=== PATIENT | female | born 1950 | race Caucasian/White ===

== ENCOUNTER 2023-08-06 12:06 | Inpatient (IN) | payer OTHER, SELFPAY ==
[2023-08-06] VITALS (10 sets, daily range): BP systolic 94–147; BP diastolic 52–89
--- NOTE | 2023-08-06 09:44 | ED.GENMED ---
History of Present Illness
<Mark Rice DO - Last Filed: 08/06/23 10:22>
General
Chief Complaint: Bowel Problem
Time Seen by Provider: 08/06/23 09:17
<MELONIE Patiño - Last Filed: 08/06/23 11:25>
General
Source: patient, spouse and ambulance crew
Exam Limitations: none
Travel History
Have you had any contact with someone who has COVID-19?: Unable to Answer
Do you have any symptoms of coronavirus? Fever > 100 degrees, chills, cough, shortness of breath, sore throat, loss of taste or smell, muscle aches, or headache?: Unable to Answer
History of Present Illness
History of Present Illness:
Patient is a 73-year-old female brought to the ER by EMS. EMS reports that patient has had low-grade fever for the past several days along with diarrhea.
Patient is awake alert. She complains of feeling fatigued but has no other complaints. She denies any chest pain shortness of breath fever chills. Omid reports the patient is prone to UTIs
<MELONIE Patiño - Last Filed: 08/06/23 11:25>
Past History
ED Past Medical History: HTN, Hypercholesterolemia, NIDDM, Hypothyroidism and Other (Diverticulitis)
ED Past Surgical History: Other
Social History
Tobacco: Non-smoker
Alcohol: None
Personal:
Living: with family
Family History
Family History: Diabetes, Hypertension and CAD
<MELONIE Patiño - Last Filed: 08/06/23 11:25>
Review of Systems
Allergies reviewed?: Yes
Other source history: family
All Other Systems: ROS reviewed and negative except as documented in HPI and ROS
Constitutional: Reports fatigue; Denies fever
EENT: Reports no symptoms
Respiratory: Reports no symptoms
ABD/GI: Reports diarrhea; Denies abdominal pain, nausea or vomiting
: Reports no symptoms
Musculoskeletal: Reports no symptoms
Skin: Reports no symptoms
Neurological: Reports no symptoms
Psychiatric: Reports no symptoms
<Gladys Potter, NAIL MAKER - Last Filed: 08/06/23 11:25>
General Physical Exam
General Presentation: no apparent distress
General age: appears stated age
General Skin: warm
General Habitus: elderly
General Mental: alert
General Hydration: dry mucous membranes
ENT Exam
ENT Exam: EOMI
Cardiovascular Exam
Cardiovascular Exam: tachycardia
Pulmonary Exam
Pulmonary Exam: lungs clear and no respiratory distress
Neurological Exam
Neurological Exam: alert and oriented x3
Musculoskeletal Exam
Musculoskeletal Exam: full ROM
Skin Exam
Skin Exam: normal color and warm/dry
Psychiatric Exam
Psychiatric Exam: normal mood/affect
Course
<Mark Rice, DO - Last Filed: 08/06/23 10:22>
Orders/Labs/Results
Orders:
Orders
08/06/23 09:17
Cardiac Monitoring- Treatment ONCE
IV Insert/Care/Rem.- Treatment PRN
Straight cath- Treatment ONCE
08/06/23 09:18
Electrocardiogram (*1) Urgent
Reason for Study: Other
Other Reason for Exam: sepsis
EKG- Treatment ONCE
CR Chest - 2 Views Urgent
Comment:
Reason For Exam: fever
08/06/23 09:44
0.9% Sodium Chloride 1000 ml [Nss] 1,000 ml IV BOLUS
08/06/23 09:50
COVID-19 Antigen Urgent
Source: Nasal Swab
Complete Blood Count/With Diff Urgent
Comprehensive Metabolic Panel Urgent
Lactic Acid Q4H
Comment: CANCEL 2nd LACTIC ACID IF 1st LACTIC ACID IS LESS THAN 2
Urinalysis Reflex To Culture Urgent
Date Specimen was Collected: 08/06/23
Time Specimen was Collected: 09:46
Urine Microscopic Reflex Cult Urgent
Blood Culture Q30M
NANO Source: Blood/Venous
Specimen Description:
Influenza A+B Rapid Molecular Urgent
NANO Source: Nasal Swab
Specimen Description:
Urine Culture Urgent
NANO Source: U
Specimen Description:
Date Specimen was Collected: 08/06/23
Time Specimen was Collected: 09:46
08/06/23 10:09
Blood Culture Q30M
NANO Source: Blood/Venous
Specimen Description:
08/06/23 10:23
C DIFF [C difficile Antigen & Toxins] Urgent
NANO Source: Feces/Stool
Specimen Description:
CefTRIAXone [Rocephin] 1,000 mg IV NOW STA
08/06/23 10:24
Stool Culture Urgent
NANO Source: Feces/Stool
Specimen Description:
08/06/23 10:40
0.9% Sodium Chloride 500 ml [Nss] 500 ml IV BOLUS
08/06/23 11:16
Acetaminophen 1000MG/100Ml [Ofirmev] 1,000 mg in 100 ml .ROUTE .STK-MED
08/06/23 11:18
Acetaminophen 1000MG/100Ml [Ofirmev] 1,000 mg in 100 ml IV ONCE
Acetaminophen IV Indication:: ED Narcotic Naive Pt-ONCE
08/06/23 13:30
Lactic Acid Q4H
Comment: CANCEL 2nd LACTIC ACID IF 1st LACTIC ACID IS LESS THAN 2
Abnormal Lab Results
08/06/23
09:50
Hgb 10.7 L g/dL
(12.0-16.0)
Hct 30.8 L %
(37.0-47.0)
MCV 72.8 L fL
(81.0-99.0)
MCH 25.3 L pg
(27.0-31.0)
RDW 15.2 H %
(11.5-14.5)
MPV 11.1 H fL
(7.4-10.4)
Abs Immat Gran (auto) 0.1 H 10^3/uL
(0-0.05)
Absolute Neuts (auto) 6.9 H 10^3/uL
(1.4-6.5)
Absolute Lymphs (auto) 1.0 L 10^3/uL
(1.2-3.4)
Absolute Monos (auto) 0.8 H 10^3/uL
(0.1-0.6)
Immature Gran % 0.9 H %
(0-0.5)
Neutrophils % 78.3 H %
(42.2-75.2)
Lymphocytes % 11.6 L %
(20.5-51.1)
Sodium 126 L mmol/L
(135-145)
Carbon Dioxide 15 L mmol/L
(22-30)
Glucose 300 H mg/dl
(70-99)
Lactic Acid 4.0 H* mmol/L
(0.7-2.0)
Albumin 3.3 L g/dl
(3.5-5.0)
Urine Ketones Trace A
(Negative)
Ur Occult Blood Reflex 3+ A
(Negative)
Urine Nitrite (Reflex) Positive A
(Negative)
Leukocyte Esterase Rfl 2+ A
(Negative)
Urine RBC 70-80 A /HPF
(0-2)
Urine WBC (Reflex) >100 A /HPF
(0-5)
Urine Bacteria (Reflex) Many A
(Negative)
Urine Glucose 1+ A
(Negative)
Urine Albumin (Reflex) 2+ A
(Neg - Trace)
08/06/23 09:50
08/06/23 09:50
Vital Signs
Initial and Last Documented VS:
Initial Vital Signs
Temp Pulse Resp BP Pulse Ox
98.3 F 107 18 121/75 96
08/06/23 09:30 08/06/23 09:30 08/06/23 09:30 08/06/23 09:30 08/06/23 09:30
Last Documented Vital Signs
Temp Pulse Resp BP Pulse Ox
98.1 F 106 20 120/52 96
08/06/23 10:46 08/06/23 10:45 08/06/23 10:45 08/06/23 10:51 08/06/23 10:45
<MELONIE Patiño - Last Filed: 08/06/23 11:25>
Orders/Labs/Results
Orders:
Orders
08/06/23 09:17
Cardiac Monitoring- Treatment ONCE
IV Insert/Care/Rem.- Treatment PRN
Straight cath- Treatment ONCE
08/06/23 09:18
Electrocardiogram (*1) Urgent
Reason for Study: Other
Other Reason for Exam: sepsis
EKG- Treatment ONCE
CR Chest - 2 Views Urgent
Comment:
Reason For Exam: fever
08/06/23 09:44
0.9% Sodium Chloride 1000 ml [Nss] 1,000 ml IV BOLUS
08/06/23 09:50
COVID-19 Antigen Urgent
Source: Nasal Swab
Complete Blood Count/With Diff Urgent
Comprehensive Metabolic Panel Urgent
Lactic Acid Q4H
Comment: CANCEL 2nd LACTIC ACID IF 1st LACTIC ACID IS LESS THAN 2
Urinalysis Reflex To Culture Urgent
Date Specimen was Collected: 08/06/23
Time Specimen was Collected: 09:46
Urine Microscopic Reflex Cult Urgent
Blood Culture Q30M
NANO Source: Blood/Venous
Specimen Description:
Influenza A+B Rapid Molecular Urgent
NANO Source: Nasal Swab
Specimen Description:
Urine Culture Urgent
NANO Source: U
Specimen Description:
Date Specimen was Collected: 08/06/23
Time Specimen was Collected: 09:46
08/06/23 10:09
Blood Culture Q30M
NANO Source: Blood/Venous
Specimen Description:
08/06/23 10:23
C DIFF [C difficile Antigen & Toxins] Urgent
NANO Source: Feces/Stool
Specimen Description:
CefTRIAXone [Rocephin] 1,000 mg IV NOW STA
08/06/23 10:24
Stool Culture Urgent
NANO Source: Feces/Stool
Specimen Description:
08/06/23 10:40
0.9% Sodium Chloride 500 ml [Nss] 500 ml IV BOLUS
08/06/23 11:16
Acetaminophen 1000MG/100Ml [Ofirmev] 1,000 mg in 100 ml .ROUTE .STK-MED
08/06/23 11:18
Acetaminophen 1000MG/100Ml [Ofirmev] 1,000 mg in 100 ml IV ONCE
Acetaminophen IV Indication:: ED Narcotic Naive Pt-ONCE
08/06/23 13:30
Lactic Acid Q4H
Comment: CANCEL 2nd LACTIC ACID IF 1st LACTIC ACID IS LESS THAN 2
Abnormal Lab Results
08/06/23
09:50
Hgb 10.7 L g/dL
(12.0-16.0)
Hct 30.8 L %
(37.0-47.0)
MCV 72.8 L fL
(81.0-99.0)
MCH 25.3 L pg
(27.0-31.0)
RDW 15.2 H %
(11.5-14.5)
MPV 11.1 H fL
(7.4-10.4)
Abs Immat Gran (auto) 0.1 H 10^3/uL
(0-0.05)
Absolute Neuts (auto) 6.9 H 10^3/uL
(1.4-6.5)
Absolute Lymphs (auto) 1.0 L 10^3/uL
(1.2-3.4)
Absolute Monos (auto) 0.8 H 10^3/uL
(0.1-0.6)
Immature Gran % 0.9 H %
(0-0.5)
Neutrophils % 78.3 H %
(42.2-75.2)
Lymphocytes % 11.6 L %
(20.5-51.1)
Sodium 126 L mmol/L
(135-145)
Carbon Dioxide 15 L mmol/L
(22-30)
Glucose 300 H mg/dl
(70-99)
Lactic Acid 4.0 H* mmol/L
(0.7-2.0)
Albumin 3.3 L g/dl
(3.5-5.0)
Urine Ketones Trace A
(Negative)
Ur Occult Blood Reflex 3+ A
(Negative)
Urine Nitrite (Reflex) Positive A
(Negative)
Leukocyte Esterase Rfl 2+ A
(Negative)
Urine RBC 70-80 A /HPF
(0-2)
Urine WBC (Reflex) >100 A /HPF
(0-5)
Urine Bacteria (Reflex) Many A
(Negative)
Urine Glucose 1+ A
(Negative)
Urine Albumin (Reflex) 2+ A
(Neg - Trace)
08/06/23 09:50
08/06/23 09:50
Vital Signs
Initial and Last Documented VS:
Initial Vital Signs
Temp Pulse Resp BP Pulse Ox
98.3 F 107 18 121/75 96
08/06/23 09:30 08/06/23 09:30 08/06/23 09:30 08/06/23 09:30 08/06/23 09:30
Last Documented Vital Signs
Temp Pulse Resp BP Pulse Ox
98.1 F 106 20 120/52 96
08/06/23 10:46 08/06/23 10:45 08/06/23 10:45 08/06/23 10:51 08/06/23 10:45
Boiler Fireman consulted with Physician
Boiler Fireman consulted with physician?: Yes
Name of Physician Consulted: Dwayne
<MELONIE Patiño - Last Filed: 08/06/23 11:25>
MDM/Problems Addressed
Differential Diagnosis Includes:
Not limited to COVID influenza viral syndrome UTI [place] abnormality
MDM/Problems Addressed:
Patient is a 73-year-old female presents from home with complaints of low-grade fevers diarrhea weakness. Patient presents to the ER awake alert she appears very dehydrated on exam. She was incontinent of foul-smelling urine on arrival. Patient
arrives afebrile mildly tachycardic with stable blood pressure. Straight cath urine does show obvious UTI. Patient with a normal white count of 8.9 however elevated lactic acid of 4.0, also likely component of dehydration. Patient sodium is low
at 126.
Lungs are clear no history of CHF not hypoxic given mildly tachycardic and blood pressure on the lower side patient was given septic fluids. IV antibiotics ordered. Patient is negative for COVID flu. Nurse reports that patient was incontinent
brown stool heme-negative. In addition patient has elevated blood sugar of 300. She is a known diabetic.
Patient will require admission for UTI weakness dehydration hyponatremia, hyperglycemia
Chronic conditions affecting care:
Frequent UTI hypertension hyperlipidemia diabetes
<MELONIE Patiño - Last Filed: 08/06/23 11:25>
*Critical Care Note
Total Time (30-74mins, 75-104mins- exclusive of procedures): Not Applicable
ED Attending Note
<Mark Rice DO - Last Filed: 08/06/23 10:22>
ED Attending Note
Patient seen and examined by attending physician: Yes
I performed the substantive portion of visit, reviewed & personally made and approve the management plan that is documented in note by myself or VIRIDIANA.: Yes
ED Attending Note:
I have seen and evaluated the patient with a [id number] encounter. I have spoken to the advance practicer provider and involved in the medical history, the physical exam, medical decision making.
Evaluation and management service: agree unless noted differently below.
Results interpretation: agree unless noted differently below.
Focused HPI: 73-year-old female presenting with diarrhea and decreased p.o. intake. Patient has been developing low-grade fevers.
Physical exam: On arrival, patient weak and fatigued. She is clinically dehydrated. Patient has malodorous smell consistent with suspected UTI
Medical Decision Making: Urine consistent with UTI. Prior records show history of UTI secondary to Klebsiella which has brought sensitivity. Will continue IV fluids and start IV antibiotics and admit for weakness, fatigue, dehydration and UTI
<MELONIE Patiño - Last Filed: 08/06/23 11:25>
-
Portions of this chart may have been created with voice recognition software.� Occasional wrong word or��sound alike� substitutions may have occurred due to the inherent limitations of voice recognition software.
Discharge Plan
Departure
Patient Disposition: Admit
Date of Disposition: 08/06/23
Time of Disposition: 10:44
Admit to: Med/Surg
Admit to doctor: hosptalist
Presentation/result/management discussed w/ accepting MD/DO: Hospitalist
Patient with high blood pressure during this ER visit?: No
Condition: Fair
Covid-19: Negative COVID-19
Discharge Problem:
Acute UTI, Acute dehydration, Diarrhea, Acute hyperglycemia
Prescriptions:
No Action
folic acid 1 MG tablet
1 mg PO DAILY
loratadine 10 MG tablet
10 mg PO DAILY PRN (Reason: allergies)
acetaminophen [Tylenol] 325 mg Tablet
650 mg PO TIDPRN PRN (Reason: mild pain)
atorvastatin 10 mg Tablet
10 mg PO HS
aspirin 81 mg Tablet,Delayed Release (Dr/Ec)
81 mg PO HS
amlodipine-benazepril 5-20 mg Capsule
1 cap PO DAILY
metformin 1,000 mg Tablet
1,000 mg PO BID@0800,1700
bismuth subsalicylate [Pepto-Bismol] 262 mg/15 mL Suspension
524 mg PO BIDPRN PRN (Reason: diarrhea)
iron 159 mg (45 mg iron) Tablet Extended Release
159 mg PO BID
cholecalciferol (vitamin D3) 100 mcg (4,000 unit) Tablet
100 mcg PO BID
levothyroxine 112 MCG tablet
112 mcg PO DAILY
Referrals:
Qamar Hanks MD [Family Provider] -
Interventions
Interventions:
*Risk Screen - Suicide Last Done: 08/06/23 09:57
*General Assessment Last Done: 08/06/23 10:17
*Neglect/Abuse Screening Last Done: 08/06/23 09:57
ED- Fall Risk Assessment Last Done: 08/06/23 10:10
*ED COVID-19 Vaccine History Last Done: 08/06/23 09:31
JD-Iuptzv-Trvfynsugf Assessment Last Done: 08/06/23 09:56
ED- Cardiac Assessment Last Done: 08/06/23 09:55
ED- Neurological Assessment Last Done: 08/06/23 09:55
ED- Pulmonary Assessment Last Done: 08/06/23 09:55
[2023-08-06 10:03] LABS: % Basophils 0.5 % (0-2); % Eosinophils 0.2 % (0-6); % Immature Granulocytes 0.9 % (0-0.5); % Lymphocytes 11.6 % (20.5-51.1); % Monocytes 8.5 % (1.7-9.3); % Neutrophils 78.3 % (42.2-75.2); Absolute Immature Granulocytes 0.1 10^3/uL (0-0.05); Absolute Monocytes 0.8 10^3/uL (0.1-0.6); Absolute Neutrophils 6.9 10^3/uL (1.4-6.5); Hematocrit 30.8 % (37.0-47.0); Hemoglobin 10.7 g/dL (12.0-16.0); Mean Corp Hgb Conc. 34.7 g/dL (33.0-37.0); Mean Corpuscular Hgb 25.3 pg (27.0-31.0); Mean Corpuscular Volume 72.8 fL (81.0-99.0); Mean Platelet Volume 11.1 fL (7.4-10.4); Nucleated Red Blood Cells % 0 %; Platelet Count 238 10^3/uL (130-400); Red Blood Cell Count 4.23 10^6/uL (4.20-5.40); Red Cell Dist. Width 15.2 % (11.5-14.5); White Blood Cell Count 8.8 10^3/uL (4.8-10.8)
[2023-08-06] MEDS: NSS 1000 IV (10:05)
[2023-08-06 10:06] LABS: Urine Albumin 2+ (Neg - Trace); Urine Bilirubin Negative (Negative); Urine Character Very Cloudy (Clear); Urine Color Yellow; Urine Glucose 1+ (Negative); Urine Ketone Trace (Negative); Urine Leukocyte 2+ (Negative); Urine Nitrite Positive (Negative); Urine Occult Blood 3+ (Negative); Urine Urobilinogen Negative (Neg - 1+)
[2023-08-06 10:18] LABS: ALT (SGPT) 13 U/L (0-35); AST (SGOT) 18 U/L (14-36); Albumin 3.3 g/dl (3.5-5.0); Alkaline Phosphatase 86 U/L (38-126); Blood Urea Nitrogen 13 mg/dl (7-17); Calcium 8.6 mg/dl (8.4-10.2); Carbon Dioxide 15 mmol/L (22-30); Chloride 99 mmol/L (98-107); Glucose 300 mg/dl (70-99); Potassium 3.6 mmol/L (3.5-5.1); Sodium 126 mmol/L (135-145); Total Bilirubin 0.9 mg/dl (0.2-1.3); Total Protein 6.7 g/dl (6.3-8.2); Urine Squamous Cell 0-2 /LPF (Few); eGFR 59.12
[2023-08-06 10:20] LABS: Urine Amorphous Seen; Urine Bacteria Many (Negative); Urine Red Blood Cell 70-80 /HPF (0-2); Urine White Cell >100 /HPF (0-5)
[2023-08-06] MEDS: ROCEPHIN 1000 MG IV (10:34)
[2023-08-06 10:36] LABS: COVID-19 Antigen Negative (Negative)
[2023-08-06] MEDS: NSS 500 IV (10:45)
[2023-08-06] MEDS: OFIRMEV 100 IV ×2 (11:25→23:03)
--- NOTE | 2023-08-06 13:57 | HPS.HSE ---
Family Physician
-
Family Physician: Qamar Hanks
Chief Complaint
-
�low-grade fever for the past several days along with diarrhea
History of Present Illness
73-year-old female history of hypertension, hyperlipidemia, diabetes, morbid obesity hypothyroidism, history of diverticulitis in the past now presents for complaints of several days of diarrhea, low-grade fever. Also notes, admits to feeling
fatigued. Denies shortness of breath, chills, chest pain, urinary symptoms. Of note does report patient is prone to UTIs. Patient does have temperature 100.9 �F, respiratory rate 20, pulse 106, blood pressure 120/52, 98% on room air.
Sodium 126, glucose 300, lactate 4.0, UA positive. COVID-negative. X-ray grossly unremarkable for acute pathology.
Medical History
Past Medical History
Past Medical History: Reports Other (hypertension, hyperlipidemia, diabetes, morbid obesity hypothyroidism, history of diverticulitis)
Past Surgical History: Reports None
Social History
Tobacco: Non-smoker
Alcohol: None
Personal:
Living: With Family
Family History
Family History: Not pertinent
Allergies / Home Medications
Allergies reflects when Allergies were last updated in [email or web address].
Home Medications with original date entered in [email or web address]
Allergy/Medication List:
Allergies
Allergy/AdvReac Type Severity Reaction Status Date / Time
hydrochlorothiazide Allergy Mild Rash Verified 09/22/22 13:00
celecoxib [From Celebrex] Allergy Shortness Verified 09/22/22 13:00
of Breath
gold Au 198 Allergy Rash Verified 09/22/22 13:00
nickel Allergy Rash Verified 09/22/22 13:00
Sulfa (Sulfonamide Allergy breathing Verified 09/22/22 13:00
Antibiotics)
Home Medications
folic acid 1 mg tablet 1 mg PO DAILY Supplement 11/13/16
loratadine 10 mg tablet 10 mg PO DAILY PRN allergies 11/13/16
acetaminophen 325 mg tablet (Tylenol) 650 mg PO TIDPRN PRN mild pain 08/06/23
amlodipine 5 mg-benazepril 20 mg capsule 1 cap PO DAILY Blood Pressure 08/06/23
aspirin 81 mg tablet,delayed release 81 mg PO HS 08/06/23
atorvastatin 10 mg tablet 10 mg PO HS High Cholesterol 08/06/23
bismuth subsalicylate 262 mg/15 mL oral suspension (Pepto-Bismol) 524 mg PO BIDPRN PRN diarrhea 08/06/23
cholecalciferol (vitamin D3) 100 mcg (4,000 unit) tablet 100 mcg PO BID Supplement 08/06/23
ferrous sulfate, dried 159 mg (45 mg iron) tablet,extended release (iron ER) 159 mg PO BID Supplement 08/06/23
levothyroxine 112 mcg tablet 112 mcg PO DAILY Thyroid 08/06/23
metformin 1,000 mg tablet 1,000 mg PO BID@0800,1700 Diabetes 08/06/23
Review of Systems
-
History Source: Patient
A 12 point ROS was completed and negative except as noted: Yes
Physical Exam
Vital Signs
Vital Signs
Temp Pulse Resp BP Pulse Ox
100.9 F H 106 20 120/52 96
08/06/23 11:00 08/06/23 10:45 08/06/23 10:45 08/06/23 10:51 08/06/23 10:45
Physical Exam
General: Well Developed, Well Nourished and No Apparent Distress
HEENT: NormoCephalic
Respiratory: Clear
Cardiac: S1/S2
GI: Soft, Non Tender and Non Distended
Musculoskeletal: No Clubbing
Skin: Warm
Neuro: Awake, Alert, Oriented and AO x 3
Hematologic/Lymphatic: No Lymphadenopathy
Psych: Calm
Laboratory Results
-
08/06/23 09:50
08/06/23 09:50
Laboratory Results
Lactic Acid 4.0 mmol/L (0.7-2.0) H* 08/06/23 09:50
Total Bilirubin 0.9 mg/dl (0.2-1.3) 08/06/23 09:50
AST 18 U/L (14-36) 08/06/23 09:50
ALT 13 U/L (0-35) 08/06/23 09:50
Alkaline Phosphatase 86 U/L (38-126) 08/06/23 09:50
Data Reviewed
-
Diagnostic Radiology: Image Personally Visualized and interpreted and Report Reviewed by me
Lab Data: Labs Reviewed by me
Impression/Plan
-
IMPRESSION:
73-year-old female history of hypertension, hyperlipidemia, diabetes, morbid obesity hypothyroidism, history of diverticulitis in the past now presents for complaints of several days of diarrhea, low-grade fever. Admitted for sepsis, most likely
secondary to UTI.
PLAN:
#Sepsis
#Elevated lactate
#UTI
� UA positive
� Follow-up cultures including blood and urine
� Initiate ceftriaxone
� Ensure MAP greater than 65
� Hold antihypertensives at this time
� Continue IV fluids
#Diarrhea
� Follow-up C. difficile, stool cultures
� Continue Ceftriaxone
� Abdomen nontender
#Hyponatremia
� Most likely secondary to dehydration, hypovolemia
� Monitor with resuscitation, IV fluids
#Hypertension
� Hold antihypertensives
#Diabetes�hold metformin
Scale
#Hypothyroidism�continue Synthroid
#Morbid obesity
[2023-08-06 14:08] LABS: Lactic Acid 2.5 mmol/L (0.7-2.0)
[2023-08-06] MEDS: HEPARIN 5000 UNITS SC (16:42)
[2023-08-06] MEDS: LR 1000 IV (16:42)
[2023-08-06 16:45] LABS: Glucose - Point of Care 245 mg/dl (70-99)
[2023-08-06] MEDS: NOVOLOG FLEXPEN-LOW RESISTANCE 2 UNITS SC (17:09)
[2023-08-06 18:04] LABS: TSH Reflex To Free T4 8.85 uIU/ml (0.47-4.68)
[2023-08-06 18:33] LABS: Free T4 1.55 ng/dl (0.78-2.19)
[2023-08-06] MEDS: FEOSOL PO (19:28)
[2023-08-06] MEDS: LIPITOR PO (19:29)
[2023-08-06] MEDS: ASPIR LOW (ENTERIC COATED) PO (19:29)
[2023-08-06] MEDS: DESENEX/MITRAZOL/ZEASORB 1 APPLIC TOPICAL (20:37)
[2023-08-06 21:37] LABS: Lactic Acid 1.6 mmol/L (0.7-2.0)
[2023-08-07] VITALS (7 sets, daily range): BP systolic 112–161; BP diastolic 53–84; PULSE 99
[2023-08-07 00:17] LABS: Glucose - Point of Care 289 mg/dl (70-99)
[2023-08-07] MEDS: HEPARIN 5000 UNITS SC ×4 (01:05→23:30)
[2023-08-07 04:55] LABS: Hemoglobin 9.4 g/dL (12.0-16.0); Mean Corp Hgb Conc. 33.6 g/dL (33.0-37.0); Mean Corpuscular Hgb 24.9 pg (27.0-31.0); Mean Corpuscular Volume 74.1 fL (81.0-99.0); Mean Platelet Volume 11.4 fL (7.4-10.4); Platelet Count 251 10^3/uL (130-400); Red Blood Cell Count 3.78 10^6/uL (4.20-5.40); White Blood Cell Count 9.3 10^3/uL (4.8-10.8)
[2023-08-07] MEDS: LR 1000 IV ×3 (05:14→21:34)
[2023-08-07 05:15] LABS: ALT (SGPT) 10 U/L (0-35); AST (SGOT) 15 U/L (14-36); Albumin 2.6 g/dl (3.5-5.0); Alkaline Phosphatase 81 U/L (38-126); Blood Urea Nitrogen 15 mg/dl (7-17); Calcium 8.3 mg/dl (8.4-10.2); Carbon Dioxide 16 mmol/L (22-30); Chloride 100 mmol/L (98-107); Estimated Creatinine Clearance 55 ml/min; Glucose 269 mg/dl (70-99); Magnesium 1.2 mg/dl (1.6-2.3); Potassium 3.1 mmol/L (3.5-5.1); Sodium 129 mmol/L (135-145); Total Bilirubin 0.7 mg/dl (0.2-1.3); Total Protein 5.5 g/dl (6.3-8.2); eGFR 52.73
[2023-08-07] MEDS: SYNTHROID PO (05:15)
[2023-08-07 07:37] LABS: Glucose - Point of Care 265 mg/dl (70-99)
[2023-08-07] MEDS: FOLVITE PO (08:20)
[2023-08-07] MEDS: FEOSOL PO (08:20)
[2023-08-07] MEDS: MAGNESIUM SULFATE 100 IV (08:44)
[2023-08-07] MEDS: NOVOLOG FLEXPEN-LOW RESISTANCE 3 UNITS SC ×2 (08:48→11:34)
[2023-08-07] MEDS: DESENEX/MITRAZOL/ZEASORB 1 APPLIC TOPICAL ×2 (08:51→20:26)
[2023-08-07] MEDS: KCL 270 MEQ IV (09:00)
--- NOTE | 2023-08-07 09:13 | PTOTSP ---
Dysphagia Evaluation
Patient presents with signs concerning for mild oral stage differences and reports a history concerning for a possible unspecified pharyngeal dysphagia. She denied any prior history of aspiration complications and chest x-ray this admission with no
acute pulmonary process.
With clinical bedside swallowing evaluation, no immediate s/s of aspiration observed with thin liquids, puree, or solids. However, patient had prolonged chewing, decreased bolus cohesion, and decreased oral clearance with solids. Suspect acute
illness impacting at this time.
Recommend:
1. IDDSI Level 5 (Minced and Moist), IDDSI Level 0 (Thin Liquids)
2. Medications - crushed in puree if medically cleared to do so
3. Oral care 3-5x daily
4. Supervision and assistance as needed with PO intake
5. Strategies: small single sips/bites, slow rate, liquid wash as needed for oral clearance
6. Dysphagia tx follow up to determine if/when patient appropriate to advance diet towards baseline (regular, thin).
[2023-08-07] MEDS: FLUSH (NSS) 1 FLUSH IV ×2 (11:00)
[2023-08-07] MEDS: ROCEPHIN 1000 MG IV (11:05)
[2023-08-07] MEDS: STERILE WATER FOR INJECTION 10 ML IV (11:05)
[2023-08-07 11:26] LABS: Glucose - Point of Care 271 mg/dl (70-99)
--- NOTE | 2023-08-07 11:38 | CM ---
Reviewed the chart notes and spoke with the patient at the bedside. The patient resides with her spouse in a first floor apartment with no steps to enter. The patient has a rolling walker, electric scooter, shower chair, and shower rails. The
patient has had [facility] in the past. The patient reports a short stay in a [facility] called [facility]. The patient confirmed her pharmacy of choice is the [facility] [address] [facility]. continues to be available to
patient/family and is monitoring medical plan for needs at discharge.
Plan: Discharge plans will depend on the patient's progress.
--- NOTE | 2023-08-07 13:07 | W.PN.HOSP.TC ---
Today's Communication/Plan
-
cont ivf, abx
f/u cultures
Electrolyte repletion
Assessment / Plan
Assessment / Plan
Physical Exam
General: Well Developed, Well Nourished and No Apparent Distress
HEENT: NormoCephalic
Respiratory: Clear
Cardiac: S1/S2
GI: Soft, Non Tender and Non Distended
Musculoskeletal: No Clubbing
Skin: Warm
Neuro: Awake, Alert, Oriented and AO x 3
Hematologic/Lymphatic: No Lymphadenopathy
Psych: Calm
IMPRESSION:
73-year-old female history of hypertension, hyperlipidemia, diabetes, morbid obesity hypothyroidism, history of diverticulitis in the past now presents for complaints of several days of diarrhea, low-grade fever.� Admitted for sepsis, most likely
secondary to UTI.
PLAN:
#Sepsis
#Elevated lactate
#UTI
� UA positive
� Follow-up cultures including blood and urine
� Cont ceftriaxone
� Ensure MAP greater than 65
-Cont IVF
� Lactate improve
#Diarrhea
� C. difficile, stool cultures - negative
� resolved
-abd non tender
#Hyponatremia
� Most likely secondary to dehydration, hypovolemia
� Monitor with resuscitation, IV fluids
-improving
#Hypokalemia, acute
#Hypomagnesemia, acute
� Monitor and replete
#Hypertension
� Continue can resume amlodipine
#Diabetes�hold metformin
Scale
#Hypothyroidism�continue Synthroid
#Morbid obesity
More than 30 minutes spent in discharge including
Final examination of the patient
Summarizing hospital stay
Instructions for continuing care to all relevant caregivers
Preparation of discharge records, prescriptions, and referral forms
Total time spent (35 in minutes):
Anticipated Discharge: 24 - 48 hours
Subjective/Interval History
-
Date of Service: August 07, 2023
Patient feels much better today
Objective Data
-
Labs:
Laboratory Results
08/07/23
04:24
WBC 9.3
Hgb 9.4 L
Hct 28.0 L
Plt Count 251
Sodium 129 L
Potassium 3.1 L
Chloride 100
Carbon Dioxide 16 L
BUN 15
Creatinine 1.1 H
Glucose 269 H
Calcium 8.3 L
Total Bilirubin 0.7
AST 15
ALT 10
Alkaline Phosphatase 81
Vital Signs:
Vital Signs
Temp Pulse Resp BP Pulse Ox
100.2 F 118 20 161/84 94
08/07/23 11:21 08/07/23 11:21 08/07/23 11:21 08/07/23 11:21 08/07/23 11:21
I&O
08/06/23 08/07/23 08/08/23
06:59 06:59 06:59
Intake Total 1060 / 1060
Balance 1060 / 1060
Review of Systems
-
History Source: Patient
All other systems: Not reviewed unless documented
Data Reviewed
-
Diagnostic Radiology: Image personally visualized and interpreted and Report Reviewed by me
Labs: Labs Reviewed by me
[2023-08-07] MEDS: NORVASC 5 MG PO (13:38)
[2023-08-07] MEDS: TYLENOL 650 MG PO ×2 (13:47→20:27)
[2023-08-07 16:43] LABS: Glucose - Point of Care 270 mg/dl (70-99)
[2023-08-07] MEDS: NOVOLOG FLEXPEN-LOW RESISTANCE 300 UNITS SC (17:50)
[2023-08-07] MEDS: FEOSOL 325 MG PO (20:26)
[2023-08-07] MEDS: VITAMIN D3 (cholecalciferol) 100 MCG PO (20:26)
[2023-08-07 21:30] LABS: Glucose - Point of Care 239 mg/dl (70-99)
[2023-08-07] MEDS: ASPIR LOW (ENTERIC COATED) PO ×2 (23:30→23:36)
[2023-08-07] MEDS: LIPITOR 10 MG PO (23:30)
[2023-08-08] VITALS (10 sets, daily range): BP systolic 115–160; BP diastolic 57–85; PULSE 2–100; O2SAT 93
[2023-08-08] MEDS: TYLENOL 650 MG PO ×3 (01:36→22:39)
--- NOTE | 2023-08-08 02:41 | PTCARENOTE ---
At approximately 2230, Patient's POX noted to be 83-88 on 3L NC. Patient mildly tachypneic with respiratory rate 24-28. Patient offering no complaints at that time. Patient's O2 turned up to 6L NC - Patient's POX approximately 86-92 on 6L NC.
Patient placed on 15L NRB and 6L NC - POX approximately 93-96 on 15L NRB and 6L NC. PARTICIPANT ADMINISTRATOR notified. Respiratory notified. Portable CXR ordered and taken. PRN breathing treatments ordered. CPAP HS PRN ordered. Patient able to be taken of 15L NRB - POX
approximately 94% on 6L NC. Respiratory to room to place patient on CPAP - placed on CPAP @ 8 w/ 6L. Patient tolerated well for approximately 4 hours. Patient currently on 6L NC w/ POX 94-97%.
[2023-08-08] MEDS: SYNTHROID 112 MCG PO (06:30)
[2023-08-08] MEDS: LR 1000 IV ×2 (06:32→17:35)
[2023-08-08 07:59] LABS: Hematocrit 28.3 % (37.0-47.0); Hemoglobin 9.5 g/dL (12.0-16.0); Mean Corp Hgb Conc. 33.6 g/dL (33.0-37.0); Mean Corpuscular Hgb 25.3 pg (27.0-31.0); Mean Corpuscular Volume 75.5 fL (81.0-99.0); Mean Platelet Volume 11.1 fL (7.4-10.4); Platelet Count 229 10^3/uL (130-400); Red Blood Cell Count 3.75 10^6/uL (4.20-5.40); Red Cell Dist. Width 15.2 % (11.5-14.5); White Blood Cell Count 5.6 10^3/uL (4.8-10.8)
[2023-08-08 08:12] LABS: ALT (SGPT) 13 U/L (0-35); AST (SGOT) 21 U/L (14-36); Albumin 2.9 g/dl (3.5-5.0); Alkaline Phosphatase 92 U/L (38-126); Blood Urea Nitrogen 12 mg/dl (7-17); Carbon Dioxide 20 mmol/L (22-30); Chloride 100 mmol/L (98-107); Estimated Creatinine Clearance 60 ml/min; Glucose 238 mg/dl (70-99); Magnesium 1.9 mg/dl (1.6-2.3); Potassium 3.1 mmol/L (3.5-5.1); Sodium 128 mmol/L (135-145); Total Bilirubin 0.6 mg/dl (0.2-1.3); Total Protein 5.9 g/dl (6.3-8.2); eGFR 59.12
[2023-08-08] MEDS: STERILE WATER FOR INJECTION 10 ML IV (09:38)
[2023-08-08] MEDS: ROCEPHIN 1000 MG IV (09:38)
[2023-08-08] MEDS: HEPARIN 5000 UNITS SC ×3 (09:38→22:39)
[2023-08-08] MEDS: NORVASC 5 MG PO (09:41)
[2023-08-08] MEDS: FEOSOL 325 MG PO ×2 (09:41→20:59)
[2023-08-08] MEDS: VITAMIN D3 (cholecalciferol) 100 MCG PO ×2 (09:41→20:59)
[2023-08-08] MEDS: FOLVITE 1 MG PO (09:41)
[2023-08-08] MEDS: NOVOLOG FLEXPEN-LOW RESISTANCE 2 UNITS SC ×2 (10:28→17:32)
[2023-08-08 10:29] LABS: Glucose - Point of Care 239 mg/dl (70-99)
[2023-08-08] MEDS: FLUSH (NSS) 1 FLUSH IV ×2 (10:30→11:39)
[2023-08-08] MEDS: DESENEX/MITRAZOL/ZEASORB 1 APPLIC TOPICAL ×2 (10:32→21:00)
[2023-08-08] MEDS: NOVOLOG FLEXPEN-LOW RESISTANCE SC (11:53)
--- NOTE | 2023-08-08 12:09 | W.PN.HOSP.TC ---
Today's Communication/Plan
-
f/u urine cultures
ensure no fever x 48 hours
monitor Na with resuscitation
Assessment / Plan
Assessment / Plan
Physical Exam
General: Well Developed, Well Nourished and No Apparent Distress
HEENT: NormoCephalic
Respiratory: Clear
Cardiac: S1/S2
GI: Soft, Non Tender and Non Distended
Musculoskeletal: No Clubbing
Skin: Warm
Neuro: Awake, Alert, Oriented and AO x 3
Hematologic/Lymphatic: No Lymphadenopathy
Psych: Calm
IMPRESSION:
73-year-old female history of hypertension, hyperlipidemia, diabetes, morbid obesity hypothyroidism, history of diverticulitis in the past now presents for complaints of several days of diarrhea, low-grade fever.� Admitted for sepsis, most likely
secondary to UTI.
PLAN:
#Sepsis
#Elevated lactate
#UTI
� UA positive; follow-up cultures
� Blood cultures no growth to date
� Cont ceftriaxone
� Ensure MAP greater than 65
-Cont IVF
� Lactate improved
�Lower extremity Dopplers negative
#Hypoxia
� Doubt this is pneumonia; atelectasis seen on x-ray
� I suspect this is due to underlying JACK versus OHS
� Nocturnal O2 assessment placed�wean O2
-Incentive spirometer
�Speech evaluation is continuing
#Diarrhea
� C. difficile, stool cultures - negative
� resolved
-abd non tender
#Hyponatremia
� Most likely secondary to dehydration, hypovolemia
� Monitor with resuscitation, IV fluids
-improving, ctm
#Hypokalemia, acute
#Hypomagnesemia, acute
� Monitor and replete
#Hypertension
� Continue can resume amlodipine
#Diabetes�hold metformin
-AISS
Scale
#Hypothyroidism�continue Synthroid
#Morbid obesity
Anticipated Discharge: 24 - 48 hours
Subjective/Interval History
-
Date of Service: August 08, 2023
Spiking pressure 100.9 yesterday evening, became mildly hypoxic�atelectasis on x-ray. No DVT; feels well today
Objective Data
-
Labs:
Laboratory Results
08/08/23
07:39
WBC 5.6
Hgb 9.5 L
Hct 28.3 L
Plt Count 229
Sodium 128 L
Potassium 3.1 L
Chloride 100
Carbon Dioxide 20 L
BUN 12
Creatinine 1.0
Glucose 238 H
Calcium 8.0 L
Total Bilirubin 0.6
AST 21
ALT 13
Alkaline Phosphatase 92
Vital Signs:
Vital Signs
Temp Pulse Resp BP Pulse Ox
99.2 F 106 18 160/85 94
08/08/23 11:20 08/08/23 11:20 08/08/23 11:20 08/08/23 11:20 08/08/23 11:20
I&O
08/07/23 08/08/23 08/09/23
06:59 06:59 06:59
Intake Total 1060 / 1060 540 / 540
Balance 1060 / 1060 540 / 540
Review of Systems
-
History Source: Patient
All other systems: Not reviewed unless documented
Data Reviewed
-
Diagnostic Radiology: Image personally visualized and interpreted and Report Reviewed by me
Labs: Labs Reviewed by me
[2023-08-08] MEDS: KCL ELIXIR 40 MEQ PO (12:55)
[2023-08-08 16:29] LABS: Glucose - Point of Care 237 mg/dl (70-99)
--- NOTE | 2023-08-08 17:50 | W.PN.UPDATE ---
Update Note
Progress Note Update
I was called patient desaturated in the 70's and placed on 6 Lt oxygen and still desat to 70-80%. Patient currently feels short of breath but denies chest pain. She feels fatigue. She is alert. Noticed she was admitted with sepsis suspected due
to UTI and receiving IV fluids and IV antibiotics of IV ceftriaxone. I have been told that she had a transient episode of hypoxia and was treated with CPAP at some point. Her admission chest x-ray with left atelectasis. She has been appropriately
on heparin subcutaneously for DVT prophylaxis.
Physical exam:
General: Acutely ill
Respiratory: Tachypnea, increased work of breathing but surprisingly not in distress. Decreased breath sounds bilateral. Clear to Auscultation though; Negative Wheezes, Rales or Rhonchi
Cardiac: Regular Rhythm and S1/S2. JVD is not elevated.
GI: Soft, Nontender and Nondistended
Neuro: Awake, Alert and Oriented, no focal neuro-deficits.
A/P:
Acute hypoxic respiratory failure--> unclear etiology but needs to entertain PE or JACK/OHS; it does not appear to be an aspiration pneumonia or heart failure on exam but will follow-up after workup. Obtain stat chest x-ray, ABG, BNP, lactate,
D-dimer, CRP, repeat blood cultures, and usual labs. Stop IV fluids for now. Keep same antibiotics for now. Keep n.p.o. until respiratory status improved. I took off her oxygen and her pulse ox dropped to 70%. Started BiPAP 12/6 with 15 L of
oxygen and pulse ox around 97% at the moment. We can use AVAPS mode if not enough TV but current setting BiPAP working so will keep. Transfer to IMU for closer monitoring. Further recommendations based on current workup and clinical course.
Discussed code status with patient and at bedside and she wants to change to DNR/DNI. reluctantly agrees.
Addendum:
I saw the chest x-ray myself and no significant pathology, but pending radiology report. Blood gas shows significant hypoxemia and no hypercapnia. D-dimer elevated. Creatinine 0.8. WBC 5.9. Will order CTA of the chest stat. If unable to do CT
of the chest due to respiratory status might consider starting her on heparin drip.
[2023-08-08 17:53] LABS: HCO3 18.8 mmol/L (21-28); O2 Saturation % 88.7 % (94-98); PCO2 23 mmHg (32-35); pH 7.52 (7.35-7.45)
[2023-08-08 18:03] LABS: % Basophils 0.3 % (0-2); % Eosinophils 0.3 % (0-6); % Immature Granulocytes 1.2 % (0-0.5); % Lymphocytes 14.2 % (20.5-51.1); % Monocytes 6.1 % (1.7-9.3); % Neutrophils 77.9 % (42.2-75.2); Absolute Immature Granulocytes 0.1 10^3/uL (0-0.05); Absolute Lymphocytes 0.8 10^3/uL (1.2-3.4); Absolute Monocytes 0.4 10^3/uL (0.1-0.6); Absolute Neutrophils 4.6 10^3/uL (1.4-6.5); Hematocrit 27.2 % (37.0-47.0); Hemoglobin 9.2 g/dL (12.0-16.0); Mean Corp Hgb Conc. 33.8 g/dL (33.0-37.0); Mean Corpuscular Hgb 25.1 pg (27.0-31.0); Mean Corpuscular Volume 74.1 fL (81.0-99.0); Mean Platelet Volume 11.1 fL (7.4-10.4); Nucleated Red Blood Cells % 0 %; Platelet Count 242 10^3/uL (130-400); Red Blood Cell Count 3.67 10^6/uL (4.20-5.40); Red Cell Dist. Width 15.1 % (11.5-14.5); White Blood Cell Count 5.9 10^3/uL (4.8-10.8)
[2023-08-08 18:14] LABS: PO2 54 mmHg (83-108)
[2023-08-08 18:17] LABS: D-Dimer 1.87 ug/mlFEU (0.00-0.50)
[2023-08-08 18:18] LABS: Lactic Acid 1.1 mmol/L (0.7-2.0)
[2023-08-08 18:20] LABS: ALT (SGPT) 12 U/L (0-35); AST (SGOT) 24 U/L (14-36); Albumin 2.7 g/dl (3.5-5.0); Alkaline Phosphatase 92 U/L (38-126); Blood Urea Nitrogen 11 mg/dl (7-17); Calcium 7.8 mg/dl (8.4-10.2); Carbon Dioxide 18 mmol/L (22-30); Chloride 102 mmol/L (98-107); Estimated Creatinine Clearance 75 ml/min; Glucose 209 mg/dl (70-99); Sodium 124 mmol/L (135-145); Total Bilirubin 0.7 mg/dl (0.2-1.3); Total Protein 5.7 g/dl (6.3-8.2); eGFR > 60.00
[2023-08-08 18:28] LABS: NT-proBNP 5120 pg/ml
[2023-08-08 18:40] LABS: Procalcitonin 0.37 ng/ml (0.0-0.25)
[2023-08-08 18:42] LABS: Potassium 3.8 mmol/L (3.5-5.1)
--- NOTE | 2023-08-08 19:00 | PTCARENOTE ---
Orders obtained to transfer pt to IMU due to hypoxia and resp distress. Pt made a DNR. at bedside and informed of process. Bipap on for maintaining o2 sats. Theresa in IMU given update and report. Pt taen to CT for scan to r/o PE. Will
cont to be available for followup questions.
--- NOTE | 2023-08-08 20:00 | PTCARENOTE ---
PT arrived to floor via transfer from [address] [place] [address]. Pt AAOX3, slightly forgetful and MENOMINEE. Slow speech. PT agitated and yells when being turned or repositioned in bed. pt reports entire body hurts. HR int hte 80's in NSR on the monitor. POX 100% on
Current Bipap settings 06/10 with 15 LO2. Lugns dec t/o. Pt inc of bowel and bladder, Leonie care provided. Stage 2 Sacral wound noted, new Dressing applied, see wound care documentation. + bowel, round obese abd. pt reports stomach feels sick when
turning side to side. + 1 B/L LE edema noted. Palpable peripheral pulses present. Right arm, right wrist, left hand ints capped at this time. HOB elevated. at bedside updated on pts condition. Will continue to monitor.
[2023-08-08] MEDS: LIPITOR 10 MG PO (21:01)
[2023-08-08] MEDS: ASPIR LOW (ENTERIC COATED) 81 MG PO (21:01)
[2023-08-08 22:15] LABS: Glucose - Point of Care 165 mg/dl (70-99)
[2023-08-08] MEDS: MYLICON 80 MG PO (22:39)
--- NOTE | 2023-08-08 23:47 | PTCARENOTE ---
Pt tool off BIPAP mask, pt states its uncomfortable. 4 LO2 NC applied, POX remains 96-99%. Pt denies any resp complaints at this time. Pt given Tylenol for pain and Simethicone per request. Pt inc of bowel and bladder, pina care once again provided.
PT yelling at staff during repositioning. Pt now sitting up in bed watching news. Will continue to monitor.
[2023-08-09] VITALS (9 sets, daily range): BP systolic 88–130; BP diastolic 52–91; PULSE 2–99
[2023-08-09] MEDS: SYNTHROID 112 MCG PO (05:29)
[2023-08-09 05:40] LABS: Hematocrit 26.5 % (37.0-47.0); Mean Corpuscular Hgb 25.1 pg (27.0-31.0); Mean Corpuscular Volume 73.8 fL (81.0-99.0); Platelet Count 193 10^3/uL (130-400); Red Blood Cell Count 3.59 10^6/uL (4.20-5.40); White Blood Cell Count 5.8 10^3/uL (4.8-10.8)
[2023-08-09 06:06] LABS: Blood Urea Nitrogen 12 mg/dl (7-17); Carbon Dioxide 18 mmol/L (22-30); Chloride 101 mmol/L (98-107); Estimated Creatinine Clearance 75 ml/min; Glucose 181 mg/dl (70-99); Potassium 3.2 mmol/L (3.5-5.1); Sodium 129 mmol/L (135-145); eGFR > 60.00
--- NOTE | 2023-08-09 06:26 | PTCARENOTE ---
POX remained 89-100% overnight. Oxygen tapered down to 3 LO2 NC. POX remains 98%. Pt denies any complaints. Vital signs stable. Will continue to monitor.
[2023-08-09] MEDS: NORVASC 5 MG PO (08:51)
[2023-08-09] MEDS: VITAMIN D3 (cholecalciferol) 100 MCG PO ×2 (08:52→21:10)
[2023-08-09] MEDS: FOLVITE 1 MG PO (08:52)
[2023-08-09] MEDS: FEOSOL 325 MG PO ×2 (08:52→21:10)
[2023-08-09] MEDS: HEPARIN 5000 UNITS SC ×3 (08:52→23:49)
[2023-08-09] MEDS: DESENEX/MITRAZOL/ZEASORB 1 APPLIC TOPICAL ×2 (08:53→21:10)
[2023-08-09 09:07] LABS: Glucose - Point of Care 187 mg/dl (70-99)
[2023-08-09] MEDS: NOVOLOG FLEXPEN-LOW RESISTANCE 1 UNITS SC ×3 (09:17→17:04)
[2023-08-09] MEDS: ROCEPHIN 1000 MG IV (10:20)
[2023-08-09] MEDS: FLUSH (NSS) 1 FLUSH IV ×2 (10:20→10:25)
[2023-08-09] MEDS: STERILE WATER FOR INJECTION 10 ML IV (10:20)
[2023-08-09 12:33] LABS: Glucose - Point of Care 196 mg/dl (70-99)
--- NOTE | 2023-08-09 12:59 | CON.PUL ---
Consultation
Consultation Request
Date/Time Consultation Requested: 08-09-23
Date/Time Consultation Performed: 08-09-23
Requesting Provider: Hospitalist
Performing Provider: Dr Hood
Reason for Consultation: dyspnea
Medical History
-
Chief Complaint: dyspnea
History of Present Illness:
Mrs Kasia Diaz is a 73/W adm 08-06 with low grade fever and diarrhea for several d [employer]. Reported h/o UTIs, HTN, HLD, NIDDM, hypothyroidism, diverticulitis.
At ER, dehydrated on exam, incontinent of foul-smelling urine, hyponatremia, straight cath urine suspicious for infection.
Adm, started on IVFs and atbs.
O2 desaturation on afternoon of 08-08 down to 70s, started on O2 6L, POx at 70-80%, chest CTA and NIRMALA doppler negative, started on BPAP which she could only tolerate for 3 hrs
Witnessed apnea at home as reported by
[facility], not on home O2 or BDs
Never has received PSG
Past Medical History
Past Medical History: Other (see A&P for PMH/PSH)
Social History
Tobacco: Non-smoker
Alcohol: None
Drug: None
Personal:
Living: With Family
Family History
Family History: CAD, Diabetes and Hypertension
Allergies / Home Medications
Allergies
Allergy/AdvReac Type Severity Reaction Status Date / Time
celecoxib [From Celebrex] Allergy Shortness Verified 09/22/22 13:00
of Breath
gold Au 198 Allergy Rash Verified 09/22/22 13:00
hydrochlorothiazide Allergy Rash Verified 08/06/23 17:08
nickel Allergy Rash Verified 09/22/22 13:00
Sulfa (Sulfonamide Allergy breathing Verified 09/22/22 13:00
Antibiotics)
Home Medications
Medication Instructions Recorded Confirmed Last Taken Type
folic acid 1 mg tablet 1 mg PO DAILY Supplement 0508/06/23 08/05/23 History
loratadine 10 mg tablet 10 mg PO DAILY PRN allergies 11/13/16 08/06/23 08/04/23 History
acetaminophen 325 mg tablet 650 mg PO TIDPRN PRN mild pain 08/06/23 08/06/23 08/04/23 History
(Tylenol)
amlodipine 5 mg-benazepril 20 mg 1 cap PO DAILY Blood Pressure 08/06/23 08/06/23 08/05/23 History
capsule
aspirin 81 mg tablet,delayed 81 mg PO HS Blood Clot 08/06/23 08/06/23 08/04/23 History
release Prevention/Tx
atorvastatin 10 mg tablet 10 mg PO HS High Cholesterol 08/06/23 08/06/23 08/04/23 History
bismuth subsalicylate 262 mg/15 mL 524 mg PO BIDPRN PRN diarrhea 08/06/23 08/06/23 Unknown History
oral suspension (Pepto-Bismol)
cholecalciferol (vitamin D3) 100 100 mcg PO BID Supplement 08/06/23 08/06/23 08/05/23 History
mcg (4,000 unit) tablet
ferrous sulfate, dried 159 mg (45 159 mg PO BID Supplement 08/06/23 08/06/23 08/05/23 History
mg iron) tablet,extended release
(iron ER)
levothyroxine 112 mcg tablet 112 mcg PO DAILY Thyroid 08/06/23 08/06/23 08/05/23 History
metformin 1,000 mg tablet 1,000 mg PO BID@0800,1700 Diabetes 08/06/23 08/06/23 08/04/23 History
Review of Systems
-
History Source: Patient
All other systems: Negative unless noted
Respiratory: Other (snoring)
Musculoskeletal: Edema
Vitals / Labs / Diagnostic Testing
Vital Signs
Temp Pulse Resp BP Pulse Ox
98.3 F 85 20 123/91 94
08/09/23 11:07 08/09/23 12:00 08/09/23 12:00 08/09/23 12:00 08/09/23 12:00
Lab Data
08/09/23 05:27
08/09/23 05:27
Laboratory Results
08/08/23
17:46
pH 7.52 H
pCO2 23 L
pO2 54 L*
HCO3 18.8 L
O2 Delivery Level
Microbiology
08/06/23 10:09 Blood/Venous Blood Culture - Preliminary
No Growth in 72 hours- Final report to follow
08/06/23 09:50 Blood/Venous Blood Culture - Preliminary
No Growth in 72 hours- Final report to follow
08/07/23 05:35 Feces/Stool Salmonella/Shigella Culture - Final
No Salmonella, Shigella, Aeromonas or Plesiomonas species
isolated.
08/07/23 05:35 Feces/Stool Campylobacter Culture - Final
No Campylobacter species isolated.
08/06/23 09:50 Urine Urine Culture - Final
Klebsiella pneumoniae
08/07/23 05:35 Feces/Stool C. difficile GDH Antigen & Toxins - Final
Negative for toxigenic C.difficile
08/06/23 09:50 Nasal Swab Influenza Types A & B (NILAY) - Final
Negative for Influenza A & B, NAAT
Negative results must be combined with clinical observations
and patient history.
Nucleic Acid Amplification test (NAAT)performed on the
Meeps platform.
Diagnostic Testing:
Physical Exam
-
HEENT: Normocephalic and Moist Mucous Membranes
Cardiovascular: Regular Rhythm, Murmur (n), Peripheral Edema (NIRMALA) and Calf Tenderness (n)
Respiratory: Clear and Non-Labored Respirations
GI: Soft, Non Distended and Non Tender
Neurology: Awake, AO x 3 and No Motor Deficits
Skin: Dry
General: Respiratory Distress (n)
Assessment
-
Assessment:
Mrs Kasia Diaz is a 73/W adm 08-06 with low grade fever and diarrhea for several d [employer]. Reported h/o UTIs, HTN, HLD, NIDDM, hypothyroidism, diverticulitis. At ER, dehydrated on exam, incontinent of foul-smelling urine, hyponatremia, straight
cath urine suspicious for infection. Adm, started on IVFs and atbs. O2 desaturation on afternoon of 08-08 down to 70s, started on O2 6L, POx at 70-80%, chest CTA and NIRMALA doppler negative, started on BPAP which she could only tolerate for 3 hrs
Impression:
Transient hypoxemia
Suspected JACK, witnessed apnea at home
Kleb pn UTI
Chronic NIRMALA edema
Conditions [employer] OFF[employer]ER:
HTN
HLD
NIDDM
Hypothyroidism
Diverticulitis
UTIs
Nonsmoker
DNR
Plan:
Resp rojas comfortable on RA at time of visit, POx 95%, conversant
Denies dyspnea, cough, CP
Maintaining patent airway
H/o witnessed apnea at home per report
No h/o PSG in past
[facility]
Not on home O2 or BDs
Transient hypoxemia event 08-08 investigated, negative chest CTA and NIRMALA doppler
Normal fT4, on TRT
On atb for UTI
Hemodyn stable
Chronic NIRMALA edema for which she tried and OTC water pill in past
No change in edema, negative doppler
IS recommended
Will see at [facility] upon d/c, information left in chart
Reconsult as needed
D/w and Mr Diaz at bedside
Diagnostic tests:
Chest CTA 08-08-23: no PE, no infiltrates
NIRMALA doppler 08-08-23: negative
[2023-08-09] MEDS: TYLENOL 650 MG PO (13:50)
--- NOTE | 2023-08-09 14:09 | W.PN.HOSP.TC ---
Today's Communication/Plan
-
nocturnal o2
Pulm on outpatient f/u - I requested Hood to hopefully see closer
Abx for UTI
Assessment / Plan
Assessment / Plan
Physical Exam
General: Well Developed, Well Nourished and No Apparent Distress
HEENT: NormoCephalic
Respiratory: Clear
Cardiac: S1/S2
GI: Soft, Non Tender and Non Distended
Musculoskeletal: No Clubbing
Skin: Warm
Neuro: Awake, Alert, Oriented and AO x 3
Hematologic/Lymphatic: No Lymphadenopathy
Psych: Calm
IMPRESSION:
73-year-old female history of hypertension, hyperlipidemia, diabetes, morbid obesity hypothyroidism, history of diverticulitis in the past now presents for complaints of several days of diarrhea, low-grade fever.� Admitted for sepsis, most likely
secondary to UTI.
PLAN:
#Sepsis
#Elevated lactate
#UTI, Klebsiella Pneumoniae
� Blood cultures no growth to date
� Cont ceftriaxone
� Ensure MAP greater than 65
-Cont IVF
� Lactate improved
�Lower extremity Dopplers negative
#Acute Hypoxic Respiratory Failure
-Severe hypoxia grade 2/3 requiring BiPAP. All imaging negative.
� Weaned off all supplemental O2 today, 95% on room air
� Nocturnal O2 assessment, suspect JACK/OHS although most likely had probable aspiration pneumonitis +/- D recruitment
� No evidence of pulmonary embolism, pathology on CT chest
� Nocturnal O2 assessment placed�wean O2
-Incentive spirometer
�Speech evaluation is continuing to follow
#Diarrhea
� C. difficile, stool cultures - negative
� resolved
-abd non tender
#Hyponatremia
� Most likely secondary to dehydration, hypovolemia
� Monitor with resuscitation, IV fluids
-improving, ctm
#Hypokalemia, acute
#Hypomagnesemia, acute
� Monitor and replete
#Hypertension
� Continue can resume amlodipine
#Diabetes�hold metformin
-AISS
Scale
#Hypothyroidism�continue Synthroid
#Morbid obesity
Total time spent on today's encounter was 55 minutes which included time spent in counseling the patient/family regarding diagnosis and treatment plan as listed above, goals of care, and symptom management. Case was discussed with nursing staff,
specialists, and care coordinators/case management. All labs and imaging personally reviewed by me. Remainder the time spent in detailed review of previous records, lab data, imaging, and other medical provider documentation.
Anticipated Discharge: Today
Subjective/Interval History
-
Date of Service: August 09, 2023
had severe hypoxia yesterday dropping to 70s on RA, with significant hypoxia noted on ABG. See event note. PAtient now on RA saturating 95% - all imaging negative.
Objective Data
-
Labs:
Laboratory Results
08/09/23
05:27
WBC 5.8
Hgb 9.0 L
Hct 26.5 L
Plt Count 193 D
Sodium 129 L
Potassium 3.2 L
Chloride 101
Carbon Dioxide 18 L
BUN 12
Creatinine 0.8
Glucose 181 H
Calcium 8.0 L
Vital Signs:
Vital Signs
Temp Pulse Resp BP Pulse Ox
98.3 F 85 20 123/91 94
08/09/23 11:07 08/09/23 12:00 08/09/23 12:00 08/09/23 12:00 08/09/23 12:00
I&O
08/08/23 08/09/23 08/10/23
06:59 06:59 06:59
Intake Total 540 / 540 180 / 180
Balance 540 / 540 180 / 180
Review of Systems
-
History Source: Patient
All other systems: Not reviewed unless documented
Data Reviewed
-
Diagnostic Radiology: Image personally visualized and interpreted and Report Reviewed by me
Labs: Labs Reviewed by me
[2023-08-09] MEDS: LR 1000 IV (16:01)
[2023-08-09 17:17] LABS: Glucose - Point of Care 161 mg/dl (70-99)
--- NOTE | 2023-08-09 18:37 | PTCARENOTE ---
"Pt's SpO2 seen on monitor dropping into the 80's; Pt denies pain or SOB and did not appear to be in any distress or discomfort. 2L O2 placed on Pt and sat continued to trend up and down into the low 80's. Increased up 6L with same pattern. "Mariam"Renetta notified and ordered to place Pt back on BiPAP temporarily. Respiratory notified, and pt made aware of plan. Will continue to monitor and assess. "
[2023-08-09] MEDS: LIPITOR 10 MG PO (21:10)
[2023-08-09] MEDS: ASPIR LOW (ENTERIC COATED) 81 MG PO (21:10)
[2023-08-09] MEDS: NSS with KCL 40 MEQ 1000 IV (21:11)
--- NOTE | 2023-08-09 22:50 | RESPNOTE ---
PT was placed on the Nocturnal Pulse Oximetry study for the night on room air. HR-88, SPO2-92%, will continue to monitor resp status.
[2023-08-10] VITALS (12 sets, daily range): BP systolic 97–146; BP diastolic 64–96; PULSE 95; O2SAT 89
--- NOTE | 2023-08-10 02:51 | PTCARENOTE ---
Addendum entered by Mayela Slater RN 08/10/23 06:01:
Pt had complaints about being boosted up or turned. Saying she is in pain with most movement, Tylenol given. Pt repositioned to side, saying 'I am much better now'. Pt called to check in on her and was concerned about pt being uncomfortable.
RN talked to then talked to telling him she felt much better. Pt appears to be resting comfortably and will visit later in day.
Original Note:
Assumed care of Pt from day RN. Pt appeared to be resting comfortably in bed. Pt K low, Cabinet Maker made aware, orders in (see MAR). Pt on Bipap then transitioned to nocturnal 02 study by Respiratory therapist. PT now on 2L. Assessment care and vitals as
charted.
[2023-08-10] MEDS: TYLENOL 650 MG PO (04:24)
[2023-08-10 05:49] LABS: Hematocrit 29.6 % (37.0-47.0); Hemoglobin 10.1 g/dL (12.0-16.0); Mean Corp Hgb Conc. 34.1 g/dL (33.0-37.0); Mean Corpuscular Hgb 25.1 pg (27.0-31.0); Mean Corpuscular Volume 73.6 fL (81.0-99.0); Mean Platelet Volume 10.5 fL (7.4-10.4); Platelet Count 218 10^3/uL (130-400); Red Blood Cell Count 4.02 10^6/uL (4.20-5.40); Red Cell Dist. Width 14.9 % (11.5-14.5); White Blood Cell Count 5.3 10^3/uL (4.8-10.8)
[2023-08-10] MEDS: SYNTHROID 112 MCG PO (05:54)
[2023-08-10 06:01] LABS: ALT (SGPT) 15 U/L (0-35); AST (SGOT) 26 U/L (14-36); Albumin 2.6 g/dl (3.5-5.0); Alkaline Phosphatase 91 U/L (38-126); Blood Urea Nitrogen 11 mg/dl (7-17); Calcium 8.4 mg/dl (8.4-10.2); Carbon Dioxide 17 mmol/L (22-30); Chloride 102 mmol/L (98-107); Estimated Creatinine Clearance 86 ml/min; Glucose 158 mg/dl (70-99); Potassium 3.6 mmol/L (3.5-5.1); Sodium 130 mmol/L (135-145); Total Bilirubin 0.6 mg/dl (0.2-1.3); Total Protein 5.5 g/dl (6.3-8.2); eGFR > 60.00
--- NOTE | 2023-08-10 08:32 | W.PN.HOSP.TC ---
Addendum entered and electronically signed by Carolynn Glover MD 08/10/23 15:26:
# KRISTA, resolved
Original Note:
Today's Communication/Plan
-
see A/P
Assessment / Plan
Assessment / Plan
HPI: 73-year-old female history of hypertension, hyperlipidemia, diabetes, morbid obesity, hypothyroidism, history of diverticulitis in the past now presented for complaints of several days of diarrhea, low-grade fever.�Admitted for sepsis, most
likely secondary to UTI.
A/P:
# Sepsis POA
# UTI with Klebsiella Pneumoniae
# Resolved lactic acidosis
Ceftriaxone -> Ancef
Observe off IVF
Check kidney US for UTI
# Acute Hypoxic Respiratory Failure
# Severe hypoxia requiring BiPAP PRN
All imaging negative. No evidence of pulmonary embolism, pathology on CT chest
Weaned off supplemental O2, 98% on room air
Incentive spirometer
Nocturnal pulse Ox assessment noted overnight desat events, suspect JACK/OHS, pt will need nocturnal home O2
Check echo
Speech evaluation recc IDDSI Level 5 (Minced and Moist), IDDSI Level 0 (Thin Liquids)
Pulm consulted
# Diarrhea, resolved
C. difficile, stool cultures - negative
# Hyponatremia
Most likely secondary to dehydration, hypovolemia
Cont to monitor
# Hypokalemia, acute
# Hypomagnesemia, acute
Monitor and replete
# Hypertension
resumed W[employer] MECH[employer]IC amlodipine with holding parameter
# Diabetes
hold metformin
ISS
# Hypothyroidism
continue Synthroid
# Morbid obesity
DVT ppx: Lovenox SQ
DNR
dispo: SNF
updated on the phone
Anticipated Discharge: > 48 hours
Subjective/Interval History
-
Date of Service: August 10, 2023
Objective Data
-
Labs:
Laboratory Results
08/10/23
05:27
WBC 5.3
Hgb 10.1 L
Hct 29.6 L
Plt Count 218
Sodium 130 L
Potassium 3.6
Chloride 102
Carbon Dioxide 17 L
BUN 11
Creatinine 0.7
Glucose 158 H
Calcium 8.4
Total Bilirubin 0.6
AST 26
ALT 15
Alkaline Phosphatase 91
Vital Signs:
Vital Signs
Temp Pulse Resp BP Pulse Ox
36.5 C 71 20 124/64 98
08/10/23 05:52 08/10/23 06:00 08/10/23 06:00 08/10/23 06:00 08/10/23 06:00
I&O
08/09/23 08/10/23 08/11/23
06:59 06:59 06:59
Intake Total 180 / 180 2160 / 2160
Balance 180 / 180 2160 / 2160
Review of Systems
-
All other systems: Reviewed and negative
Physical Exam
-
General: Well Developed, Well Nourished, No Apparent Distress, Comfortable, Conversant and Obese
HEENT: Normocephalic, Atraumatic, Nose Appears Normal and Ears Appear Normal
Respiratory: Clear to Auscultation and Non Labored Respirations; Negative Accessory Resp Muscle Use
Cardiac: Regular Rhythm and S1/S2
GI: Soft, Nontender, Nondistended and Normal Bowel Sounds
Skin: Warm and Dry
Neuro: Awake and Alert
Psych: Calm and Intact Judgement/Insight (somewhat)
Data Reviewed
-
CT Scan: Report Reviewed by me
Labs: Labs Reviewed by me
--- NOTE | 2023-08-10 08:59 | W.PN.PUL3 ---
Today's Communication / Plan
-
Noct oximetry on 2L
TTE
Assessment
-
Assessment:
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 Reported h/o UTIs, HTN, HLD, NIDDM, hypothyroidism, diverticulitis. At ER, dehydrated on exam, incontinent of foul-smelling urine, hyponatremia, straight
cath urine suspicious for infection. Adm, started on IVFs and atbs. O2 desaturation on afternoon of 08-08 down to 70s, started on O2 6L, POx at 70-80%, chest CTA and NIRMALA doppler negative, started on BPAP which she could only tolerate for 3 hrs
Impression:
Transient hypoxemia
Suspected JACK, witnessed apnea at home
Nocturnal hypoxemia
Elevated BNP
Kleb pn UTI
Elevated PCT
Chronic NIRMALA edema
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
HTN
HLD
NIDDM
Hypothyroidism
Diverticulitis
UTIs
Nonsmoker
DNR
Plan:
Resp rojas comfortable on RA at time of visit, POx 98%, conversant
Denies dyspnea, cough, CP
Maintaining patent airway
H/o witnessed apnea at home per report
No h/o PSG in past
LLNS
Not on home O2 or BDs
Transient hypoxemia event 08-08 investigated, negative chest CTA for PE but shows engorgement of pulm vessels and mild mosaic pattern and mild posterior atelectatic changes, negative NIRMALA doppler
Normal fT4, on TRT
Chronic NIRMALA: no acute change, states tried an OTC water pill in past
Elevated BNP
Suspect underlying heart failure
TTE pending
Overnight pulse oximetry 08-09: test started on RA, presented cyclical desaturation, added O2 2L approximately at the last third of the recording. Overall T89 3h45m out of 6h3m recording. Marginal improvement of O2 desaturation with the addition of
O2
Suspect JACK
Needs PSG to confirm diagnosis of JACK, agrees to come to [facility] to arrange test
Repeat nocturnal O2 on 2L
On atb for UTI
Hemodyn stable
IS encouraged
Will see at [facility] upon d/c, information left in chart
D/w and Mr Diaz at bedside on 08-09
D/w Mrs Diaz on 08-10
Diagnostic tests:
Chest CTA 08-08-23: no PE, no infiltrates
NIRMALA doppler 08-08-23: negative
Subjective Data
-
Date of Service:
Date of Service: August 10, 2023
Chief Complaint: Pulmonary Follow Up
Subjective:
Desaturated last evening, briefly placed on BPAP
Overnight pulse oximetry on RA per adm svce, reviewed, significant cyclical desaturation observed, added O2 2L with marginal improvement of cyclical desaturation. Overall T89 3h45m
Sitting in chair at time of visit, on RA, POx 98% at rest
Review of Systems
General: Fever (n), Sweats (n), Chills (n) and Satisfactory Appetite
HEENT: Epistaxis (n) and Dysphagia (n)
Cardiopulmonary: Dyspnea (n at rest), Cough (n), Sputum Production (n), Chest Pain (n) and Edema (NIRMALA)
GI: Abdominal Pain (n), Nausea (n) and Vomiting (n)
Neuro: Weakness
Objective Data
Data Reviewed
Vital Signs / I&O / Oxygen:
Vital Signs
Temp Pulse Resp BP Pulse Ox
97.7 F 71 20 124/64 98
08/10/23 05:52 08/10/23 06:00 08/10/23 06:00 08/10/23 06:00 08/10/23 06:00
Intake and Output
08/09/23 08/10/23 08/11/23
06:59 06:59 06:59
Intake Total 180 / 180 2160 / 2160
Balance 180 / 180 2159
SaO2 98
Nasal Cannula flow liters per 5
minute
Physical Exam
General: Comfortable
HEENT: Normocephalic and Moist Mucous Membranes
Cardiovascular: Regular Rhythm, Murmur (n) and Peripheral Edema (NIRMALA)
Respiratory: Wheeze (n), Crackles (subtle basilar), Non-Labored Respirations and Stridor (n)
GI: Soft, Non Distended and Non Tender
Neurology: Awake, AO x 3 and No Motor Deficits
Skin: Dry
Labs/Micro/Reports
Lab Data
08/10/23 05:27
08/10/23 05:27
Microbiology
08/08/23 17:45 Blood/Venous Blood Culture - Preliminary
No Growth in 24 hours- Final report to follow
08/06/23 10:09 Blood/Venous Blood Culture - Preliminary
No Growth in 72 hours- Final report to follow
08/06/23 09:50 Blood/Venous Blood Culture - Preliminary
No Growth in 72 hours- Final report to follow
08/07/23 05:35 Feces/Stool Salmonella/Shigella Culture - Final
No Salmonella, Shigella, Aeromonas or Plesiomonas species
isolated.
08/07/23 05:35 Feces/Stool Campylobacter Culture - Final
No Campylobacter species isolated.
08/06/23 09:50 Urine Urine Culture - Final
Klebsiella pneumoniae
08/07/23 05:35 Feces/Stool C. difficile GDH Antigen & Toxins - Final
Negative for toxigenic C.difficile
[2023-08-10] MEDS: FEOSOL 325 MG PO ×2 (09:38→21:24)
[2023-08-10] MEDS: NORVASC PO (09:39)
[2023-08-10] MEDS: VITAMIN D3 (cholecalciferol) 100 MCG PO ×2 (09:39→21:23)
[2023-08-10] MEDS: FOLVITE 1 MG PO (09:40)
[2023-08-10] MEDS: DESENEX/MITRAZOL/ZEASORB 1 APPLIC TOPICAL ×2 (09:40→21:23)
[2023-08-10] MEDS: ANCEF 5 IV ×2 (09:40→17:00)
[2023-08-10] MEDS: NOVOLOG FLEXPEN-LOW RESISTANCE 2 UNITS SC ×3 (09:41→17:03)
[2023-08-10] MEDS: FLUSH (NSS) 1 FLUSH IV ×2 (09:42→09:43)
[2023-08-10 09:47] LABS: Glucose - Point of Care 224 mg/dl (70-99)
[2023-08-10] MEDS: STERILE WATER FOR INJECTION IV (11:36)
[2023-08-10] MEDS: HEPARIN SC (11:36)
[2023-08-10 12:42] LABS: Glucose - Point of Care 237 mg/dl (70-99)
[2023-08-10] MEDS: NSS with KCL 40 MEQ 1000 IV (12:47)
--- NOTE | 2023-08-10 14:09 | PTCARENOTE ---
Pt requesting multiple times to leave AMA. Pt's arrived at bedside stating he would NOT be in agreement to this and would not be taking pt home. Pt becoming increasingly agitated and shouting at and staff. Pt threw full cup of water
at . This RN stepped in to deescalate without success. TT to Dr. Glover and JOHN Avendaño. CM at bedside and successful in calming situation at this time. Pt agreeable to stay at the time being. Emotional support provided to both pt and spouse.
--- NOTE | 2023-08-10 14:52 | PTCARENOTE ---
Pt sitting at edge of bed and refusing to get back into bed for exchange of IV site and bedside echo. Pt refusing both. TT to Dr. Glover to make her aware of situation.
--- NOTE | 2023-08-10 15:07 | PN.CDI ---
CDI
- -
CDI:
Physician Documentation Request
Admit Date: 08/06/23 12:06
Dear Doctor Adalberto,
Please review the following and provide your response in the progress notes.
Clinical Indicators:
Pt admitted with Sepsis 2/2 UTI /also with Diarrhea .
Documented per ED , ' ... likely component of dehydration. ...'
Renal functions are below / Pt did get IVFs
08/06/23 08/07/23 08/08/23
09:50 04:24 07:39
Creatinine 1.0 1.1 H 1.0
08/08/23 08/10/23
17:45 05:27
Creatinine 0.8 0.7
Clarify which of the following accurately represents the patient's renal status:
KRISTA
Abnormal lab value of clinical insignificance
Other
Criteria for KRISTA*
1 Increase in serum creatinine by > or = to 0.3 mg/dL (> or = to 26.5 micromol/L) within 48 hours, OR
2 Increase in serum creatinine to > or = to 1.5 times baseline, which is known or presumed to have occurred within 7 days, OR
3 Urine volume < 0.5 nL/kg/hour for six hours
\\
Use of terms such as suspected, likely, concern for, or probable (associated with a specific diagnosis that is being evaluated, monitored, or treated as if it exists) are acceptable and can be coded in the inpatient setting, when documented at the
time of discharge.
Thank you,
Shala Mancini RN
CDI Specialist
[place] Text
Please use your independent medical judgment in providing your response.
*Source: Kidney Disease: Improving Global Outcomes (KDIGO) 2012
--- NOTE | 2023-08-10 16:38 | CM ---
Patient with Dx sepsis, Acute Hypoxic Respiratory Failure, Hyponatremia. O2 2L. Receiving IV cefazolin, IVF w/ KCL. PT 2/3' dependent for bed mobility, recommend skilled rehab. OT Eval; mod assist LE self care, recommend skilled rehab.
Notified by nurse Natalie patient agitated with , she threw a cup of water at [facility] and was threatening to leave AMA. Met with patient, , with nurse present. Patient initially saying she wants to go home because she is
uncomfortable here (room too cold- nurse adjusted temp and will provide more blankets) and she no longer needs to be here - patient was agitated with raised voice. stating he cannot assist with her mobility at home and he is not willing to
take the patient home today - sitting in motorized w/c. Explained to patient that she has not been deemed medically ready for d/c per Dr Glover. CM reinforced to patient that is unable to care for her at home with her current
functional mobility, and therefore she is not safe in her mobility to go home without a caregiver. CM informed patient she is not permitted to arrange transport to home if patient wants to leave AMA. suggested [facility] SN[facility], where he
had been previously. CM offered to make SNF referral and patient agreed to [facility] and to staying here at for now. Patient calmer. IMM explained- patient given copy but did not sign- signed IMM and given copy.
inquired about Medicaid application for possible salvage determiner care- informed him that SNF will do this process with him as needed.
Spoke with Surinder, Plastic Surgery Manager [facility] (Yolanda Cheema Director is on vacation this week); he will review the referral and let CM know if they can accept. No response today to referral.
Plan follow up with [facility] tomorrow for acceptance.
[2023-08-10 16:45] LABS: Glucose - Point of Care 222 mg/dl (70-99)
[2023-08-10] MEDS: LOVENOX 40 MG SC (17:01)
[2023-08-10] MEDS: LIPITOR 10 MG PO (21:24)
[2023-08-10] MEDS: ASPIR LOW (ENTERIC COATED) 81 MG PO (21:24)
[2023-08-10 21:43] LABS: Glucose - Point of Care 209 mg/dl (70-99)
[2023-08-11] VITALS (9 sets, daily range): BP systolic 106–145; BP diastolic 58–84; PULSE 87
--- NOTE | 2023-08-11 00:07 | RESPNOTE ---
Pt remains on 8 lpmmdi-flow nasal cannula, a nocturnal pulse ox on 2 lpm. Requested from house provider to hold the nocturnal for the next night, if the O2 requirements change.
[2023-08-11] MEDS: ANCEF 5 IV ×2 (01:50→11:49)
--- NOTE | 2023-08-11 02:41 | PTCARENOTE ---
PT appearing very annoyed with and commenting she 'just wanted to go home to her chair' Pt was communicating appropriate and respectfully with staff as soon as left. Pt kept her NC on and showed understanding of why she needed it on.
Pt slept in chair to be more comfortable. While was at bed side he repeatedly came out into hallway making repetitive statements to RN that the Pt (his ) is not in her right mind and she should not be able to make decisions. Pt
asked RN 'how can i have her involuntarily committed'. RN will pass on that Pt would like a Psych consult. Pt is AAOX3, heavy OOBX2 w/RW. Pt explained to RN that she is ok with going to rehab/long-term if she can have help, Pt referring
to help as 'visiting angles' like she has had before.
[2023-08-11] MEDS: SYNTHROID 112 MCG PO (04:59)
[2023-08-11 05:17] LABS: Hematocrit 28.6 % (37.0-47.0); Hemoglobin 9.6 g/dL (12.0-16.0); Mean Corp Hgb Conc. 33.6 g/dL (33.0-37.0); Mean Corpuscular Hgb 24.7 pg (27.0-31.0); Mean Corpuscular Volume 73.7 fL (81.0-99.0); Platelet Count 289 10^3/uL (130-400); Red Blood Cell Count 3.88 10^6/uL (4.20-5.40); Red Cell Dist. Width 15.5 % (11.5-14.5); White Blood Cell Count 7.5 10^3/uL (4.8-10.8)
[2023-08-11 05:41] LABS: Blood Urea Nitrogen 11 mg/dl (7-17); Calcium 8.4 mg/dl (8.4-10.2); Carbon Dioxide 17 mmol/L (22-30); Chloride 104 mmol/L (98-107); Estimated Creatinine Clearance 75 ml/min; Glucose 177 mg/dl (70-99); Magnesium 1.6 mg/dl (1.6-2.3); Sodium 134 mmol/L (135-145); eGFR > 60.00
--- NOTE | 2023-08-11 07:56 | W.PN.HOSP.TC ---
Addendum entered and electronically signed by Carolynn Glover MD 08/11/23 12:52:
total DC time 40 min
Original Note:
Today's Communication/Plan
-
for SNF
Assessment / Plan
Assessment / Plan
HPI: 73-year-old female history of hypertension, hyperlipidemia, diabetes, morbid obesity, hypothyroidism, history of diverticulitis in the past now presented for complaints of several days of diarrhea, low-grade fever.�Admitted for sepsis, most
likely secondary to UTI.
A/P:
# Sepsis POA with Klebsiella Pneumoniae UTI
# Resolved lactic acidosis
Ceftriaxone -> Ancef
Observe off IVF
Pt refused kidney US
# Acute Hypoxic Respiratory Failure
# Severe hypoxia requiring BiPAP PRN
All imaging negative. No evidence of pulmonary embolism, pathology on CT chest
Weaned off supplemental O2, 98% on room air
Incentive spirometer
Nocturnal pulse Ox assessment noted overnight desat events, suspect JACK/OHS, pt will need nocturnal home O2
Pt refused echo
Speech evaluation recc IDDSI Level 5 (Minced and Moist), IDDSI Level 0 (Thin Liquids)
Pulm consulted
# Diarrhea, resolved
C. difficile, stool cultures - negative
# Hyponatremia
Most likely secondary to dehydration, hypovolemia
Cont to monitor
# Hypokalemia, acute
# Hypomagnesemia, acute
Monitor and replete
# Hypertension
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
# Diabetes
hold metformin
ISS
# Hypothyroidism
continue Synthroid
# Morbid obesity
DVT ppx: Lovenox SQ
DNR
dispo: SNF
DW RN
updated on the phone
Anticipated Discharge: Within 24 hours
Subjective/Interval History
-
Date of Service: August 11, 2023
Objective Data
-
Labs:
Laboratory Results
08/11/23
04:38
WBC 7.5
Hgb 9.6 L
Hct 28.6 L
Plt Count 289 D
Sodium 134 L
Potassium 4.0
Chloride 104
Carbon Dioxide 17 L
BUN 11
Creatinine 0.8
Glucose 177 H
Calcium 8.4
Vital Signs:
Vital Signs
Temp Pulse Resp BP Pulse Ox
36.5 C 86 18 117/75 96
08/11/23 02:53 08/11/23 06:00 08/11/23 06:00 08/11/23 06:00 08/11/23 04:00
I&O
08/10/23 08/11/23 08/12/23
06:59 06:59 06:59
Intake Total 2160 / 2160 1200 / 1200
Balance 2160 / 2160 1200 / 1200
Review of Systems
-
All other systems: Reviewed and negative
Physical Exam
-
General: Well Developed, Well Nourished, Comfortable, Conversant and Obese
HEENT: Normocephalic, Atraumatic, Nose Appears Normal, Ears Appear Normal and Oxygen (4L NC)
Respiratory: Clear to Auscultation and Non Labored Respirations; Negative Accessory Resp Muscle Use
Cardiac: Regular Rhythm and S1/S2
GI: Soft, Nontender, Nondistended and Normal Bowel Sounds
Skin: Warm and Dry
Neuro: Awake and Alert
Psych: Calm and Intact Judgement/Insight (somewhat)
Data Reviewed
-
CT Scan: Report Reviewed by me
Labs: Labs Reviewed by me
[2023-08-11 08:03] LABS: Glucose - Point of Care 167 mg/dl (70-99)
--- NOTE | 2023-08-11 08:59 | W.PN.PUL3 ---
Today's Communication / Plan
-
O2
IS
Assessment
-
Assessment:
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 Reported h/o UTIs, HTN, HLD, NIDDM, hypothyroidism, diverticulitis. At ER, dehydrated on exam, incontinent of foul-smelling urine, hyponatremia, straight
cath urine suspicious for infection. Adm, started on IVFs and atbs. O2 desaturation on afternoon of 08-08 down to 70s, started on O2 6L, POx at 70-80%, chest CTA and NIRMALA doppler negative, started on BPAP which she could only tolerate for 3 hrs
Impression:
Transient hypoxemia
Suspected JACK, witnessed apnea at home
Nocturnal hypoxemia
Elevated BNP
Kleb pn UTI
Elevated PCT
Chronic NIRMALA edema
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
HTN
HLD
NIDDM
Hypothyroidism
Diverticulitis
UTIs
Nonsmoker
DNR
Plan:
Currently on O2 NC 2L, POx 95% at rest
Denies dyspnea, cough, CP
Maintaining patent airway
H/o witnessed apnea at home per report
No h/o PSG in past
LLNS
Not on home O2 or BDs
Transient hypoxemia event 08-08 investigated, negative chest CTA for PE but shows engorgement of pulm vessels and mild mosaic pattern and mild posterior atelectatic changes, negative NIRMALA doppler
Normal fT4, on TRT
Chronic NIRMALA: no acute change, states tried an OTC water pill in past
Elevated BNP
Suspect underlying heart failure
TTE ordered but patient refused
Overnight pulse oximetry 08-09: test started on RA, presented cyclical desaturation, added O2 2L approximately at the last third of the recording. Overall T89 3h45m out of 6h3m recording. Marginal improvement of O2 desaturation with the addition of
O2
Suspect JACK
Needs PSG to confirm diagnosis of JACK, patient and agree to come to [facility] to arrange test
Could not repeat nocturnal O2 on 2L as had still increased O2 requirement last night up to 8L, did not use BPAP last night
On atb for UTI, cefazolin
Hemodyn stable
IS encouraged
Will see at [facility] upon d/c, information left in chart
D/w and Mr Diaz at bedside on 08-09
D/w Mrs Diza on
Scheduled for SNF placement today
Diagnostic tests:
Chest CTA 08-08-23: no PE, no infiltrates
NIRMALA doppler 08-08-23: negative
Subjective Data
-
Date of Service:
Date of Service: August 11, 2023
Chief Complaint: Pulmonary Follow Up
Subjective:
Continues on O2, currently on 4L, POx 95% at rest
Last night was on O2 8L, overnight pulse ox not done, did not use BPAP last night
Sitting in chair, in no resp distress
Review of Systems
General: Fever (n), Sweats (n), Chills (n) and Satisfactory Appetite (n)
HEENT: Epistaxis (n)
Cardiopulmonary: Dyspnea (n), Cough, Wheezing and Edema (NIRMALA)
GI: Abdominal Pain (n), Nausea (n) and Vomiting
Neuro: Weakness
Objective Data
Data Reviewed
Vital Signs / I&O / Oxygen:
Vital Signs
Temp Pulse Resp BP Pulse Ox
97.7 F 86 18 117/75 96
08/11/23 02:53 08/11/23 06:00 08/11/23 06:00 08/11/23 06:00 08/11/23 04:00
Intake and Output
08/10/23 08/11/23 08/12/23
06:59 06:59 06:59
Intake Total 2160 / 2160 1200 / 1200
Balance 2160 / 2160 1200 / 1200
SaO2 96
Nasal Cannula flow liters per 2
minute
Physical Exam
General: Comfortable
HEENT: Normocephalic and Moist Mucous Membranes
Cardiovascular: Regular Rhythm, Murmur (n) and Peripheral Edema (NIRMALA)
Respiratory: Wheeze (n), Crackles (subtle basilar), Non-Labored Respirations and Stridor (n)
GI: Soft, Non Distended and Non Tender
Neurology: Awake, AO x 3 and No Motor Deficits
Skin: Dry
Labs/Micro/Reports
Lab Data
08/11/23 04:38
08/11/23 04:38
Microbiology
08/08/23 17:45 Blood/Venous Blood Culture - Preliminary
No Growth in 48 hours- Final report to follow
08/06/23 10:09 Blood/Venous Blood Culture - Preliminary
No Growth in 4 days- Final report to follow
08/06/23 09:50 Blood/Venous Blood Culture - Preliminary
No Growth in 4 days- Final report to follow
08/07/23 05:35 Feces/Stool Salmonella/Shigella Culture - Final
No Salmonella, Shigella, Aeromonas or Plesiomonas species
isolated.
08/07/23 05:35 Feces/Stool Campylobacter Culture - Final
No Campylobacter species isolated.
08/07/23 05:35 Feces/Stool Shiga Toxin Test - Final
No E. coli Shiga Toxin 1 or 2 detected.
08/06/23 09:50 Urine Urine Culture - Final
Klebsiella pneumoniae
[2023-08-11] MEDS: NORVASC PO (09:35)
[2023-08-11] MEDS: MYLICON 80 MG PO (09:35)
[2023-08-11] MEDS: FEOSOL 325 MG PO (09:35)
[2023-08-11] MEDS: NOVOLOG FLEXPEN-LOW RESISTANCE 1 UNITS SC (09:36)
[2023-08-11] MEDS: DESENEX/MITRAZOL/ZEASORB 1 APPLIC TOPICAL (09:36)
[2023-08-11] MEDS: VITAMIN D3 (cholecalciferol) 100 MCG PO (09:36)
[2023-08-11] MEDS: MAGNESIUM SULFATE 50 IV (09:36)
[2023-08-11] MEDS: FOLVITE 1 MG PO (09:36)
[2023-08-11] MEDS: FLUSH (NSS) IV ×2 (10:07→11:50)
[2023-08-11] MEDS: STERILE WATER FOR INJECTION IV (11:50)
[2023-08-11 12:08] LABS: Glucose - Point of Care 202 mg/dl (70-99)
--- NOTE | 2023-08-11 12:25 | PTCARENOTE ---
Pt rec'd from night RN seated in recliner chair, Aox3 drowsy/arousable to voice, flat affect although cooperative with care. Medications administered without difficulty, plan of care discussed, pt for poss dc to SNF today per Dr. Glover.
updated by Dr. Glover this am by phone, arrived at bedside to see patient, pt's demeanor very quiet and withdrawn at this time. Pt has refused hygeine and toileting up until time of this writing, will return. Per CM, auth rec'd for [facility],
discharge order pending.
--- NOTE | 2023-08-11 12:25 | CM ---
Addendum entered by Gale Mayes 08/11/23 12:37:
1600 pickup
SNF aware
Original Note:
CM reviewed pt with Dr Glover- pt medically ready for dc
Confirmed oxygen needs- 5L nocturnal and 2L day
Bed confirmed with [facility] admissions
Bedside meeting with pt and spouse
In agreement with plan
IBC auth obtained for both SNF and BLS
Transportation form and medical necessity on chart
CM confirmed copy of IMM completed day prior and on chart
SNF [facility] #[id number] 7 days NRD 08/17 (p) [phone]
[facility] #[id number]
[facility]charge [facility]- [facility]
Phone- [phone] Fax- [phone]
--- NOTE | 2023-08-11 12:38 | W.DCSUMMARY ---
Discharge Summary
Discharge Data
Date of Admission: 08/06/23
Date of Discharge: 08/11/23
-
Pending Results: No
Hospital Course
Principal Diagnosis:
Klebsiella Pneumoniae urinary tract infection
Nocturnal hypoxia likely due to undiagnosed obstructive sleep apnea
Chronic Diagnoses:�
Hypertension prior to admission amlodipine-benazepril discontinued due to low blood pressure this admission.
Dbq-keeozju-[id number] diabetes
Hypothyroidism on Synthroid
Obesity, BMI 32
Consultations:�
Pulmonary
Procedures:�
None
Clinical course:�
This is 73-year-old female with past medical history as stated above, presented with several days of diarrhea and low-grade fever. She was admitted for sepsis, most likely secondary to UTI.
Problem 1:
Sepsis with Klebsiella Pneumoniae UTI.
She was treated with ceftriaxone initially, which was later de-escalated to Ancef.
She had received 5 days of IV antibiotic during her hospital stay, hence no further antibiotic is needed.
She refused kidney ultrasound to evaluate for obstructive causes of her UTI.
Problem 2:
Nocturnal hypoxia likely due to undiagnosed obstructive sleep apnea.
Her CT chest was negative for PE.
During the daytime, she can be weaned down to room air, but at night, she required oxygen support.
Her nocturnal hypoxia was confirmed with nocturnal pulse ox.
She can continue with oxygen support at 5 L nasal cannula at nighttime.
Echocardiogram was ordered to further evaluate her nocturnal hypoxia, however patient refused the study.
She was recommended to continue with Minced and Moist diet per speech evaluation.
As for the rest of her medical problems, they were stable during her hospital stay.
Discharge Plan
-
Patient Disposition: Usp/SNF
Discharge Diagnosis/Procedures: Klebsiella Pneumoniae Urinary tract infection; Acute Hypoxic Respiratory Failure with nocturnal hypoxia (suspect sleep apnea); mild dysphagia
Condition: Fair
Diet: Other diet
Additional Diets: Minced and Moist diet with thin liquids
Activity: As tolerated
Driving Restrictions: Not until seen by your
Activity Restrictions/Additional Instructions:
Continue oxygen support at night time (6L NC).
Follow-up with your PCP for outpatient sleep study up
Your amlodipine/benazepril was discontinued due to hypotension.
Referrals:
Qamar Hanks MD [Family Provider] - in less than 1 week
Delroy Hood MD [Active] - (New patient, suspected JACK, see within one m)
Prescriptions:
Continued
folic acid 1 MG tablet
1 mg PO DAILY
loratadine 10 MG tablet
10 mg PO DAILY PRN (Reason: allergies)
acetaminophen [Tylenol] 325 mg Tablet
650 mg PO TIDPRN PRN (Reason: mild pain)
atorvastatin 10 mg Tablet
10 mg PO HS
aspirin 81 mg Tablet,Delayed Release (Dr/Ec)
81 mg PO HS
metformin 1,000 mg Tablet
1,000 mg PO BID@0800,1700
bismuth subsalicylate [Pepto-Bismol] 262 mg/15 mL Suspension
524 mg PO BIDPRN PRN (Reason: diarrhea)
iron 159 mg (45 mg iron) Tablet Extended Release
159 mg PO BID
cholecalciferol (vitamin D3) 100 mcg (4,000 unit) Tablet
100 mcg PO BID
levothyroxine 112 MCG tablet
112 mcg PO DAILY
Discontinued
amlodipine-benazepril 5-20 mg Capsule
1 cap PO DAILY
Discharge Orders:
Discharge Patient (As Directed); Ordered 08/11/23
Ordered By: Carolynn Glover
[2023-08-11] MEDS: NOVOLOG FLEXPEN-LOW RESISTANCE 2 UNITS SC (12:40)
--- NOTE | 2023-08-11 14:15 | PTCARENOTE ---
Report attempted to be called to [facility], however the person who answered transfered this RN to [facility]. Message was left for a call back, pt is due to be picked up at 16:00. CM and UC aware.
--- NOTE | 2023-08-11 15:37 | PTCARENOTE ---
Report given to GRAHAM Santos at [facility], pt scheduled for 16:00 pickup.
[2023-08-11] MEDS: ANCEF IV (15:50)
== END 2023-08-11 17:08 | DRG 871 ==
LOC: IMU 12:06
PROVIDERS: Hospitalist; Nurse Practitioner; ADMITTING PHYSICIAN Internal Medicine; ATTENDING PHYSICIAN Internal Medicine; CONSULT PHYSICIAN Internal Medicine Pulmonary Disease; EMERGENCY PHYSICIAN Student in an Organized Health Care Education/Training Program; FAMILY PHYSICIAN Internal Medicine
DX: A41.59 Other Gram-negative sepsis (principal); J96.01 Acute respiratory failure with hypoxia; K57.92 Diverticulitis of intestine, part unspecified, without perforation or abscess without bleeding; N39.0 Urinary tract infection, site not specified; E87.1 Hypo-osmolality and hyponatremia; N17.9 Acute kidney failure, unspecified; E86.0 Dehydration; E11.65 Type 2 diabetes mellitus with hyperglycemia; Z11.52 Encounter for screening for COVID-19; E86.1 Hypovolemia; I10 Essential (primary) hypertension; E03.9 Hypothyroidism, unspecified; E66.01 Morbid (severe) obesity due to excess calories; E87.6 Hypokalemia; E83.42 Hypomagnesemia; Z66 Do not resuscitate; E78.00 Pure hypercholesterolemia, unspecified; B96.1 Klebsiella pneumoniae [K. pneumoniae] as the cause of diseases classified elsewhere; Z68.32 Body mass index [BMI] 32.0-32.9, adult
CPT/HCPCS: 36600; 51701; 71045; 71046; 71275; 80048; 80053; 81003; 81015; 82805; 82962; 83605; 83735; 83880; 84145; 84439; 84443; 85025; 85027; 85379; 86140; 87040; 87045; 87046; 87077; 87086; 87186; 87324; 87427; 87449; 87502; 87811; 92526; 92610; 93005; 93970; 94660; 94762; 96361; 96374; 96375; 97162; 97167; 97530; 99285; Q9967

== ENCOUNTER 2023-08-19 19:17 | Inpatient (IN) | payer OTHER, SELFPAY ==
[2023-08-19] VITALS (11 sets, daily range): BP systolic 83–129; BP diastolic 50–67; BMI 29.7; BMI 31.5
--- NOTE | 2023-08-19 13:09 | ED.GENMED ---
History of Present Illness
<Coral Posey AIRCRAFT ENGINE SPECIALIST - Last Filed: 08/20/23 07:51>
General
Chief Complaint: Abdominal Symptoms
Source: patient and ambulance crew
Exam Limitations: none
Time Seen by Provider: 08/19/23 12:56
Nursing documentation reviewed up to this point in time: agreed with
Travel History
Have you had any contact with someone who has COVID-19?: No
Do you have any symptoms of coronavirus? Fever > 100 degrees, chills, cough, shortness of breath, sore throat, loss of taste or smell, muscle aches, or headache?: No
History of Present Illness
History of Present Illness:
73-year-old female presents for [facility] for coffee-ground black stool this morning. She is not anticoagulated. She is on chronic O2 4 L nasal cannula.
Patient denies chest pain or trouble breathing. She states her abdomen feels 'different' than usual but not really painful and has had gas pains.
She denies nausea or vomiting. She has been moving her bowels, denies dysuria.
Past History
<Coral Posey, AIRCRAFT ENGINE SPECIALIST - Last Filed: 08/20/23 07:51>
Past History
ED Past Medical History: Arrthythmia (Atrial fibrillation on aspirin only), HTN, Hypercholesterolemia, NIDDM, Hypothyroidism and Other (Diverticulitis)
ED Past Surgical History: Other
Social History
Tobacco: Non-smoker
Alcohol: None
Personal:
Living: care home
Family History
Family History: Diabetes, Hypertension and CAD
Review of Systems
<Coral Posey, AIRCRAFT ENGINE SPECIALIST - Last Filed: 08/20/23 07:51>
Review of Systems
Allergies reviewed?: Yes
All Other Systems: ROS reviewed and negative except as documented in HPI and ROS
Constitutional: Denies fever
Respiratory: Reports trouble breathing (Patient maintained nasal cannula at care home); Denies cough
Cardiac: Denies chest pain or syncope
ABD/GI: Reports abdominal pain (Denies pain but states her abdomen feels 'different' as she has had more gas than usual) and black stools; Denies nausea, vomiting, diarrhea, bloody stools or anorexia
: Denies dysuria
Musculoskeletal: Reports joint pain (Chronic generalized pain from osteoarthritis); Denies edema
Skin: Reports no symptoms
Neurological: Denies headache
Phy Exam
<Coral Posey, AIRCRAFT ENGINE SPECIALIST - Last Filed: 08/20/23 07:51>
Physical Exam
Physical Exam:
GENERAL: No acute distress. A&Ox3.
CONSTITUTIONAL: Afebrile.
EYES: PERRL, conjunctivae normal
ENMT: moist mucus membranes, Pharynx nl
RESPIRATORY: Regular respirations, nonlabored, lungs clear.
CARDIOVASCULAR: Regular rate and rhythm, no murmurs, no rubs.
GI: Soft, obese, mildly tender left abdomen, normal BS
MUSCULOSKELETAL: Well-perfused, no edema. Cannot move legs due to pain.
SKIN: Warm, dry, pale
PSYCH: Normal mood and affect. Well kept, interactive and appropriate
NEUROLOGIC: Awake, alert and oriented. No focal neurological deficits
Course
<Coral Posey, AIRCRAFT ENGINE SPECIALIST - Last Filed: 08/20/23 07:51>
Orders/Labs/Results
Orders:
Orders
08/19/23 12:55
Electrocardiogram (*1) Urgent
Reason for Study: Other
Other Reason for Exam: gi bleed
08/19/23 12:56
EKG- Treatment ONCE
08/19/23 13:06
Complete Blood Count/With Diff Urgent
Comprehensive Metabolic Panel Urgent
08/19/23 13:26
Type And Crossmatch Urgent
08/19/23 13:49
CT Abd/pel Without Iv Or Oral Urgent
Comment:
Reason For Exam: left abd pain
08/19/23 Dinner
Clear Liquid
At Your Request: Full Participation
08/19/23 16:56
0.9% Sodium Chloride 500 ml [Nss] 500 ml IV BOLUS
08/19/23 18:11
Bisacodyl [Dulcolax] 10 mg PO NOW STA
Polyethylene Glycol Powder [Miralax] 17 grams PO NOW STA
Bladder Scan As Directed
Follow Bladder Retention/Intermittent Cath Algorithm?: Yes
PRN if no void in __ hours: 6
Frequency: Per Retention Algorithm
If Bladder Scan Result >: 400
then:: Straight cath
Straight Cath As Directed
Frequency: Per Retention Algorithm
Additional Instructions: straight cath as needed per acute urinary retention algorithm for 24 hrs
Additional Instructions: for bladder scan greater than 400 mL
08/19/23 18:23
Admit/Transfer Patient As Directed
Co-Sign Provider:
Level of Care: Inpatient admission
Assign to:: Medical/Surgical
Physician / Group: Ritchie
Diagnosis: Stercoral Colitis, KRISTA
Reason for Hospitalization: IVFs, IV abx, bowel regimen
Expected length of stay greater than two midnights?: Yes
ELOS- Estimated Length of Stay in days: 3
I certify the patient meets the requirements for IP care: Yes
08/19/23 18:30
Code Status As Directed
Resuscitation Status: Limited DNR
Limited DNR: -No intubation
Based on pt advanced directive or healthcare POA form: Yes
08/19/23 18:32
Speech Therapy Eval & Treat Routine
08/19/23 18:45
0.9% Sodium Chloride 1000 ml [Nss] 1,000 ml IV 80 mls/hr
08/19/23 19:56
Acetaminophen [Tylenol] 650 mg PO Q4HPRN PRN
Bisacodyl [Dulcolax] 10 mg RECTAL DAILYPRN PRN
Dextrose 50%-Water [Dextrose 50% Syringe] 12.5 grams IV [id number] PRN
Glucagon [GlucaGen] 1 mg IM PRN PRN
Loratadine [Claritin] 10 mg PO DAILYPRN PRN
Magnesium Hydroxide [Milk of Magnesia] 30 ml PO [id number] PRN
Ondansetron HCl [Zofran] 4 mg PO Q4HPRN PRN
Ondansetron Injectable [Zofran] 4 mg IV Q6HPRN PRN
Phosphate Enema [Fleet Phosphate Enema-Adult] 118 ml RECTAL DAILYPRN PRN
Simethicone [Mylicon] 80 mg PO [id number] PRN
08/19/23 19:56
UROLOGY CONSULT Routine
Consulting Provider: Sachin Weaver Jr.
Was physician already notified: Yes
Activity As Directed
Activity Level: Out of Bed-Early Mobility
With Assistance
Bedside Glucose Monitoring As Directed
Frequency: AC&HS
Comment: Change to q6h if pt on TPN, tube feeding or not eating
Hemetest Stools As Directed
Comment: Notify MD of any positive result; May Stop is negative x 3
I&O [Intake/ Output] As Directed
Frequency: q12h
Pneumatic Compression Sleeves As Directed
Type: Knee high
Vital Signs As Directed
Frequency: Per unit guidelines
Weight As Directed
Frequency: Daily
Oxygen Therapy [O2 Therapy] [RESP] Routine
Titrate/Wean O2 to maintain O2 sat greater than (%): 90
Special Instructions: Keep oxygen at 4-5L via nasal cannula at night
DX Deep Vein Thrombosis Video Routine
08/19/23 20:00
Cholecalciferol (Vitamin D3) [VITAMIN D3 (cholecalciferol)] 100 mcg PO BID
Docusate Sodium [Colace] 100 mg PO BID
08/19/23 20:04
Zinc Oxide 20% [Zinc Oxide Ointment] 1 applic TOPICAL DAILYPRN PRN
08/19/23 20:26
Urinalysis Reflex To Culture Urgent
Date Specimen was Collected: 08/19/23
Time Specimen was Collected: 18:15
08/19/23 20:57
Lactic Acid Urgent
08/19/23 22:00
Aspirin Low Dose EC [Aspir Low (Enteric Coated)] 81 mg PO HS
Atorvastatin [Lipitor] 10 mg PO HS
08/20/23 01:58
Urine Microscopic Reflex Cult Urgent
Urine Culture Urgent
NANO Source: U
Specimen Description:
Date Specimen was Collected: 08/19/23
Time Specimen was Collected: 18:15
08/20/23 06:00
Basic Metabolic Panel IN AM
Complete Blood Count/No Diff IN AM
Glycohemoglobin (HgbA1c) IN AM
Magnesium IN AM
TSH Reflex To Free T4 IN AM
08/20/23 07:00
Levothyroxine [Synthroid] 112 mcg PO DAILY AT 0700
08/20/23 07:30
Insulin Aspart Corrective Low [Novolog Flexpen-Low Resistance] See Protocol SC AC
08/20/23 08:00
FOLic ACID [Folvite] 1 mg PO DAILY
Polyethylene Glycol Powder [Miralax] 17 grams PO BID
Abnormal Lab Results
08/19/23
13:06
WBC 14.1 H 10^3/uL
(4.8-10.8)
RBC 4.09 L 10^6/uL
(4.20-5.40)
Hgb 10.1 L g/dL
(12.0-16.0)
Hct 30.7 L %
(37.0-47.0)
MCV 75.1 L fL
(81.0-99.0)
MCH 24.7 L pg
(27.0-31.0)
MCHC 32.9 L g/dL
(33.0-37.0)
RDW 17.6 H %
(11.5-14.5)
Abs Immat Gran (auto) 0.1 H 10^3/uL
(0-0.05)
Absolute Neuts (auto) 11.5 H 10^3/uL
(1.4-6.5)
Absolute Monos (auto) 0.9 H 10^3/uL
(0.1-0.6)
Immature Gran % 0.9 H %
(0-0.5)
Neutrophils % 81.6 H %
(42.2-75.2)
Lymphocytes % 10.9 L %
(20.5-51.1)
Sodium 129 L mmol/L
(135-145)
Carbon Dioxide 18 L mmol/L
(22-30)
BUN 43 H mg/dl
(7-17)
Creatinine 2.7 H mg/dL
(0.6-1.0)
Glucose 169 H mg/dl
(70-99)
Total Protein 6.1 L g/dl
(6.3-8.2)
Albumin 3.0 L g/dl
(3.5-5.0)
08/19/23 13:06
08/19/23 13:06
Vital Signs
Initial and Last Documented VS:
Initial Vital Signs
Temp Pulse Resp BP Pulse Ox
97.8 F 90 18 126/67 97
08/19/23 12:59 08/19/23 12:59 08/19/23 12:59 08/19/23 12:59 08/19/23 12:59
Last Documented Vital Signs
Temp Pulse Resp BP Pulse Ox
97.7 F 101 18 123/64 98
08/19/23 23:52 08/19/23 23:52 08/19/23 23:52 08/19/23 23:52 08/19/23 23:52
<More Messer MD - Last Filed: 08/19/23 13:20>
Orders/Labs/Results
Orders:
Orders
08/19/23 12:55
Electrocardiogram (*1) Urgent
Reason for Study: Other
Other Reason for Exam: gi bleed
08/19/23 12:56
EKG- Treatment ONCE
08/19/23 13:06
Complete Blood Count/With Diff Urgent
Comprehensive Metabolic Panel Urgent
08/19/23 13:26
Type And Crossmatch Urgent
08/19/23 13:49
CT Abd/pel Without Iv Or Oral Urgent
Comment:
Reason For Exam: left abd pain
08/19/23 Dinner
Clear Liquid
At Your Request: Full Participation
08/19/23 16:56
0.9% Sodium Chloride 500 ml [Nss] 500 ml IV BOLUS
08/19/23 18:11
Bisacodyl [Dulcolax] 10 mg PO NOW STA
Polyethylene Glycol Powder [Miralax] 17 grams PO NOW STA
Bladder Scan As Directed
Follow Bladder Retention/Intermittent Cath Algorithm?: Yes
PRN if no void in __ hours: 6
Frequency: Per Retention Algorithm
If Bladder Scan Result >: 400
then:: Straight cath
Straight Cath As Directed
Frequency: Per Retention Algorithm
Additional Instructions: straight cath as needed per acute urinary retention algorithm for 24 hrs
Additional Instructions: for bladder scan greater than 400 mL
08/19/23 18:23
Admit/Transfer Patient As Directed
Co-Sign Provider:
Level of Care: Inpatient admission
Assign to:: Medical/Surgical
Physician / Group: Ritchie
Diagnosis: Stercoral Colitis, KRISTA
Reason for Hospitalization: IVFs, IV abx, bowel regimen
Expected length of stay greater than two midnights?: Yes
ELOS- Estimated Length of Stay in days: 3
I certify the patient meets the requirements for IP care: Yes
08/19/23 18:30
Code Status As Directed
Resuscitation Status: Limited DNR
Limited DNR: -No intubation
Based on pt advanced directive or healthcare POA form: Yes
08/19/23 18:32
Speech Therapy Eval & Treat Routine
08/19/23 18:45
0.9% Sodium Chloride 1000 ml [Nss] 1,000 ml IV 80 mls/hr
08/19/23 19:56
Acetaminophen [Tylenol] 650 mg PO Q4HPRN PRN
Bisacodyl [Dulcolax] 10 mg RECTAL DAILYPRN PRN
Dextrose 50%-Water [Dextrose 50% Syringe] 12.5 grams IV [id number] PRN
Glucagon [GlucaGen] 1 mg IM PRN PRN
Loratadine [Claritin] 10 mg PO DAILYPRN PRN
Magnesium Hydroxide [Milk of Magnesia] 30 ml PO [id number] PRN
Ondansetron HCl [Zofran] 4 mg PO Q4HPRN PRN
Ondansetron Injectable [Zofran] 4 mg IV Q6HPRN PRN
Phosphate Enema [Fleet Phosphate Enema-Adult] 118 ml RECTAL DAILYPRN PRN
Simethicone [Mylicon] 80 mg PO [id number] PRN
08/19/23 19:56
UROLOGY CONSULT Routine
Consulting Provider: Sachin Weaver Jr.
Was physician already notified: Yes
Activity As Directed
Activity Level: Out of Bed-Early Mobility
With Assistance
Bedside Glucose Monitoring As Directed
Frequency: AC&HS
Comment: Change to q6h if pt on TPN, tube feeding or not eating
Hemetest Stools As Directed
Comment: Notify MD of any positive result; May Stop is negative x 3
I&O [Intake/ Output] As Directed
Frequency: q12h
Pneumatic Compression Sleeves As Directed
Type: Knee high
Vital Signs As Directed
Frequency: Per unit guidelines
Weight As Directed
Frequency: Daily
Oxygen Therapy [O2 Therapy] [RESP] Routine
Titrate/Wean O2 to maintain O2 sat greater than (%): 90
Special Instructions: Keep oxygen at 4-5L via nasal cannula at night
DX Deep Vein Thrombosis Video Routine
08/19/23 20:00
Cholecalciferol (Vitamin D3) [VITAMIN D3 (cholecalciferol)] 100 mcg PO BID
Docusate Sodium [Colace] 100 mg PO BID
08/19/23 20:04
Zinc Oxide 20% [Zinc Oxide Ointment] 1 applic TOPICAL DAILYPRN PRN
08/19/23 20:26
Urinalysis Reflex To Culture Urgent
Date Specimen was Collected: 08/19/23
Time Specimen was Collected: 18:15
08/19/23 20:57
Lactic Acid Urgent
08/19/23 22:00
Aspirin Low Dose EC [Aspir Low (Enteric Coated)] 81 mg PO HS
Atorvastatin [Lipitor] 10 mg PO HS
08/20/23 01:58
Urine Microscopic Reflex Cult Urgent
Urine Culture Urgent
NANO Source: U
Specimen Description:
Date Specimen was Collected: 08/19/23
Time Specimen was Collected: 18:15
08/20/23 06:00
Basic Metabolic Panel IN AM
Complete Blood Count/No Diff IN AM
Glycohemoglobin (HgbA1c) IN AM
Magnesium IN AM
TSH Reflex To Free T4 IN AM
08/20/23 07:00
Levothyroxine [Synthroid] 112 mcg PO DAILY AT 0700
08/20/23 07:30
Insulin Aspart Corrective Low [Novolog Flexpen-Low Resistance] See Protocol SC AC
08/20/23 08:00
FOLic ACID [Folvite] 1 mg PO DAILY
Polyethylene Glycol Powder [Miralax] 17 grams PO BID
Abnormal Lab Results
08/19/23
13:06
WBC 14.1 H 10^3/uL
(4.8-10.8)
RBC 4.09 L 10^6/uL
(4.20-5.40)
Hgb 10.1 L g/dL
(12.0-16.0)
Hct 30.7 L %
(37.0-47.0)
MCV 75.1 L fL
(81.0-99.0)
MCH 24.7 L pg
(27.0-31.0)
MCHC 32.9 L g/dL
(33.0-37.0)
RDW 17.6 H %
(11.5-14.5)
Abs Immat Gran (auto) 0.1 H 10^3/uL
(0-0.05)
Absolute Neuts (auto) 11.5 H 10^3/uL
(1.4-6.5)
Absolute Monos (auto) 0.9 H 10^3/uL
(0.1-0.6)
Immature Gran % 0.9 H %
(0-0.5)
Neutrophils % 81.6 H %
(42.2-75.2)
Lymphocytes % 10.9 L %
(20.5-51.1)
Sodium 129 L mmol/L
(135-145)
Carbon Dioxide 18 L mmol/L
(22-30)
BUN 43 H mg/dl
(7-17)
Creatinine 2.7 H mg/dL
(0.6-1.0)
Glucose 169 H mg/dl
(70-99)
Total Protein 6.1 L g/dl
(6.3-8.2)
Albumin 3.0 L g/dl
(3.5-5.0)
08/19/23 13:06
08/19/23 13:06
Vital Signs
Initial and Last Documented VS:
Initial Vital Signs
Temp Pulse Resp BP Pulse Ox
97.8 F 90 18 126/67 97
08/19/23 12:59 08/19/23 12:59 08/19/23 12:59 08/19/23 12:59 08/19/23 12:59
Last Documented Vital Signs
Temp Pulse Resp BP Pulse Ox
97.7 F 101 18 123/64 98
08/19/23 23:52 08/19/23 23:52 08/19/23 23:52 08/19/23 23:52 08/19/23 23:52
<Coral Posey AIRCRAFT ENGINE SPECIALIST - Last Filed: 08/20/23 07:51>
MDM/Problems Addressed
Differential Diagnosis Includes:
GI bleed, side effect from medications
Dehydration
Bowel obstruction, constipation
MDM/Problems Addressed:
73-year-old female presents for [facility] for coffee-ground black stool this morning. She is not anticoagulated. She is on chronic O2 4 L nasal cannula.
Patient denies chest pain or trouble breathing. She states her abdomen feels 'different' than usual but not really painful and has had gas pains.
She denies nausea or vomiting. She has been moving her bowels, denies dysuria.
Afebrile, vital signs normal, pulse ox 98% on her usual 4 L nasal cannula.
EKG: Sinus rhythm w PVCs
08/19/2023 1359 PM
73-year-old chronically ill-appearing female sent here for 'coffee-ground colored stools.' She denies abdominal pain, she does feel distended and gassy, she is mildly tender in the left side to left upper quadrant on exam
Her stool is black, hematest negative. (She was started on Ferrous sulfate on 08/11/23)
CBC: WBC 14.1, hemoglobin 10.1 improved from last on 08/11/23 perhaps partially from fluid depletion.
CMP: Shows new acute kidney failure, sodium [address] Messer into evaluate patient, due to kidney functions, mild abd pain and gassiness, plain abdominal CT ordered to evaluate abdominal pain
08/19/[address] abdomen pelvis with no p.o. or IV contrast radiology report reviewed: IMPRESSION:
Findings consistent with stercoral proctitis of the rectum and stercoral colitis involving the sigmoid colon. No evidence of pneumatosis. No perforation. No ascites or focal collection/abscess.
Mild to moderate bilateral hydroureteronephrosis without evidence to suggest obstructing renal calculus. No bladder calculus. Recommend correlation with renal function tests. Mild bladder wall thickening and soft tissue stranding, raising the
possibility of cystitis. Clinical correlation recommended.
1.5 cm exophytic left renal mass, having decreased in size compared to prior examination, previously measuring 2 cm.
[address] without CT evidence of acute cholecystitis.
08/19/2023 1657 PM
Plan: Admit: Stercoral proctitis and colitis, dehydration, acute kidney failure
Hospitalist notified of admission
<Coral Posey AIRCRAFT ENGINE SPECIALIST - Last Filed: 08/20/23 07:51>
*EKG
EKG Intrepretation Date: 08/19/23
Interpretation: abnormal
Rate: normal
Rhythm: PVC's
[place]: normal axis
Interval: normal interval
QRS Pattern: normal QRS
Ischemia: no ischemia
*Critical Care Note
Total Time (30-74mins, 75-104mins- exclusive of procedures): Not Applicable
ED Attending Note
<Coral Posey AIRCRAFT ENGINE SPECIALIST - Last Filed: 08/20/23 07:51>
-
Portions of this chart may have been created with voice recognition software.� Occasional wrong word or��sound alike� substitutions may have occurred due to the inherent limitations of voice recognition software.
<More Messer MD - Last Filed: 08/19/23 13:20>
ED Attending Note
Patient seen and examined by attending physician: Yes
I performed the substantive portion of visit, reviewed & personally made and approve the management plan that is documented in note by myself or VIRIDIANA.: Yes
ED Attending Note:
Patient complains of increased gas in her abdomen for 2 weeks ever since eating spicy foods. She denies nausea and vomiting. She was sent for black stools. However, when Hemoccult was checked, Hemoccult came back negative. On exam, patient
appears pale and chronically ill but is in no respiratory distress. Her abdomen is mildly distended with upper abdominal tenderness. Given that she is still having pain, we will certainly consider doing a CAT scan to look for partial bowel
obstruction
Discharge Plan
Departure
Patient Disposition: Admit
Date of Disposition: 08/19/23
Time of Disposition: 16:08
Presentation/result/management discussed w/ accepting MD/DO: Hospitalist
Condition: Fair
Discharge Problem:
Acute dehydration, Acute kidney failure, Stercoral colitis
Interventions
Interventions:
*Risk Screen - Suicide Last Done: 08/19/23 13:03
*General Assessment Last Done: 08/19/23 13:03
*Neglect/Abuse Screening Last Done: 08/19/23 13:03
ED- Fall Risk Assessment Last Done: 08/19/23 17:15
*ED COVID-19 Vaccine History Last Done: 08/19/23 13:03
*Nursing Disposition Last Done: 08/19/23 19:52
HH-Tgipby-Pslhpgholy Assessment Last Done: 08/19/23 13:10
Discharge Date and Time
Discharge Date/Time: 08/19/23 19:52
[2023-08-19 13:16] LABS: % Basophils 0.3 % (0-2); % Eosinophils 0.1 % (0-6); % Immature Granulocytes 0.9 % (0-0.5); % Lymphocytes 10.9 % (20.5-51.1); % Monocytes 6.2 % (1.7-9.3); % Neutrophils 81.6 % (42.2-75.2); Absolute Immature Granulocytes 0.1 10^3/uL (0-0.05); Absolute Lymphocytes 1.5 10^3/uL (1.2-3.4); Absolute Monocytes 0.9 10^3/uL (0.1-0.6); Absolute Neutrophils 11.5 10^3/uL (1.4-6.5); Hematocrit 30.7 % (37.0-47.0); Hemoglobin 10.1 g/dL (12.0-16.0); Mean Corp Hgb Conc. 32.9 g/dL (33.0-37.0); Mean Corpuscular Hgb 24.7 pg (27.0-31.0); Mean Corpuscular Volume 75.1 fL (81.0-99.0); Mean Platelet Volume 10.2 fL (7.4-10.4); Nucleated Red Blood Cells % 0 %; Platelet Count 295 10^3/uL (130-400); Red Blood Cell Count 4.09 10^6/uL (4.20-5.40); Red Cell Dist. Width 17.6 % (11.5-14.5); White Blood Cell Count 14.1 10^3/uL (4.8-10.8)
[2023-08-19 13:28] LABS: ALT (SGPT) 11 U/L (0-35); AST (SGOT) 23 U/L (14-36); Alkaline Phosphatase 101 U/L (38-126); Blood Urea Nitrogen 43 mg/dl (7-17); Calcium 8.5 mg/dl (8.4-10.2); Carbon Dioxide 18 mmol/L (22-30); Chloride 102 mmol/L (98-107); Estimated Creatinine Clearance 21 ml/min; Glucose 169 mg/dl (70-99); Sodium 129 mmol/L (135-145); Total Bilirubin 0.9 mg/dl (0.2-1.3); Total Protein 6.1 g/dl (6.3-8.2); eGFR 17.95
[2023-08-19] MEDS: NSS 500 IV (16:59)
--- NOTE | 2023-08-19 18:03 | HPS.HSE ---
Addendum entered and electronically signed by Abdirizak Dugan MD 08/19/23 18:54:
I saw and examined the patient.
The DINING ROOM CAPTAIN or PA's note was reviewed and I agree with the note.
Comment: 73-year-old female came to the hospital with brown/black stool. Heme-negative in the ED. Monitor H&H. Abdominal CT scan consistent with hydronephrosis, possible cystitis. Also has stercoral colitis. Start antibiotics. Check bladder
scan. Check UA. Significant KRISTA. Monitor with gentle hydration. Check lactate. Start laxatives. Continue with clears for now. Speech consult.
General:�Well Developed, Well Nourished and No Apparent Distress
HEENT:�NormoCephalic, Anicteric and Atraumatic
Respiratory:�Clear and Non Labored Respirations
Cardiac:�S1/S2 and Regular Rhythm
GI:�Soft, Non Tender and Other (Hypoactive bowel sounds)
Rectal:�Deferred by Provider
Musculoskeletal:�No Clubbing, No Cyanosis and Other (Edema bilateral lower extremities)
I spent a total of 78 minutes with the patient or on the floor. More than 50% of this time involved counseling and coordination of care.
Original Note:
Family Physician
-
Family Physician: Carlos Montgomery
Chief Complaint
-
Abdominal Discomfort
History of Present Illness
Patient is a 73 y/o female past medical history of hypertension, hyperlipidemia, and diabetes who presents with abdominal discomfort. Patient admits to abdominal bloating and gas pains. She notes last bowel movement was several days ago. She
admits to poor appetite, consuming mostly liquids but not much food. She denies nausea or vomiting. Staff at the facility noted 'coffee-black' stools this morning.
Medical History
Past Medical History
Past Medical History: Reports Other
Additional Past Medical History:
Essential Hypertension
Hyperlipidemia
Diabetes Mellitus, Type II
Hypothyroidism
Dysphagia
Past Surgical History: Reports None
Social History
Tobacco: Non-smoker
Alcohol: None
Living: [facility]
Family History
Family History: Not pertinent
Allergies / Home Medications
Allergies reflects when Allergies were last updated in [facility].
Home Medications with original date entered in [facility]
Allergy/Medication List:
Allergies
Allergy/AdvReac Type Severity Reaction Status Date / Time
celecoxib [From Celebrex] Allergy Shortness Verified 09/22/22 13:00
of Breath
gold Au 198 Allergy Rash Verified 09/22/22 13:00
hydrochlorothiazide Allergy Rash Verified 08/06/23 17:08
nickel Allergy Rash Verified 09/22/22 13:00
Sulfa (Sulfonamide Allergy breathing Verified 09/22/22 13:00
Antibiotics)
Home Medications
folic acid 1 mg tablet 1 mg PO DAILY Supplement 11/13/16
loratadine 10 mg tablet 10 mg PO DAILY PRN allergies 11/13/16
acetaminophen 325 mg tablet (Tylenol) 650 mg PO Q4HPRN PRN mild pain 08/06/23
aspirin 81 mg tablet,delayed release 81 mg PO HS Blood Clot Prevention/Tx 08/06/23
atorvastatin 10 mg tablet 10 mg PO HS High Cholesterol 08/06/23
cholecalciferol (vitamin D3) 100 mcg (4,000 unit) tablet 100 mcg PO BID Supplement 08/06/23
levothyroxine 112 mcg tablet 112 mcg PO DAILY Thyroid 08/06/23
metformin 1,000 mg tablet 1,000 mg PO BID@0800,1700 Diabetes 08/06/23
bisacodyl 10 mg rectal suppository (Dulcolax (bisacodyl)) 10 mg AK DAILYPRN PRN IF NO BM AFTR MOM 08/19/23
ferrous sulfate 143 mg (45 mg iron) tablet,extended release 143 mg PO DAILY 08/19/23
magnesium hydroxide 400 mg/5 mL oral suspension (Milk of Magnesia) 2,400 mg PO [id number] PRN IF NO BM BY 3RD DAY 08/19/23
ondansetron HCl 4 mg tablet 4 mg PO Q4HPRN PRN NAUSEA 08/19/23
simethicone 80 mg chewable tablet 80 mg PO [id number] PRN GAS PAIN 08/19/23
sodium phosphates 19 gram-7 gram/118 mL enema (Fleet Enema) 118 ml AK DAILYPRN PRN IF NO BM AFTR DULCOLAX 08/19/23
zinc oxide 12 % topical cream 1 applic topical DAILYPRN PRN B/L BUTTOCKS 08/19/23
Review of Systems
-
A 12 point ROS was completed and negative except as noted: Yes
Constitutional: Denies Fever or Chills
Respiratory: Denies Cough or Trouble Breathing
Cardiac: Denies Chest Pain or Palpitations
Abdomen/GI: Reports See HPI
Physical Exam
Vital Signs
Vital Signs
Temp Pulse Resp BP Pulse Ox
97.8 F 89 17 102/50 92
08/19/23 12:59 08/19/23 17:45 08/19/23 17:45 08/19/23 17:01 08/19/23 17:15
Physical Exam
General: Well Developed, Well Nourished and No Apparent Distress
HEENT: NormoCephalic, Anicteric and Atraumatic
Respiratory: Clear and Non Labored Respirations
Cardiac: S1/S2 and Regular Rhythm
GI: Soft, Non Tender and Other (Hypoactive bowel sounds)
Rectal: Deferred by Provider
Musculoskeletal: No Clubbing, No Cyanosis and Other (Edema bilateral lower extremities)
Laboratory Results
-
08/19/23 13:06
08/19/23 13:06
Laboratory Results
Total Bilirubin 0.9 mg/dl (0.2-1.3) 08/19/23 13:06
AST 23 U/L (14-36) 08/19/23 13:06
ALT 11 U/L (0-35) 08/19/23 13:06
Alkaline Phosphatase 101 U/L (38-126) 08/19/23 13:06
Data Reviewed
-
CT Scan: Report Reviewed by me
Lab Data: Labs Reviewed by me
Impression/Plan
-
Acute Kidney Injury
-CT scan shows bilateral mild to moderate hydroureteronephrosis - Consult Urology
-Continue IVFs
-Recheck creatinine in AM
Stercoral Colitis
-Start bowel regimen with Miralax and Colace BID
-Give Dulcolax now
-Start empiric Zosyn
-Allow clear liquids until have BMs
Hyponatremia, mild
-Continue IVFs
-Recheck sodium in AM
Hyperlipidemia
-Resume atorvastatin as diet is advanced
Diabetes Mellitus, Type II
-Hold metformin due to KRISTA
-Monitor sugars and continue coverage insulin
Hypothyroidism
-Continue levothyroxine
Chronic Noctural Hypoxia
-Continue 5L via nasal cannula at night
Dysphagia
-Patient on ground solids as outpatient
DVT proph: SCDs
Code Status: Limited DNR - No Intubation
[2023-08-19] MEDS: DULCOLAX 10 MG PO (18:51)
[2023-08-19] MEDS: MIRALAX 17 GRAMS PO (18:51)
[2023-08-19] MEDS: NSS 1000 IV (18:56)
[2023-08-19] MEDS: LIPITOR 10 MG PO (22:06)
[2023-08-19] MEDS: VITAMIN D3 (cholecalciferol) 100 MCG PO (22:06)
[2023-08-19] MEDS: ASPIR LOW (ENTERIC COATED) 81 MG PO (22:07)
[2023-08-19] MEDS: COLACE PO (22:08)
[2023-08-19] MEDS: ZOSYN 50 IV (22:10)
[2023-08-19 22:59] LABS: Glucose - Point of Care 168 mg/dl (70-99)
--- NOTE | 2023-08-20 02:12 | PTCARENOTE ---
Pt received from the ED at approx 2015 this shift. Pt on 4L o2, baseline, per pt. Pt came from [facility] admitted with stercoral colitis. Pt found to have saturated depends, with dark stool. Pt reports not being able to move around for the past
few weeks and uses a scooter at [facility] to get around. Pt also with multiple scattered pressure ulcers on buttocks/ sacrum, wound consult placed. MASD on b/l groin and under breasts. Medications given per HEIDI. French used as pt reports to
be incont of urine and stool. This RN spoke with pt Surinder via phone and gave update with patients permission. q2 turns maintained
[2023-08-20 02:26] LABS: Urine Albumin 1+ (Neg - Trace); Urine Bilirubin Negative (Negative); Urine Character Slightly Cloudy (Clear); Urine Color Yellow; Urine Glucose Trace (Negative); Urine Ketone Trace (Negative); Urine Leukocyte 2+ (Negative); Urine Nitrite Negative (Negative); Urine Occult Blood 3+ (Negative); Urine Specific Gravity 1.015 (<1.030); Urine Urobilinogen Negative (Neg - 1+)
[2023-08-20] MEDS: ZOSYN 50 IV ×4 (03:41→21:02)
[2023-08-20 05:06] LABS: Urine Amorphous Seen; Urine Bacteria Many (Negative); Urine Red Blood Cell >100 /HPF (0-2); Urine Squamous Cell >30 /LPF (Few); Urine White Cell >100 /HPF (0-5)
[2023-08-20 05:07] LABS: Urine Mucus Many
[2023-08-20] MEDS: SYNTHROID 112 MCG PO (05:33)
--- NOTE | 2023-08-20 07:11 | CON.MD ---
Consultation - Medical
-
see dictated note
pt with previous workup for chronic cystitis and incontinence with dr alba- 2021
had negative renal u/s and cysto showing erythema only
was scheduled for UDS but did not keep appointment
now admitted with abd pain/constipation
cr elevated- ct scan shows bilateral hydro down to level of bladder which is not distended
pt reports no hematuria or dysuria- mild incont and hesitancy
chronic back pain
300cc of urine output last shift via purewik
plan
suspect hydro due to high pressure/ngb bladder
elevated cr may be combo of this/dehydration
check cr level today- if declining would follow
if still elevated- will place campos to see if this provides any improvement
will follow and make further recs based on today's labs
[2023-08-20 07:30] VITALS: BP 141/93
[2023-08-20 07:32] LABS: Glucose - Point of Care 163 mg/dl (70-99)
[2023-08-20] MEDS: NSS IV (07:55)
[2023-08-20] MEDS: MIRALAX PO ×2 (07:56→21:02)
[2023-08-20] MEDS: VITAMIN D3 (cholecalciferol) 100 MCG PO ×2 (07:56→21:06)
[2023-08-20] MEDS: COLACE PO ×2 (07:56→21:01)
[2023-08-20] MEDS: FOLVITE 1 MG PO (07:56)
[2023-08-20] MEDS: NOVOLOG FLEXPEN-LOW RESISTANCE 1 UNITS SC (08:07)
[2023-08-20 09:00] LABS: Hematocrit 32.2 % (37.0-47.0); Hemoglobin 10.6 g/dL (12.0-16.0); Mean Corp Hgb Conc. 32.9 g/dL (33.0-37.0); Mean Corpuscular Hgb 25.2 pg (27.0-31.0); Mean Corpuscular Volume 76.5 fL (81.0-99.0); Mean Platelet Volume 10.9 fL (7.4-10.4); Platelet Count 273 10^3/uL (130-400); Red Blood Cell Count 4.21 10^6/uL (4.20-5.40); Red Cell Dist. Width 17.5 % (11.5-14.5); White Blood Cell Count 10.6 10^3/uL (4.8-10.8)
[2023-08-20 09:38] LABS: Blood Urea Nitrogen 42 mg/dl (7-17); Calcium 8.3 mg/dl (8.4-10.2); Carbon Dioxide 17 mmol/L (22-30); Chloride 106 mmol/L (98-107); Estimated Creatinine Clearance 26 ml/min; Glucose 161 mg/dl (70-99); Magnesium 1.6 mg/dl (1.6-2.3); Potassium 4.2 mmol/L (3.5-5.1); Sodium 130 mmol/L (135-145); eGFR 21.76
--- NOTE | 2023-08-20 09:41 | PTOTSP ---
Dysphagia Evaluation
Patient presents with signs concerning for mild oral and possible pharyngeal dysphagia. She had prolonged sustained bite through solids (impacted by edentulous status), prolonged but functional mastication, decreased bolus cohesion, and decreased
oral clearance with solids. With a liquid wash there was concern for reduced bolus control and possible aspiration as evidenced by overt coughing x1.
Patient denied any prior history of aspiration complications. Her diet prior to this admission was ground solids and thin liquids at [facility], but had been regular, thin liquids earlier this year.
Recommend:
1. IDDSI Level 5 (Minced and Moist), IDDSI Level 0 (Thin Liquids)
2. Medications - as best tolerated
3. Oral care 3-5x daily
4. Assistance with upright positioning and meal tray set up
5. Dysphagia tx follow up to determine if further objective swallowing assessment warranted and if patient appropriate for further solid advancement.
[2023-08-20 10:04] LABS: TSH Reflex To Free T4 9.66 uIU/ml (0.47-4.68)
--- NOTE | 2023-08-20 10:35 | W.PN.UPDATE ---
Update Note
Progress Note Update
pt's cr did not sig decline
she was in just 10 days ago with normal renal function- this would argue against somewhat a post renal cause
given failure of cr to decline- campos was placed- pelvic exam at bedside was normal
150cc of josué urine drained
will see what cr does after cath placement
[2023-08-20 10:59] LABS: Glucose - Point of Care 225 mg/dl (70-99)
--- NOTE | 2023-08-20 11:09 | CM ---
Addendum entered by Debra Cisneros 08/20/23 14:11:
Per Hospitalist, patient anticipated to be in hospital a few days, CM called patients Surinder to provide update per patients request.
Original Note:
Patient seen bedside, initial assessment completed. Patient reports she came from [facility] and is hopeful to return. Patient reports otherwise she resides with her , Surinder, in a first floor apartment. Patient reports she has a walker,
cane, wheelchair, and scooter in her apartment. Patient reports she typically sits in her recliner chair, but is able to walk 20 feet to get to her scooter to get to the bathroom or kitchen. Patient denies VN, reports her has had [facility] in the past. Patient reports her PCP is Tucker Hanks, pharmacy used when she is at home is the [facility] on [address]. Patient reports she does not have home O2. Patient requesting call to . CM spoke with
Yolanda from [facility], will hold patients bed to return to SNF, will require another auth. CM will continue to follow for discharge planning needs.
Plan; return to [facility] when stable, will require insurance auth.
--- NOTE | 2023-08-20 11:18 | WOUNDNOTE ---
WO RN note: Patient admitted with stercoral constipation, hydronephrosis
See H&P for complete history.
PMH: Resides at [facility]. HTN, IBS, stress incontinence, arthritis, ambulatory dysfunction, diabetes, obesity
Wound Location and type/assessment: Patient states she stays in recliner most of the day and sleeps in recliner in [place]. Can ambulate to BR with walker. Reports difficulty with movement due to arthritis. Sacrum is with scattered, friable open areas
surrounded by chronic discoloration. Heels intact. Some MASD noted in groin, abdomen and under breasts. Patient has campos and was given continence care for stool during assessment with assistance of Deya CELAYA.
Appetite: Fair, soft diet
Pressure redistribution devices in place: Static air overlay added to bed. Patient cannot tolerate heel off-loading. Sacrum cleaned, and silicone border foam applied. Keep skin folds clean and dry and use Calazime to open areas if needed. Turning
schedule. Will confirm orders with hospitalist and update nurse. Updated care plan and will follow as needed.
Note to case management of equipment requested for discharge:
Recommend follow up at wound care center upon discharge.
[2023-08-20 11:46] LABS: Free T4 1.85 ng/dl (0.78-2.19)
[2023-08-20] MEDS: NOVOLOG FLEXPEN-LOW RESISTANCE 2 UNITS SC (11:56)
[2023-08-20] MEDS: NSS 1000 IV ×2 (11:57→21:05)
[2023-08-20 12:13] LABS: Glycohemoglobin (HgbA1c) 9.5 % (4.0-5.6)
--- NOTE | 2023-08-20 12:22 | W.PN.HOSP.TC ---
Today's Communication/Plan
-
Monitor vital signs and see plan
Continue with laxatives
Continue with antibiotics
Follow cultures
PT/OT
Monitor creatinine
Monitor sodium
Assessment / Plan
Assessment / Plan
General:�Well Developed, Well Nourished and No Apparent Distress
HEENT:�NormoCephalic, Anicteric and Atraumatic
Respiratory:�Clear and Non Labored Respirations
Cardiac:�S1/S2 and Regular Rhythm
GI:�Soft, Non Tender and Other (Hypoactive bowel sounds)
Rectal:�Deferred by Provider
Musculoskeletal:�No Clubbing, No Cyanosis and Other (Edema bilateral lower extremities)
Acute Kidney Injury
-CT scan shows bilateral mild to moderate hydroureteronephrosis - urology following. now with campos as Cr didnt improve much
-Continue IVFs
-Ct now 2.3 monitor,. if does not improve then will get nephrology eval
mild metabolic acidosis
monitor
Suspected Cystitis/UTI
follow urine cx
cw abx
Stercoral Colitis
cw laxatives
-Start empiric Zosyn
-Allow clear liquids until have BMs
Hyponatremia, mild
-Continue IVFs
monitor
Hyperlipidemia
-Resume atorvastatin as diet is advanced
Diabetes Mellitus, Type II
uncontrolled; A1c 9.5
-Hold metformin due to KRISTA
-Monitor sugars and continue coverage insulin
Hypothyroidism
elevated TSH but normal free t4
-Continue levothyroxine
Chronic Noctural Hypoxic resp failure
likely 2/2 JACK/OHS; still yet to get sleep study outpatient
-Continue 5L via nasal cannula at night
Dysphagia
-Evaluated by speech and started on minced and moist diet
DVT proph: SCDs,heparin
Code Status: Limited DNR - No Intubation
I spent a total of 52 minutes with the patient or on the floor. More than 50% of this time involved counseling and coordination of care.
Anticipated Discharge: > 48 hours
Subjective/Interval History
-
Date of Service: August 20, 2023
denies pain
Objective Data
-
Labs:
Laboratory Results
08/20/23
08:20
WBC 10.6
Hgb 10.6 L
Hct 32.2 L
Plt Count 273
Sodium 130 L
Potassium 4.2
Chloride 106
Carbon Dioxide 17 L
BUN 42 H
Creatinine 2.3 H
Glucose 161 H
Calcium 8.3 L
Vital Signs:
Vital Signs
Temp Pulse Resp BP Pulse Ox
97.5 F 99 20 141/93 99
08/20/23 07:30 08/20/23 07:30 08/20/23 07:30 08/20/23 07:30 08/20/23 12:14
I&O
08/19/23 08/20/23 08/21/23
06:59 06:59 06:59
Output Total 290 / 290
Balance -290 / -290
[2023-08-20 13:14] LABS: Urine Sodium 84 mmol/L (30-90)
[2023-08-20 15:11] VITALS: BP 156/82
[2023-08-20 16:37] LABS: Glucose - Point of Care 215 mg/dl (70-99)
[2023-08-20] MEDS: NOVOLOG FLEXPEN-LOW RESISTANCE SC (17:24)
[2023-08-20] MEDS: HEPARIN 5000 UNITS SC (21:04)
[2023-08-20] MEDS: TYLENOL 650 MG PO (21:04)
[2023-08-20] MEDS: ASPIR LOW (ENTERIC COATED) 81 MG PO (21:05)
[2023-08-20] MEDS: LIPITOR 10 MG PO (21:06)
[2023-08-20 21:20] LABS: Glucose - Point of Care 209 mg/dl (70-99)
[2023-08-20 23:41] VITALS: BP 92/54
[2023-08-21] VITALS (56 sets, daily range): BP systolic 61–147; BP diastolic 34–88; BMI 31.8
[2023-08-21] MEDS: ZOSYN 50 IV ×4 (04:31→21:44)
[2023-08-21] MEDS: SYNTHROID PO (05:27)
[2023-08-21 06:14] LABS: Glucose - Point of Care 203 mg/dl (70-99)
[2023-08-21] MEDS: NOVOLOG FLEXPEN-LOW RESISTANCE 300 UNITS SC (06:15)
[2023-08-21 08:28] LABS: % Basophils 0.2 % (0-2); % Eosinophils 0.5 % (0-6); % Lymphocytes 13.8 % (20.5-51.1); % Monocytes 6.2 % (1.7-9.3); % Neutrophils 78.3 % (42.2-75.2); Absolute Immature Granulocytes 0.1 10^3/uL (0-0.05); Absolute Lymphocytes 1.1 10^3/uL (1.2-3.4); Absolute Monocytes 0.5 10^3/uL (0.1-0.6); Absolute Neutrophils 6.4 10^3/uL (1.4-6.5); Hemoglobin 9.9 g/dL (12.0-16.0); Mean Corpuscular Hgb 24.8 pg (27.0-31.0); Mean Platelet Volume 10.5 fL (7.4-10.4); Nucleated Red Blood Cells % 0 %; Platelet Count 293 10^3/uL (130-400); Red Cell Dist. Width 17.1 % (11.5-14.5); White Blood Cell Count 8.1 10^3/uL (4.8-10.8)
--- NOTE | 2023-08-21 08:51 | W.PN.URO.CBU ---
Addendum entered and electronically signed by Sachin Weaver Jr., MD 08/21/23 11:32:
cr down to 1.6
no need for OR today
continue zosyn
continue gentle hydration
await ucx and track cr level
will follow
Original Note:
Today's Communication / Plan
-
continue campos
continue zosyn
await am cr for today's urologic plan
Assessment / Plan
-
Neurogenic bladder
HYDRO- suspected due to above
suspected UTI
VICENTE
excellent UO with campos
awaiting ucx- on zosyn
awaiting am cr in regards to urologic plan- will amend note when this returns
Diagnosis
-
Date of Service: August 21, 2023
-
Patient Diagnosis:
neurogenic bladder
suspected UTI
hydro
VICENTE
Subjective
-
pt actually says this am that she feels better
excellent UO from campos- clear
cx and am cr level pending
Objective
-
Vital Signs
Temp Pulse Resp BP Pulse Ox
97.9 F 110 20 128/61 93
08/21/23 07:30 08/21/23 07:30 08/21/23 07:30 08/21/23 07:30 08/21/23 07:30
Intake and Output
08/20/23 08/21/23 08/22/23
06:59 06:59 06:59
Intake Total 1320 / 1320
Output Total 290 / 290 1300 / 1300
Balance -290 / -290 20 / 20
Intake:
Oral fluids 620 / 620
IV fluids (Total) 600 / 600
IV piggybacks 100 / 100
Output:
Urine, Campos 1200 / 1200
Urine, Voided 290 / 290 100 / 100
Other:
How many times incontinent 2
SATURATED amount urine
Review of Systems
-
Constitutional: Fatigue
Respiratory: No Symptoms
Cardiac: No Symptoms
Abdomen/GI: No Symptoms
: Other (campos)
Musculoskeletal: Joint Pain and Muscle Pain
Physical Exam
-
General - no acute distress
Abdomen - soft, non-tender
Genitalia - campos in place
[2023-08-21] MEDS: NSS 1000 IV ×3 (08:55→23:33)
[2023-08-21] MEDS: VITAMIN D3 (cholecalciferol) PO ×2 (08:55→20:50)
[2023-08-21] MEDS: HEPARIN SC (08:55)
[2023-08-21] MEDS: MIRALAX PO ×2 (08:55→20:13)
[2023-08-21] MEDS: FOLVITE PO (08:55)
[2023-08-21] MEDS: COLACE PO ×2 (08:55→20:13)
[2023-08-21 09:04] LABS: Blood Urea Nitrogen 30 mg/dl (7-17); Calcium 8.3 mg/dl (8.4-10.2); Carbon Dioxide 17 mmol/L (22-30); Chloride 104 mmol/L (98-107); Estimated Creatinine Clearance 37 ml/min; Glucose 161 mg/dl (70-99); Potassium 3.7 mmol/L (3.5-5.1); Sodium 129 mmol/L (135-145); eGFR 33.63
[2023-08-21 11:18] LABS: Glucose - Point of Care 207 mg/dl (70-99)
[2023-08-21 11:42] LABS: % Basophils 0.4 % (0-2); % Eosinophils 0.4 % (0-6); % Monocytes 8.5 % (1.7-9.3); % Neutrophils 67.7 % (42.2-75.2); Absolute Basophils 0.1 10^3/uL (0-0.2); Absolute Eosinophils 0.1 10^3/uL (0-0.7); Absolute Immature Granulocytes 0.1 10^3/uL (0-0.05); Absolute Lymphocytes 2.9 10^3/uL (1.2-3.4); Absolute Monocytes 1.1 10^3/uL (0.1-0.6); Absolute Neutrophils 9.1 10^3/uL (1.4-6.5); Hemoglobin 9.7 g/dL (12.0-16.0); Mean Corp Hgb Conc. 33.4 g/dL (33.0-37.0); Mean Corpuscular Hgb 24.9 pg (27.0-31.0); Mean Corpuscular Volume 74.6 fL (81.0-99.0); Mean Platelet Volume 10.5 fL (7.4-10.4); Nucleated Red Blood Cells % 0 %; Platelet Count 443 10^3/uL (130-400); Red Blood Cell Count 3.89 10^6/uL (4.20-5.40); Red Cell Dist. Width 17.2 % (11.5-14.5); White Blood Cell Count 13.4 10^3/uL (4.8-10.8)
[2023-08-21 11:44] LABS: B.E. -7.4 mmol/L; O2 Saturation % 75.8 % (94-98); PCO2 19 mmHg (32-35); pH 7.49 (7.35-7.45)
[2023-08-21 11:47] LABS: HCO3 14.5 mmol/L (21-28); PO2 42 mmHg (83-108)
[2023-08-21 11:51] LABS: INR 2.54; PT 27.3 Sec (11.4-14.6)
[2023-08-21 11:53] LABS: APTT 39.5 Sec (23.4-35.0)
[2023-08-21 11:56] LABS: ALT (SGPT) 16 U/L (0-35); AST (SGOT) 35 U/L (14-36); Albumin 2.6 g/dl (3.5-5.0); Alkaline Phosphatase 103 U/L (38-126); Blood Urea Nitrogen 28 mg/dl (7-17); Calcium 8.3 mg/dl (8.4-10.2); Carbon Dioxide 15 mmol/L (22-30); Chloride 105 mmol/L (98-107); Estimated Creatinine Clearance 42 ml/min; Glucose 187 mg/dl (70-99); Potassium 3.9 mmol/L (3.5-5.1); Sodium 128 mmol/L (135-145); Total Protein 5.6 g/dl (6.3-8.2); eGFR 39.48
--- NOTE | 2023-08-21 11:57 | RR ---
A Rapid Response was called on this patient, please see Rapid Response form.
pt c/o SOB as speech went to eval pt. pt's pulse o2 was in 40's-50's. placed pt on non-rebreather. pt still on 50's. pt had a bright red bloody stool with clots at this time. Pt AAO*3, no pain or discomfort. Called rapid at this time. notified
Ritchie. BP 90's/60's, BS 207. HR in 130's, EKG sinus Tach. Pt transferred to ICU.
[2023-08-21 12:07] LABS: Troponin I < 0.012 ng/ml
--- NOTE | 2023-08-21 12:24 | PTCARENOTE ---
Received pt s/p rapid response with red blood and clots from rectum, iupon cleaning up after arrival, pt passed another large clot. Senior Software Qa Analyst and hospitalist at bedside. Pt consented to blood, but did not want to sign consent. Placed on high
flow/nrb upon arrival as sats were 77% on nrb alone. Pt reports breathing better without mask and keeps pulling off oxygen so needed to restrain pt. Mullins in place for urology determination. Fluid bolus infusing for hypotension upon arrival.
Otherwise please refer to assessment. Unable to obtain additional iv access. Iv team currently at bedside to obtain additional access for protonix gtt.
[2023-08-21] MEDS: PROTONIX 100 IV ×2 (12:34→22:26)
--- NOTE | 2023-08-21 13:13 | CON.GI ---
Addendum entered and electronically signed by Marie Irwin MD 08/21/23 14:58:
I saw and examined the patient.
The INFANTRY WEAPONS CREWMEMBER or PA's note was reviewed and I agree with the note.
Comment: 73 yo F initially admitted 08/19 for dark stools, heme negative in ER from group home. She was found to have KRISTA and b/l hydronephrosis and seen by urology. Also found to have stercoal colitis on CT.
Today I was called by Dr. Dugan this AM patient was having copious BRB and was hemodynamically unstable with BPs in the 70s and tachy in the 110s. A stat Hb was stable (9.7) but INR was elevated 2.54, normal platelets. Also found to be hypoxic and
currently requiring high flow O2 and non rebreather. BUN 28 Cr 1.4.
On history patient does elicit taking daily NSAIDs with ASA. EGD/cscope in the past as below. No abd pain.
Most likely this is a lower GI bleed, diff dx: ischemic colitis, stercoal colitis, diverticular bleed, Dieulofoy's, AVM. Could also have a brisk UGIB would expect BUN to be more elevated differential PUD (on NSAIDs), Dieulofoy.
I discussed with anesthesiologist Dr. Arredondo who felt patient was too unstable from a respiratory position to undergo procedure as I thought an urgent EGD to r/o a massive UGIB could be helpful as can potentially stop the bleeding (no cautery with
INR). Issue is she is DNI. I talked to her multiple times and she was hesitant to reverse the DNI for the procedure especially since her with O2 requirements I cannot say she will be able to be extubated and when. A stat CXR was pending. She has
been given 2 UPRBC as well and her blood pressure seems to have improved to the 90s. Vit K also given, since no procedure, recommend to hold off on FFP.
CTA is not an option due to her kidney function therefore if patient is stable recommend a stat bleeding scan. I discussed at length with ICU attg Dr. Beckford, hospitalist Dr. Dugan, and STRIPE MARKER Martine. I tried to reach multiple times
with no avail both numbers in chart including cell where I left a voicemail [phone].
In interim, recommend to continue PPI gtt, trend hb, monitor stools.
Original Note:
Consultation
-
Date/Time Consultation Requested: 1139
Date/Time Consultation Performed: 1250
Performing Provider: Dr. Irwin / Luna Valdivia PA-C
Reason for Consultation: black stools, rectal bleeding
Medical History
Chief Complaint / HPI
Chief Complaint: black stools, rectal bleeding
History of Present Illness:
This is a 73 year old female with a past medical history of DM, HTN, hyperlipidemia, osteoarthritis and obesity who was admitted 08/19/23 for dark stools, although was heme negative in the ER. She complained of abdominal bloating and 'gas pains.' CT
abdomen/pelvis did show stercoral proctitis/colitis involving the sigmoid colon, as well as bilateral hydronephrosis and possible cystitis. Also noted a left renal mass, seen on prior exams, now decreased in sized compared. Stools have been checked
since admission and have been brown, heme negative stools, until today when she had burgundy bowel movement with clots. She was noted to be hypotensive and tachycardic and was transferred to the ICU for ongoing care and GI is consulted to evaluate
patient. She currently denies any abdominal pain. She takes a daily baby aspirin as well as Ibuprofen 200mg once a day. She states she had an endoscopy about 2 years ago at [facility], which was reportedly normal. She denies a history of ulcers. She
had a colonoscopy in 2017, reports no history of polyps. There is a family history of colon cancer (brother), and stomach cancer (paternal relatives?). Labs reviewed: CBC shows Hgb 9.7 with microcytic indices. PT 27.3, INR 2.54.
Past Medical History
Past Medical History: HTN, Hypercholesterolemia, NIDDM and Other (osteoarthritis, obesity)
Past Surgical History: Other (cataracts)
Social History
Tobacco: Non-Smoker
Alcohol: None
Living: Jail
Family History
Family History: Other (colon cancer (brother), stomach cancer (?paternal relatives))
Allergies / Home Medications
Allergy/AdvReac Type Severity Reaction Status Date / Time
celecoxib [From Celebrex] Allergy Shortness Verified 09/22/22 13:00
of Breath
gold Au 198 Allergy Rash Verified 09/22/22 13:00
hydrochlorothiazide Allergy Rash Verified 08/06/23 17:08
nickel Allergy Rash Verified 09/22/22 13:00
Sulfa (Sulfonamide Allergy breathing Verified 09/22/22 13:00
Antibiotics)
Medication Instructions Recorded
folic acid 1 mg tablet 1 mg PO DAILY Supplement 11/13/16
loratadine 10 mg tablet 10 mg PO DAILY PRN allergies 11/13/16
acetaminophen 325 mg tablet 650 mg PO Q4HPRN PRN mild pain 08/06/23
(Tylenol)
aspirin 81 mg tablet,delayed 81 mg PO HS Blood Clot 08/06/23
release Prevention/Tx
atorvastatin 10 mg tablet 10 mg PO HS High Cholesterol 08/06/23
cholecalciferol (vitamin D3) 100 100 mcg PO BID Supplement 08/06/23
mcg (4,000 unit) tablet
levothyroxine 112 mcg tablet 112 mcg PO DAILY Thyroid 08/06/23
metformin 1,000 mg tablet 1,000 mg PO BID@0800,1700 Diabetes 08/06/23
bisacodyl 10 mg rectal suppository 10 mg SC DAILYPRN PRN IF NO BM 08/19/23
(Dulcolax (bisacodyl)) AFTR MOM
ferrous sulfate 143 mg (45 mg 143 mg PO DAILY Supplement 08/19/23
iron) tablet,extended release
magnesium hydroxide 400 mg/5 mL 2,400 mg PO [id number] PRN IF NO BM 08/19/23
oral suspension (Milk of Magnesia) BY 3RD DAY
ondansetron HCl 4 mg tablet 4 mg PO Q4HPRN PRN NAUSEA 08/19/23
simethicone 80 mg chewable tablet 80 mg PO [id number] PRN GAS PAIN 08/19/23
sodium phosphates 19 gram-7 118 ml SC DAILYPRN PRN IF NO BM 08/19/23
gram/118 mL enema (Fleet Enema) AFTR DULCOLAX
zinc oxide 12 % topical cream 1 applic topical DAILYPRN PRN B/L 08/19/23
BUTTOCKS
Review of Systems
-
History Source: Patient
All other systems: A 12 pt ROS was Negative except as stated above in HPI
Vital Signs
Temp Pulse Resp BP Pulse Ox
97.8 F 127 18 92/58 91
08/21/23 12:34 08/21/23 12:34 08/21/23 12:34 08/21/23 12:34 08/21/23 12:05
Physical Exam
Exam
General: Well Developed, Well Nourished and No Apparent Distress
Respiratory: Clear
Cardiac: Regular Rhythm and Other (+tachycardic, HR in the 120s)
GI: Soft, Non Tender, Non Distended and Normal Bowel Sounds
Skin: Warm and Dry
Neuro: Awake, Alert and Oriented
Results
WBC 13.4 10^3/uL (4.8-10.8) H 08/21/23 11:25
Hgb 9.7 g/dL (12.0-16.0) L 08/21/23 11:25
Hct 29.0 % (37.0-47.0) L 08/21/23 11:25
MCV 74.6 fL (81.0-99.0) L 08/21/23 11:25
Plt Count 443 10^3/uL (130-400) H D 08/21/23 11:25
Absolute Neuts (auto) 9.1 10^3/uL (1.4-6.5) H 08/21/23 11:25
PT 27.3 Sec (11.4-14.6) H 08/21/23 11:25
INR 2.54 08/21/23 11:25
APTT 39.5 Sec (23.4-35.0) H 08/21/23 11:25
Sodium 128 mmol/L (135-145) L 08/21/23 11:25
Potassium 3.9 mmol/L (3.5-5.1) 08/21/23 11:25
Chloride 105 mmol/L (98-107) 08/21/23 11:25
Carbon Dioxide 15 mmol/L (22-30) L 08/21/23 11:25
BUN 28 mg/dl (7-17) H 08/21/23 11:25
Creatinine 1.4 mg/dL (0.6-1.0) H 08/21/23 11:25
Calcium 8.3 mg/dl (8.4-10.2) L 08/21/23 11:25
Total Bilirubin 1.0 mg/dl (0.2-1.3) 08/21/23 11:25
AST 35 U/L (14-36) 08/21/23 11:25
ALT 16 U/L (0-35) 08/21/23 11:25
Alkaline Phosphatase 103 U/L (38-126) 08/21/23 11:25
Diagnostic Image Results:
08/19/2023 CT Abdomen/Pelvis:
Findings consistent with stercoral proctitis of the rectum and stercoral colitis involving the sigmoid colon. No evidence of pneumatosis. No perforation. No ascites or focal collection/abscess.
Mild to moderate bilateral hydroureteronephrosis without evidence to suggest obstructing renal calculus. No bladder calculus. Recommend correlation with renal function tests. Mild bladder wall thickening and soft tissue stranding, raising the
possibility of cystitis. Clinical correlation recommended.
1.5 cm exophytic left renal mass, having decreased in size compared to prior examination, previously measuring 2 cm.
[address]ole[address] without CT evidence of acute cholecystitis.
Prior GI Procedures:
EGD: 2 yrs ago at [facility], reportedly normal
Colonoscopy: 2017, reportedly normal, no h/o polyps
Assessment / Plan
-
73 year old female with DM, HTN, hyperlipidemia, osteoarthritis and obesity who was admitted 08/19/23 for dark stools, heme negative in the ER. She complained of abdominal bloating and 'gas pains.' CT abdomen/pelvis did show stercoral
proctitis/colitis involving the sigmoid colon, as well as bilateral hydronephrosis and possible cystitis. Also noted a left renal mass, seen on prior exams, now decreased in sized compared. Stools have been checked since admission and have been
brown, heme negative stools, until today when she had burgundy bowel movement with clots. She was noted to be hypotensive and tachycardic and was transferred to the ICU for ongoing care and GI is consulted to evaluate patient. Patient is being
transfused 1 unit of PRBCs and fresh frozen plasma. She currently denies any abdominal pain. She takes a daily baby aspirin as well as Ibuprofen 200mg once a day. She states she had an endoscopy about 2 years ago at [facility], which was reportedly
normal. She denies a history of ulcers. She had a colonoscopy in 2017, reports no history of polyps. There is a family history of colon cancer (brother), and stomach cancer (paternal relatives?). Labs reviewed: CBC shows Hgb 9.7 with microcytic
indices. PT 27.3, INR 2.54.
IMPRESSION / PLAN:
Melena, with episode of maroon stools today - rule out upper GI bleed
-patient became tachycardic and hypotensive (systolic BP in the 90s), now in ICU
-Hgb 9.7
-will trend H&H
-on PPI gtt
-large bore IVs in place
-being transfused 1 unit PRBCs as well as FFP
-plan for emergent endoscopy - to discuss with Dr. Irwin and Anesthesia
-
-
Thank you for consultation and allowing me to participate in the patient's care. Please call the compensation advisor GI physician during the after hours with any questions or concerns.
--- NOTE | 2023-08-21 13:18 | CON.INTV ---
Consultation
Consultation Request
Date/Time Consultation Requested: 08/21/2023 - 1215
Date/Time Consultation Performed: 08/21/2023 - 1240
Requesting Provider: Dr. Dugan
Performing Provider: Dr. Beckford
Reason for Consultation: Acute GI Bleed/Hypotension
Medical History
-
Chief Complaint: Abdominal pain
History of Present Illness:
73-year-old female with past med history of hypertension, hyperlipidemia and DM type II presented with abdominal discomfort. She has presented from a nursing facility ([facility]) and staff there noted patient had coffee�black stools this
morning. She does take aspirin as an outpatient otherwise is not prescribed any other blood thinners. Initial labs showed Hb 10.1, platelets 295, serum creatinine 2.7 and serum sodium 129. Imaging on admission with CT abdomen/pelvis showed
stercoral proctitis/colitis with no evidence of pneumatosis or perforation. Also mild�moderate bilateral hydro ureteral nephrosis with bladder wall thickening concerning for cystitis. Urinalysis suspicious for UTI and antibiotics were started with
Zosyn. Patient was being managed on the floor. She was getting DVT prophylaxis with heparin SQ 5000 units q12hr. on 08/21/2023, patient developed rectal bleeding with hypotension and shortness of breath with rapid response called. Patient was
transferred to the ICU for further care with critical care services consulted for additional management.
When I saw the patient she was on high flow nasal cannula 100% with SpO2 90%. She was hypotensive with SBP in the 75-80 mm per mercury range, with heart rate 125. She was lethargic but easily arousable and answering my questions appropriately.
Emergent consent obtained with me and the hospitalist, Dr. Dugan, and she did verbally agree/consent to obtain blood transfusion. Patient denies abdominal pain, chest pain, shortness of breath, fevers or chills. She is clearly in acute distress on
high flow and appears pale.
PMHx: Hypertension, hyperlipidemia, DM type II, hypothyroidism, iron deficiency anemia, chronic hypoxemic respiratory failure on 4 L/min, GERD, IBS, stress incontinence stress incontinence, history of UTI, cataracts
PSHx: Bilateral cataract surgery, oral surgery
Past Medical History
Past Medical History: Other (Above as per HPI)
Past Surgical History: Other (Above as per HPI)
Social History
Tobacco: Non-smoker
Alcohol: None
Drug: None
Living: [facility]
Family History
Family History: Reviewed & Not Pertinent
Allergies / Home Medications
Allergies
Allergy/AdvReac Type Severity Reaction Status Date / Time
celecoxib [From Celebrex] Allergy Shortness Verified 09/22/22 13:00
of Breath
gold Au 198 Allergy Rash Verified 09/22/22 13:00
hydrochlorothiazide Allergy Rash Verified 08/06/23 17:08
nickel Allergy Rash Verified 09/22/22 13:00
Sulfa (Sulfonamide Allergy breathing Verified 09/22/22 13:00
Antibiotics)
Home Medications
Medication Instructions Recorded Confirmed Last Taken Type
folic acid 1 mg tablet 1 mg PO DAILY Supplement 11/13/16 08/19/23 08/05/23 History
loratadine 10 mg tablet 10 mg PO DAILY PRN allergies 11/13/16 08/19/23 08/04/23 History
acetaminophen 325 mg tablet 650 mg PO Q4HPRN PRN mild pain 08/06/23 08/19/23 08/04/23 History
(Tylenol)
aspirin 81 mg tablet,delayed 81 mg PO HS Blood Clot 08/06/23 08/19/23 08/04/23 History
release Prevention/Tx
atorvastatin 10 mg tablet 10 mg PO HS High Cholesterol 08/06/23 08/19/23 08/04/23 History
cholecalciferol (vitamin D3) 100 100 mcg PO BID Supplement 08/06/23 08/19/23 08/05/23 History
mcg (4,000 unit) tablet
levothyroxine 112 mcg tablet 112 mcg PO DAILY Thyroid 08/06/23 08/19/23 08/05/23 History
metformin 1,000 mg tablet 1,000 mg PO BID@0800,1700 Diabetes 08/06/23 08/19/23 08/04/23 History
bisacodyl 10 mg rectal suppository 10 mg IN DAILYPRN PRN IF NO BM 08/19/23 08/19/23 Unknown History
(Dulcolax (bisacodyl)) AFTR MOM
ferrous sulfate 143 mg (45 mg 143 mg PO DAILY Supplement 08/19/23 08/19/23 Unknown History
iron) tablet,extended release
magnesium hydroxide 400 mg/5 mL 2,400 mg PO [id number] PRN IF NO BM 08/19/23 08/19/23 Unknown History
oral suspension (Milk of Magnesia) BY 3RD DAY
ondansetron HCl 4 mg tablet 4 mg PO Q4HPRN PRN NAUSEA 08/19/23 08/19/23 Unknown History
simethicone 80 mg chewable tablet 80 mg PO [id number] PRN GAS PAIN 08/19/23 08/19/23 Unknown History
sodium phosphates 19 gram-7 118 ml IN DAILYPRN PRN IF NO BM 08/19/23 08/19/23 Unknown History
gram/118 mL enema (Fleet Enema) AFTR DULCOLAX
zinc oxide 12 % topical cream 1 applic topical DAILYPRN PRN B/L 08/19/23 08/19/23 Unknown History
BUTTOCKS
Review of Systems
-
Unable to Obtain full review of systems at this time due to: Acuity
Vitals / Labs / Diagnostic Testing
Vital Signs
Temp Pulse Resp BP Pulse Ox
96.8 F L 131 24 116/80 91
08/21/23 13:29 08/21/23 13:29 08/21/23 13:29 08/21/23 13:29 08/21/23 12:05
Lab Data
08/21/23 11:25
08/21/23 11:25
Laboratory Results
08/21/23
11:25
PT 27.3 H
INR 2.54
APTT 39.5 H
pH 7.49 H
pCO2 19 L
pO2 42 L*
HCO3 14.5 L*
O2 Delivery Level Not Reportable
Microbiology
08/20/23 01:58 Urine Urine Culture - Final
08/20/23 09:49 Blood/Venous Blood Culture - Preliminary
No Growth in 24 hours- Final report to follow
08/20/23 01:27 Nose MRSA Screen - Final
No Methicillin Resistant Staphylococcus aureus isolated.
08/20/23 09:00 Blood/Venous Blood Culture - Preliminary
No Growth in 24 hours- Final report to follow
Diagnostic Testing:
Physical Exam
-
HEENT: Normocephalic, Anicteric and Other (Conjunctival pallor seen bilaterally)
Cardiovascular: Peripheral Edema (Negative) and Other (Tachycardic)
Respiratory: Wheeze (Negative), Rales (Negative), Rhonchi (Negative) and Accessory Resp Muscle Use
GI: Soft, Non Distended and Non Tender
Neurology: Tremors (Negative) and Other (Lethargic but easily arousable and answering questions appropriately)
Skin: Warm and Dry
General: Comfortable
Assessment
-
Assessment: 73-year-old female with a PMHx of hypertension, hyperlipidemia and DM type II presented with abdominal discomfort. Initial imaging concerning for stercoral colitis/proctitis. She also has UTI with acute kidney injury and antibiotics
were started. Patient was being managed on the floor where she developed acute rectal bleeding and severe shortness of breath, rapid response was called and patient was transferred to the ICU for further care with critical care services consulted
for additional management/recommendations.
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
Impression:
#Acute gastrointestinal bleed - suspect lower versus brisk upper
#Acute blood loss anemia
#Hemorrhagic shock
#Coagulopathy
#Acute on chronic respiratory failure with hypoxemia (on 4L/min at NH)
#Acute kidney injury (baseline C approx 0.8-1)
#Mild�moderate bilateral hydroureteronephrosis without obstructing renal calculus/bladder calculus
#UTI
Plan:
- Large bore IV x2
- GI planning to perform EGD
- IV fluid resuscitation with hypotonic crystalloids
- Administer 2 units PRBC as well as FFP and vitamin K
- May need central line vs PICC if IV access is an issue or insufficient
- Hold all antiplatelets/anticoagulants for now
- Continue ABx - currently on Zosyn
- Follow up infectious workup with urine and blood Cx
- Obtain CXR to assess for pneumonia given her severe hypoxia now on high-flow nasal cannula
- Titrate O2 flow rate and FiO2 to maintain SpO2 >90-94%
- Continue campos for accurate I/O
- patient is DNI
- Maintain MAP >65
- Maintain euglycemia with goal BG 140�180
- Replete K >4, Mg >2
- DVT prophylaxis: SCDs
Critical care statement: A total of 40 minutes of critical care time was provided for this patient today. This includes management of unstable vital signs, evaluation of the patient at bedside, reviewing the patient's pertinent medical records
including radiographs, microbiology, laboratory evaluations, and discussion with primary team, consultants, pharmacy, nutrition, physical therapy, case management, charge nurse, critical care nursing, and respiratory therapy.
Data:
CT Abd/Pelvis without contrast 08-19-2023:
Findings consistent with stercoral proctitis of the rectum and stercoral colitis involving the sigmoid colon. No evidence of pneumatosis. No perforation. No ascites or focal collection/abscess.
Mild to moderate bilateral hydroureteronephrosis without evidence to suggest obstructing renal calculus. No bladder calculus. Recommend correlation with renal function tests. Mild bladder wall thickening and soft tissue stranding, raising the
possibility of cystitis. Clinical correlation recommended.
1.5 cm exophytic left renal mass, having decreased in size compared to prior examination, previously measuring 2 cm.
[2023-08-21] MEDS: NSS IV (13:19)
[2023-08-21] MEDS: NOVOLOG FLEXPEN-LOW RESISTANCE 3 UNITS SC (13:22)
[2023-08-21 13:32] LABS: Glucose - Point of Care 279 mg/dl (70-99)
[2023-08-21] MEDS: AQUAMEPHYTON 51 MG IV (13:36)
--- NOTE | 2023-08-21 14:10 | W.PN.HOSP.TC ---
Today's Communication/Plan
-
Monitor vital signs see plan
GI following
Hemorrhagic shock; monitor H/H
PPI
Continue with fluids, start pressors if needed
CXR; on high flow
Multiple attempts to contact , unreachable. No voicemail set up to leave the message.
Assessment / Plan
Assessment / Plan
General: lethargy
HEENT:�pale
Respiratory:�Clear and Non Labored Respirations
Cardiac:�S1/S2 and Regular Rhythm,tachycardia
GI:�Soft, Non Tender
: campos
Musculoskeletal:�No Clubbing, No Cyanosis and Other (Edema bilateral lower extremities)
Neuro: AAOx2-3,calm
Acute hemorrhagic shock secondary to GI bleed
Continue with PPI drip, start 80 IV Protonix given
Give 1 unit PRBC now, monitor H&H
Cannot do CTA at this time due to creatinine
GI consulted
Continue with fluids, start pressors if needed
Transfer to ICU
Tried calling multiple times however unreacheable; Me and Dr Beckford both spoke to patient and she was agreeable with tranfusion and wanted us to sign on her behalf.
INR high; vit K given
Acute hypoxic respiratory failure likely secondary to aspiration event
Check chest x-ray
Has history of dysphagia
NPO for now
DNI
cw high flow
Acute Kidney Injury
-CT scan shows bilateral mild to moderate hydroureteronephrosis - urology following. now with campos as Cr didnt improve much
-Continue IVFs
-Cr now 1.4
Hyponatremia
Monitor
mild metabolic acidosis
monitor
Suspected Cystitis/UTI
urine cx contamination
cw abx given symptoms
Stercoral Colitis
was on laxatives
now NPO
Hyperlipidemia
Diabetes Mellitus, Type II
uncontrolled; A1c 9.5
-Hold metformin due to KRISTA
-Monitor sugars and continue coverage insulin
Hypothyroidism
elevated TSH but normal free t4
-Continue levothyroxine
1.5 cm exophytic left renal mass, having decreased in size compared to prior examination, previously measuring 2 cm.
Chronic Noctural Hypoxic resp failure
likely 2/2 JACK/OHS; still yet to get sleep study outpatient
-Continue 5L via nasal cannula at night however now requiring high flow
Dysphagia
-Evaluated by speech and started on minced and moist diet; now NPO 2/2 GI bleed
DVT proph: SCDs
Code Status: Limited DNR - No Intubation
Total Critical Care Time__53___ minutes. I was immediately available to the patient and staff. I personally examined, reviewed labs, diagnostic images/reports, interpretations, treatment plans, discussed patient care with other providers and
family or caregivers (if patient is unable to make decisions), entered orders as appropriate and documented the medical record.
Anticipated Discharge: > 48 hours
Subjective/Interval History
-
Date of Service: August 21, 2023
lethargic
Objective Data
-
Labs:
Laboratory Results
08/21/23 08/21/23
07:47 11:25
WBC 8.1 13.4 H
Hgb 9.9 L 9.7 L
Hct 30.0 L 29.0 L
Plt Count 293 443 H D
PT 27.3 H
INR 2.54
APTT 39.5 H
HCO3 14.5 L*
Sodium 129 L 128 L
Potassium 3.7 3.9
Chloride 104 105
Carbon Dioxide 17 L 15 L
BUN 30 H 28 H
Creatinine 1.6 H 1.4 H
Glucose 161 H 187 H
Calcium 8.3 L 8.3 L
Total Bilirubin 1.0
AST 35
ALT 16
Alkaline Phosphatase 103
Vital Signs:
Vital Signs
Temp Pulse Resp BP Pulse Ox
96.7 F L 130 22 98/70 91
08/21/23 13:46 08/21/23 13:46 08/21/23 13:46 08/21/23 13:46 08/21/23 12:05
I&O
08/20/23 08/21/23 08/22/23
06:59 06:59 06:59
Intake Total 1320 / 1320 250 / 250
Output Total 290 / 290 1300 / 1300 650 / 650
Balance -290 / -290 20 / 20 -400 / -400
[2023-08-21] MEDS: NEO-SYNEPHRINE 250 IV (15:12)
--- NOTE | 2023-08-21 15:46 | PTCARENOTE ---
IV team at bedside to place picc
[2023-08-21 17:28] LABS: Hematocrit 25.5 % (37.0-47.0); Hemoglobin 8.9 g/dL (12.0-16.0)
[2023-08-21] MEDS: NOVOLOG FLEXPEN-HIGH RESISTANCE 4 UNITS SC (17:38)
[2023-08-21 17:49] LABS: Glucose - Point of Care 205 mg/dl (70-99)
--- NOTE | 2023-08-21 18:25 | PTCARENOTE ---
Pt currently have nm bleeding scan. BP has been improved since ffp administered per Dr Beckford. Weaning jonathan as able. Oxygenation has also been improved, resp has weaned to 40% oxygen. Pt with moderate burgundy stool prior to having nm scan.
Otherwise none since arrival. Sacral wound cleaned and redressed. Pt with masd in folds, desenex ordered. Pt more alert and without complaint since arrival. Repeat hgb 8.9 prior to nm scan. No further tx at this time. PICC line has been
confirmed in position. Peripheral site to be removed after nm scan.
--- NOTE | 2023-08-21 19:30 | PTCARENOTE ---
Received pt. at 1900. Assumed care of patient in nuclear medicine. Brought back to ICU after scan. Pt. is alert and oriented. Denies pain or discomfort at this time. Heart rhythm is sinus. Neosynephrine gtt infusing to maintain SBP >90. Pt.
currently on HFNC 50% 40 lpm. Lungs sound diminished. Currently NPO. Mullins catheter in place per urology determination. Draining without issue. Skin as documented. Discussed plan of care with patient. Vital signs stable at this time.
[2023-08-21] MEDS: DESENEX/MITRAZOL/ZEASORB 1 APPLIC TOPICAL (20:50)
[2023-08-21] MEDS: ASPIR LOW (ENTERIC COATED) PO (21:34)
[2023-08-21] MEDS: LIPITOR PO (21:35)
[2023-08-21] MEDS: NOVOLOG FLEXPEN-HIGH RESISTANCE 1 UNITS SC (23:08)
[2023-08-21] MEDS: LANTUS 0.100000000000000006 UNITS SC (23:08)
[2023-08-21 23:15] LABS: Glucose - Point of Care 142 mg/dl (70-99)
[2023-08-21 23:45] LABS: Hematocrit 25.1 % (37.0-47.0); Hemoglobin 8.7 g/dL (12.0-16.0)
[2023-08-22] VITALS (49 sets, daily range): BP systolic 79–122; BP diastolic 45–76; BMI 31.8
--- NOTE | 2023-08-22 00:05 | PTCARENOTE ---
Pt. assessment unchanged. Remains on neosynephrine gtt. No GI symptoms noted. No nausea or vomiting. No blood per rectum. Trending H+H. Vital signs stable at this time.
[2023-08-22] MEDS: ZOSYN 50 IV ×4 (03:05→21:22)
--- NOTE | 2023-08-22 04:30 | PTCARENOTE ---
Pt. assessment remains unchanged. AM labs drawn. Vital signs stable at this time.
[2023-08-22 04:41] LABS: % Basophils 0.3 % (0-2); % Eosinophils 0.3 % (0-6); % Immature Granulocytes 1.3 % (0-0.5); % Lymphocytes 18.1 % (20.5-51.1); % Monocytes 7.5 % (1.7-9.3); % Neutrophils 72.5 % (42.2-75.2); Absolute Immature Granulocytes 0.1 10^3/uL (0-0.05); Absolute Lymphocytes 1.4 10^3/uL (1.2-3.4); Absolute Monocytes 0.6 10^3/uL (0.1-0.6); Absolute Neutrophils 5.5 10^3/uL (1.4-6.5); Hematocrit 23.2 % (37.0-47.0); Hemoglobin 7.9 g/dL (12.0-16.0); Mean Corp Hgb Conc. 34.1 g/dL (33.0-37.0); Mean Corpuscular Hgb 26.5 pg (27.0-31.0); Mean Corpuscular Volume 77.9 fL (81.0-99.0); Mean Platelet Volume 10.4 fL (7.4-10.4); Nucleated Red Blood Cells % 0 %; Platelet Count 249 10^3/uL (130-400); Red Blood Cell Count 2.98 10^6/uL (4.20-5.40); Red Cell Dist. Width 17.8 % (11.5-14.5); White Blood Cell Count 7.6 10^3/uL (4.8-10.8)
[2023-08-22 05:04] LABS: Blood Urea Nitrogen 27 mg/dl (7-17); Calcium 7.8 mg/dl (8.4-10.2); Carbon Dioxide 16 mmol/L (22-30); Chloride 106 mmol/L (98-107); Estimated Creatinine Clearance 46 ml/min; Glucose 129 mg/dl (70-99); Potassium 3.3 mmol/L (3.5-5.1); Sodium 133 mmol/L (135-145); eGFR 43.15
[2023-08-22] MEDS: NOVOLOG FLEXPEN-HIGH RESISTANCE 1 UNITS SC (05:30)
[2023-08-22] MEDS: NEO-SYNEPHRINE 250 IV (05:38)
[2023-08-22] MEDS: SYNTHROID 112 MCG PO (06:25)
[2023-08-22] MEDS: KCL 270 MEQ IV (06:31)
[2023-08-22 06:33] LABS: Glucose - Point of Care 152 mg/dl (70-99)
[2023-08-22] MEDS: MIRALAX PO ×2 (07:53→20:31)
[2023-08-22] MEDS: COLACE PO (07:53)
[2023-08-22] MEDS: VITAMIN D3 (cholecalciferol) 100 MCG PO ×2 (08:10→20:31)
[2023-08-22] MEDS: FOLVITE 1 MG PO (08:10)
[2023-08-22] MEDS: DESENEX/MITRAZOL/ZEASORB 1 APPLIC TOPICAL ×2 (08:10→20:32)
--- NOTE | 2023-08-22 08:28 | W.PN.INTV ---
Today's Communication / Plan
Recommendations
Monitor tachycardia --> if worsens then consider giving fluid bolus
Serial H/H and transfuse if needed to keep Hb>7
GI on board --> hold off on scope for now given pt has improved
Maintain MAP>65
Clear liquid diet
Check lactate level given her metabolic acidosis
Assessment
-
Assessment: 73-year-old female with a PMHx of hypertension, hyperlipidemia and DM type II presented with abdominal discomfort. Initial imaging concerning for stercoral colitis/proctitis. She also has UTI with acute kidney injury and antibiotics
were started. Patient was being managed on the floor where she developed acute rectal bleeding and severe shortness of breath, rapid response was called and patient was transferred to the ICU for further care with critical care services consulted
for additional management/recommendations.
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
Impression:
#Acute gastrointestinal bleed - suspect lower versus brisk upper
#Acute blood loss anemia
#Symptomatic anemia with tachycardia and shortness of breath
#Respiratory alkalosis with metabolic acidosis - likely due to lactic acidosis
#Hemorrhagic shock - shock state resolved
#Coagulopathy
#Acute on chronic respiratory failure with hypoxemia (on 4L/min at [place]) - improved
#Acute kidney injury (baseline Cr approx 0.8-1) - improving
#Mild�moderate bilateral hydroureteronephrosis without obstructing renal calculus/bladder calculus
#UTI
Plan:
- Large bore IV x2
- GI on board with recs appreciated - given patient is improving, hold off on scope for now
- s/p PICC line on 08/21/2023
- Hold all antiplatelets/anticoagulants for now
- Continue ABx - currently on Zosyn
- Continue clear liquid diet
- Serial H/H and transfuse if needed to keep Hb>7g/dL; keep plt>50k and INR<1.8
- Follow up infectious workup with urine and blood Cx - if Cx negative and patient remains afebrile at 48 hrs then would narrow ABx and Tx for UTI for 5-6 days
- Titrate O2 flow rate and FiO2 to maintain SpO2 >90-94%
- Continue campos for accurate I/O
- patient is DNI
- Maintain MAP >65
- Maintain euglycemia with goal BG 140�180
- Replete K >4, Mg >2
- DVT prophylaxis: SCDs
Data:
NM GI Bleeding Scan 08-21-2023: No evidence for an active GI bleed.
CT Abd/Pelvis without contrast 08-19-2023:
Findings consistent with stercoral proctitis of the rectum and stercoral colitis involving the sigmoid colon. No evidence of pneumatosis. No perforation. No ascites or focal collection/abscess.
Mild to moderate bilateral hydroureteronephrosis without evidence to suggest obstructing renal calculus. No bladder calculus. Recommend correlation with renal function tests. Mild bladder wall thickening and soft tissue stranding, raising the
possibility of cystitis. Clinical correlation recommended.
1.5 cm exophytic left renal mass, having decreased in size compared to prior examination, previously measuring 2 cm.
Subjective Dataa
Subjective Data
Date of Service:
Date of Service: August 22, 2023
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
Subjective:
Patient seen this morning. Off pressors as of this morning. According to RN, patient having brown stool now. Hb this morning 7.9. Patient underwent bleeding scan yesterday evening and was negative for active bleed. INR today is 1.5. Platelet
count 249. Patient tolerating clear liquid diet. No acute events reported overnight.
Review of Systems
General: Other (12 point ROS performed and is negative unless mentioned above.)
Objective Data
Data Reviewed
Vital Signs / I&O / Oxygen:
Vital Signs
Temp Pulse Resp BP Pulse Ox
98.0 F 82 17 99/53 95
08/22/23 03:38 08/22/23 06:00 08/22/23 06:00 08/22/23 06:00 08/22/23 06:00
Intake and Output
08/21/23 08/22/23 08/23/23
06:59 06:59 06:59
Intake Total 1320 / 1320 3878.0 / 3878.0
Output Total 1300 / 1300 1250 / 1250
Balance 20 / 20 2628.0 / 2628.0
SaO2 95
Nasal Cannula flow liters per 30
minute
Physical Exam
General: Comfortable
HEENT: Normocephalic, Anicteric and Other (Conjunctival pallor)
Cardiovascular: Peripheral Edema (negative) and Other (Tachycardic to 110s)
Respiratory: Clear, Wheeze (negative), Crackles (negative), Rhonchi (negative) and Accessory Resp Muscle Use (negative)
GI: Soft, Non Distended, Non Tender and Normal Bowel Sounds
Neurology: Awake and Alert
Skin: Warm and Dry
Labs/Micro/Reports
Lab Data
08/22/23 04:18
Laboratory Results
08/21/23
11:25
PT 27.3 H
INR 2.54
APTT 39.5 H
pH 7.49 H
pCO2 19 L
pO2 42 L*
HCO3 14.5 L*
O2 Delivery Level Not Reportable
Microbiology
08/20/23 09:00 Blood/Venous Blood Culture - Preliminary
No Growth in 48 hours- Final report to follow
08/20/23 01:58 Urine Urine Culture - Final
08/20/23 09:49 Blood/Venous Blood Culture - Preliminary
No Growth in 24 hours- Final report to follow
08/20/23 01:27 Nose MRSA Screen - Final
No Methicillin Resistant Staphylococcus aureus isolated.
--- NOTE | 2023-08-22 09:00 | PTCARENOTE ---
Rec'd pt at 0800 awake alert and oriented resting in bed. Affect is very flat but will interact with staff. Denies pain or discomfort. Skin is pale wm and dry. Foam dressing intact on sacrum. Respirs are shallow but non-labored on 3l nc with sats of
97%. BS are decreased at the bases otherwise clear. Monitor SR. + pulses. +1LE edema. VS as documented. Rec'd pt on IV SHEEBA at 40 mcg and currently at 20 mcg will continue to wean keeping syst BP >90. Infusing along with KCL 40 meq rider and NSS at
80 ml/hr via L arm DL PICC. Site wnl Abd is obese/round with + BS. Denies nausea. States she is thirsty. Aware that she is NPO currently. Mouth care given. No stools currently. Mullins intact for yellow urine. Protonix gtt infusing via R wrist IV site
at 10 ml/hr . Capped int intact R hand. Repositioned. Call wyman in reach. Plan of care reviewed with pt. Will monitor closely.
--- NOTE | 2023-08-22 09:03 | W.PN.GI.CBS2 ---
Today's Communication / Plan
-
trend hb, ppi gtt, monitor stool
Assessment / Plan
-
73 yo F initially admitted 08/19 for dark stools, heme negative in ER from [facility].� She was found to have KIRSTA and b/l hydronephrosis and seen by urology.� Also found to have stercoal colitis on CT.� On 08/21 had bright red blood per rectum and
was hemodynamically unstable with BPs in the 70s and tachy in the 110s.� A stat Hb was stable (9.7) but INR was elevated 2.54, normal platelets.�
On history patient does elicit taking daily NSAIDs with ASA.�
Most likely this is a lower GI bleed, diff dx: ischemic colitis, stercoal colitis, diverticular bleed, Dieulofoy's, AVM.� Could also have a brisk UGIB would expect BUN to be more elevated differential PUD (on NSAIDs), Dieulofoy.
08/21 case discussed with anesthesia concern was stability with EGD of note patient is DNI and on high flow O2 and does NOT want to be intubated for EGD when I d/w her. Bleeding scan was done and was negative last pm.
Hb went from 9.7 --> 8.9 --> 8.7 --> 7.9
Got 2UPRBC at the 9.7 alondra
BUN remains unremarkable
BP still in 90s and on high flow
CTA not an option with recent KRISTA
I tried to reach multiple times with no avail both numbers in chart including cell where I left a voicemail [phone] yesterday.
Recommendations:
- Clear liquid diet
- Trend Hb - I ordered q6 labs as well as coags for noon with ABG (blood gas was anesthesia's concern with doing case in case she needs EGD later today/tomorrow)
- Monitor stools
- Continue PPI gtt
Subjective
Subjective
Date of Service: August 22, 2023
Reviewing chart - one black BM this AM.
Last PM- bloody BM at 5pm recorded
Objective
Data Reviewed
Laboratory Data:
Laboratory Results
08/22/23 04:18
Laboratory Results
PT 27.3 Sec (11.4-14.6) H 08/21/23 11:25
INR 2.54 08/21/23 11:25
APTT 39.5 Sec (23.4-35.0) H 08/21/23 11:25
Magnesium 1.6 mg/dl (1.6-2.3) 08/20/23 08:20
Total Bilirubin 1.0 mg/dl (0.2-1.3) 08/21/23 11:25
AST 35 U/L (14-36) 08/21/23 11:25
ALT 16 U/L (0-35) 08/21/23 11:25
Alkaline Phosphatase 103 U/L (38-126) 08/21/23 11:25
Vital Signs and I&O:
Vital Signs
Temp Pulse Resp BP Pulse Ox
98.0 F 82 17 99/53 95
08/22/23 03:38 08/22/23 06:00 08/22/23 06:00 08/22/23 06:00 08/22/23 06:00
I&O
08/21/23 08/22/23 08/23/23
06:59 06:59 06:59
Intake Total 1320 / 1320 3878.0 / 3878.0
Output Total 1300 / 1300 1250 / 1250
Balance 2628.0 / 2628.0
Physical Exam
Physical Exam
GI: Non Distended and Non Tender
[2023-08-22] MEDS: PROTONIX 100 IV ×2 (09:32→18:18)
--- NOTE | 2023-08-22 10:40 | PTCARENOTE ---
IV SHEEBA turned off- BP 115/76
--- NOTE | 2023-08-22 10:40 | PTCARENOTE ---
Turned and repositioned. Incont of a mod amt of loose mixed with formed dk brown stool- hematest (-) negative. Skin and pina care given.
--- NOTE | 2023-08-22 11:37 | W.PN.HOSP.TC ---
Today's Communication/Plan
-
monitor vitals
see plan
monitor H/H
clears started by GI
replete K
multiple attempts were done yesterday to contact family; no response
cw abx
cw pressors
wean o2 as tolerated
on PPI
Assessment / Plan
Assessment / Plan
General: lethargy
HEENT:�pale
Respiratory:�Clear and Non Labored Respirations
Cardiac:�S1/S2 and Regular Rhythm,tachycardia
GI:�Soft, Non Tender
: campos
Musculoskeletal:�No Clubbing, No Cyanosis and Other (Edema bilateral lower extremities)
Neuro: AAOx2-3,calm
Acute hemorrhagic shock secondary to GI bleed
Continue with PPI drip
s/p 2 unit PRBC, monitor H&H
Cannot do CTA at this time due to creatinine; bleeding scan 08/21 neg for active bleed
GI following; currently on clears
Continue with fluids, currently on jonathan
Tried calling multiple times however unreacheable; Me and Dr Beckford both spoke to patient and she was agreeable with tranfusion and wanted us to sign on her behalf.
INR high; vit K given
Acute hypoxic respiratory failure likely secondary to aspiration event
CXR witout any PNA
Has history of dysphagia
DNI
was on high flow; now weaning and is on NC
Acute Kidney Injury
-CT scan shows bilateral mild to moderate hydroureteronephrosis - urology following. now with campos as Cr didnt improve much
-Continue IVFs
-Cr now 1.3
Hyponatremia
Monitor
hypokalemia
replete
mild metabolic acidosis
monitor
Suspected Cystitis/UTI
urine cx contamination
cw abx given symptoms
Stercoral Colitis
was on laxatives
cw abx
Hyperlipidemia
Diabetes Mellitus, Type II
uncontrolled; A1c 9.5
-Hold metformin due to KRISTA
-Monitor sugars and continue coverage insulin; on 10 units HS glargine
Hypothyroidism
elevated TSH but normal free t4
-Continue levothyroxine
1.5 cm exophytic left renal mass, having decreased in size compared to prior examination, previously measuring 2 cm.
Chronic Noctural Hypoxic resp failure
likely 2/2 JACK/OHS; still yet to get sleep study outpatient
-Continue 5L via nasal cannula at night
Dysphagia
-Evaluated by speech and started on minced and moist diet; when ok for solids then restart minced and moist diet
DVT proph: SCDs
Code Status: Limited DNR - No Intubation
I spent a total of 54 minutes with the patient or on the floor. More than 50% of this time involved counseling and coordination of care.
Anticipated Discharge: > 48 hours
Subjective/Interval History
-
Date of Service: August 22, 2023
denies pain
Objective Data
-
Labs:
Laboratory Results
08/21/23 08/22/23 08/22/23
23:40 04:18 12:00
WBC 7.6
Hgb 8.7 L 7.9 L Pending
Hct 25.1 L 23.2 L
Plt Count 249 D
PT Pending
INR Pending
HCO3 Pending
Sodium 133 L
Potassium 3.3 L
Chloride 106
Carbon Dioxide 16 L
BUN 27 H
Creatinine 1.3 H
Glucose 129 H
Calcium 7.8 L
08/22/23
18:00
WBC
Hgb Pending
Hct
Plt Count
PT
INR
HCO3
Sodium
Potassium
Chloride
Carbon Dioxide
BUN
Creatinine
Glucose
Calcium
Vital Signs:
Vital Signs
Temp Pulse Resp BP Pulse Ox
98.0 F 104 13 122/61 94
08/22/23 03:38 08/22/23 10:30 08/22/23 10:30 08/22/23 10:30 08/22/23 10:30
I&O
08/21/23 08/22/23 08/23/23
06:59 06:59 06:59
Intake Total 1320 / 1320 3878.0 / 4047.5 1000.0 / 1000.0
Output Total 1300 / 1300 1250 / 1250 400 / 400
Balance 2628.0 / 2797.5 600.0 / 600.0
[2023-08-22 12:07] LABS: B.E. -8.1 mmol/L; O2 Saturation % 99.4 % (94-98); PCO2 19 mmHg (32-35); PO2 105 mmHg (83-108); pH 7.48 (7.35-7.45)
[2023-08-22 12:08] LABS: HCO3 14.1 mmol/L (21-28)
--- NOTE | 2023-08-22 12:30 | PTCARENOTE ---
Over the course of the morning HR has gone from the 80'-90's to 110-[address] with Short bursts of PAT to the 150's. VS as documented. Denies discomfort. Affect remains very flat and needs encouragement to move. BONILLA but legs are very weak. Pt
states she has chronic trouble moving them and that she has arthritis in them. HH and PT sent per orders.
[2023-08-22 12:31] LABS: Hemoglobin 7.9 g/dL (12.0-16.0)
[2023-08-22] MEDS: NOVOLOG FLEXPEN-HIGH RESISTANCE 2 UNITS SC (12:31)
[2023-08-22] MEDS: NSS 1000 IV (12:32)
[2023-08-22 12:38] LABS: PT 17.9 Sec (11.4-14.6)
[2023-08-22 12:41] LABS: Glucose - Point of Care 156 mg/dl (70-99)
--- NOTE | 2023-08-22 13:30 | PTCARENOTE ---
Pt having some issues maintaining sats >90%, currently on 5L NC. with sats of 91%. BS are unchanged. ABG sent by resp therapy earlier (on 3L) and results TT to Ritchie Ruiz, and Alida.
--- NOTE | 2023-08-22 15:00 | PTCARENOTE ---
Currently on 6l nc with sats of 93%. ST 118-123. Dr. Beckford in to see pt and updated. No changes made.
--- NOTE | 2023-08-22 16:30 | PTCARENOTE ---
Resting- awake watching TV. Sats overall on the 6l have been better 93-95%. VS as documented. HR has slowly come down to 110-115. Incont of a large amt of formed mixed with liquid dk brown stool. Leonie care given. New silicone border foam place on
stage 2 wounds on buttocks. Repositioned.
[2023-08-22] MEDS: ZINC OXIDE OINTMENT 1 APPLIC TOPICAL (16:32)
[2023-08-22] MEDS: FLUSH (NSS) 1 FLUSH IV (16:34)
[2023-08-22 16:37] LABS: Glucose - Point of Care 212 mg/dl (70-99)
[2023-08-22] MEDS: NOVOLOG FLEXPEN-HIGH RESISTANCE 4 UNITS SC (17:37)
[2023-08-22 18:02] LABS: Hemoglobin 7.4 g/dL (12.0-16.0)
[2023-08-22 18:16] LABS: Lactic Acid 1.1 mmol/L (0.7-2.0)
--- NOTE | 2023-08-22 18:46 | PTCARENOTE ---
RHODA sent at [address] Irwin- 7.4 this evening. LA 1.1 Working on some clear liquid dinner.
--- NOTE | 2023-08-22 19:55 | PTCARENOTE ---
Assumed care of patient at 1900. Pt. currently in bed. Drowsy, but arousable and oriented. Pt. denies pain or discomfort. Afebrile. Heart rhythm is sinus. Blood pressure normotensive. Pt. currently on 6L nasal cannula. Lungs sound diminished. Clear
liquid diet, patient drinking fluids. Trending H+H. Mullins catheter in place per order, draining without issue. Skin as documented. Discussed plan of care with patient. Vital signs stable at this time.
[2023-08-22] MEDS: COLACE 100 MG PO (20:31)
[2023-08-22 21:20] LABS: Glucose - Point of Care 140 mg/dl (70-99)
[2023-08-22] MEDS: LIPITOR 10 MG PO (21:22)
[2023-08-22] MEDS: LANTUS 0.100000000000000006 UNITS SC (21:22)
[2023-08-22] MEDS: ASPIR LOW (ENTERIC COATED) 81 MG PO (21:25)
[2023-08-23] VITALS (54 sets, daily range): BP systolic 90–140; BP diastolic 41–91; BMI 32.6
[2023-08-23 00:18] LABS: Hemoglobin 6.9 g/dL (12.0-16.0)
--- NOTE | 2023-08-23 00:23 | PTCARENOTE ---
Pt. assessment unchanged. Trending hemoglobin. Most recent hemoglobin 6.9. NAPPER TENDER to order blood products. No bleeding per rectum noted. Vital signs stable at this time.
[2023-08-23] MEDS: NSS 1000 IV ×2 (02:26→15:09)
[2023-08-23] MEDS: ZOSYN 50 IV ×2 (03:35→10:50)
[2023-08-23] MEDS: PROTONIX 100 IV ×3 (03:41→22:15)
--- NOTE | 2023-08-23 04:55 | PTCARENOTE ---
Pt. assessment remains unchanged. Received 1u PRBC. AM labs drawn. No signs of blood per rectum. Vital signs stable at this time.
[2023-08-23 05:20] LABS: % Basophils 0.3 % (0-2); % Lymphocytes 20.1 % (20.5-51.1); % Monocytes 10.3 % (1.7-9.3); % Neutrophils 67.3 % (42.2-75.2); Absolute Eosinophils 0.1 10^3/uL (0-0.7); Absolute Immature Granulocytes 0.1 10^3/uL (0-0.05); Absolute Lymphocytes 1.4 10^3/uL (1.2-3.4); Absolute Monocytes 0.7 10^3/uL (0.1-0.6); Absolute Neutrophils 4.6 10^3/uL (1.4-6.5); Hematocrit 22.9 % (37.0-47.0); Hemoglobin 7.8 g/dL (12.0-16.0); Mean Corp Hgb Conc. 34.1 g/dL (33.0-37.0); Mean Corpuscular Hgb 26.5 pg (27.0-31.0); Mean Corpuscular Volume 77.9 fL (81.0-99.0); Mean Platelet Volume 10.2 fL (7.4-10.4); Nucleated Red Blood Cells % 0 %; Platelet Count 208 10^3/uL (130-400); Red Blood Cell Count 2.94 10^6/uL (4.20-5.40); Red Cell Dist. Width 17.5 % (11.5-14.5); White Blood Cell Count 6.9 10^3/uL (4.8-10.8)
[2023-08-23] MEDS: SYNTHROID 112 MCG PO (05:38)
[2023-08-23 05:39] LABS: ALT (SGPT) 10 U/L (0-35); AST (SGOT) 19 U/L (14-36); Albumin 1.9 g/dl (3.5-5.0); Alkaline Phosphatase 65 U/L (38-126); Blood Urea Nitrogen 18 mg/dl (7-17); Calcium 7.5 mg/dl (8.4-10.2); Carbon Dioxide 16 mmol/L (22-30); Chloride 108 mmol/L (98-107); Direct Bilirubin 0.7 mg/dl (0.0-0.4); Estimated Creatinine Clearance 54 ml/min; Glucose 107 mg/dl (70-99); Potassium 3.5 mmol/L (3.5-5.1); Sodium 132 mmol/L (135-145); Total Bilirubin 1.1 mg/dl (0.2-1.3); Total Protein 4.4 g/dl (6.3-8.2); eGFR 52.73
[2023-08-23 05:40] LABS: INR 1.49; PT 17.9 Sec (11.4-14.6)
[2023-08-23] MEDS: KCL 270 MEQ IV (06:24)
[2023-08-23] MEDS: COLACE PO (08:11)
[2023-08-23] MEDS: MIRALAX PO (08:12)
[2023-08-23 08:39] LABS: Glucose - Point of Care 111 mg/dl (70-99)
--- NOTE | 2023-08-23 08:57 | W.PN.GI.CBS2 ---
Addendum entered and electronically signed by Marie Irwin MD 08/23/23 12:34:
After initial visit today, I discussed the case with Dr. Dugan. He mentioned the possibility of flexible sigmoidoscopy and we could do this without anesthesia. She also tolerated enemas on the floor previously. I reviewed the x-ray no obvious
impaction. I went back and discussed with the patient. She is agreeable to doing an unsedated flex sig tomorrow. We will place in schedule.
Original Note:
Today's Communication / Plan
-
kub, monitor bm, trend labs
Assessment / Plan
-
73 yo F initially admitted 08/19 for dark stools, heme negative in ER from senior living.� She was found to have KRISTA and b/l hydronephrosis and seen by urology.� Also found to have stercoal colitis on CT.� On 08/21 had bright red blood per rectum and
was hemodynamically unstable with BPs in the 70s and tachy in the 110s.� A stat Hb was stable (9.7) but INR was elevated 2.54, normal platelets.�
On history patient does elicit taking daily NSAIDs with ASA.�
Most likely this is a lower GI bleed - with intermittent bleeding I suspect it is a stercoal ulcer and she did have stercoal colitis on CT. Diff dx: ischemic colitis, diverticular bleed, Dieulofoy's, AVM.� Could also have a brisk UGIB would expect
BUN to be more elevated differential PUD (on NSAIDs), Dieulofoy. Also now having BRB and BP was stable
08/21 case discussed with anesthesia concern was stability with EGD of note patient is DNI and on high flow O2 and does NOT want to be intubated for EGD when I d/w her. Bleeding scan was done and was negative 08/21
2 units needed 08/21; additional 1 U 08/22
Vit K given 08/21 unclear why coagulopathy - INR 08/22 down to 1.5
Off pressors 08/23
5L O2 08/23 - reviewing H+P on 5L at home at night
CTA not an option with recent KRISTA
I tried to reach multiple times with no avail both numbers in chart including cell where I left a voicemail [phone] 08/21, no staff has been able to reach him
When I discussed with patient daily she wanted to hold off on endoscopic procedure as she did not want to be intubated
Recommendations:
- Clear liquid diet
- Trend Hb
- Monitor stools
- Continue PPI gtt
- Cont miralax/colace if stercoal ulcer will help - I personally reviewed and interpreted CT today did see significant stool in rectum from 08/19 - will order KUB (unclear how clear will be) to see if we can re-assess stool burden
Subjective
Subjective
Date of Service: August 23, 2023
Received msg from nursing last night - brown BM
On d/w nursing this am 2 brown BM yesterday
Bright red stool this am - off pressors
Objective
Data Reviewed
Laboratory Data:
Laboratory Results
08/23/23 23:00
08/23/23 04:48
Laboratory Results
PT 17.9 Sec (11.4-14.6) H 08/23/23 04:48
INR 1.49 08/23/23 04:48
APTT 39.5 Sec (23.4-35.0) H 08/21/23 11:25
Magnesium 1.6 mg/dl (1.6-2.3) 08/20/23 08:20
Total Bilirubin 1.1 mg/dl (0.2-1.3) 08/23/23 04:48
AST 19 U/L (14-36) 08/23/23 04:48
ALT 10 U/L (0-35) 08/23/23 04:48
Alkaline Phosphatase 65 U/L (38-126) 08/23/23 04:48
Vital Signs and I&O:
Vital Signs
Temp Pulse Resp BP Pulse Ox
98.1 F 89 16 102/56 98
08/23/23 07:30 08/23/23 08:00 08/23/23 08:00 08/23/23 08:00 08/23/23 08:00
I&O
08/22/23 08/23/23 08/24/23
06:59 06:59 06:59
Intake Total 3878.0 / 4047.5 3820.0 / 3910.0 180 / 180
Output Total 1250 / 1250 1420 / 1420 80 / 80
Balance 2628.0 / 2797.5 2400.0 / 2490.0 100 / 100
Physical Exam
Physical Exam
GI: Non Distended and Non Tender
--- NOTE | 2023-08-23 09:00 | PTCARENOTE ---
Rec'd pt at 0730 awake resting in bed. Alert and overall oriented but affect remains very flat. Will answer questions but provides little addtional conversation. Speech is clear. Denies dizziness or headache. Denies pain except when turned will c/o
discomfort from arthritis in her knees. BONILLA. Legs are very weak. Will try to assist somewhat with turning. Skin is pale wm and dry. Buttocks with several stage 2 open areas- silicone boarder foam repalced. Desenex under skin folds due to MASD.
Respirs are shallow but non -labored -initally on 6l decreased at 0800 to 5L with sats of 98%. BS are sl decreased at the bases. Monitor SR. VS as documented. + pulses. +1 LE edema. KH SCD's in place. Abd is obese/round. Non-trender with + BS.
Denies nausea. States she is not hungry this am. Incont this am of a large amt of burgundy stool with clots. Dr. Irwin updated and in to see pt. Pt did not feel herself moving her bowels. Mullins intact for josué/yellow urine. Mouth, Mullins and Leonie
care given along with partial bath. IV Protonix infusing via R wrist IV site. Capped int intact R hand. L arm DL Picc with NSS at 80 ml/hr along with KCL 40 meq Ean. All sites wnl. Turned and repositioned. Plan of care reviewed with pt. Call wyman
in reach.
[2023-08-23] MEDS: NOVOLOG FLEXPEN-HIGH RESISTANCE 1 UNITS SC ×3 (09:24→17:48)
[2023-08-23] MEDS: DESENEX/MITRAZOL/ZEASORB 1 APPLIC TOPICAL ×2 (09:24→21:08)
[2023-08-23] MEDS: VITAMIN D3 (cholecalciferol) 100 MCG PO ×2 (09:24→20:03)
[2023-08-23] MEDS: FOLVITE 1 MG PO (09:24)
--- NOTE | 2023-08-23 09:30 | PTCARENOTE ---
The patient nor staff has heard from patients Surinder in 4 days despite multiple messages left on phone. I called [place] [employer] to do a well check at their apartment with patients permission and per police found pts awake but on
the floor. Per the police-paramedics called and pt is being brought to the hospital to be checked out. I updated pt on what had happened.
--- NOTE | 2023-08-23 09:46 | W.PN.INTV ---
Today's Communication / Plan
Recommendations
Serial H/H and transfuse if needed to keep Hb>7
Low threshold to resume vasopressors
GI on board --> plan for flex-sig tomorrow (NPO p MN)
Maintain MAP>65
Assessment
-
Assessment: 73-year-old female with a PMHx of hypertension, hyperlipidemia and DM type II presented with abdominal discomfort. Initial imaging concerning for stercoral colitis/proctitis. She also has UTI with acute kidney injury and antibiotics
were started. Patient was being managed on the floor where she developed acute rectal bleeding and severe shortness of breath, rapid response was called and patient was transferred to the ICU for further care with critical care services consulted
for additional management/recommendations.
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
Impression:
#Acute gastrointestinal bleed - suspect lower versus brisk upper
#Acute blood loss anemia with rectal bleeding
#Symptomatic anemia with tachycardia and shortness of breath
#Respiratory alkalosis with metabolic acidosis (lactate WNL)
#Hemorrhagic shock - shock state resolved
#Coagulopathy
#Acute on chronic respiratory failure with hypoxemia (on 4L/min at NH) - improved
#Acute kidney injury (baseline Cr approx 0.8-1) - improving
#Mild�moderate bilateral hydroureteronephrosis without obstructing renal calculus/bladder calculus
#UTI
Plan:
- Large bore IV x2
- GI on board with recs appreciated -patient has recurrent lower GI bleed, and has required another blood transfusion today. We will plan for flex�sig tomorrow without anesthesia
- s/p PICC line on 08/21/2023
- Hold all antiplatelets/anticoagulants for now
- Continue ABx - narrowed Abx from Zosyn to unasyn today
- Continue clear liquid diet --> NPO p MN for flex-sig
- Serial H/H and transfuse if needed to keep Hb>7g/dL; keep plt>50k and INR<1.8
- Follow up infectious workup with urine and blood Cx - Tx for UTI for 5-6 days
- Titrate O2 flow rate and FiO2 to maintain SpO2 >90-94%
- Continue campos for accurate I/O
- patient is DNI
- Maintain MAP >65
- Maintain euglycemia with goal BG 140�180
- Replete K >4, Mg >2
- DVT prophylaxis: SCDs
Code status: DNI
Continue ICU level care considering patient is having recurrent lower GI bleed, with risk for worsening hemodynamic instability. Continue q1hr vital signs and low threshold to resume vasopressors.
Critical care statement: A total of 41 minutes of critical care time was provided for this patient today. This includes management of unstable vital signs, evaluation of the patient at bedside, reviewing the patient's pertinent medical records
including radiographs, microbiology, laboratory evaluations, and discussion with primary team, consultants, pharmacy, nutrition, physical therapy, case management, charge nurse, critical care nursing, and respiratory therapy.
Data:
NM GI Bleeding Scan 08-21-2023: No evidence for an active GI bleed.
CT Abd/Pelvis without contrast 08-19-2023:
Findings consistent with stercoral proctitis of the rectum and stercoral colitis involving the sigmoid colon. No evidence of pneumatosis. No perforation. No ascites or focal collection/abscess.
Mild to moderate bilateral hydroureteronephrosis without evidence to suggest obstructing renal calculus. No bladder calculus. Recommend correlation with renal function tests. Mild bladder wall thickening and soft tissue stranding, raising the
possibility of cystitis. Clinical correlation recommended.
1.5 cm exophytic left renal mass, having decreased in size compared to prior examination, previously measuring 2 cm.
Abd XR 08-23-2023: The study is technically limited but there is no evidence of constipation
Subjective Dataa
Subjective Data
Date of Service:
Date of Service: August 23, 2023
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
Subjective:
Seen this morning. Hb dropped overnight to 6.9 -1 unit PRBC ordered with appropriate rise in hemoglobin, however hemoglobin has been dropping and patient had a burgundy, bloody bowel movement this morning with clots. Patient denies abdominal pain,
fevers or chills.
Review of Systems
General: Other (Negative unless mentioned above)
Objective Data
Data Reviewed
Vital Signs / I&O / Oxygen:
Vital Signs
Temp Pulse Resp BP Pulse Ox
98.1 F 89 16 102/56 98
08/23/23 07:30 08/23/23 08:00 08/23/23 08:00 08/23/23 08:00 08/23/23 08:00
Intake and Output
08/22/23 08/23/23 08/24/23
06:59 06:59 06:59
Intake Total 3878.0 / 4047.5 3820.0 / 3910.0 180 / 180
Output Total 1250 / 1250 1420 / 1420 80 / 80
Balance 2628.0 / 2797.5 2400.0 / 2490.0 100 / 100
SaO2 98
Nasal Cannula flow liters per 5
minute
Physical Exam
General: Comfortable
HEENT: Normocephalic, Anicteric and Other (Conjunctival pallor)
Cardiovascular: S1-S2 and Peripheral Edema (negative)
Respiratory: Clear, Wheeze (negative), Crackles (negative), Rhonchi (negative) and Accessory Resp Muscle Use (negative)
GI: Soft, Non Distended, Non Tender and Normal Bowel Sounds
Neurology: Awake and Alert
Skin: Warm and Dry
Labs/Micro/Reports
Lab Data
08/23/23 23:00
08/23/23 04:48
Laboratory Results
08/22/23 08/22/2308/23/24
11:40 12:19 04:48
PT 17.9 H 17.9 H
INR 1.50 1.49
pH 7.48 H
pCO2 19 L
pO2 105
HCO3 14.1 L*
O2 Delivery Level
Microbiology
08/20/23 09:00 Blood/Venous Blood Culture - Preliminary
No Growth in 72 hours- Final report to follow
08/20/23 09:49 Blood/Venous Blood Culture - Preliminary
No Growth in 48 hours- Final report to follow
08/20/23 01:58 Urine Urine Culture - Final
08/20/23 01:27 Nose MRSA Screen - Final
No Methicillin Resistant Staphylococcus aureus isolated.
[2023-08-23] MEDS: ZINC OXIDE OINTMENT 1 APPLIC TOPICAL (09:57)
--- NOTE | 2023-08-23 09:59 | PTCARENOTE ---
HH sent. ABd x ray completed. Incont of a mod to large amt of burgundy with brown hue loose stool Leonie care given.
[2023-08-23 10:06] LABS: Hematocrit 22.1 % (37.0-47.0); Hemoglobin 7.6 g/dL (12.0-16.0)
[2023-08-23] MEDS: MIRALAX 17 GRAMS PO ×2 (10:51→20:03)
[2023-08-23] MEDS: COLACE 100 MG PO ×2 (10:52→20:03)
--- NOTE | 2023-08-23 11:17 | PTCARENOTE ---
Pt was taking her O2 off as it was bothering her- RA sats are 98%- Will leave on RA currently. Per reports pt was using 4L- 5L at [facility] at night for sleep. No other changes. Dr. Dugan in to see pt earlier and updated. Dr. Irwin updated at
[id number] with HH
[2023-08-23 11:57] LABS: Glucose - Point of Care 109 mg/dl (70-99)
--- NOTE | 2023-08-23 13:00 | PTCARENOTE ---
Assessment is overall unchanged. Pt spoke with her via phone as he is in the ER here at . Tolerated clear liquids. No nausea. Incont of mod amt of loose bloody tinged brown stool. Leonie care given.
--- NOTE | 2023-08-23 13:07 | W.PN.HOSP.TC ---
Today's Communication/Plan
-
Monitor vital signs and see plan
Plan for flex sig tomorrow
Monitor hemoglobin, transfuse as necessary
Antibiotics
Monitor renal function
Assessment / Plan
Assessment / Plan
General: no acute distress
HEENT:�anicteric
Respiratory:�Clear and Non Labored Respirations
Cardiac:�S1/S2 and Regular Rhythm,tachycardia
GI:�Soft, Non Tender
: campos
Musculoskeletal:�No Clubbing, No Cyanosis and Other (Edema bilateral lower extremities)
Neuro: AAOx2-3,calm
Acute hemorrhagic shock secondary to GI bleed
Continue with PPI drip
s/p 3 unit PRBC, monitor H&H; another episode of burgundy stool, this morning. Spoke with GI, possibility of stercoral ulcer. Plan for flex sig tomorrow
Cannot do CTA at this time due to creatinine; bleeding scan 08/21 neg for active bleed
GI following; currently on clears
Continue with fluids, currently on jonathan
Tried calling multiple times however unreacheable; Me and Dr Beckford both spoke to patient and she was agreeable with tranfusion and wanted us to sign on her behalf. Appears fell and now in hospital for evaluation. patient aware
INR high; vit K given
hgb now 7.6
Acute hypoxic respiratory failure likely secondary to aspiration event
CXR without any PNA
Has history of dysphagia
DNI
was on high flow; now weaning and is on NC, 4L
Acute Kidney Injury
-CT scan shows bilateral mild to moderate hydroureteronephrosis - urology following. now with campos as Cr didnt improve much
-Continue IVFs
-Cr now 1.1
Hyponatremia
Monitor
hypokalemia
mild metabolic acidosis
monitor
Suspected Cystitis/UTI
urine cx contamination
cw abx
Stercoral Colitis
was on laxatives
cw abx
Hyperlipidemia
Diabetes Mellitus, Type II
uncontrolled; A1c 9.5
-Hold metformin due to KRISTA
-Monitor sugars and continue coverage insulin; on 10 units HS glargine
Hypothyroidism
elevated TSH but normal free t4
-Continue levothyroxine
1.5 cm exophytic left renal mass, having decreased in size compared to prior examination, previously measuring 2 cm.
Chronic Noctural Hypoxic resp failure
likely 2/2 JACK/OHS; still yet to get sleep study outpatient
-Continue 5L via nasal cannula at night
Dysphagia
-Evaluated by speech and started on minced and moist diet; when ok for solids then restart minced and moist diet
DVT proph: SCDs
Code Status: Limited DNR - No Intubation
I spent a total of 52 minutes with the patient or on the floor. More than 50% of this time involved counseling and coordination of care.
Anticipated Discharge: > 48 hours
Subjective/Interval History
-
Date of Service: August 23, 2023
Denies abdominal pain
Objective Data
-
Labs:
Laboratory Results
08/23/23 08/23/23 08/23/23
04:48 09:44 11:00
WBC 6.9
Hgb 7.8 L 7.6 L Cancelled
Hct 22.9 L 22.1 L Cancelled
Plt Count 208
PT 17.9 H
INR 1.49
Sodium 132 L
Potassium 3.5
Chloride 108 H
Carbon Dioxide 16 L
BUN 18 H
Creatinine 1.1 H
Glucose 107 H
Calcium 7.5 L
Total Bilirubin 1.1
AST 19
ALT 10
Alkaline Phosphatase 65
08/23/23 08/23/23 08/23/23
15:00 17:00 21:00
WBC
Hgb Pending Cancelled Pending
Hct Pending Cancelled Pending
Plt Count
PT
INR
Sodium
Potassium
Chloride
Carbon Dioxide
BUN
Creatinine
Glucose
Calcium
Total Bilirubin
AST
ALT
Alkaline Phosphatase
08/23/23
23:00
WBC
Hgb Cancelled
Hct Cancelled
Plt Count
PT
INR
Sodium
Potassium
Chloride
Carbon Dioxide
BUN
Creatinine
Glucose
Calcium
Total Bilirubin
AST
ALT
Alkaline Phosphatase
Vital Signs:
Vital Signs
Temp Pulse Resp BP Pulse Ox
97.7 F 83 18 107/57 97
08/23/23 11:30 08/23/23 11:30 08/23/23 11:30 08/23/23 11:30 08/23/23 11:30
I&O
08/22/23 08/23/23 08/24/23
06:59 06:59 06:59
Intake Total 3878.0 / 4047.5 3820.0 / 3977.5 1300.0 / 1300.0
Output Total 1250 / 1250 1420 / 1420 230 / 230
Balance 2628.0 / 2797.5 2400.0 / 2557.5 1070.0 / 1070.0
--- NOTE | 2023-08-23 15:19 | PTCARENOTE ---
Assessment unchanged. Incont of a small to mod amt of loose brown bloody tinged stool. Leonie care given. HH sent. Remains on RA with sats of 98%. Dozing currently.
[2023-08-23 15:31] LABS: Hematocrit 20.2 % (37.0-47.0)
[2023-08-23] MEDS: FLUSH (NSS) 2 FLUSH IV (15:38)
[2023-08-23] MEDS: UNASYN IV ×2 (15:38→22:15)
[2023-08-23 17:58] LABS: Glucose - Point of Care 104 mg/dl (70-99)
--- NOTE | 2023-08-23 18:30 | PTCARENOTE ---
Slept for a while this afternoon. Currently awake. Incont of a small amt of loose dk brown bloody tinged stool Leonie care given. #1 unit PRBC's hung via L arm DL picc at 1820. Repositioned and currently eating clear liquid dinner
[2023-08-23] MEDS: LIPITOR 10 MG PO (20:03)
[2023-08-23] MEDS: ASPIR LOW (ENTERIC COATED) 81 MG PO (20:03)
[2023-08-23] MEDS: LANTUS 0.0599999999999999978 UNITS SC (20:21)
[2023-08-23 20:24] LABS: Glucose - Point of Care 152 mg/dl (70-99)
--- NOTE | 2023-08-23 20:48 | PTCARENOTE ---
pt received from previous rn- aox3, flat affect, on room air, nsr on monitor. pt with loose melena stool- full pm care and campos care provided. rectal trumpet inserted without difficulty. pt turned and repositioned. scds on. education provided about
plan of care- verbalized understanding. 1 unit prbc infusing. protonix gtt continues. all safety precautions in place, call wyman within reach.
[2023-08-23 22:24] LABS: Hematocrit 22.5 % (37.0-47.0); Hemoglobin 7.9 g/dL (12.0-16.0)
[2023-08-24] VITALS (25 sets, daily range): BP systolic 91–166; BP diastolic 49–81; PULSE 96; O2SAT 94–96; BMI 33.1
--- NOTE | 2023-08-24 00:36 | PTCARENOTE ---
pt turned and repositioned. assessment unchanged. remains on protonix gtt and ivf.
[2023-08-24] MEDS: UNASYN IV ×4 (03:35→16:18)
--- NOTE | 2023-08-24 03:58 | PTCARENOTE ---
assessment unchanged, pt resting comfortably. am labs sent. turned and repositioned, incontinence care provided.
[2023-08-24 04:03] LABS: % Eosinophils 2.1 % (0-6); % Immature Granulocytes 1.2 % (0-0.5); % Monocytes 8.7 % (1.7-9.3); Absolute Eosinophils 0.1 10^3/uL (0-0.7); Absolute Immature Granulocytes 0.1 10^3/uL (0-0.05); Absolute Lymphocytes 1.4 10^3/uL (1.2-3.4); Absolute Monocytes 0.5 10^3/uL (0.1-0.6); Absolute Neutrophils 3.6 10^3/uL (1.4-6.5); Hematocrit 22.6 % (37.0-47.0); Hemoglobin 7.8 g/dL (12.0-16.0); Mean Corp Hgb Conc. 34.5 g/dL (33.0-37.0); Mean Corpuscular Hgb 28.1 pg (27.0-31.0); Mean Corpuscular Volume 81.3 fL (81.0-99.0); Mean Platelet Volume 10.2 fL (7.4-10.4); Nucleated Red Blood Cells % 0 %; Platelet Count 197 10^3/uL (130-400); Red Blood Cell Count 2.78 10^6/uL (4.20-5.40); Red Cell Dist. Width 18.2 % (11.5-14.5); White Blood Cell Count 5.6 10^3/uL (4.8-10.8)
[2023-08-24 04:18] LABS: INR 1.39; PT 16.9 Sec (11.4-14.6)
[2023-08-24 04:28] LABS: Blood Urea Nitrogen 13 mg/dl (7-17); Calcium 7.3 mg/dl (8.4-10.2); Carbon Dioxide 17 mmol/L (22-30); Chloride 111 mmol/L (98-107); Estimated Creatinine Clearance 67 ml/min; Glucose 89 mg/dl (70-99); Potassium 3.5 mmol/L (3.5-5.1); eGFR > 60.00
[2023-08-24 04:34] LABS: Sodium 133 mmol/L (135-145)
[2023-08-24] MEDS: NSS 1000 IV (04:51)
[2023-08-24] MEDS: SYNTHROID 112 MCG PO (04:52)
[2023-08-24] MEDS: MORPHINE SULFATE 1 MG IV (05:19)
[2023-08-24] MEDS: KCL 160 MEQ IV (05:24)
--- NOTE | 2023-08-24 05:56 | PTCARENOTE ---
ting villanueva aware of pts need for nrb, pt arousable, encouraged deep breathing.
--- NOTE | 2023-08-24 06:50 | W.PN.HOSP.TC ---
Addendum entered and electronically signed by Stanton Escalante MD 08/24/23 07:09:
Correction please delete last line of communication i.e. delete dietary advancement as per GI
Original Note:
Today's Communication/Plan
-
Continue to monitor H&H closely
Retransfuse for any significant change in volume status for hypotension or hemoglobin below 7.0
For flex sig later today
Continue antibiotic course
Continue PPI
Dietary advancement as per GI
Assessment / Plan
Assessment / Plan
General: no acute distress
HEENT:�anicteric
Respiratory:�Clear and Non Labored Respirations
Cardiac:�S1/S2 and Regular Rhythm,tachycardia
GI:�Soft, Non Tender
: campos
Musculoskeletal:�No Clubbing, No Cyanosis and Other (Edema bilateral lower extremities)
Neuro: AAOx2-3,calm
Acute hemorrhagic shock secondary to GI bleed
Continue with PPI drip
s/p 3 unit PRBC, monitor H&H; another episode of burgundy stool, this morning. Spoke with GI, possibility of stercoral ulcer. Plan for flex sig today
Cannot do CTA at this time due to creatinine; bleeding scan 08/21 neg for active bleed/creatinine since improved no criteria presently for bleeding scan
GI following; currently on clears/
Continue with fluids, currently on jonathan
Tried calling multiple times however unreacheable; Me and Dr Beckford both spoke to patient and she was agreeable with tranfusion and wanted us to sign on her behalf. Appears fell and now in hospital for evaluation. patient aware
INR high; vit K given
hgb now 7.6
Acute hypoxic respiratory failure likely secondary to aspiration event
CXR without any PNA
Has history of dysphagia
DNI
was on high flow; now weaning and is on NC, 4L/had to be placed on nonrebreather overnight after dosage of morphine hold further narcotic dosing
Acute Kidney Injury
-CT scan shows bilateral mild to moderate hydroureteronephrosis - urology following. now with campos and creatinine has improved
-Continue IVFs
-Cr now 1.1>>> 0.9
Hyponatremia
Monitor
hypokalemia
mild metabolic acidosis
monitor
Suspected Cystitis/UTI
urine cx contamination
cw abx
Stercoral Colitis
was on laxatives
cw abx
Hyperlipidemia
Diabetes Mellitus, Type II
uncontrolled; A1c 9.5
-Hold metformin due to KRISTA
-Monitor sugars and continue coverage insulin; on 10 units HS glargine
Hypothyroidism
elevated TSH but normal free t4
-Continue levothyroxine
1.5 cm exophytic left renal mass, having decreased in size compared to prior examination, previously measuring 2 cm.
Chronic Noctural Hypoxic resp failure
likely 2/2 JACK/OHS; still yet to get sleep study outpatient
-Continue 5L via nasal cannula at night
Dysphagia
-Evaluated by speech and started on minced and moist diet; when ok for solids then restart minced and moist diet
DVT proph: SCDs
Code Status: Limited DNR - No Intubation
I spent a total of 52 minutes with the patient or on the floor. More than 50% of this time involved counseling and coordination of care.
Anticipated Discharge: 24 - 48 hours
Subjective/Interval History
-
Date of Service: August 24, 2023
After complaint of back and leg pain she is given a dosage of warfarin with a goal desaturation and now on nonrebreather able to awaken without obvious respiratory distress get another unit of blood yesterday. Had small bowel movement overnight
with some blood denies abdominal pain
Objective Data
-
Labs:
Laboratory Results
08/23/23 08/24/23
22:17 03:36
WBC 5.6
Hgb 7.9 L 7.8 L
Hct 22.5 L 22.6 L
Plt Count 197
PT 16.9 H
INR 1.39
Sodium 133 L
Potassium 3.5
Chloride 111 H
Carbon Dioxide 17 L
BUN 13
Creatinine 0.9
Glucose 89
Calcium 7.3 L
Vital Signs:
Vital Signs
Temp Pulse Resp BP Pulse Ox
97.8 F 89 15 109/63 94
08/24/23 03:10 08/24/23 05:30 08/24/23 05:30 08/24/23 06:00 08/24/23 05:41
I&O
08/22/23 08/23/23 08/24/23
06:59 06:59 06:59
Intake Total 3878.0 / 4047.5 3820.0 / 3977.5 4020.0 / 4020.0
Output Total 1250 / 1250 1420 / 1420 1530 / 1530
Balance 2628.0 / 2797.5 2400.0 / 2557.5 2490.0 / 2490.0
Review of Systems
-
History Source: Patient
Constitutional: Reports Fatigue and Weakness
Respiratory: Reports Other (Presently on nonrebreather)
Cardiac: Reports No Symptoms
Abdomen/GI: Reports Constipated and Bloody Stools
Physical Exam
-
General: No Apparent Distress
HEENT: Normocephalic
Respiratory: Non Labored Respirations and Other (On nonrebreather after morphine overnight)
Cardiac: Regular Rhythm
GI: Soft, Nontender and Nondistended
Neuro: Awake
Psych: Calm
Data Reviewed
-
Total Time Spent with Patient (in minutes): 45
CT Scan: Report Reviewed by me
Labs: Labs Reviewed by me (Hemoglobin 7.8/white count stable/sodium 133 chloride 111 bicarb 17/calcium 7.3)
--- NOTE | 2023-08-24 07:26 | W.PN.INTV ---
Addendum entered and electronically signed by Bobo Lam MD 08/24/23 17:10:
Post sigmoidoscopy noted
Reviewed with GI
Diet advanced
Patient without hypoxia at this time
Await lower extremity Dopplers
Chest x-ray without acute findings although decreased vascularity right base noted
May benefit from oxygen therapy upon discharge
Check nocturnal oximetry overnight, ordered
For transfer out of ICU. Pulmonary will follow briefly
Original Note:
Today's Communication / Plan
Recommendations
Chest x-ray
Continue Protonix
Monitor oxygenation
May require BiPAP during flexible sigmoidoscopy
Check lower extremity Dopplers
Follow hemoglobin
DNR status noted
Assessment
-
Assessment: 73-year-old female with a PMHx of hypertension, hyperlipidemia and DM type II presented with abdominal discomfort. Initial imaging concerning for stercoral colitis/proctitis. She also has UTI with acute kidney injury and antibiotics
were started. Patient was being managed on the floor where she developed acute rectal bleeding and severe shortness of breath, rapid response was called and patient was transferred to the ICU for further care with critical care services consulted
for additional management/recommendations.
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
Impression:
Acute gastrointestinal bleed - suspect lower versus brisk upper
Acute blood loss anemia with rectal bleeding
Symptomatic anemia with tachycardia and shortness of breath
Respiratory alkalosis with metabolic acidosis (lactate WNL)
Acute hypoxic respiratory insufficiency
Requiring nonrebreather at this time
Hemorrhagic shock - shock state resolved
Coagulopathy, improved
Acute on chronic respiratory failure with hypoxemia (on 4L/min at NH) - improved
Acute kidney injury (baseline Cr approx 0.8-1) - improving
Mild�moderate bilateral hydroureteronephrosis without obstructing renal calculus/bladder calculus#UTI
Plan/recommendations
At this time, patient remains critically ill although hemoglobin appears to be stable at 7.8
Saturation noted 85% to 96%
While sleeping, goes down to 70%, now requiring nonrebreather
Patient denies shortness of breath, chest pain, abdominal pain
Urine output adequate
Status post 4 units packed red cells, FFP, vitamin K
Awaiting endoscopy
Moving forward
Continue with supportive care
Maintain n.p.o.
Await flexible sigmoidoscopy. Patient will likely require BiPAP with anesthesia
Reviewed with nursing
Chest x-ray later today
Initial chest x-ray 08/21/2023 per my review, questionable [place] sign on the right?
Check lower extremity Dopplers
Remains on Unasyn antibiotic therapy at this time. Antibiotics to be discontinued in next few days depending on clinical status
Remains off anticoagulants, antiplatelet agents
Follow blood sugars
DVT prophylaxis: Mechanical as able
GI prophylaxis: Remains on Protonix drip
Reviewed clinical course at length with patient
Patient requesting DNR, does not want intubation, CPR/shock
She is requesting to be sent home, jail as soon as possible
Critical care statement: A total of 39 minutes of critical care time was provided for this patient today. This includes management of unstable vital signs, evaluation of the patient at bedside, reviewing the patient's pertinent medical records
including radiographs, microbiology, laboratory evaluations, and discussion with primary team, consultants, pharmacy, nutrition, physical therapy, case management, charge nurse, critical care nursing, and respiratory therapy.
Data:
NM GI Bleeding Scan 08-21-2023: No evidence for an active GI bleed.
CT Abd/Pelvis without contrast 08-19-2023:
Findings consistent with stercoral proctitis of the rectum and stercoral colitis involving the sigmoid colon. No evidence of pneumatosis. No perforation. No ascites or focal collection/abscess.
Mild to moderate bilateral hydroureteronephrosis without evidence to suggest obstructing renal calculus. No bladder calculus. Recommend correlation with renal function tests. Mild bladder wall thickening and soft tissue stranding, raising the
possibility of cystitis. Clinical correlation recommended.
1.5 cm exophytic left renal mass, having decreased in size compared to prior examination, previously measuring 2 cm.
Abd XR 08-23-2023: The study is technically limited but there is no evidence of constipation
Subjective Dataa
Subjective Data
Date of Service:
Date of Service: August 24, 2023
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
Subjective:
At this time, patient remains critically ill, intermittent hypoxia noted. Required oxygen overnight, now on nonrebreather due to saturation into the 70s. It may be related to apnea. Presently she is 94%. She denies shortness of breath, chest
pain. She wants to go home. Awaiting flex sigmoidoscopy.
Objective Data
Data Reviewed
Vital Signs / I&O / Oxygen:
Vital Signs
Temp Pulse Resp BP Pulse Ox
96.7 F L 89 15 109/63 94
08/24/23 07:20 08/24/23 05:30 08/24/23 05:30 08/24/23 06:00 08/24/23 05:41
Intake and Output
08/23/23 08/24/23 08/25/23
06:59 06:59 06:59
Intake Total 3820.0 / 3977.5 4020.0 / 4020.0
Output Total 1420 / 1420 1530 / 1530
Balance 2400.0 / 2557.5 2490.0 / 2490.0
SaO2 94
Nasal Cannula flow liters per 5
minute
Physical Exam
General: Comfortable
HEENT: Normocephalic, Anicteric and Moist Mucous Membranes
Cardiovascular: S1-S2, Regular Rhythm, Murmur (n) and Peripheral Edema (n)
Respiratory: Clear, Wheeze (negative), Crackles (negative), Rhonchi (negative), Non-Labored Respirations and Stridor (n)
GI: Soft, Non Distended, Non Tender and Normal Bowel Sounds
Neurology: Awake, Alert, No Motor Deficits (Moves all extremities) and Other (Oriented to place)
Skin: Warm, Dry and Other (Mild pallor)
Labs/Micro/Reports
Lab Data
08/24/23 23:00
08/24/23 03:36
Laboratory Results
08/24/23
03:36
PT 16.9 H
INR 1.39
Microbiology
08/20/23 09:49 Blood/Venous Blood Culture - Preliminary
No Growth in 72 hours- Final report to follow
08/20/23 09:00 Blood/Venous Blood Culture - Preliminary
No Growth in 72 hours- Final report to follow
08/20/23 01:58 Urine Urine Culture - Final
08/20/23 01:27 Nose MRSA Screen - Final
No Methicillin Resistant Staphylococcus aureus isolated.
[2023-08-24] MEDS: PROTONIX IV (07:41)
[2023-08-24] MEDS: FOLVITE 1 MG PO (07:42)
[2023-08-24] MEDS: COLACE 100 MG PO ×2 (07:42→19:49)
[2023-08-24] MEDS: TYLENOL 650 MG PO ×5 (07:42→23:25)
[2023-08-24] MEDS: VITAMIN D3 (cholecalciferol) 100 MCG PO ×2 (07:43→19:49)
[2023-08-24] MEDS: MIRALAX 17 GRAMS PO ×2 (07:43→19:49)
[2023-08-24] MEDS: DESENEX/MITRAZOL/ZEASORB 1 APPLIC TOPICAL ×2 (07:43→19:51)
[2023-08-24] MEDS: NOVOLOG FLEXPEN-HIGH RESISTANCE SC ×2 (08:20→11:57)
[2023-08-24 08:24] LABS: Glucose - Point of Care 88 mg/dl (70-99)
--- NOTE | 2023-08-24 08:41 | PTCARENOTE ---
Addendum entered by Martine Luke RN 08/24/23 09:00:
Received pt on nrb, weaned to nasal cannula, will titrate down as able.
Original Note:
Received pt this am in bed with only c/o 'arthritis pain'. VSS. Maintained on ivf and protonix gtt. Rectal trumpet removed as stool too thick and pt leaking around. Leonie/campos care completed. Wounds on sacrum also cleaned and silicone border
foam added. Pt aware of plan for day. GI called and will notify when to given enema as ordered. Pt medicated with tylenol for pain. Otherwise see flowsheets.
[2023-08-24] MEDS: PROTONIX 100 IV (09:59)
--- NOTE | 2023-08-24 10:50 | PTCARENOTE ---
Pt requring increased oxygen after turning to right side and dozing off. Initially attempted to increased to 6lnc without success and Now on NRB and 6lnc. Pt appears in no acute distress. Denies sob. Dr Lam aware and xray pending.
[2023-08-24 11:37] LABS: Hematocrit 24.4 % (37.0-47.0); Hemoglobin 8.3 g/dL (12.0-16.0)
[2023-08-24 11:51] LABS: Glucose - Point of Care 84 mg/dl (70-99)
--- NOTE | 2023-08-24 12:28 | PTCARENOTE ---
Pt given tap water enema as ordered prior to flex sigmoid. Tolerated well. Small amount brown stool mixed in with liquid. Prior to enema, pt agreeable to flex sigmoid with NO SEDATION per Dr Irwin given oxygenation status. Pt has been weaned
down to 6lnc again with sats 95-100. CXR completed and reading with no active disease. No further changes at this time.
--- NOTE | 2023-08-24 13:52 | PN.CDI ---
CDI
- -
CDI:
Physician Documentation Request
Admit Date: 08/19/23 19:17
Dear Doctor Ava,
08/19 ED Physician Documentation: 'for coffee-ground black stool this morning...her abdomen feels 'different' than usual...mildly distended with upper abdominal tenderness.'
08/20 PCN: 'Pt found to have saturated depends, with dark stool.'
08/21 Hospitalist PN: 'Acute hemorrhagic shock secondary to GI bleed, Continue with PPI drip, start 80 IV Protonix given, Give 1 unit PRBC now, monitor H&H'
Please clarify the following:
GI bleed was present on admission
GI bleed was not present on admission but developed during hospitalization
Unable to determine
Use of terms such as suspected, likely, concern for, or probable (associated with a specific diagnosis that is being evaluated, monitored, or treated as if it exists) are acceptable and can be coded in the inpatient setting, when documented at the
time of discharge.
Thank you,
Josiane Rader RN, BSN
CDI Specialist
Available via [place] text
Please use your independent medical judgment in providing your response.
--- NOTE | 2023-08-24 14:49 | PTOTSP ---
ST Dysphagia Follow up
Mild-moderate oral dysphagia; extended mastication, benefits from added moisture to solids.
Recommend
1. Soft/bite-size solids (L6) and Thin liquids
2. Aspiration precautions and meal set up assist
3. Single chopped bites, moisten solids with gravy/sauce as needed
4. Slow pacing of intake
5. Meds oral with sips of water
6. 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
Communicated tx findings and recommendations to RN and physician via chat
--- NOTE | 2023-08-24 16:07 | CM ---
CM following re: discharge planning.
Discussed in rounds, reviewed pt's chart, met with pt. Per Rounds meeting, pt requires 6L NC of O2 with saturation 94-95%, continue supportive care.
Pt's admitted to 2S. CM left a message to pt's brother alondra.
Pt admitted from [facility] and a plan is for pt to return [facility] to [facility] when medically stable.
CM will follow to assist pt with discharge to [facility] for a short term rehabilitation treatment.
[2023-08-24 17:42] LABS: Glucose - Point of Care 98 mg/dl (70-99)
[2023-08-24] MEDS: FLEET MINERAL OIL ENEMA 133 ML RECTAL (18:18)
[2023-08-24] MEDS: NSS IV (18:20)
[2023-08-24] MEDS: NOVOLOG FLEXPEN-HIGH RESISTANCE 1 UNITS SC (18:44)
--- NOTE | 2023-08-24 19:23 | PTCARENOTE ---
Pt given fleets enema as ordered, but unable to retain fluid. No results at this time.
--- NOTE | 2023-08-24 20:00 | PTCARENOTE ---
Received patient AAOx3, following commands, denying pain, flat affect. Visitors at bedside. Normal sinus, first degree block, 60s-70s. Trace generalized anasarca. Palpable radial and pedal pulses bilaterally. BP stable. On 4 L nasal cannula, lung
sounds diminished. Abdomen round, soft, obese. Mullins in place, putting out yellow urine. Stage 2 on sacrum, foam CDI. Left PICC WNL, PIV WNL. Hourly rounding and patient safety checks ongoing.
[2023-08-24 20:03] LABS: Hematocrit 24.6 % (37.0-47.0); Hemoglobin 8.5 g/dL (12.0-16.0)
[2023-08-24 21:45] LABS: Glucose - Point of Care 79 mg/dl (70-99)
[2023-08-24] MEDS: LIPITOR 10 MG PO (22:45)
[2023-08-24] MEDS: SENNA SYRUP 8.80000000000000071 MG PO (22:45)
[2023-08-24] MEDS: ASPIR LOW (ENTERIC COATED) 81 MG PO (22:45)
[2023-08-24] MEDS: LANTUS 0.0599999999999999978 UNITS SC (22:45)
--- NOTE | 2023-08-24 23:55 | PTCARENOTE ---
Patient assessment unchanged from previous, hourly rounding and patient safety checks ongoing.
[2023-08-25] VITALS (8 sets, daily range): BP systolic 91–154; BP diastolic 53–87; PULSE 80; O2SAT 98–99; BMI 33.3
[2023-08-25 04:59] LABS: Hemoglobin 8.1 g/dL (12.0-16.0)
[2023-08-25 05:11] LABS: Hematocrit 23.5 % (37.0-47.0); Hemoglobin 7.9 g/dL (12.0-16.0); Mean Corp Hgb Conc. 33.6 g/dL (33.0-37.0); Mean Corpuscular Hgb 27.1 pg (27.0-31.0); Mean Corpuscular Volume 80.8 fL (81.0-99.0); Platelet Count 204 10^3/uL (130-400); Red Blood Cell Count 2.91 10^6/uL (4.20-5.40); Red Cell Dist. Width 18.6 % (11.5-14.5); White Blood Cell Count 4.9 10^3/uL (4.8-10.8)
--- NOTE | 2023-08-25 05:22 | PTCARENOTE ---
Patients temperature low, multiple warm blankets applied. Otherwise patient assessment unchanged. CHG bath done, labs sent, cleaned up, campos care done, repositioned. Hourly rounding and patient safety checks ongoing.
[2023-08-25] MEDS: TYLENOL 650 MG PO ×5 (05:24→20:36)
[2023-08-25 05:37] LABS: Blood Urea Nitrogen 12 mg/dl (7-17); Calcium 7.5 mg/dl (8.4-10.2); Carbon Dioxide 16 mmol/L (22-30); Chloride 111 mmol/L (98-107); Estimated Creatinine Clearance 76 ml/min; Glucose 72 mg/dl (70-99); Potassium 3.7 mmol/L (3.5-5.1); Sodium 134 mmol/L (135-145); eGFR > 60.00
[2023-08-25] MEDS: SYNTHROID 112 MCG PO (06:26)
--- NOTE | 2023-08-25 07:11 | W.PN.HOSP.TC ---
Addendum entered and electronically signed by Stanton Escalante MD 08/25/23 15:40:
Pressure ulcer
GI bleed present on admission
Original Note:
Today's Communication/Plan
-
Okay for transfer to floor
Has borderline BP and hypothermic this morning that should be rechecked for accuracy as feels warm
Continue to monitor and follow H&H
Increase activity/will need rehab
Bowel regime for stercoral colitis
Now off antibiotics
Assessment / Plan
Assessment / Plan
General: no acute distress
HEENT:�anicteric
Respiratory:�Clear and Non Labored Respirations
Cardiac:�S1/S2 and Regular Rhythm,tachycardia
GI:�Soft, Non Tender
: campos
Musculoskeletal:�No Clubbing, No Cyanosis and Other (Edema bilateral lower extremities)
Neuro: AAOx2-3,calm
Acute hemorrhagic shock secondary to GI bleed/multiple stercoral ulcers noted on flex sig
s/p 3 unit PRBC, monitor H&H; another episode of burgundy stool, this morning.
-Underwent flex sig on August 24 showing large amount of stool that required disimpaction at the time with multiple( 10) stercoral ulcers/Hemorrhoids also found on perianal exam
bleeding scan 08/21 neg for active bleed/creatinine since improved no criteria presently for bleeding scan
GI following; graduated to regular diet after flex sig yesterday
Placed on regular diet
Tried calling multiple times however unreacheable; Me and Dr Beckford both spoke to patient and she was agreeable with tranfusion and wanted us to sign on her behalf. Appears fell and now in hospital for evaluation. patient aware
INR high; vit K given
hgb now 7.6>>> 9.1
Acute hypoxic respiratory failure likely secondary to aspiration event
CXR without any PNA
Has history of dysphagia
DNI
was on high flow; now weaning and is on NC, 4L/
Acute Kidney Injury
-CT scan shows bilateral mild to moderate hydroureteronephrosis - urology following. now with campos and creatinine has improved
-Continue IVFs
-Cr now 1.1>>> 0.9
Hyponatremia
Monitor
hypokalemia
mild metabolic acidosis
monitor
Suspected Cystitis/UTI
urine cx contamination
cw abx
Stercoral Colitis
laxatives/need to enforce bowel regimen
cw abx
Hyperlipidemia
Diabetes Mellitus, Type II
uncontrolled; A1c 9.5
-Hold metformin due to KRISTA
-Monitor sugars and continue coverage insulin; on 10 units HS glargine
Hypothyroidism
elevated TSH but normal free t4
-Continue levothyroxine
Edema of lower extremities
-Venous Doppler lower extremities negative for DVT
1.5 cm exophytic left renal mass, having decreased in size compared to prior examination, previously measuring 2 cm.
Chronic Noctural Hypoxic resp failure
likely 2/2 JACK/OHS; still yet to get sleep study outpatient
-Continue 5L via nasal cannula at night
Dysphagia
-Evaluated by speech and started on minced and moist diet; when ok for solids then restart minced and moist diet
DVT proph: SCDs
Code Status: Limited DNR - No Intubation
I spent a total of 52 minutes with the patient or on the floor. More than 50% of this time involved counseling and coordination of care.
Anticipated Discharge: 24 - 48 hours
Subjective/Interval History
-
Date of Service: August 25, 2023
' I need to go to rehab' still with persisting tarry stools she had overnight temp down and BP down overnight she denies any present symptoms denies any abdominal pain denies any shortness of breath
Objective Data
-
Labs:
Laboratory Results
08/24/23 08/25/2308/25/24
19:53 04:44 04:44
WBC 4.9
Hgb 8.5 L 7.9 L 8.1 L
Hct 24.6 L 23.5 L
Plt Count
Sodium
Potassium
Chloride
Carbon Dioxide
BUN
Creatinine
Glucose
Calcium
08/25/23
04:44
WBC
Hgb
Hct 24.0 L
Plt Count 204
Sodium 134 L
Potassium 3.7
Chloride 111 H
Carbon Dioxide 16 L
BUN 12
Creatinine 0.8
Glucose 72
Calcium 7.5 L
Vital Signs:
Vital Signs
Temp Pulse Resp BP Pulse Ox
95.7 F L 58 17 91/53 98
08/24/23 23:49 08/25/23 06:00 08/25/23 06:00 08/25/23 04:00 08/25/23 06:00
I&O
08/24/23 08/25/23 08/26/23
06:59 06:59 06:59
Intake Total 4020.0 / 4110.0 1310 / 1310
Output Total 1530 / 1530 1375 / 1375
Balance 2490.0 / 2580.0 -65 / -65
Review of Systems
-
All other systems: Not reviewed unless documented
Physical Exam
-
General: No Apparent Distress
HEENT: Normocephalic
Respiratory: Clear to Auscultation and Decreased Breath Sounds
Cardiac: Regular Rhythm
Rectal: Black
Neuro: Awake and No Motor Deficits
Psych: Anxious
Data Reviewed
-
Total Time Spent with Patient (in minutes): 45
Medical Tests (Nuc Med, Echo etc): Report Reviewed by me (Reviewed results of flexible sigmoidoscopic) and Other (Results of peripheral Doppler noted no evidence of any DVTs)
Labs: Labs Reviewed by me (Hemoglobin stable at 9.1)
--- NOTE | 2023-08-25 07:51 | W.PN.INTV ---
Today's Communication / Plan
Recommendations
Out of bed to chair, PT/OT
Follow hemoglobin
Mechanical DVT prophylaxis
Patient does not qualify for oxygen therapy but may benefit from nocturnal oxygen at longterm
Continue if able
If hypoxia recurs, check echocardiogram with bubble study and/or VQ scan/CTA
Patient transferred out of ICU. We will sign off. Please call with questions
Assessment
-
Assessment: 73-year-old female with a PMHx of hypertension, hyperlipidemia and DM type II presented with abdominal discomfort. Initial imaging concerning for stercoral colitis/proctitis. She also has UTI with acute kidney injury and antibiotics
were started. Patient was being managed on the floor where she developed acute rectal bleeding and severe shortness of breath, rapid response was called and patient was transferred to the ICU for further care with critical care services consulted
for additional management/recommendations.
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
Impression:
Acute gastrointestinal bleed - suspect lower versus brisk upper
Rectal ulcers noted per flex sigmoidoscopy
Acute blood loss anemia with rectal bleeding
Symptomatic anemia with tachycardia and shortness of breath
Respiratory alkalosis with metabolic acidosis (lactate WNL)
Acute hypoxic respiratory insufficiency
Requiring nonrebreather at this time
Hemorrhagic shock - shock state resolved
Coagulopathy, improved
Acute on chronic respiratory failure with hypoxemia (on 4L/min at [place]) - improved
Acute kidney injury (baseline Cr approx 0.8-1) - improving
Mild�moderate bilateral hydroureteronephrosis without obstructing renal calculus/bladder calculus#UTI
Plan/recommendations
At this time, patient remains stable, hemoglobin 8.1
Saturation noted 85% to 96%
Nocturnal oximetry essentially normal overnight
Does have intermittent hypoxia requiring nonrebreather but has been stable over the last 24 hours
Doppler study negative for DVT
Patient denies shortness of breath, chest pain, abdominal pain
Urine output adequate
Status post 4 units packed red cells, FFP, vitamin K
Chest x-ray unremarkable
Moving forward
Continue with supportive care
Follow hemoglobin
Patient tolerating diet
Protonix daily
Patient with intermittent hypoxia, none for the past 24 hours
Nocturnal oximetry essentially normal
Initial chest x-ray 08/21/2023 per my review, questionable [place] sign on the right?
Dopplers negative for DVT
If hypoxia recurs, check echocardiogram with bubble study, and consider VQ scan
Out of bed to chair, PT/OT
Patient was on Unasyn, discontinued 08/24. Urine culture 08/20/2023 negative
Mullins catheter in place per urology
Follow blood sugars
DVT prophylaxis: Mechanical as able
GI prophylaxis: R Protonix daily
DNR status noted
Patient transferred out of ICU. We will sign off. Please call with questions
Data:
NM GI Bleeding Scan 08-21-2023: No evidence for an active GI bleed.
CT Abd/Pelvis without contrast 08-19-2023:
Findings consistent with stercoral proctitis of the rectum and stercoral colitis involving the sigmoid colon. No evidence of pneumatosis. No perforation. No ascites or focal collection/abscess.
Mild to moderate bilateral hydroureteronephrosis without evidence to suggest obstructing renal calculus. No bladder calculus. Recommend correlation with renal function tests. Mild bladder wall thickening and soft tissue stranding, raising the
possibility of cystitis. Clinical correlation recommended.
1.5 cm exophytic left renal mass, having decreased in size compared to prior examination, previously measuring 2 cm.
Abd XR 08-23-2023: The study is technically limited but there is no evidence of constipation
Subjective Dataa
Subjective Data
Date of Service:
Date of Service: August 25, 2023
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
Subjective:
Patient is without complaints. Denies chest pain, abdominal pain, nausea, cough. Patient appears to be in good spirits. Anxious for discharge. Tolerating p.o.
Objective Data
Data Reviewed
Vital Signs / I&O / Oxygen:
Vital Signs
Temp Pulse Resp BP Pulse Ox
95.7 F L 58 17 91/53 98
08/24/23 23:49 08/25/23 06:00 08/25/23 06:00 08/25/23 04:00 08/25/23 06:00
Intake and Output
08/24/23 08/25/23 08/26/23
06:59 06:59 06:59
Intake Total 4020.0 / 4110.0 1310 / 1310
Output Total 1530 / 1530 1375 / 1375
Balance 2490.0 / 2580.0 -65 / -65
SaO2 98
Nasal Cannula flow liters per 4
minute
Physical Exam
General: Comfortable
HEENT: Normocephalic, Anicteric and Moist Mucous Membranes
Cardiovascular: S1-S2, Regular Rhythm, Murmur (n) and Peripheral Edema (n)
Respiratory: Clear, Wheeze (negative), Crackles (negative), Rhonchi (negative), Non-Labored Respirations and Stridor (n)
GI: Soft, Non Distended, Non Tender and Normal Bowel Sounds
Neurology: Awake, Alert and No Motor Deficits (Moves all extremities)
Skin: Warm, Dry and Other (Mild pallor)
Labs/Micro/Reports
Lab Data
08/25/23 04:44
08/25/23 04:44
Microbiology
08/20/23 09:49 Blood/Venous Blood Culture - Preliminary
No Growth in 4 days- Final report to follow
08/20/23 09:00 Blood/Venous Blood Culture - Preliminary
No Growth in 4 days- Final report to follow
[2023-08-25] MEDS: NOVOLOG FLEXPEN-HIGH RESISTANCE SC ×2 (09:53→13:18)
[2023-08-25] MEDS: FOLVITE 1 MG PO (10:01)
[2023-08-25] MEDS: PROTONIX 40 MG PO (10:01)
[2023-08-25] MEDS: VITAMIN D3 (cholecalciferol) 100 MCG PO ×2 (10:01→20:37)
[2023-08-25] MEDS: MIRALAX 17 GRAMS PO ×2 (10:01→20:35)
[2023-08-25] MEDS: COLACE 100 MG PO ×2 (10:02→20:37)
[2023-08-25] MEDS: DESENEX/MITRAZOL/ZEASORB 1 APPLIC TOPICAL ×2 (10:02→20:38)
[2023-08-25 10:08] LABS: Glucose - Point of Care 67 mg/dl (70-99)
--- NOTE | 2023-08-25 10:08 | PTCARENOTE ---
Blood sugar 67. per protocol 4 oz orange juice administered. Will recheck blood sugar in 15 mints . pt currently on high sliding scale and lantus [address] Taylor notified
[2023-08-25 10:48] LABS: Glucose - Point of Care 57 mg/dl (70-99)
--- NOTE | 2023-08-25 11:24 | W.PN.GI.CBS2 ---
Today's Communication / Plan
-
Hbg stable
C/w bowel regimen: miralax BID and senna standing
GI will sign off please call for questions
Assessment / Plan
-
73 yo F initially admitted 08/19 for dark stools, heme negative in ER from alf.� She was found to have KRISTA and b/l hydronephrosis and seen by urology.� Also found to have stercoal colitis on CT.� On 08/21 had bright red blood per rectum and
was hemodynamically unstable with BPs in the 70s and tachy in the 110s.� A stat Hb was stable (9.7) but INR was elevated 2.54, normal platelets.�
On history patient does elicit taking daily NSAIDs with ASA.�
Most likely this is a lower GI bleed - with intermittent bleeding I suspect it is a stercoal ulcer and she did have stercoal colitis on CT. Diff dx: ischemic colitis, diverticular bleed, Dieulofoy's, AVM.� Could also have a brisk UGIB would expect
BUN to be more elevated differential PUD (on NSAIDs), Dieulofoy. Also now having BRB and BP was stable
08/21 case discussed with anesthesia concern was stability with EGD of note patient is DNI and on high flow O2 and does NOT want to be intubated for EGD when I d/w her. Bleeding scan was done and was negative 08/21
2 units needed 08/21; additional 1 U 08/22
Vit K given 08/21 unclear why coagulopathy - INR 08/22 down to 1.5
Off pressors 08/23
5L O2 08/23 - reviewing H+P on 5L at home at night
CTA not an option with recent KRISTA
Recommendations:
- Flex sigmoidoscopy unsedated 08/24 with multiple rectal ulcers likely cause of BRBPR from stercoral colitis
- Biopsies and path pending
- Hbg stable
- Monitor stool output
- C/w bowel regimen: miralax BID and senna daily basis
- C/w diet as tolerates
At this juncture no new GI recs will sign off please call for questions
Subjective
Subjective
Date of Service: August 25, 2023
She is tolerating diet. Denies abd pain, nausea or vomiting.
Objective
Data Reviewed
Laboratory Data:
Laboratory Results
08/25/23 04:44
08/25/23 04:44
Laboratory Results
PT 16.9 Sec (11.4-14.6) H 08/24/23 03:36
INR 1.39 08/24/23 03:36
APTT 39.5 Sec (23.4-35.0) H 08/21/23 11:25
Magnesium 1.6 mg/dl (1.6-2.3) 08/20/23 08:20
Total Bilirubin 1.1 mg/dl (0.2-1.3) 08/23/23 04:48
AST 19 U/L (14-36) 08/23/23 04:48
ALT 10 U/L (0-35) 08/23/23 04:48
Alkaline Phosphatase 65 U/L (38-126) 08/23/23 04:48
Vital Signs and I&O:
Vital Signs
Temp Pulse Resp BP Pulse Ox
97.8 F 58 17 91/53 98
08/25/23 09:58 08/25/23 06:00 08/25/23 06:00 08/25/23 04:00 08/25/23 06:00
I&O
08/24/23 08/25/23 08/26/23
06:59 06:59 06:59
Intake Total 4020.0 / 4110.0 1310 / 1310
Output Total 1530 / 1530 1375 / 1375
Balance 2490.0 / 2580.0 -65 / -65
Physical Exam
Physical Exam
GEN: No acute distress, conversant, pleasant
HEENT: anicteric, extraocular movements intact, clear oropharynx without exudatesrally
GI: soft, non-distended, not tender to palpation, normal active bowel sounds, no hepatosplenomegaly
EXT: warm, well perfused, no edema bilaterally
NEURO: AAOx3, non-focal
--- NOTE | 2023-08-25 11:29 | W.PN.URO.CBU ---
Today's Communication / Plan
-
continue campos
Assessment / Plan
-
Neurogenic bladder
HYDRO- suspected due to above
suspected UTI
VICENTE
GI bleed
pt's cr has normalized with campos in place
given her other acute illness- urologic plan to continue campos at time of discharge and arrange outpt f/u to discuss uds/possible repeat cysto and voiding trial
Diagnosis
-
Date of Service: August 25, 2023
-
Patient Diagnosis:
neurogenic bladder
suspected UTI
hydro
VICENTE
GI Bleed
Subjective
-
pt stable
transferring out of ICU today
no sig ongoing gi bleeding- hgb stable
ucx was unremarkable- blood cx's negative
cr has normalized with campos placement
Objective
-
Vital Signs
Temp Pulse Resp BP Pulse Ox
97.8 F 58 17 91/53 98
08/25/23 09:58 08/25/23 06:00 08/25/23 06:00 08/25/23 04:00 08/25/23 06:00
Intake and Output
08/24/23 08/25/23 08/26/23
06:59 06:59 06:59
Intake Total 4020.0 / 4110.0 1310 / 1310 240 / 240
Output Total 1530 / 1530 1375 / 1375 200 / 200
Balance 2490.0 / 2580.0 -65 / -65 40 / 40
Intake:
Oral fluids 1050 / 1050 150 / 150
Amount of oral supplement(s) 240 / 240
consumed
IV fluids (Total) 2270.0 / 2360.0 1040 / 1040
Nss 1,000 ml @ 80 mls/hr IV . 1200 / 1200
[id number] JAYDA Rx#:[id number]
Nss 1,000 ml @ 80 mls/hr IV . 640 / 640
[id number] JAYDA Rx#:[id number]
ivf 560 / 640 280 / 280
kcl rider 270.0 / 270.0
protonix 240 / 250 120 / 120
IV piggybacks 200 / 200 120 / 120
Blood Products 250 / 250
Packed red blood cells 250 / 250
Blood Product Amount Infused ( 250 / 250
mL)
Packed Rbc Leukoreduced Unit 250 / 250
[id number]
Output:
Urine, Campos 1530 / 1530 1375 / 1375 200 / 200
Laboratory Results
08/25/23 04:44
08/25/23 04:44
Review of Systems
-
Constitutional: Fatigue
Respiratory: No Symptoms
Cardiac: No Symptoms
Abdomen/GI: No Symptoms
Physical Exam
-
General - no acute distress
Abdomen - soft, non-tender, obese
Genitalia - campos in place- urine clear
[2023-08-25 11:31] LABS: Glucose - Point of Care 94 mg/dl (70-99)
--- NOTE | 2023-08-25 12:33 | PTOTSP ---
ST Dysphagia Follow up/Treatment
Mild oral dysphagia; managed with diet modification at this time
Pt received awake/alert asking to speak with dialysis social worker re: her , RN was aware. Self fed soft/bite-size solids and thin liquids demo extended yet effective mastication and bolus was orally cleared. Thin liquids by small/single cup sip
swallow appears prompt. No overt s/sx of aspiration observed. Offered advanced trials of regular solids however pt declined at this time; feeling too full. Education re: rationale for PO trials and diet advancement however pt feels current diet is
optimal. No further acute SR VICE PRESIDENT needs.
Recommend
1. Continue Soft/Bite-size solids (L6) and Thin liquids
2. Aspiration precautions and meal set up assist as needed
3. Small bites and slow rate
4. SR VICE PRESIDENT signing off please reconsult as needed
--- NOTE | 2023-08-25 12:34 | PTCARENOTE ---
patient received this at 0700 in bed . AAO x3 SR on a monitor +2 generalized edema pedal pulses palatable . Abdomen hypoactive . Indwelling Mullins draining cloudy, josué urine Mullins care done per hospital's protocol. Low sugar tx per hypoglycemia
protocol . Appetite fair. pateint asking to speak to transition social worker, transition social worker made aware. Sliding scale changed from high to low sliding scale protocol. Lantus changed from 6 to 4 units . metoforming restarted per home records.
At 12:30 patient transfer to Room 2124. via bed. report given via phone.
--- NOTE | 2023-08-25 12:40 | CM ---
CM following re: discharge planning.
Discussed in Rounds, reviewed pt's chart, met with pt and spoke to pt's brother Alondra to update on pt's discharge plan progress. per Rounds meeting pt will be downgraded from ICU level of care.
Pt is aware that her is here at , expressed her worries about his well being. Emotional support offered and provided. Pt is aware she will be returning back to [facility] to continue on skilled services and pt stated she will talk
to her and to her brother regarding whether or not she and her will continue living in their apartment or they might decide to stay at [facility] for a assisted care.
Pt's brother Alondra stated he is aware of what happened to pt's and he stated that pt's has manic depression and pt struggles to care for him at home. Pt's brother alondra stated that pt and her live in an apartment and they do
have a rancher house in [place]. pt's brother alondra stated he will talk to his sister (the pt) regarding a further plan.
CM spoke to [facility] admissions department access services representative and she confirmed that pt and her if he needs SNF will be accepted for admissions to [facility]. Requested pt's clinical faxed to [facility]. An auth for SNF
requested.
[facility]
Accepting Physician DR. Carlos Montgomery
D/C plan: [facility] when medically stable.
CM will follow to assist pt with discharge to [facility] for a short term rehab.
Initialized on 08/25/23 12:28 - END OF NOTE
[2023-08-25 13:11] LABS: Glucose - Point of Care 137 mg/dl (70-99)
--- NOTE | 2023-08-25 13:36 | PN.CDI ---
CDI
- -
CDI:
Physician Documentation Request
Admit Date: 08/19/23 19:17
Dear Doctor Ava,
08/20-08/25 Nursing Documentation: 'Stage 2 pressure ulcer to sacrum'
Physician documentation of the type and location of wounds is required for compliant documentation. Based on the above clinical findings and your assessment, please provide the following in your progress note:
1. Location of the ulcer/wound, including laterality.
2. Type (etiology) of ulcer/wound:
- Pressure (decubitus) ulcer
- Other
- Unable to determine
3. If a pressure ulcer, please also include the stage* of the ulcer:
- Stage 1 - Skin intact, non-blanchable redness
- Stage 2 - Partial thickness loss of dermis, includes intact or open blister
- Stage 3 - Full thickness tissue not including bone, tendon or muscle
- Stage 4 - Full thickness tissue loss, including exposed bone, tendon or muscle
- Unstageable - Full thickness loss in which the base of the ulcer is covered by slough (yellow, doan, chambers, green or brown) and/or eschar (doan, brown or black) in the wound bed.
- Unable to determine
Use of terms such as suspected, likely, concern for, or probable (associated with a specific diagnosis that is being evaluated, monitored, or treated as if it exists) are acceptable and can be coded in the inpatient setting, when documented at the
time of discharge.
Thank you,
Josiane Rader RN, BSN
CDI Specialist
Available via [place] text
Please use your independent medical judgment in providing your response.
*Source: National Pressure Ulcer Advisory Panel (NPUAP)
--- NOTE | 2023-08-25 14:00 | PTCARENOTE ---
Received pt from ICU at 1300. Pt changed, turned, assessed and washed upon arrival. VSS, patient resting comfortably at this time with call wyman within reach. Update given to staying in 2113.
[2023-08-25 16:50] LABS: Glucose - Point of Care 127 mg/dl (70-99)
[2023-08-25 21:24] LABS: Glucose - Point of Care 95 mg/dl (70-99)
[2023-08-25] MEDS: LIPITOR 10 MG PO (21:35)
[2023-08-25] MEDS: ASPIR LOW (ENTERIC COATED) 81 MG PO (21:35)
[2023-08-25] MEDS: SENNA SYRUP 8.80000000000000071 MG PO (21:36)
[2023-08-25] MEDS: TYLENOL PO (23:22)
[2023-08-26 03:00] VITALS: BP 116/57
[2023-08-26] MEDS: TYLENOL 650 MG PO ×3 (05:00→12:04)
[2023-08-26 05:01] VITALS: BMI 33.4
--- NOTE | 2023-08-26 05:05 | DOWNTIME ---
There was a [employer] Client Telephone Diaphragm Assembler Downtime on 08/26/2023 from 0111 to 08/26/2023 at 0405. Downtime documentation of patient's care, including medication administrations, has been reconciled in the electronic record per guidelines. Refer to the
patient's paper chart under the miscellaneous tab to see printed paper medication records and downtime forms.
[2023-08-26 05:42] LABS: Hematocrit 27.2 % (37.0-47.0); Hemoglobin 9.3 g/dL (12.0-16.0); Mean Corp Hgb Conc. 34.2 g/dL (33.0-37.0); Mean Corpuscular Hgb 27.4 pg (27.0-31.0); Mean Platelet Volume 9.9 fL (7.4-10.4); Platelet Count 254 10^3/uL (130-400); Red Cell Dist. Width 18.6 % (11.5-14.5); White Blood Cell Count 5.7 10^3/uL (4.8-10.8)
[2023-08-26 06:08] LABS: Blood Urea Nitrogen 10 mg/dl (7-17); Calcium 7.7 mg/dl (8.4-10.2); Carbon Dioxide 17 mmol/L (22-30); Chloride 110 mmol/L (98-107); Estimated Creatinine Clearance 76 ml/min; Glucose 80 mg/dl (70-99); Potassium 3.7 mmol/L (3.5-5.1); Sodium 133 mmol/L (135-145); eGFR > 60.00
[2023-08-26] MEDS: SYNTHROID 112 MCG PO (06:14)
[2023-08-26 07:25] VITALS: BP 153/94
[2023-08-26 07:43] LABS: Glucose - Point of Care 90 mg/dl (70-99)
[2023-08-26] MEDS: DESENEX/MITRAZOL/ZEASORB 1 APPLIC TOPICAL (08:10)
[2023-08-26] MEDS: MIRALAX 17 GRAMS PO (08:10)
[2023-08-26] MEDS: FOLVITE 1 MG PO (08:10)
[2023-08-26] MEDS: PROTONIX 40 MG PO (08:10)
[2023-08-26] MEDS: COLACE 100 MG PO (08:10)
[2023-08-26] MEDS: VITAMIN D3 (cholecalciferol) 100 MCG PO (08:10)
--- NOTE | 2023-08-26 08:55 | W.DS.TRANS ---
DC Summary - Management Professional
-
Discharge Instructions:
Discharge Diagnosis/Procedures GI bleed in relation to stercoral colitis ulcers
Acute blood loss anemia requiring multiple
transfusions
Constipation
Urine retention requiring Mullins catheter
indwelling follow-up as outpatient urology
Mild-moderate bilateral hydroureteronephrosis
without obstructing renal calculus
Status post flex sigmoidoscopy, 24 August
with multiple rectal ulcers noted as cause of
bright red blood per rectum
Chronic hypoxic respiratory insufficiency
Sacral decubitus pressure ulcer
Diet Regular
Activity As tolerated
Driving Restrictions No driving
Instructions:
Stand-Alone Forms:
Changes to Home Medications: Yes
Discharge Medications:
DC Medications w/original date entered in [employer]
folic acid 1 mg tablet 1 mg PO DAILY Supplement 11/13/16
loratadine 10 mg tablet 10 mg PO DAILY PRN allergies 11/13/16
acetaminophen 325 mg tablet (Tylenol) 650 mg PO Q4HPRN PRN mild pain 08/06/23
atorvastatin 10 mg tablet 10 mg PO HS High Cholesterol 08/06/23
cholecalciferol (vitamin D3) 100 mcg (4,000 unit) tablet 100 mcg PO BID Supplement 08/06/23
levothyroxine 112 mcg tablet 112 mcg PO DAILY Thyroid 08/06/23
metformin 1,000 mg tablet 1,000 mg PO BID@0800,1700 Diabetes 08/06/23
bisacodyl 10 mg rectal suppository (Dulcolax (bisacodyl)) 10 mg OH DAILYPRN PRN IF NO BM AFTR MOM 08/19/23
ferrous sulfate 143 mg (45 mg iron) tablet,extended release 143 mg PO DAILY Supplement 08/19/23
magnesium hydroxide 400 mg/5 mL oral suspension (Milk of Magnesia) 2,400 mg PO [id number] PRN IF NO BM BY 3RD DAY 08/19/23
ondansetron HCl 4 mg tablet 4 mg PO Q4HPRN PRN NAUSEA 08/19/23
simethicone 80 mg chewable tablet 80 mg PO [id number] PRN GAS PAIN 08/19/23
sodium phosphates 19 gram-7 gram/118 mL enema (Fleet Enema) 118 ml OH DAILYPRN PRN IF NO BM AFTR DULCOLAX 08/19/23
zinc oxide 12 % topical cream 1 applic topical DAILYPRN PRN B/L BUTTOCKS 08/19/23
docusate sodium 100 mg capsule 100 mg PO BID #0 caps 08/26/23
pantoprazole 40 mg tablet,delayed release 40 mg PO DAILY Gastrointestinal issue #30 tabs 08/26/23
polyethylene glycol 3350 17 gram oral powder packet (HealthyLax) 17 g PO BID Constipation #30 ea 08/26/23
sennosides 8.8 mg/5 mL oral syrup 8.8 mg (5 mL) PO HS Constipation #200 mL 08/26/23
Home Medication Changes
docusate sodium 100 mg capsule 100 mg PO BID #0 caps 08/26/23
pantoprazole 40 mg tablet,delayed release 40 mg PO DAILY Gastrointestinal issue #30 tabs 08/26/23
polyethylene glycol 3350 17 gram oral powder packet (HealthyLax) 17 g PO BID Constipation #30 ea 08/26/23
sennosides 8.8 mg/5 mL oral syrup 8.8 mg (5 mL) PO HS Constipation #200 mL 08/26/23
Pending Results: No
Total time spent discharging patient (in min): 37
--- NOTE | 2023-08-26 11:00 | CM ---
Addendum entered by Andres Smith 08/26/23 11:32:
Transport scheduled for 12:30pm.
Original Note:
Patient has been medically cleared for discharge to [facility] for resumption of halfway and rehab services.
NURSE to NURSE report # [phone] ask for 2nd floor, FAX # [phone].
Required insurance authorization with [employer]. Called and spoke with GRAHAM Encarnacion, submitted oral review. Auth approved for 6 days at level 1 SNF, 08/26/23 through to and including 08/31/23. NRD is 08/31/23. Auth # [id number],
Concurrent review calls to [phone].
Transport to be scheduled. Patient, MD and team notified.
[2023-08-26 11:19] VITALS: BP 151/91
[2023-08-26 11:33] LABS: Glucose - Point of Care 119 mg/dl (70-99)
--- NOTE | 2023-08-26 12:08 | W.DCSUMMARY ---
Discharge Summary
Discharge Data
Date of Admission: 08/19/23
Date of Discharge: 08/26/23
Total time spent discharging patient (in min): 45
-
Pending Results: No
Hospital Course
73-year-old female with a history of hypertension hyperlipidemia type 2 diabetes mellitus presented with abdominal discomfort. Initial imaging via CT imaging noted evidence of stercoral colitis/proctitis she subsequently developed acute rectal
bleeding with bright red blood per rectum and a rapid response was called she entered into hemorrhagic shock with blood loss anemia requiring a total of 4 units of blood prior to transfer the ICU she was treated for symptomatic anemia tachycardia
and shortness of breath along with resolution of respiratory alkalosis metabolic acidosis she was also noted to have bilateral hydroureteronephrosis without obstructing renal calculi was seen by the urology service who recommended insertion of Campos
catheterization and this will be continued at time of discharge. Further follow-up as outpatient. She finally underwent a flex loop rodriguez sigmoidoscopic evaluation by the doctor done on the GI service finding 10 separate rectal ulcers not actively
bleeding at the time she was placed on a bowel regime that should be strictly enforced hemodynamically she remained stable thereafter because of persisting lower extremity edema she underwent a Doppler study of both lower extremities to assess for
possible underlying DVT which was not found/she will require continuation of a bowel regime that includes docusate, senna, and MiraLAX twice daily/of note the patient did undergo a nuclear medicine GI bleeding scan showing no evidence of any active
GI blood loss at the time that was on 21 August. We avoided pharmacologic DVT prophylaxis in the setting of her GI blood loss she had been on aspirin therapy as an outpatient now will be withheld going forward she should continue on a PPI in the
form Protonix daily along with her bowel regime. He has been assessed by PT and OT and deemed stable for discharge back to [facility] of note the patient also underwent a nocturnal oximetry study that was normal at time of discharge her
hemoglobin is 9.3. PT/INR 1.39/her overall insulin requirements have been reduced to glargine insulin 4 units nightly
Discharge Plan
-
Patient Disposition: Penitentiary/SNF
Discharge Diagnosis/Procedures: GI bleed in relation to stercoral colitis ulcers
Acute blood loss anemia requiring multiple transfusions
Constipation
Urine retention requiring Campos catheter indwelling follow-up as outpatient urology
Mild-moderate bilateral hydroureteronephrosis without obstructing renal calculus
Status post flex sigmoidoscopy, 24 August with multiple rectal ulcers noted as cause of bright red blood per rectum
Chronic hypoxic respiratory insufficiency
Sacral decubitus pressure ulcer
Diet: Regular
Activity: As tolerated
Driving Restrictions: No driving
Activity Restrictions/Additional Instructions:
Wound Care Instructions SACRUM- Clean with normal saline or soap and water. Apply silicone border foam and change Q 3 days and PRN if loose or soiled. May also use Calazime if incontinence episodes are frequent.
Keep abdominal and skin folds clean and dry. May use small amount of Calazime to open areas.
Static Air overlay to bed
Air or gel cushion when in recliner
Avoid sliding in recliner
Turning schedule
Keep heels off-loaded with pillows or air cushion under calves as toleratd.
Referrals:
Carlos Montgomery MD [Family Provider] -
Regan Patel MD [Active] - (call after discharge to arrange outpatient follow up to discuss evaluation for campos removal)
Prescriptions:
New
polyethylene glycol 3350 [HealthyLax] 17 gram Powder In Packet
17 g PO BID Qty: 30 0RF
sennosides 8.8 mg/5 mL Syrup
8.8 mg PO HS Qty: 200 0RF
pantoprazole 40 mg Tablet,Delayed Release (Dr/Ec)
40 mg PO DAILY Qty: 30 0RF
docusate sodium 100 mg Capsule
100 mg PO BID Qty: 0 0RF
Continued
folic acid 1 MG tablet
1 mg PO DAILY
loratadine 10 MG tablet
10 mg PO DAILY PRN (Reason: allergies)
acetaminophen [Tylenol] 325 mg Tablet
650 mg PO Q4HPRN PRN (Reason: mild pain)
atorvastatin 10 mg Tablet
10 mg PO HS
metformin 1,000 mg Tablet
1,000 mg PO BID@0800,1700
cholecalciferol (vitamin D3) 100 mcg (4,000 unit) Tablet
100 mcg PO BID
levothyroxine 112 MCG tablet
112 mcg PO DAILY
ondansetron HCl 4 mg Tablet
4 mg PO Q4HPRN PRN (Reason: NAUSEA)
magnesium hydroxide [Milk of Magnesia] 400 mg/5 mL Suspension
2,400 mg PO [id number] PRN (Reason: IF NO BM BY 3RD DAY)
bisacodyl [Dulcolax (bisacodyl)] 10 mg Suppository
10 mg FL DAILYPRN PRN (Reason: IF NO BM AFTR MOM)
Fleet Enema 19-7 gram/118 mL Enema
118 ml FL DAILYPRN PRN (Reason: IF NO BM AFTR DULCOLAX)
simethicone 80 mg Tablet,Chewable
80 mg PO [id number] PRN (Reason: GAS PAIN)
ferrous sulfate 143 mg (45 mg iron) Tablet Extended Release
143 mg PO DAILY
zinc oxide 12 % Cream
1 applic TOPICAL DAILYPRN PRN (Reason: B/L BUTTOCKS)
Discontinued
aspirin 81 mg Tablet,Delayed Release (Dr/Ec)
81 mg PO HS
Discharge Orders:
Discharge Patient (As Directed); Ordered 08/26/23
Ordered By: Stanton Escalante
== END 2023-08-26 12:54 | DRG 377 ==
LOC: 2 NORTH 19:17
PROVIDERS: Emergency Medicine; Physician Assistant Medical; ADMITTING PHYSICIAN Internal Medicine; ATTENDING PHYSICIAN Internal Medicine; CONSULT PHYSICIAN Internal Medicine Gastroenterology; CONSULT PHYSICIAN Specialist; EMERGENCY PHYSICIAN Emergency Medicine; FAMILY PHYSICIAN Internal Medicine; OTHER PHYSICIAN Internal Medicine Critical Care Medicine
PROC: 30233K1 Transfusion of Nonautologous Frozen Plasma into Peripheral Vein, Percutaneous Approach (ICD-10-PCS; 2023-08-21)
PROC: 30233N1 Transfusion of Nonautologous Red Blood Cells into Peripheral Vein, Percutaneous Approach (ICD-10-PCS; 2023-08-21)
PROC: 0DBP8ZX Excision of Rectum, Via Natural or Artificial Opening Endoscopic, Diagnostic (ICD-10-PCS; 2023-08-24)
DX: K92.2 Gastrointestinal hemorrhage, unspecified (principal); J96.01 Acute respiratory failure with hypoxia; J96.21 Acute and chronic respiratory failure with hypoxia; R57.8 Other shock; N17.9 Acute kidney failure, unspecified; D62 Acute posthemorrhagic anemia; D68.9 Coagulation defect, unspecified; K62.6 Ulcer of anus and rectum; E87.4 Mixed disorder of acid-base balance; E87.1 Hypo-osmolality and hyponatremia; N13.6 Pyonephrosis; K52.89 Other specified noninfective gastroenteritis and colitis; Z66 Do not resuscitate; E66.01 Morbid (severe) obesity due to excess calories; E11.36 Type 2 diabetes mellitus with diabetic cataract; I10 Essential (primary) hypertension; E78.00 Pure hypercholesterolemia, unspecified; E03.9 Hypothyroidism, unspecified; K21.9 Gastro-esophageal reflux disease without esophagitis; N39.3 Stress incontinence (female) (male); Z87.440 Personal history of urinary (tract) infections; N28.89 Other specified disorders of kidney and ureter; K80.20 Calculus of gallbladder without cholecystitis without obstruction; K64.9 Unspecified hemorrhoids; E87.6 Hypokalemia; L89.159 Pressure ulcer of sacral region, unspecified stage
CPT/HCPCS: 88305; 36600; 51798; 71045; 74018; 74176; 78278; 80048; 80053; 81003; 81015; 82248; 82570; 82805; 82962; 83036; 83605; 83735; 84300; 84439; 84443; 84484; 85014; 85018; 85025; 85027; 85610; 85730; 86850; 86900; 86901; 86920; 87040; 87070; 87086; 88342; 92526; 92610; 93005; 93970; 94762; 96360; 96361; 97163; 97167; 97530; 97535; 99285; A9560; P9016; P9059

== ENCOUNTER 2023-08-27 22:22 | Inpatient (IN) | payer OTHER, SELFPAY ==
[2023-08-27] VITALS (12 sets, daily range): BP systolic 134–161; BP diastolic 73–103; PULSE 2–110; BMI 31.2
--- NOTE | 2023-08-27 16:36 | ED.GENMED ---
History of Present Illness
General
Chief Complaint: Breathing Problem
Source: patient and records
Time Seen by Provider: 08/27/23 16:21
Travel History
Have you had any contact with someone who has COVID-19?: Unable to Answer
Do you have any symptoms of coronavirus? Fever > 100 degrees, chills, cough, shortness of breath, sore throat, loss of taste or smell, muscle aches, or headache?: Unable to Answer
History of Present Illness
History of Present Illness:
This patient is a 73-year-old female presents emergency department with complaints of very mild nausea associated with dyspnea noted during rehab today. Patient was recently hospitalized, in fact discharged yesterday after having a GI bleed
stercoral colitis, and noted hydronephrosis. She has a Mullins catheter in place. She states that she has been eating as usual without abdominal pain or vomiting. She denies chest pain, cough, sore throat, rhinorrhea, fever, chills. She does feel
more tired than usual. She denies leg swelling. Patient denies black stool or bleeding. She does note that she is having frequent bowel movements which she attributes to the laxatives that she is being administered.
Past History
Past History
ED Past Medical History: Arrthythmia (Atrial fibrillation on aspirin only), HTN, Hypercholesterolemia, NIDDM, Hypothyroidism and Other (Diverticulitis)
ED Past Surgical History: Other
Social History
Tobacco: Non-smoker
Alcohol: None
Drug: None
Personal:
Living: [facility]
Family History
Family History: Diabetes, Hypertension and CAD
Phy Exam
Physical Exam
Physical Exam:
GENERAL: Alert , in no apparent distress
EYE: pupils equal and reactive, conjunctive pink
NECK: Supple, no significant adenopathy.
ENT: o/p clr, mm dry
CARDIAC: Regular rate and rhythm .
LUNGS: Clear breath sounds bilaterally, no acute respiratory distress, no wheezes/rales/rhonchi
ABDOMEN: Soft, without focal tenderness, no r/g
NEUROLOGICAL: Alert and oriented, no focal neuro deficits
SKIN: Warm and dry, skin intact.
MUSCULOSKELETAL: Trace bilateral lower extremity edema, well perfused.
PSYCH: Normal and appropriate interaction.
Scores
Heart Failure Risk
Heart Failure Risk Score: Not Applicable
Course
Orders/Labs/Results
Orders:
Orders
08/27/23 16:06
Electrocardiogram (*1) Urgent
Reason for Study: Shortness of Breath
08/27/23 16:07
EKG- Treatment ONCE
08/27/23 16:36
Pulse Ox/cont/shift [RESP] Stat
Quantity: 1
08/27/23 16:39
CT Chest Pe Study Urgent
Comment:
Reason For Exam: sob, elevated hr, hypoxia
Cardiac Monitoring- Treatment ONCE
08/27/23 16:57
CMP [Comprehensive Metabolic Panel] Urgent
Complete Blood Count/No Diff Urgent
NT-proBNP Urgent
Troponin I Urgent
08/27/23 21:33
COVID-19 Antigen Urgent
Source: Nasal Swab
Influenza A+B Rapid Molecular Urgent
NANO Source: Nasal Swab
Specimen Description:
08/27/23 21:57
Admit/Transfer Patient As Directed
Co-Sign Provider:
Level of Care: Inpatient admission
Assign to:: IMU- Intermediate Care
Physician / Group: Kyrie
Diagnosis: Acute Hypoxemic Resp Failure
Reason for Hospitalization: Acute Hypoxemic Resp Failure
Expected length of stay greater than two midnights?: Yes
ELOS- Estimated Length of Stay in days: 3
I certify the patient meets the requirements for IP care: Yes
08/27/23 21:59
Code Status As Directed
Resuscitation Status: Do not resuscitate
Reached after discussion with pt or family/Healthcare POA: Yes
08/27/23 22:02
DNR Bracelet Application ONCE
08/27/23 22:07
Furosemide [Lasix] 20 mg IV NOW STA
08/27/23 23:23
Acetaminophen [Tylenol] 650 mg PO Q4HPRN PRN
Albuterol Nebs [Ventolin Nebules] 2.5 mg INH R Q4HPRN PRN
Atorvastatin [Lipitor] 10 mg PO HS
Dextrose 50%-Water [Dextrose 50% Syringe] 12.5 grams IV [id number] PRN
Glucagon [GlucaGen] 1 mg IM PRN PRN
Sennosides [Senna Syrup] 8.8 mg PO HS
08/27/23 23:23
Consult Notification Routine
Specialty to Notify: Pulmonary
Date consulting provider notified: 08/28/23
Time consulting provider notified: 07:11
Notified:: Provider
PULMONARY CONSULT Routine
Consulting Provider: Bobo Lam
Was physician already notified: No
Reason for consult: Hypoxemia
Activity As Directed
Activity Level: Ambulate
With Assistance
Bedside Glucose Monitoring As Directed
Frequency: AC&HS
Comment: Change to q6h if pt on TPN, tube feeding or not eating
EKG with chest pain [ECG as needed] As Directed
ECG as needed for:: Chest Pain
Mullins Catheter [Catheter- Indwelling] As Directed
Reason for insertion: Chronic Mullins on Admit
I/O [Intake/ Output] As Directed
Frequency: Per unit guidelines
Pneumatic Compression Sleeves As Directed
Type: Knee high
Vital Signs As Directed
Frequency: Per unit guidelines
Weight As Directed
Frequency: Daily
Bipap [RESP] Routine
Patient to use own unit?: No
Inspiratory Pressure (cm H2O): 14
Expiratory Pressure (cm H2O): 6
Oxygen Liter Flow: 2
Instructions: PRN
Oxygen Therapy [O2 Therapy] [RESP] Routine
Titrate/Wean O2 to maintain O2 sat greater than (%): 88
Special Instructions: Titrate O2 for SpO2 88 - 94%
Rx Incentive Spirometry [RESP] Routine
Frequency: q1h while awake
Ot Eval And Treat Routine
PT Consult [Pt Eval And Treat] Routine
Activity Level: Ambulate
With Assistance
DX Deep Vein Thrombosis Video Routine
08/28/23 05:18
Basic Metabolic Panel IN AM
Complete Blood Count/No Diff IN AM
08/28/23 06:00
EKG [Electrocardiogram (*1)] IN AM
Reason for Study: Chest Pain
Echo W Saline (bubble) Dop IN AM
Reason for Study: Hypoxemic Resp Failure
Regular
At Your Request: Limited, Leaf Size Picker Required
08/28/23 07:00
Levothyroxine [Synthroid] 112 mcg PO DAILY AT 0700
08/28/23 07:30
Insulin Aspart Corrective Low [Novolog Flexpen-Low Resistance] See Protocol SC AC
08/28/23 08:00
Docusate Sodium [Colace] 100 mg PO BID
FOLic ACID [Folvite] 1 mg PO DAILY
Ferrous Sulfate [Feosol] 325 mg PO DAILY
Pantoprazole [Protonix] 40 mg PO DAILY
Polyethylene Glycol Powder [Miralax] 17 grams PO DAILY
Abnormal Lab Results
08/27/23
16:57
RBC 3.86 L 10^6/uL
(4.20-5.40)
Hgb 10.8 L g/dL
(12.0-16.0)
Hct 30.6 L %
(37.0-47.0)
MCV 79.3 L fL
(81.0-99.0)
RDW 19.5 H %
(11.5-14.5)
Sodium 134 L mmol/L
(135-145)
Carbon Dioxide 21 L mmol/L
(22-30)
Glucose 106 H mg/dl
(70-99)
Calcium 8.3 L mg/dl
(8.4-10.2)
Total Bilirubin 1.6 H mg/dl
(0.2-1.3)
Total Protein 5.7 L g/dl
(6.3-8.2)
Albumin 2.6 L g/dl
(3.5-5.0)
08/27/23 16:57
08/27/23 16:57
Vital Signs
Initial and Last Documented VS:
Initial Vital Signs
Pulse Resp BP Pulse Ox
117 16 143/99 93
08/27/23 16:08 08/27/23 16:08 08/27/23 16:08 08/27/23 16:08
Last Documented Vital Signs
Temp Pulse Resp BP Pulse Ox
97.7 F 113 17 100/72 91
09/02/23 03:52 09/02/23 08:43 09/02/23 05:30 09/02/23 08:43 09/02/23 05:30
*Critical Care Note
Total Time (30-74mins, 75-104mins- exclusive of procedures): Not Applicable
Update Note
Update Note:
Patient presents to the Emergency Department with __dyspnea
Number and Complexity of Problems Addressed at the Encounter
� Chronic conditions affecting care:
� Acute Exacerbation and/or Progression of Chronic Illness:
� Differential Diagnosis includes: But not limited to PE, pneumonia, heart failure, ACS, etc.
Amount and/or Complexity of Data to be Reviewed and Analyzed
� I performed an independent evaluation of and my interpretation is:
EKG: Read by me, sinus tachycardia, left axis deviation, slightly flattened T waves, no acute ischemia
CT: No PE, small pleural effusions
Xrays:
Laboratory Studies:elevated bnp although may be c/w PE, no rales/orthopnea etc, anemia but stable
Other:
� Review of other/old records reveals: Discharge summary reviewed just d/c yesterday status post complicated admission GI bleed, stercoral colitis, hemorrhagic shock, hydronephrosis.
� Clinical information was obtained by an independent historian:
� Prescriptions/Medications Considered but not given:
� Further testing considered but not performed:
Risk of Complications and/or Morbidity or Mortality of Patient Management
� Social determinants of health affecting care:
� Discussion with other providers (PCP, Hospitalists, Consultants, etc):
� Escalation of care including admission/observation vs risk of discharge considered: 5:45 PM patient increasingly hypoxic, oxygen added, respiratory called to administer BiPAP. Patient has not yet received for CAT scan I have
called unit supervisor to expedite this ADRI. Patient not somnolent or lethargic, awake and oriented, denies shortness of breath at this time.
8:00 PM several reassessments, patient much improved on nonrebreather with normal pulse ox. Lungs remain clear. CAT scan negative for PE, no description of pneumonia, heart failure. Patient does have small pleural effusions. Prior records
reviewed, patient typically on 4 L, requiring BiPAP here. Will discuss with hospitalist for admission, pulmonary support, etc. While patient does not have overt failure, noted to have obviously hypoxia, dyspnea, small pleural effusions, elevated
BNP. Avoid lasxi for now given allergy sulfa.
ED Attending Note
-
Portions of this chart may have been created with voice recognition software.� Occasional wrong word or��sound alike� substitutions may have occurred due to the inherent limitations of voice recognition software.
Discharge Plan
Departure
Patient Disposition: Admit
Date of Disposition: 08/27/23
Time of Disposition: 20:56
Admit to: Telemetry
Admit to doctor: kyrie
Presentation/result/management discussed w/ accepting MD/DO: Hospitalist
Discharge Problem:
Acute respiratory failure with hypoxia
Interventions
Interventions:
*Risk Screen - Suicide Last Done: 08/27/23 16:08
*General Assessment Last Done: 08/27/23 16:08
*Neglect/Abuse Screening Last Done: 08/27/23 16:08
ED- Fall Risk Assessment Last Done: 08/27/23 23:13
*ED COVID-19 Vaccine History Last Done: 08/27/23 16:08
*Nursing Disposition Last Done: 08/27/23 23:13
ED- Cardiac Assessment Last Done: 08/27/23 23:13
ED- Pulmonary Assessment Last Done: 08/27/23 17:54
Discharge Date and Time
Discharge Date/Time: 08/27/23 23:14
[2023-08-27 17:04] LABS: Hematocrit 30.6 % (37.0-47.0); Hemoglobin 10.8 g/dL (12.0-16.0); Mean Corp Hgb Conc. 35.3 g/dL (33.0-37.0); Mean Corpuscular Volume 79.3 fL (81.0-99.0); Mean Platelet Volume 9.4 fL (7.4-10.4); Platelet Count 274 10^3/uL (130-400); Red Blood Cell Count 3.86 10^6/uL (4.20-5.40); Red Cell Dist. Width 19.5 % (11.5-14.5); White Blood Cell Count 7.9 10^3/uL (4.8-10.8)
[2023-08-27 17:21] LABS: ALT (SGPT) 14 U/L (0-35); AST (SGOT) 27 U/L (14-36); Albumin 2.6 g/dl (3.5-5.0); Alkaline Phosphatase 116 U/L (38-126); Blood Urea Nitrogen 8 mg/dl (7-17); Calcium 8.3 mg/dl (8.4-10.2); Carbon Dioxide 21 mmol/L (22-30); Chloride 103 mmol/L (98-107); Glucose 106 mg/dl (70-99); Potassium 3.5 mmol/L (3.5-5.1); Sodium 134 mmol/L (135-145); Total Bilirubin 1.6 mg/dl (0.2-1.3); Total Protein 5.7 g/dl (6.3-8.2); eGFR > 60.00
[2023-08-27 17:31] LABS: NT-proBNP 2570 pg/ml; Troponin I < 0.012 ng/ml
[2023-08-27 21:55] LABS: COVID-19 Antigen Negative (Negative)
--- NOTE | 2023-08-27 22:07 | HPS.HSE ---
Family Physician
-
Family Physician: Carlos Montgomery
Chief Complaint
-
SOB
History of Present Illness
Patient is a 73y F with PMH significant for HTN, DM-II and recent admission for GI bleeding who presents to ED complaining of SOB and fatigue. Patient was hospitalized at from 08/19 - 08/26 secondary to GI bleed. She underwent endoscopic
examination at that time showing multiple rectal ulcerations. She received a total of 4 units of PRBCs and 2 units of FFP during that hospitalization. Of note, patient had unexplained episodes of hypoxemia during her visit - requiring use of NRB
mask at times. She was seen and evaluated by Pulmonary and no clear etiology was noted. Her oxygen requirements seemed to improve prior to discharge.
Patient was discharged to SNF / rehab on 08/26. Today she was noted to experience increased shortness of breath during PT at the rehab. She was transported to the ED for further evaluation.
Patient arrived to the ED on 10 lpm of supplemental oxygen. Patient tells me that she does not wear oxygen at baseline; however, recent records would suggest she is chronically on nocturnal O2 from 4-5 lpm (though nocturnal oximetry done during
recent admission was also reportedly normal).
Oxygen was initially weaned in the ED; however, patient became increasingly hypoxemic with SpO2 falling into the 70s on 6 lpm. She was placed on NRB and then on BiPAP in order to maintain adequate saturations.
At the time of my examination, patient is resting comfortably on BiPAP. She is awake and alert and oriented. She denies any recent cough, fevers / chills, chest pain or palpitations.
Medical History
Past Medical History
Past Medical History: Reports Other
Additional Past Medical History:
Essential Hypertension
Hyperlipidemia
Diabetes Mellitus, Type II
Hypothyroidism
Dysphagia
Rectal Ulcers
Neurogenic Bladder
Past Surgical History: Reports Other
Additional Past Surgical History:
Cataracts
Oral Surgery
Social History
Tobacco: Non-smoker
Alcohol: None
Living: Care Home
Family History
Family History: Not pertinent
Allergies / Home Medications
Allergies reflects when Allergies were last updated in [facility].
Home Medications with original date entered in [facility]
Allergy/Medication List:
Allergies
Allergy/AdvReac Type Severity Reaction Status Date / Time
celecoxib [From Celebrex] Allergy Shortness Verified 08/27/23 19:39
of Breath
gold Au 198 Allergy Rash Verified 08/27/23 19:39
hydrochlorothiazide Allergy Rash Verified 08/27/23 19:39
nickel Allergy Rash Verified 08/27/23 19:39
Sulfa (Sulfonamide Allergy breathing Verified 08/27/23 19:39
Antibiotics)
Home Medications
folic acid 1 mg tablet 1 mg PO DAILY Supplement 11/13/16
loratadine 10 mg tablet 10 mg PO DAILY PRN allergies 11/13/16
acetaminophen 325 mg tablet (Tylenol) 650 mg PO Q4HPRN PRN mild pain 08/06/23
atorvastatin 10 mg tablet 10 mg PO HS High Cholesterol 08/06/23
cholecalciferol (vitamin D3) 100 mcg (4,000 unit) tablet 100 mcg PO BID Supplement 08/06/23
levothyroxine 112 mcg tablet 112 mcg PO DAILY Thyroid 08/06/23
metformin 1,000 mg tablet 1,000 mg PO BID@0800,1700 Diabetes 08/06/23
bisacodyl 10 mg rectal suppository (Dulcolax (bisacodyl)) 10 mg PA DAILYPRN PRN IF NO BM AFTR MOM 08/19/23
ferrous sulfate 143 mg (45 mg iron) tablet,extended release 143 mg PO DAILY Supplement 08/19/23
magnesium hydroxide 400 mg/5 mL oral suspension (Milk of Magnesia) 2,400 mg PO DAILYPRN PRN if no bm after 3 days 08/19/23
ondansetron HCl 4 mg tablet 4 mg PO Q4HPRN PRN NAUSEA 08/19/23
simethicone 80 mg chewable tablet 80 mg PO [id number] PRN GAS PAIN 08/19/23
sodium phosphates 19 gram-7 gram/118 mL enema (Fleet Enema) 118 ml PA DAILYPRN PRN IF NO BM AFTR DULCOLAX 08/19/23
docusate sodium 100 mg capsule 100 mg PO BID #0 caps 08/26/23
pantoprazole 40 mg tablet,delayed release 40 mg PO DAILY Gastrointestinal issue #30 tabs 08/26/23
polyethylene glycol 3350 17 gram oral powder packet (HealthyLax) 17 g PO BID Constipation #30 ea 08/26/23
sennosides 8.8 mg/5 mL oral syrup 8.8 mg (5 mL) PO HS Constipation #200 mL 08/26/23
Review of Systems
-
History Source: Patient
A 12 point ROS was completed and negative except as noted: Yes
Constitutional: Reports Fatigue; Denies Fever or Chills
Respiratory: Reports Trouble Breathing; Denies Cough
Cardiac: Denies Chest Pain or Palpitations
Abdomen/GI: Reports Diarrhea; Denies Abdominal Pain, Nausea or Vomiting
: Reports Mullins
Musculoskeletal: Denies Joint Pain or Edema
Neurological: Denies Dizzy or Headache
Psych: Denies Depression or Anxiety
Physical Exam
Vital Signs
Vital Signs
Temp Pulse Resp BP Pulse Ox
97.6 F 95 15 161/73 96
08/27/23 21:32 08/27/23 21:32 08/27/23 21:32 08/27/23 21:32 08/27/23 21:32
Physical Exam
General: Other (73y F in no acute distress with BiPAP in place.)
HEENT: Moist mucous membranes and PERRLA
Respiratory: Other (Decreased at bases - otherwise clear. No W/R/R.)
Cardiac: S1/S2, Regular Rhythm and Murmur (II/ CHIKA)
GI: Soft, Non Tender, Non Distended and Normal Bowel Sounds
Genito-urinary: Mullins
Musculoskeletal: No Clubbing, No Cyanosis and Other (1+ edema at ankles bilaterally.)
Neuro: AO x 3 and Nonfocal/grossly intact
Psych: No Anxious or Depressed
Laboratory Results
-
08/27/23 16:57
08/27/23 16:57
Laboratory Results
Total Bilirubin 1.6 mg/dl (0.2-1.3) H 08/27/23 16:57
AST 27 U/L (14-36) 08/27/23 16:57
ALT 14 U/L (0-35) 08/27/23 16:57
Alkaline Phosphatase 116 U/L (38-126) 08/27/23 16:57
Troponin I < 0.012 ng/ml 08/27/23 16:57
Impression/Plan
-
A/P: Patient is a 73y F with PMH significant for HTN, DM-II and recent admission for GI bleeding who presents to ED complaining of SOB.
Acute (on chronic?) Hypoxemic Respiratory Failure
- Admit for further evaluation and treatment.
- Presently requiring BiPAP support - but appears comfortable and will attempt to wean this if able.
- No evidence of infectious etiology. COVID / Flu both negative in the ED.
- CT without PE and shows only small bilateral effusions and evidence for atelectasis.
- Patient with similar / transient hypoxemia noted during recent admission.
- ? some component of volume overload (weight is up approx 6 kg with multiple transfusions), atelectasis, etc.
- IV Lasix x1 dose now and follow for effects.
- Follow I/Os, daily weights, etc.
- Incentive spirometry and encourage activity as able.
- Will ask Pulm to re-evaluate and will check Echo with bubble study as per prior recommendations.
- It remains unclear whether or not patient does / or needs to wear chronic, nocturnal O2?
Rectal Ulcers
GI Bleed
Acute Blood Loss Anemia
- Stable / improving. No evidence of continued / recurrent blood loss.
- Hgb continues to improve from prior.
- Follow clinically.
Mild Hyponatremia
- Stable. Na level is at / near known baseline.
- Follow for any changes.
Obstructive Uropathy
Mullins Catheter - Present on Admission
- Prior KRISTA has fully resolved with Mullins in place.
- Maintain Mullins and follow-up with Urology as an outpatient as planned.
DM-II
- Stable. Hold basal insulin for now.
- Follow glucose and cover with SSI as needed.
- Hold metformin s/p CTA done in the ED.
Constipation / Stercoral Colitis
- Stable. Patient complains of too frequent BMs.
- Continue bowel regimen but decreased MiraLax to once daily for now.
- Follow clinically.
Sacral Wound - Present on Admission
- Stable. Wound Care evaluation.
DVT Prophylaxis: SCDs
Code Status: DNR
[2023-08-27] MEDS: LASIX 20 MG IV (22:42)
[2023-08-27] MEDS: LIPITOR 10 MG PO (23:37)
[2023-08-27] MEDS: SENNA SYRUP 8.80000000000000071 MG PO (23:37)
[2023-08-27 23:40] LABS: Glucose - Point of Care 87 mg/dl (70-99)
[2023-08-28] VITALS (16 sets, daily range): BP systolic 98–149; BP diastolic 53–95; PULSE 2–100; O2SAT 96–100; BMI 31.0
--- NOTE | 2023-08-28 00:37 | PTCARENOTE ---
Pt admit from ED via stretcher. Assisted into bed and made comfortable. O2 on 6L NC. Sats 94-97 while awake. After pt fell asleep sats down in to 60s and 70s. Tried midflow at 15L and then added NRB but sats still low. Pt noted to have periods of
apnea while sleeping. Respiratory here to place pt back on bipap. Will continue to monitor.
[2023-08-28 05:24] LABS: Hematocrit 30.2 % (37.0-47.0); Hemoglobin 10.4 g/dL (12.0-16.0); Mean Corp Hgb Conc. 34.4 g/dL (33.0-37.0); Mean Corpuscular Hgb 27.9 pg (27.0-31.0); Mean Platelet Volume 9.4 fL (7.4-10.4); Platelet Count 261 10^3/uL (130-400); Red Blood Cell Count 3.73 10^6/uL (4.20-5.40); Red Cell Dist. Width 19.7 % (11.5-14.5)
[2023-08-28 05:38] LABS: Blood Urea Nitrogen 8 mg/dl (7-17); Calcium 7.9 mg/dl (8.4-10.2); Carbon Dioxide 19 mmol/L (22-30); Chloride 105 mmol/L (98-107); Estimated Creatinine Clearance 65 ml/min; Glucose 108 mg/dl (70-99); Sodium 132 mmol/L (135-145); eGFR > 60.00
[2023-08-28] MEDS: SYNTHROID 112 MCG PO (06:34)
--- NOTE | 2023-08-28 06:41 | PTCARENOTE ---
Pt removed bipap. Awake now. Will try again on midflow and titrate.
[2023-08-28 08:48] LABS: Glucose - Point of Care 111 mg/dl (70-99)
[2023-08-28] MEDS: DESENEX/MITRAZOL/ZEASORB 1 APPLIC TOPICAL ×2 (09:19→19:53)
[2023-08-28] MEDS: PROTONIX 40 MG PO (09:19)
[2023-08-28] MEDS: FEOSOL 325 MG PO (09:19)
[2023-08-28] MEDS: NOVOLOG FLEXPEN-LOW RESISTANCE SC ×3 (09:19→17:51)
[2023-08-28] MEDS: MIRALAX 17 GRAMS PO (09:20)
[2023-08-28] MEDS: COLACE 100 MG PO (09:20)
[2023-08-28] MEDS: FOLVITE 1 MG PO (09:20)
--- NOTE | 2023-08-28 09:49 | CON.PUL ---
Consultation
Consultation Request
Date/Time Consultation Requested: 08/28/2023-9 AM
Date/Time Consultation Performed: 08/28/2023-9:30 AM
Requesting Provider: Hospitalist
Performing Provider: Dr. Carlisle
Reason for Consultation: Hypoxemia
Medical History
-
Chief Complaint: Shortness of breath
History of Present Illness:
73-year-old female with a history of hypertension, diabetes and recent admission for GI bleeding presented with shortness of breath and fatigue requiring BiPAP support and pulmonary consulted for persistent hypoxemia 08/28/2023. Patient is a poor
historian. She denies any shortness of breath at rest, chest pain, chest tightness, chest congestion, productive cough, and offers no complaints of postnasal drip, reflux, abdominal pain or increased leg swelling. She reports being a non-smoker.
Past Medical History
Past Medical History: None (Hospitalization 08/19/2023-hemorrhagic shock, GI bleed. Hypertension. Hyperlipidemia. Diabetes. Hypothyroid. Dysphagia. Rectal ulcers. Neurogenic bladder. GERD. IBS. Stress incontinence. Cataract surgery. Oral
surgery.)
Social History
Tobacco: Non-smoker
Alcohol: None
Drug: None
Living: Intermediate
Occupational Exposures: No known asbestos exposure
Environmental Exposures: No known tuberculosis exposure
Family History
Family History: Reviewed & Not Pertinent
Allergies / Home Medications
Allergies
Allergy/AdvReac Type Severity Reaction Status Date / Time
celecoxib [From Celebrex] Allergy Shortness Verified 08/27/23 19:39
of Breath
gold Au 198 Allergy Rash Verified 08/27/23 19:39
hydrochlorothiazide Allergy Rash Verified 08/27/23 19:39
nickel Allergy Rash Verified 08/27/23 19:39
Sulfa (Sulfonamide Allergy breathing Verified 08/27/23 19:39
Antibiotics)
Home Medications
Medication Instructions Recorded Confirmed Last Taken Type
folic acid 1 mg tablet 1 mg PO DAILY Supplement 05/05/2208/27/23 08/05/23 History
loratadine 10 mg tablet 10 mg PO DAILY PRN allergies 11/13/16 08/27/23 08/04/23 History
acetaminophen 325 mg tablet 650 mg PO Q4HPRN PRN mild pain 08/06/23 08/27/23 08/04/23 History
(Tylenol)
atorvastatin 10 mg tablet 10 mg PO HS High Cholesterol 08/06/23 08/27/23 08/04/23 History
cholecalciferol (vitamin D3) 100 100 mcg PO BID Supplement 08/06/23 08/27/23 08/05/23 History
mcg (4,000 unit) tablet
levothyroxine 112 mcg tablet 112 mcg PO DAILY Thyroid 08/06/23 08/27/23 08/05/23 History
metformin 1,000 mg tablet 1,000 mg PO BID@0800,1700 Diabetes 08/06/23 08/27/23 08/04/23 History
bisacodyl 10 mg rectal suppository 10 mg HI DAILYPRN PRN IF NO BM 08/19/23 08/27/23 Unknown History
(Dulcolax (bisacodyl)) AFTR MOM
ferrous sulfate 143 mg (45 mg 143 mg PO DAILY Supplement 08/19/23 08/27/23 Unknown History
iron) tablet,extended release
magnesium hydroxide 400 mg/5 mL 2,400 mg PO DAILYPRN PRN if no bm 08/19/23 08/27/23 Unknown History
oral suspension (Milk of Magnesia) after 3 days
ondansetron HCl 4 mg tablet 4 mg PO Q4HPRN PRN NAUSEA 08/19/23 08/27/23 Unknown History
simethicone 80 mg chewable tablet 80 mg PO [id number] PRN GAS PAIN 08/19/23 08/27/23 Unknown History
sodium phosphates 19 gram-7 118 ml HI DAILYPRN PRN IF NO BM 08/19/23 08/27/23 Unknown History
gram/118 mL enema (Fleet Enema) AFTR DULCOLAX
docusate sodium 100 mg capsule 100 mg PO BID #0 caps 02/21/24 02/22/24 Unknown Rx
pantoprazole 40 mg tablet,delayed 40 mg PO DAILY Gastrointestinal 08/26/23 08/27/23 Unknown Rx
release issue #30 tabs
polyethylene glycol 3350 17 gram 17 g PO BID Constipation #30 ea 08/26/23 08/27/23 Unknown Rx
oral powder packet (HealthyLax)
sennosides 8.8 mg/5 mL oral syrup 8.8 mg (5 mL) PO HS Constipation 08/26/23 08/27/23 Unknown Rx
#200 mL
Review of Systems
-
Unable to Obtain full review of systems at this time due to: Other (Per HPI)
Vitals / Labs / Diagnostic Testing
Vital Signs
Temp Pulse Resp BP Pulse Ox
98.3 F 100 16 123/75 97
08/28/23 07:55 08/28/23 08:00 08/28/23 08:00 08/28/23 08:00 08/28/23 08:00
Lab Data
08/28/23 05:18
08/28/23 05:18
Microbiology
08/27/23 21:33 Nasal Swab Influenza Types A & B (NILAY) - Final
Negative for Influenza A & B, NAAT
Negative results must be combined with clinical observations
and patient history.
Nucleic Acid Amplification test (NAAT)performed on the
[employer] platform.
Diagnostic Testing:
Physical Exam
-
Exam:
Well-nourished and well-developed in no apparent distress
HEENT-atraumatic, normocephalic
Neck-supple, no JVD, no bruit
Heart-regular rate and rhythm-no murmurs, rubs or gallops
Chest with diminished breath sounds, rare crackle no wheezes
Abdomen-soft, nontender, nondistended, no hepatosplenomegaly
Extremities-no cyanosis, clubbing, edema and good peripheral pulses
Integument-intact, no rashes, lesions or ecchymosis
Neurology-alert and oriented, nonfocal motor and sensory exam
Assessment
-
73-year-old female with a history of hypertension, diabetes and recent admission for GI bleeding presented with shortness of breath and fatigue requiring BiPAP support and pulmonary consulted for persistent hypoxemia 08/28/2023.
Assessment
Respiratory failure-acute hypoxemic-pulse ox in the 70s on [address] chest without pulmonary embolism, small bilateral pleural effusion/atelectasis
Fluid overload-weight up 6 kg
Zhjkpd-[id number]-rlkqmyvjay 10.4-recent GI bleed-hemoglobin stable
Mild hyponatremia-serum sodium 132
Hypokalemia-potassium 3.0
Metabolic acidosis
Mild hyperglycemia
Mildly elevated total bilirubin
Obesity-BMI 31
Conditions present prior to admission:
Recent hospitalization 08/2023-acute GI bleed, anemia, hemorrhagic shock, coagulopathy, acute kidney injury
Hypertension.
Hyperlipidemia.
Diabetes.
Hypothyroid.
Dysphagia.
Rectal ulcers.
Neurogenic bladder.
GERD.
IBS.
Stress incontinence.
Obesity-BMI 31
Cataract surgery. Oral surgery.
Plan
Substantial hypoxemia etiology not entirely clear-no pulm embolism, possible fluid overload, bilateral pleural effusions and basilar atelectasis causing hypoxemia
Supplemental oxygen as needed
BiPAP administered-attempt to wean
Assess discharge supplemental oxygen needs prior to discharge
Nebulizers as needed-currently not bronchospastic
Incentive spirometry
Follow radiographically
Diuresis as tolerated with 6 kg weight gain
Monitor renal function, electrolytes, intake/output, lower extremity edema and weight
Replace electrolytes as needed
Check echocardiogram with bubble
Follow hemoglobin
Transfuse if needed
PPI
Replace electrolytes
Monitor blood sugar
Insulin supplementation as needed
DVT prophylaxis-mechanical with recent GI bleed
GI prophylaxis-on pantoprazole
Nutrition
Early mobilization
Reviewed with nursing
Consider outpatient sleep disordered breathing workup
Diagnostic data:
Chest x-ray 08/08/2023-NAD
Chest x-ray 08/24/2023-NAD
CT chest 08/08/2023-no evidence for pulmonary embolism, no significant abnormalities in the chest
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
CT chest 08/27/2023-no pulmonary embolism, small bilateral pleural effusions new compared to prior exam, mild to moderate atelectasis
GI bleeding scan 08/21/2023-no evidence for active GI bleed
Lower extremity ultrasound 08/24/2023-no evidence for DVT bilaterally
Data Reviewed
-
EKG: Report reviewed by me
Radiology: Report reviewed by me
CT Scan: Image personally visualized and interpreted and Report reviewed by me
Ultrasound: Report reviewed by me
Medical Tests (Nuc Med, Echo etc): Report reviewed by me
Labs: Labs reviewed by me
Old Records: Reviewed
Total Time Spent with Patient (in minutes): 65
[2023-08-28 12:27] LABS: Glucose - Point of Care 127 mg/dl (70-99)
[2023-08-28] MEDS: KCL 40 MEQ PO (12:29)
[2023-08-28] MEDS: LASIX 40 MG IV (12:29)
[2023-08-28] MEDS: FLUSH (NSS) 1 FLUSH IV (12:29)
--- NOTE | 2023-08-28 13:04 | CM ---
CM following re: discharge planning.
Reviewed pt's chart, met with pt.
Pt is a 73 year old female, admitted with primary dx of Respiratory failure-acute hypoxemic-pulse ox in the 70s on 6 L. Pt currently requires 15 L midflow and uses Bi-pap.
Pt is well known to this CM from previous admission. Pt lives with in an apartment and per pt's brother Long, both pt and her have been struggling to maintain in the community. Pt reports she was discharge to [facility] last
week and her is at [facility] for a short term rehab.
Pt reports she was receiving PT and OT at [facility] and pt expressed her desire to return back to [facility] to continue on a short term rehab treatment with her .
D/C plan: [facility] when medically stable. Pt will need an auth from [facility].
CM will follow to assist pt with discharge to [facility] when medically stable.
--- NOTE | 2023-08-28 13:26 | WOUNDNOTE ---
WOC RN note: Patient admitted with SOB and fatigue
See H&P for complete history.
PMH: Resides at [facility]. HTN, IBS, stress incontinence, arthritis, ambulatory dysfunction, diabetes, obesity
Wound Location and type/assessment: Patient has a stage 2 PI of scarum. The wound bed is pink and the surrounding skin is blanchable red. Sacrum is with scattered, friable open areas surrounded by chronic discoloration.Patient states she stays in
recliner most of the day and sleeps in recliner in NH. Can ambulate to BR with walker. Reports difficulty with movement due to arthritis. Heels intact. Some MASD noted in groin, abdomen and under breasts.
Appetite: Fair, soft diet
Pressure redistribution devices in place: Centrella Max Air. Patient cannot tolerate heel off-loading. Sacrum cleaned, and silicone border foam applied. Keep skin folds clean and dry and use Calazime to open areas if needed. Turning schedule. Will
confirm orders with hospitalist and update nurse. Updated care plan and will follow as needed.
Note to case management of equipment requested for discharge:
Recommend follow up at wound care center upon discharge.
--- NOTE | 2023-08-28 14:30 | W.PN.HOSP.TC ---
Today's Communication/Plan
-
- Replete potassium.
- Furosemide for suspected volume overload.
- Follow BMP and CBC.
Assessment / Plan
Assessment / Plan
Assessment:
Kasia Diaz, 73 year-old female, presented to the emergency with worsening dyspnea on 08-27-23. Notably, she was hospitalized at from 08-19-23 to 08-26-23 secondary to GI bleed. She underwent endoscopic examination at that time showing
multiple rectal ulcerations.�She received a total of 4 units of PRBCs and 2 units of FFP during that hospitalization.�Of note, patient had unexplained episodes of hypoxemia during her visit - requiring use of NRB mask at times.�She was seen and
evaluated by pulmonary and no clear etiology was noted.�Her oxygen requirements improved prior to discharge.
Patient was discharged to SNF/rehab on 08-26-23. Returned to the next day when she was noted to experience increased shortness of breath during PT at the rehab.� She was transported to the ED for further evaluation.
Patient arrived to the ED on 10 lpm of supplemental oxygen.�She does not wear oxygen at baseline; however, recent records would suggest she is chronically on nocturnal O2 from 4-5 lpm (though nocturnal oximetry done during recent admission was also
reportedly normal).
Oxygen was initially weaned in the ED; however, patient became increasingly hypoxemic with SpO2 falling into the 70s on 6 lpm.� She was placed on NRB and then on BiPAP in order to maintain adequate saturations. Seen and examined today on 12 L via
midlflow nasal cannula.
Impression:
* Acute (on chronic?) hypoxemic respiratory failure
* Rectal ulceration/GI bleed/acute blood loss anemia
* Hyponatremia
* Obstructive uropathy
* Type II diabetes mellitus
* Constipation
* Sacral wound
* Hypertension
* Hyperlipidemia
* Hypothyroidism
* GERD
* Stress incontinence
* Obesity-BMI 31
Plan:
Acute (on chronic?) hypoxemic respiratory failure
- Admitted on 08-27-23 for further evaluation and treatment.
- Required BiPAP support - but appears comfortable and weaned off to 12 L via nasal cannula on 08-28-23.
- No evidence of infectious etiology. COVID / Flu both negative in the ED.
- CT without PE and shows only small bilateral effusions and evidence for atelectasis.
- Patient with similar / transient hypoxemia noted during recent admission.
- Suspected component of volume overload (weight is up approx 6 kg with multiple transfusions), atelectasis, etc.
- IV Lasix x1 dose now and follow for effects.
- Follow I/Os, daily weights, etc.
- Incentive spirometry and encourage activity as able.
- Pulmonary following
- Will check Echo with bubble study as per prior recommendations.
Hypokalemia
- Potassium 3.0 on 08-28-23.
- Repleted.
- Follow BMP.
Rectal Ulcers/GI Bleed/Acute Blood Loss Anemia
- Stable / improving.� No evidence of continued / recurrent blood loss.
- Hgb continues to improve from prior.
- Follow clinically.
Mild Hyponatremia
- Stable.� Na level is at / near known baseline.
- Follow for any changes.
Obstructive Uropathy
- Mullins Catheter - Present on Admission
- Prior KRISTA has fully resolved with Mullins in place.
- Maintain Mullins and follow-up with Urology as an outpatient as planned.
DM-II
- Stable.� Hold basal insulin for now.
- Follow glucose and cover with SSI as needed.
- Hold metformin s/p CTA done in the ED.
Constipation / Stercoral Colitis
- Stable.� Patient complains of too frequent BMs.
- Continue bowel regimen but decreased MiraLax to once daily for now.
- Follow clinically.
Sacral Wound - Present on Admission
- Stable.� Wound Care evaluation.
DVT Prophylaxis
- SCDs
Code Status
- DNR
Anticipated Discharge: > 48 hours
Subjective/Interval History
-
Date of Service: August 28, 2023
Objective Data
-
Labs:
Laboratory Results
08/28/23
05:18
WBC 8.0
Hgb 10.4 L
Hct 30.2 L
Plt Count 261
Sodium 132 L
Potassium 3.0 L
Chloride 105
Carbon Dioxide 19 L
BUN 8
Creatinine 0.9
Glucose 108 H
Calcium 7.9 L
Vital Signs:
Vital Signs
Temp Pulse Resp BP Pulse Ox
98.3 F 93 19 106/66 100
08/28/23 07:55 08/28/23 12:00 08/28/23 12:00 08/28/23 12:00 08/28/23 12:41
I&O
08/27/23 08/28/23 08/29/23
06:59 06:59 06:59
Output Total 1824
Balance -1824 / -1824
Review of Systems
-
History Source: Patient
Constitutional: Reports Fatigue
Respiratory: Reports Trouble Breathing
Cardiac: Reports No Symptoms
Abdomen/GI: Reports No Symptoms
Genitourinary: Reports No Symptoms
Musculoskeletal: Reports No Symptoms
Skin: Reports No Symptoms
Neuro: Reports No Symptoms
Endocrine: Reports No Symptoms
Hematologic / Lymphatic: Reports No Symptoms
Allergy / Immunology: Reports No Symptoms
Physical Exam
-
General: Respiratory Distress
HEENT: Normocephalic, Atraumatic, Moist Mucous Membranes, Anicteric and Oxygen (12 L midflow nasal cannula)
Respiratory: Clear to Auscultation
Cardiac: Regular Rhythm and S1/S2
GI: Soft, Nontender, Nondistended, Normal Bowel Sounds and No Hepatosplenomegaly
Genito-urinary: No Costovertebral Tender
Musculoskeletal: No Clubbing, No Cyanosis and No Edema
Skin: IV Access / Catheter Site
Neuro: Awake, Alert, Oriented and No Motor Deficits
Hematologic / Lymphatic: No Lymphadenopathy
Psych: Calm
--- NOTE | 2023-08-28 14:40 | W.PN.UPDATE ---
Update Note
Progress Note Update
Patient seen and examined
Discussed with resident
Impression/plan:
Acute hypoxic respiratory failure
Recent hospitalization with lower GI bleed secondary to rectal ulcers requiring blood transfusion at higher volume.
Mild hyponatremia due to volume expansion.
Chronic obstructive uropathy with indwelling Mullins catheter.
Diabetes type 2.
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
Sacral wound.
Acute hypoxic respiratory failure likely secondary to volume overload and suspected diastolic CHF
Noted with significant weight gain at 6 kg.
No evidence of respiratory distress, although with high oxygen requirements and currently between 12 and 15 L nasal cannula while transition off nonrebreather mask.
Exam with bilateral rails no wheezing
CT scan negative for pulmonary embolism with small bilateral pleural effusion.
ABG in the recent past with respiratory alkalosis and no evidence of CO2 retention.
Echocardiogram is pending
Continue IV diuresis with Lasix.
Attempt to wean off oxygen as tolerates.
Type 2 diabetes
Continue basal bolus protocol
Hold metformin postcontrast study.
--- NOTE | 2023-08-28 17:00 | PTCARENOTE ---
Patient complete in care. INC of very large stool. Sacral foam changed due to BM. Chronic campos. Good urine output with lasix dose today. Patient appetite poor. SR on monitor. Patient currently on 11L midflow spo2 98%.
[2023-08-28 17:04] LABS: Glucose - Point of Care 131 mg/dl (70-99)
[2023-08-28] MEDS: COLACE PO (19:52)
[2023-08-28] MEDS: LIPITOR 10 MG PO (19:53)
[2023-08-28] MEDS: SENNA SYRUP PO (19:53)
[2023-08-28 21:35] LABS: Glucose - Point of Care 113 mg/dl (70-99)
[2023-08-29] VITALS (14 sets, daily range): BP systolic 86–139; BP diastolic 54–112; PULSE 2–98; BMI 30.2
[2023-08-29] MEDS: SYNTHROID 112 MCG PO (05:01)
[2023-08-29 05:11] LABS: % Basophils 0.5 % (0-2); % Eosinophils 1.9 % (0-6); % Immature Granulocytes 1.9 % (0-0.5); % Lymphocytes 25.7 % (20.5-51.1); % Monocytes 8.6 % (1.7-9.3); % Neutrophils 61.4 % (42.2-75.2); Absolute Eosinophils 0.1 10^3/uL (0-0.7); Absolute Immature Granulocytes 0.1 10^3/uL (0-0.05); Absolute Lymphocytes 1.7 10^3/uL (1.2-3.4); Absolute Monocytes 0.6 10^3/uL (0.1-0.6); Absolute Neutrophils 3.9 10^3/uL (1.4-6.5); Hematocrit 28.7 % (37.0-47.0); Hemoglobin 9.9 g/dL (12.0-16.0); Mean Corp Hgb Conc. 34.5 g/dL (33.0-37.0); Mean Corpuscular Volume 81.1 fL (81.0-99.0); Mean Platelet Volume 9.7 fL (7.4-10.4); Nucleated Red Blood Cells % 0 %; Platelet Count 246 10^3/uL (130-400); Red Blood Cell Count 3.54 10^6/uL (4.20-5.40); Red Cell Dist. Width 20.3 % (11.5-14.5); White Blood Cell Count 6.4 10^3/uL (4.8-10.8)
[2023-08-29 05:35] LABS: Blood Urea Nitrogen 11 mg/dl (7-17); Calcium 7.9 mg/dl (8.4-10.2); Carbon Dioxide 23 mmol/L (22-30); Chloride 104 mmol/L (98-107); Estimated Creatinine Clearance 53 ml/min; Glucose 111 mg/dl (70-99); Potassium 3.3 mmol/L (3.5-5.1); Sodium 132 mmol/L (135-145); eGFR 52.73
--- NOTE | 2023-08-29 07:57 | W.PN.HOSP.TC ---
Today's Communication/Plan
-
one more day diuresis given significant oxygen improvements with volume removal
monitor renal function closely
Assessment / Plan
Assessment / Plan
Assessment:
Kasia Diaz, 73 year-old female, presented to the emergency with worsening dyspnea on 08-27-23. Notably, she was hospitalized at from 08-19-23 to 08-26-23 secondary to GI bleed. She underwent endoscopic examination at that time showing
multiple rectal ulcerations.�She received a total of 4 units of PRBCs and 2 units of FFP during that hospitalization.�Of note, patient had unexplained episodes of hypoxemia during her visit - requiring use of NRB mask at times.�She was seen and
evaluated by pulmonary and no clear etiology was noted.�Her oxygen requirements improved prior to discharge.
Patient was discharged to SNF/rehab on 08-26-23. Returned to the next day when she was noted to experience increased shortness of breath during PT at the rehab.� She was transported to the ED for further evaluation.
Patient arrived to the ED on 10 lpm of supplemental oxygen.�She does not wear oxygen at baseline; however, recent records would suggest she is chronically on nocturnal O2 from 4-5 lpm (though nocturnal oximetry done during recent admission was also
reportedly normal).
Oxygen was initially weaned in the ED; however, patient became increasingly hypoxemic with SpO2 falling into the 70s on 6 lpm.� She was placed on NRB and then on BiPAP in order to maintain adequate saturations. Seen and examined today on 12 L via
midlflow nasal cannula.
TTE
CONCLUSIONS
�Normal biventricular size and systolic function without regional wall motion
�abnormality.
�Aortic sclerosis without stenosis.
�Interatrial septum is intact with no evidence of shunting by color flow Doppler
�or agitated saline.
�-
�No prior study available for comparison.
�
�Indications:
�Hypoxemic Resp Failure
�
Impression:
* Acute (on chronic?) hypoxemic respiratory failure
* Rectal ulceration/GI bleed/acute blood loss anemia
* Hyponatremia
* Obstructive uropathy
* Type II diabetes mellitus
* Constipation
* Sacral wound
* Hypertension
* Hyperlipidemia
* Hypothyroidism
* GERD
* Stress incontinence
* Obesity-BMI 31
Plan:
Acute (on chronic?) hypoxemic respiratory failure
- Admitted on 08-27-23 for further evaluation and treatment.
- Required BiPAP support - then quickly weaned to mid-flow.
- No evidence of infectious etiology. COVID / Flu both negative in the ED.
- CT without PE and shows only small bilateral effusions and evidence for atelectasis.
- Suspected component of volume overload (weight is up approx 6 kg with multiple transfusions), Her oxygen needs are much lower after diuresis
- IV lasix 40mg QD for at least one more day - monitor renal function closely given mild bump this AM
- Follow I/Os, daily weights, etc.
- Incentive spirometry and encourage activity as able.
- Pulmonary following
-TTE with normal EF and intact septum
Hypokalemia
- Replete
Rectal Ulcers/GI Bleed/Acute Blood Loss Anemia
- Stable / improving.� No evidence of continued / recurrent blood loss.
- Hgb continues to improve from prior.
- Follow clinically.
Mild Hyponatremia
- Stable.� Na level is at / near known baseline.
- Follow for any changes.
Obstructive Uropathy
- Mullins Catheter - Present on Admission
- Prior KRISTA has fully resolved with Mullins in place.
- Maintain Mullins and follow-up with Urology as an outpatient as planned.
DM-II
- Stable.� Hold basal insulin for now.
- Follow glucose and cover with SSI as needed.
- Hold metformin s/p CTA done in the ED.
Constipation / Stercoral Colitis
- Stable.� Patient complains of too frequent BMs.
- Continue bowel regimen but decreased MiraLax to once daily for now.
- Follow clinically.
Sacral Wound - Present on Admission
- Stable.� Wound Care evaluation.
DVT Prophylaxis
- SCDs
Code Status
- DNR
Anticipated Discharge: 24 - 48 hours
Subjective/Interval History
-
Date of Service: August 29, 2023
no new complaints
O2 needs down to 4L this AM 97%
when I walked in she had O2 off and at 90%
Objective Data
-
Labs:
Laboratory Results
08/29/23
04:59
WBC 6.4
Hgb 9.9 L
Hct 28.7 L
Plt Count 246
Sodium 132 L
Potassium 3.3 L
Chloride 104
Carbon Dioxide 23
BUN 11
Creatinine 1.1 H
Glucose 111 H
Calcium 7.9 L
Vital Signs:
Vital Signs
Temp Pulse Resp BP Pulse Ox
97.6 F 98 15 106/72 99
08/29/23 03:08 08/29/23 06:00 08/29/23 06:00 08/29/23 06:00 08/29/23 04:00
I&O
08/28/23 08/29/23 08/30/23
06:59 06:59 06:59
Intake Total 815 / 815
Output Total 1824 / 1824 1950 / 1949
Balance -1825 / -1825 -1135 / -1135
Review of Systems
-
History Source: Patient
All other systems: Reviewed and negative
Physical Exam
-
General: Respiratory Distress
HEENT: Normocephalic, Atraumatic, Moist Mucous Membranes and Anicteric
Respiratory: Rales (bibasilar)
Cardiac: Regular Rhythm and S1/S2
GI: Soft, Nontender, Nondistended, Normal Bowel Sounds and No Hepatosplenomegaly
Genito-urinary: No Costovertebral Tender
Musculoskeletal: No Clubbing, No Cyanosis and No Edema
Skin: IV Access / Catheter Site
Neuro: Awake, Alert, Oriented and No Motor Deficits
Hematologic / Lymphatic: No Lymphadenopathy
Psych: Calm
Data Reviewed
-
Diagnostic Radiology: Report Reviewed by me
Labs: Labs Reviewed by me
[2023-08-29] MEDS: COLACE 100 MG PO (08:53)
[2023-08-29] MEDS: MIRALAX PO ×2 (08:54→09:06)
[2023-08-29] MEDS: LASIX 40 MG IV (08:54)
[2023-08-29] MEDS: PROTONIX 40 MG PO (08:54)
[2023-08-29] MEDS: FOLVITE 1 MG PO (08:54)
[2023-08-29] MEDS: KCL 40 MEQ PO (08:54)
[2023-08-29] MEDS: FEOSOL 325 MG PO (08:54)
[2023-08-29] MEDS: DESENEX/MITRAZOL/ZEASORB 1 APPLIC TOPICAL ×2 (08:55→21:00)
[2023-08-29 08:56] LABS: Glucose - Point of Care 114 mg/dl (70-99)
[2023-08-29] MEDS: NOVOLOG FLEXPEN-LOW RESISTANCE SC (08:59)
[2023-08-29] MEDS: FLUSH (NSS) 2 FLUSH IV (09:06)
[2023-08-29 12:46] LABS: Glucose - Point of Care 153 mg/dl (70-99)
[2023-08-29] MEDS: NOVOLOG FLEXPEN-LOW RESISTANCE 1 UNITS SC ×2 (14:03→18:34)
--- NOTE | 2023-08-29 14:33 | W.PN.PUL3 ---
Today's Communication / Plan
-
Continue diuresis
Wean oxygen
Will repeat nocturnal oximetry, she would benefit with nocturnal oxygen if qualifies
Assessment
-
73-year-old female with a history of hypertension, diabetes and recent admission for GI bleeding presented with shortness of breath and fatigue requiring BiPAP support and pulmonary consulted for persistent hypoxemia 08/28/2023.
Assessment
Respiratory failure-acute hypoxemic-pulse ox in the 70s on [address] chest without pulmonary embolism, small bilateral pleural effusion/atelectasis
Fluid overload-weight up 6 kg
Zqbkpu-octdtxnoge-azpbvlyabk 10.4-recent GI bleed-hemoglobin stable
Mild hyponatremia-serum sodium 132
Hypokalemia-potassium 3.0
Metabolic acidosis
Mild hyperglycemia
Mildly elevated total bilirubin
Obesity-BMI 31
Conditions present prior to admission:
Recent hospitalization 08/2023-acute GI bleed, anemia, hemorrhagic shock, coagulopathy, acute kidney injury
Hypertension.
Hyperlipidemia.
Diabetes.
Hypothyroid.
Dysphagia.
Rectal ulcers.
Neurogenic bladder.
GERD.
IBS.
Stress incontinence.
Obesity-BMI 31
Cataract surgery. Oral surgery.
Plan
At this time, patient appears to be comfortable
Seems to be responding to diuresis
Mild crackles at right base noted
Echocardiogram, bubble study negative
Moving forward
Continue with diuresis
Wean oxygen as able
Out of bed to chair, incentive spirometry
CT chest PE study negative
Follow hemoglobin
Transfuse if needed
PPI
Replace electrolytes
Monitor blood sugar
Insulin supplementation as needed
DVT prophylaxis-mechanical with recent GI bleed
GI prophylaxis-on pantoprazole
Nutrition
Early mobilization
Reviewed with nursing
Consider outpatient sleep disordered breathing workup, especially heart failure diagnosis
Diagnostic data:
Chest x-ray 08/08/2023-NAD
Chest x-ray 08/24/2023-NAD
CT chest 08/08/2023-no evidence for pulmonary embolism, no significant abnormalities in the chest
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
CT chest 08/27/2023-no pulmonary embolism, small bilateral pleural effusions new compared to prior exam, mild to moderate atelectasis
GI bleeding scan 08/21/2023-no evidence for active GI bleed
Lower extremity ultrasound 08/24/2023-no evidence for DVT bilaterally
Subjective Data
-
Date of Service:
Date of Service: August 29, 2023
Subjective:
Patient seen and examined earlier this morning. Patient is without complaints, denies chest pain, shortness of breath, nausea, abdominal pain. Remains on mid flow oxygen
Objective Data
Data Reviewed
Vital Signs / I&O / Oxygen:
Vital Signs
Temp Pulse Resp BP Pulse Ox
97.4 F 100 15 122/78 91
08/29/23 07:55 08/29/23 08:54 08/29/23 06:00 08/29/23 08:54 08/29/23 09:01
Intake and Output
08/28/23 08/29/23 08/30/23
06:59 06:59 06:59
Intake Total 815 / 815
Output Total 1825 / 1825 1950 / 1950
Balance -1825 / -1825 -1135 / -1135
SaO2 91
Nasal Cannula flow liters per 15
minute
Physical Exam
General: Comfortable
HEENT: Normocephalic and Anicteric
Cardiovascular: S1-S2, Regular Rhythm, Murmur (n), Rub (n), Peripheral Edema (n) and Calf Tenderness (n)
Respiratory: Wheeze (n), Crackles (Few at right base), Rhonchi (n), Non-Labored Respirations and Egophony (n)
GI: Soft, Non Distended and Non Tender
Neurology: Awake, Alert and No Motor Deficits
Skin: Cyanosis (n), Jaundice (n) and Rash (n)
Labs/Micro/Reports
Lab Data
08/29/23 04:59
08/29/23 04:59
Microbiology
08/28/23 00:35 Nose MRSA Screen - Final
No Methicillin Resistant Staphylococcus aureus isolated.
08/27/23 21:33 Nasal Swab Influenza Types A & B (NILAY) - Final
Negative for Influenza A & B, NAAT
Negative results must be combined with clinical observations
and patient history.
Nucleic Acid Amplification test (NAAT)performed on the
[employer] platform.
[2023-08-29 18:45] LABS: Glucose - Point of Care 163 mg/dl (70-99)
--- NOTE | 2023-08-29 20:00 | PTCARENOTE ---
Pt received sleeping in bed. Pt incont of liquid/loose stool. Bowel regimen held. AAOx3 Lungs clear - decreased on 5L o2. Chronic campos in place - campos care provided.
[2023-08-29] MEDS: SENNA SYRUP PO (20:09)
[2023-08-29] MEDS: COLACE PO (20:09)
[2023-08-29] MEDS: LIPITOR 10 MG PO (21:00)
[2023-08-29 21:22] LABS: Glucose - Point of Care 146 mg/dl (70-99)
[2023-08-30] VITALS (19 sets, daily range): BP systolic 88–129; BP diastolic 50–80; PULSE 2–88; BMI 30.3
--- NOTE | 2023-08-30 05:11 | PTCARENOTE ---
Pt w/ 200 ml output in campos. Urine Dark yellow/cloudy and with sediment. Bladder scan = 1 ml.
[2023-08-30] MEDS: SYNTHROID 112 MCG PO (05:15)
[2023-08-30 05:24] LABS: Hematocrit 30.5 % (37.0-47.0); Hemoglobin 10.4 g/dL (12.0-16.0); Mean Corp Hgb Conc. 34.1 g/dL (33.0-37.0); Platelet Count 233 10^3/uL (130-400); Red Blood Cell Count 3.72 10^6/uL (4.20-5.40); Red Cell Dist. Width 20.2 % (11.5-14.5); White Blood Cell Count 5.8 10^3/uL (4.8-10.8)
[2023-08-30 05:46] LABS: Blood Urea Nitrogen 14 mg/dl (7-17); Calcium 7.9 mg/dl (8.4-10.2); Carbon Dioxide 23 mmol/L (22-30); Chloride 103 mmol/L (98-107); Estimated Creatinine Clearance 58 ml/min; Glucose 125 mg/dl (70-99); Potassium 3.8 mmol/L (3.5-5.1); Sodium 130 mmol/L (135-145); eGFR 59.12
[2023-08-30 07:34] LABS: Glucose - Point of Care 123 mg/dl (70-99)
--- NOTE | 2023-08-30 07:46 | W.PN.HOSP.TC ---
Today's Communication/Plan
-
wean O2 as able
another day of IV lasix
Assessment / Plan
Assessment / Plan
Assessment:
Kasia Diaz, 73 year-old female, presented to the emergency with worsening dyspnea on 08-27-23. Notably, she was hospitalized at from 08-19-23 to 08-26-23 secondary to GI bleed. She underwent endoscopic examination at that time showing
multiple rectal ulcerations.�She received a total of 4 units of PRBCs and 2 units of FFP during that hospitalization.�Of note, patient had unexplained episodes of hypoxemia during her visit - requiring use of NRB mask at times.�She was seen and
evaluated by pulmonary and no clear etiology was noted.�Her oxygen requirements improved prior to discharge.
Patient was discharged to SNF/rehab on 08-26-23. Returned to the next day when she was noted to experience increased shortness of breath during PT at the rehab.� She was transported to the ED for further evaluation.
Patient arrived to the ED on 10 lpm of supplemental oxygen.�She does not wear oxygen at baseline; however, recent records would suggest she is chronically on nocturnal O2 from 4-5 lpm (though nocturnal oximetry done during recent admission was also
reportedly normal).
Oxygen was initially weaned in the ED; however, patient became increasingly hypoxemic with SpO2 falling into the 70s on 6 lpm.� She was placed on NRB and then on BiPAP in order to maintain adequate saturations. Seen and examined today on 12 L via
midlflow nasal cannula.
TTE
CONCLUSIONS
�Normal biventricular size and systolic function without regional wall motion
�abnormality.
�Aortic sclerosis without stenosis.
�Interatrial septum is intact with no evidence of shunting by color flow Doppler
�or agitated saline.
�-
�No prior study available for comparison.
�
�Indications:
�Hypoxemic Resp Failure
�
Impression:
* Acute (on chronic?) hypoxemic respiratory failure
* Rectal ulceration/GI bleed/acute blood loss anemia
* Hyponatremia
* Obstructive uropathy
* Type II diabetes mellitus
* Constipation
* Sacral wound
* Hypertension
* Hyperlipidemia
* Hypothyroidism
* GERD
* Stress incontinence
* Obesity-BMI 31
Plan:
Acute (on chronic?) hypoxemic respiratory failure
- Admitted on 08-27-23 for further evaluation and treatment.
- Required BiPAP support - then quickly weaned to mid-flow.
- No evidence of infectious etiology. COVID / Flu both negative in the ED.
- CT without PE and shows only small bilateral effusions and evidence for atelectasis.
- Suspected component of volume overload (weight is up approx 6 kg with multiple transfusions), Her oxygen needs are much lower after diuresis
- IV lasix 40mg QD; creatinine stable
- Follow I/Os, daily weights, etc.
- Incentive spirometry and encourage activity as able.
- Pulmonary following
-TTE with normal EF and intact septum
Hypokalemia
- Replete
Rectal Ulcers/GI Bleed/Acute Blood Loss Anemia
- Stable / improving.� No evidence of continued / recurrent blood loss.
- Hgb continues to improve from prior.
- Follow clinically.
Mild Hyponatremia
- Stable.� Na level is at / near known baseline.
- Follow for any changes.
Obstructive Uropathy
- Mullins Catheter - Present on Admission
- Prior KRISTA has fully resolved with Mullins in place.
- Maintain Mullins and follow-up with Urology as an outpatient as planned.
DM-II
- Stable.� Hold basal insulin for now.
- Follow glucose and cover with SSI as needed.
- Hold metformin s/p CTA done in the ED.
Constipation / Stercoral Colitis
- Stable.� Patient complains of too frequent BMs.
- Continue bowel regimen but decreased MiraLax to once daily for now.
- Follow clinically.
Sacral Wound - Present on Admission
- Stable.� Wound Care evaluation.
DVT Prophylaxis
- SCDs
Code Status
- DNR
Anticipated Discharge: 24 - 48 hours
Subjective/Interval History
-
Date of Service: August 30, 2023
feeling well
no new complaints
wants to go to rehab
Objective Data
-
Labs:
Laboratory Results
08/30/23
04:56
WBC 5.8
Hgb 10.4 L
Hct 30.5 L
Plt Count 233
Sodium 130 L
Potassium 3.8
Chloride 103
Carbon Dioxide 23
BUN 14
Creatinine 1.0
Glucose 125 H
Calcium 7.9 L
Vital Signs:
Vital Signs
Temp Pulse Resp BP Pulse Ox
97.9 F 85 16 114/58 97
08/30/23 03:26 08/30/23 04:00 08/30/23 04:00 08/30/23 04:00 08/30/23 07:19
I&O
08/29/23 08/30/23 08/31/23
06:59 06:59 06:59
Intake Total 815 / 815
Output Total 1950 / 1950 1500 / 1500
Balance -1135 / -1135 -1500 / -1500
Review of Systems
-
History Source: Patient
All other systems: Reviewed and negative
Physical Exam
-
General: Respiratory Distress
HEENT: Normocephalic, Atraumatic, Moist Mucous Membranes and Anicteric
Respiratory: Rales (bibasilar)
Cardiac: Regular Rhythm and S1/S2
GI: Soft, Nontender, Nondistended, Normal Bowel Sounds and No Hepatosplenomegaly
Genito-urinary: No Costovertebral Tender
Musculoskeletal: No Clubbing, No Cyanosis and No Edema
Skin: IV Access / Catheter Site
Neuro: Awake, Alert, Oriented and No Motor Deficits
Hematologic / Lymphatic: No Lymphadenopathy
Psych: Calm
Data Reviewed
-
Diagnostic Radiology: Report Reviewed by me
Labs: Labs Reviewed by me
[2023-08-30] MEDS: NOVOLOG FLEXPEN-LOW RESISTANCE SC ×2 (08:09→17:49)
[2023-08-30] MEDS: FOLVITE 1 MG PO (08:10)
[2023-08-30] MEDS: FEOSOL 325 MG PO (08:10)
[2023-08-30] MEDS: DESENEX/MITRAZOL/ZEASORB 1 APPLIC TOPICAL ×2 (08:10→20:52)
[2023-08-30] MEDS: COLACE PO ×2 (08:10→19:49)
[2023-08-30] MEDS: PROTONIX 40 MG PO (08:10)
[2023-08-30] MEDS: MIRALAX PO (08:11)
[2023-08-30] MEDS: LASIX 40 MG IV (08:11)
[2023-08-30] MEDS: KCL 20 MEQ PO (08:11)
--- NOTE | 2023-08-30 12:00 | PTCARENOTE ---
Pt is with flat affect and withdrawn. SHe fidgets with blankets and frequently picking at catheter, she pulled off leg sticker 2 days in row. Reapplied and secured campos to leg. Pt is weaned to 4L nc and tolerating with pulse ox >95%. Lungs
decreased and clear. Abdomen is obese with MASD in folds, desenex applied. Taking po meds without difficulty and eating more of meals today. AM laxatives held due to loose BMs. Pt denies pain. Spoke to her [employer] her brother on the phone today,
she is in better spirits. Plan for Room air cont. pulse ox tonight
[2023-08-30 12:11] LABS: Glucose - Point of Care 167 mg/dl (70-99)
[2023-08-30] MEDS: NOVOLOG FLEXPEN-LOW RESISTANCE 1 UNITS SC (13:02)
--- NOTE | 2023-08-30 13:22 | W.PN.PUL3 ---
Today's Communication / Plan
-
Check nocturnal oximetry tonight on room air
Continue diuresis
Wean oxygen
Would benefit from outpatient sleep apnea workup. Information left in chart
Assessment
-
73-year-old female with a history of hypertension, diabetes and recent admission for GI bleeding presented with shortness of breath and fatigue requiring BiPAP support and pulmonary consulted for persistent hypoxemia 08/28/2023.
Respiratory failure-acute hypoxemic-pulse ox in the 70s on [address] chest without pulmonary embolism, small bilateral pleural effusion/atelectasis
Fluid overload-weight up 6 kg
Mibxtt-veyigbkyoo-xsfdyhnvcn 10.4-recent GI bleed-hemoglobin stable
Mild hyponatremia-serum sodium 132
Hypokalemia-potassium 3.0
Metabolic acidosis
Mild hyperglycemia
Mildly elevated total bilirubin
Obesity-BMI 31
Conditions present prior to admission:
Recent hospitalization 08/2023-acute GI bleed, anemia, hemorrhagic shock, coagulopathy, acute kidney injury
Hypertension.
Hyperlipidemia.
Diabetes.
Hypothyroid.
Dysphagia.
Rectal ulcers.
Neurogenic bladder.
GERD.
IBS.
Stress incontinence.
Obesity-BMI 31
Cataract surgery. Oral surgery.
Plan
At this time, patient appears to be comfortable
Seems to be responding to diuresis, negative fluid status
Mild crackles at right base noted
Echocardiogram, bubble study negative
Currently on 6 L, 99%
Moving forward
Continue with diuresis
Wean oxygen as able. Decrease to 2 L, maintain at 98%
Out of bed to chair, incentive spirometry
Check nocturnal oximetry tonight on room air. Patient at correction, will continue with nocturnal oxygen
Would benefit from outpatient sleep disorder workup. Patient agreeable
CT chest PE study negative
Follow hemoglobin
Transfuse if needed
PPI
Replace electrolytes
Monitor blood sugar
Insulin supplementation as needed
DVT prophylaxis-mechanical with recent GI bleed
GI prophylaxis-on pantoprazole
Nutrition
Early mobilization
Reviewed with nursing
Reviewed with primary service
Diagnostic data:
Chest x-ray 08/08/2023-NAD
Chest x-ray 08/24/2023-NAD
CT chest 08/08/2023-no evidence for pulmonary embolism, no significant abnormalities in the chest
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
CT chest 08/27/2023-no pulmonary embolism, small bilateral pleural effusions new compared to prior exam, mild to moderate atelectasis
GI bleeding scan 08/21/2023-no evidence for active GI bleed
Lower extremity ultrasound 08/24/2023-no evidence for DVT bilaterally
Subjective Data
-
Date of Service:
Date of Service: August 30, 2023
Subjective:
Patient examined earlier this morning. She is without complaints, denies shortness of breath, chest pain, cough, nausea, abdominal pain. Presently on 6 L, 99%. Conversant
Objective Data
Data Reviewed
Vital Signs / I&O / Oxygen:
Vital Signs
Temp Pulse Resp BP Pulse Ox
98.1 F 99 17 111/65 95
08/30/23 11:25 08/30/23 12:00 08/30/23 12:00 08/30/23 12:00 08/30/23 12:00
Intake and Output
08/29/23 08/30/23 08/31/23
06:59 06:59 06:59
Intake Total 815 / 815 240 / 240
Output Total 1950 / 1950 1500 / 1500
Balance -1135 / -1135 -1500 / -1500 240 / 240
SaO2 95
Nasal Cannula flow liters per 4
minute
Physical Exam
General: Comfortable
HEENT: Normocephalic and Anicteric
Cardiovascular: S1-S2, Regular Rhythm, Murmur (n), Rub (n), Peripheral Edema (n) and Calf Tenderness (n)
Respiratory: Wheeze (n), Crackles (Few at right base), Rhonchi (n), Non-Labored Respirations and Egophony (n)
GI: Soft, Non Distended and Non Tender
Neurology: Awake, Alert and No Motor Deficits
Skin: Cyanosis (n), Jaundice (n) and Rash (n)
Labs/Micro/Reports
Lab Data
08/30/23 04:56
08/30/23 04:56
Microbiology
08/28/23 00:35 Nose MRSA Screen - Final
No Methicillin Resistant Staphylococcus aureus isolated.
08/27/23 21:33 Nasal Swab Influenza Types A & B (NILAY) - Final
Negative for Influenza A & B, NAAT
Negative results must be combined with clinical observations
and patient history.
Nucleic Acid Amplification test (NAAT)performed on the
[employer] platform.
--- NOTE | 2023-08-30 15:51 | CHAP ---
Ms. Diaz said things are okay - she was accepting of the situation. Her main complaint was 'violence in the world.' She welcomed prayer, and we prayed for peace.
[2023-08-30 17:42] LABS: Glucose - Point of Care 130 mg/dl (70-99)
[2023-08-30] MEDS: SENNA SYRUP PO (19:49)
--- NOTE | 2023-08-30 20:00 | PTCARENOTE ---
Pt AAOx3 - flat affect/withdrawn. Lungs decreased - WRIGHT on 2L o2. SR/ST on the monitor. Mullins in place draining josué urine. Mullins care provided. Pt incont for a small amount of stool. Pt itching MASD in skin folds.
[2023-08-30] MEDS: LIPITOR 10 MG PO (20:53)
--- NOTE | 2023-08-30 21:00 | RESPNOTE ---
PT was placed on the Nocturnal Pulse Oximetry study at this time and vitals are stbale. PT was taken off of the Oxygen for the study. Alarms are set , will continue to monitor resp status.
[2023-08-30 23:50] LABS: Glucose - Point of Care 144 mg/dl (70-99)
[2023-08-31] VITALS (18 sets, daily range): BP systolic 85–133; BP diastolic 44–86; PULSE 2–115; O2SAT 95; BMI 29.2
[2023-08-31] MEDS: SYNTHROID 112 MCG PO (04:44)
[2023-08-31 05:27] LABS: Blood Urea Nitrogen 14 mg/dl (7-17); Calcium 8.4 mg/dl (8.4-10.2); Carbon Dioxide 25 mmol/L (22-30); Chloride 102 mmol/L (98-107); Estimated Creatinine Clearance 52 ml/min; Glucose 131 mg/dl (70-99); Potassium 3.6 mmol/L (3.5-5.1); Sodium 133 mmol/L (135-145); eGFR 52.73
--- NOTE | 2023-08-31 06:24 | RESPNOTE ---
Nocturnal Pulse Oximetry Study was placed on this PT at approx. 2105 on 08/30. RN was made aware of the study as ordered by Dr. Guajardo and study was explained to the PT. The tech removed the pulse ox from the PT prematurely after only 3 hours at
approx. 2330 and I was not made aware of it until after 0400. The study was re-started at that time and there were tasia esignificant desaturation events over the nexyt hour until the remainder of the study, but none long enough to either qualify or
disqualify the PT for Oxygen/ Bipap at home. Unfortunately the study must be repeated again tonight to get accurate and continuous results.
--- NOTE | 2023-08-31 06:31 | PTCARENOTE ---
Pt did not sleep well. Nocturnal pox removed accidentally during the night. Pt tolerates room air when on Left side.
[2023-08-31 08:34] LABS: Glucose - Point of Care 144 mg/dl (70-99)
[2023-08-31] MEDS: NOVOLOG FLEXPEN-LOW RESISTANCE SC ×2 (09:07→13:03)
[2023-08-31] MEDS: COLACE PO (09:08)
[2023-08-31] MEDS: DESENEX/MITRAZOL/ZEASORB 1 APPLIC TOPICAL ×2 (09:08→21:08)
[2023-08-31] MEDS: PROTONIX 40 MG PO (09:09)
[2023-08-31] MEDS: FEOSOL 325 MG PO (09:09)
[2023-08-31] MEDS: MIRALAX PO (09:09)
[2023-08-31] MEDS: FOLVITE 1 MG PO (09:09)
[2023-08-31] MEDS: LASIX 40 MG IV (09:09)
--- NOTE | 2023-08-31 10:59 | W.PN.PUL3 ---
Today's Communication / Plan
-
Continue IV diuresis
Monitor electrolytes and creatinine
Wean off oxygen if able
Out of bed to chair
Eventual sleep evaluation.
Assessment
-
73-year-old female with a history of hypertension, diabetes and recent admission for GI bleeding presented with shortness of breath and fatigue requiring BiPAP support and pulmonary consulted for persistent hypoxemia 08/28/2023.
Respiratory failure-acute hypoxemic-pulse ox in the 70s on [address] chest without pulmonary embolism, small bilateral pleural effusion/atelectasis
Fluid overload-weight up 6 kg
Apqpve-jppwzcxvaz-bhkvpxtfha 10.4-recent GI bleed-hemoglobin stable
Mild hyponatremia-serum sodium 132
Hypokalemia-potassium 3.0
Metabolic acidosis
Mild hyperglycemia
Mildly elevated total bilirubin
Obesity-BMI 31
Conditions present prior to admission:
Recent hospitalization 08/2023-acute GI bleed, anemia, hemorrhagic shock, coagulopathy, acute kidney injury
Hypertension.
Hyperlipidemia.
Diabetes.
Hypothyroid.
Dysphagia.
Rectal ulcers.
Neurogenic bladder.
GERD.
IBS.
Stress incontinence.
Obesity-BMI 31
Cataract surgery. Oral surgery.
Plan
Remains on supplemental oxygen: 2 L via nasal cannula, pulse ox 94%.(Down from 6 L nasal cannula)
Suspected volume overload after recent admission for GI bleed and transfusions.
CT chest PE study negative, no significant parenchymal abnormality.
-
Seems to be responding to diuresis, negative fluid status/weight is trending lower.
Continue to monitor renal function and electrolytes.
Mild crackles at right base noted-not bronchospastic on exam.
Echocardiogram, bubble study negative
Hopefully can wean off oxygen in the next 24 hours.
-
Continue IV Lasix
Monitor electrolytes and creatinine.
-
Out of bed to chair, incentive spirometry, encouraged.
-
Would benefit from outpatient sleep disorder workup. Patient agreeable, information will be left in the chart.
-
Follow hemoglobin
Transfuse if needed
PPI
DVT prophylaxis-mechanical with recent GI bleed
GI prophylaxis-on pantoprazole
Pulmonary will continue to follow briefly.
Information will be left in the chart for sleep evaluation in the outpatient setting.

Diagnostic data:
Chest x-ray 08/08/2023-NAD
Chest x-ray 08/24/2023-NAD
CT chest 08/08/2023-no evidence for pulmonary embolism, no significant abnormalities in the chest
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
CT chest 08/27/2023-no pulmonary embolism, small bilateral pleural effusions new compared to prior exam, mild to moderate atelectasis
GI bleeding scan 08/21/2023-no evidence for active GI bleed
Lower extremity ultrasound 08/24/2023-no evidence for DVT bilaterally
Subjective Data
-
Date of Service:
Date of Service: August 31, 2023
Chief Complaint: Pulmonary Follow Up (Hypoxemic respiratory failure)
Subjective:
Patient states that subjectively she feels better
Remains on supplemental oxygen
Denies phlegm production
Has not moved out of bed yet this morning.
Review of Systems
Cardiopulmonary: Dyspnea (none at rest), Cough (n) and Sputum Production (n)
GI: Abdominal Pain (n)
Neuro: Headache
Objective Data
Data Reviewed
Vital Signs / I&O / Oxygen:
Vital Signs
Temp Pulse Resp BP Pulse Ox
98.1 F 99 27 112/70 90
08/31/23 07:46 08/31/23 06:09 08/31/23 06:09 08/31/23 06:09 08/31/23 06:09
Intake and Output
08/30/23 08/31/23 09/01/23
06:59 06:59 06:59
Intake Total 960 / 960
Output Total 1500 / 1500 1700 / 1700
Balance -1500 / -1500 -740 / -740
SaO2 90
Nasal Cannula flow liters per 2
minute
Physical Exam
General: Comfortable
HEENT: Normocephalic and Anicteric
Cardiovascular: S1-S2, Regular Rhythm, Murmur (n), Rub (n), Peripheral Edema (n) and Calf Tenderness (n)
Respiratory: Wheeze (n), Crackles (Few at right base), Rhonchi (n), Non-Labored Respirations and Egophony (n)
GI: Soft, Non Distended and Non Tender
Neurology: Awake, Alert and No Motor Deficits
Skin: Cyanosis (n), Jaundice (n) and Rash (n)
Labs/Micro/Reports
Lab Data
08/30/23 04:56
08/31/23 04:43
Microbiology
08/28/23 00:35 Nose MRSA Screen - Final
No Methicillin Resistant Staphylococcus aureus isolated.
[2023-08-31 13:04] LABS: Glucose - Point of Care 145 mg/dl (70-99)
--- NOTE | 2023-08-31 14:30 | W.PN.HOSP.TC ---
Addendum entered and electronically signed by Osmin Hopkins MD 09/01/23 08:58:
Late entry.
Patient seen on 08/31
Discussed with resident
Impression/plan:
Acute hypoxic respiratory failure
Overall improved with weaned off oxygen down to 2 L nasal cannula.
Echocardiogram 08/28/2023 with preserved biventricular function
Responding to diuresis.
Nocturnal O2.
Original Note:
Today's Communication/Plan
-
- Wean off oxygen.
- Can transition to oral furosemide tomorrow.
- Anticipated discharge tomorrow if oxygenation remains stable.
Assessment / Plan
Assessment / Plan
Assessment:
Kasia Diaz, 73 year-old female, presented to the emergency with worsening dyspnea on 08-27-23. Notably, she was hospitalized at from 08-19-23 to 08-26-23 secondary to GI bleed. She underwent endoscopic examination at that time showing
multiple rectal ulcerations.�She received a total of 4 units of PRBCs and 2 units of FFP during that hospitalization.�Of note, patient had unexplained episodes of hypoxemia during her visit - requiring use of NRB mask at times.�She was seen and
evaluated by pulmonary and no clear etiology was noted.�Her oxygen requirements improved prior to discharge.
Patient was discharged to SNF/rehab on 08-26-23. Returned to the next day when she was noted to experience increased shortness of breath during PT at the rehab.� She was transported to the ED for further evaluation.
Patient arrived to the ED on 10 lpm of supplemental oxygen.�She does not wear oxygen at baseline; however, recent records would suggest she is chronically on nocturnal O2 from 4-5 lpm (though nocturnal oximetry done during recent admission was also
reportedly normal).
Oxygen was initially weaned in the ED; however, patient became increasingly hypoxemic with SpO2 falling into the 70s on 6 lpm.� She was placed on NRB and then on BiPAP in order to maintain adequate saturations. Seen and examined today on 12 L via
midlflow nasal cannula.�
Impression:
* Acute (on chronic?) hypoxemic respiratory failure
* Rectal ulceration/GI bleed/acute blood loss anemia
* Hyponatremia
* Obstructive uropathy
* Type II diabetes mellitus
* Constipation
* Sacral wound
* Hypertension
* Hyperlipidemia
* Hypothyroidism
* GERD
* Stress incontinence
* Obesity-BMI 31
Plan:
Acute (on chronic?) hypoxemic respiratory failure
- Admitted on 08-27-23 for further evaluation and treatment.
- Required BiPAP support - then quickly weaned to mid-flow.
- No evidence of infectious etiology. COVID / Flu both negative in the ED.
- CT without PE and shows only small bilateral effusions and evidence for atelectasis.
- Suspected component of volume overload (weight was up approx 6 kg at admission, presumably from multiple transfusions during her previous admission).
- IV lasix 40mg QD; creatinine stable.
- Her oxygen needs are much lower after diuresis.
- Follow I/Os, daily weights, etc.
- Incentive spirometry and encourage activity as able.
- Pulmonary following
-TTE with normal EF and intact septum.
- Wean off oxygen today.
Hypokalemia
- Replete
Rectal Ulcers/GI Bleed/Acute Blood Loss Anemia
- Stable / improving.� No evidence of continued / recurrent blood loss.
- Hgb continues to improve from prior.
- Follow clinically.
Mild Hyponatremia
- Stable.� Na level is at / near known baseline.
- Follow for any changes.
Obstructive Uropathy
- Mullins Catheter - Present on Admission
- Prior KRISTA has fully resolved with Mullins in place.
- Maintain Mullins and follow-up with Urology as an outpatient as planned.
DM-II
- Stable.� Hold basal insulin for now.
- Follow glucose and cover with SSI as needed.
- Hold metformin s/p CTA done in the ED.
Constipation / Stercoral Colitis
- Stable.� Patient complains of too frequent BMs.
- Continue bowel regimen but decreased MiraLax to once daily for now.
- Follow clinically.
Sacral Wound - Present on Admission
- Stable.� Wound Care evaluation.
DVT Prophylaxis
- SCDs
Code Status
- DNR
Anticipated Discharge: Within 24 hours
Subjective/Interval History
-
Date of Service: August 31, 2023
Objective Data
-
Labs:
Laboratory Results
08/31/23
04:43
Sodium 133 L
Potassium 3.6
Chloride 102
Carbon Dioxide 25
BUN 14
Creatinine 1.1 H
Glucose 131 H
Calcium 8.4
Vital Signs:
Vital Signs
Temp Pulse Resp BP Pulse Ox
98.2 F 99 27 112/70 90
08/31/23 11:36 08/31/23 06:09 08/31/23 06:09 08/31/23 06:09 08/31/23 06:09
I&O
08/30/23 08/31/23 09/01/23
06:59 06:59 06:59
Intake Total 960 / 960
Output Total 1500 / 1500 1700 / 1700
Balance -1500 / -1500 -740 / -740
Review of Systems
-
History Source: Patient
Constitutional: Reports No Symptoms
EENT: Reports No Symptoms Reported
Respiratory: Reports No Symptoms
Cardiac: Reports No Symptoms
Abdomen/GI: Reports No Symptoms
Musculoskeletal: Reports No Symptoms
Neuro: Reports No Symptoms
Physical Exam
-
General: No Apparent Distress and Comfortable
HEENT: Normocephalic, Atraumatic, Moist Mucous Membranes, Anicteric and Oxygen
Respiratory: Clear to Auscultation
Cardiac: Regular Rhythm and S1/S2
GI: Soft, Nontender, Nondistended, Normal Bowel Sounds and No Hepatosplenomegaly
Genito-urinary: No Costovertebral Tender
Musculoskeletal: No Clubbing, No Cyanosis and No Edema
Neuro: Awake, Alert, Oriented and No Motor Deficits
Hematologic / Lymphatic: No Lymphadenopathy
Psych: Calm
[2023-08-31] MEDS: NOVOLOG FLEXPEN-LOW RESISTANCE 1 UNITS SC (18:30)
[2023-08-31 18:40] LABS: Glucose - Point of Care 158 mg/dl (70-99)
[2023-08-31] MEDS: COLACE 100 MG PO (21:07)
[2023-08-31] MEDS: LIPITOR 10 MG PO (21:07)
[2023-08-31 21:31] LABS: Glucose - Point of Care 164 mg/dl (70-99)
[2023-08-31] MEDS: SENNA SYRUP PO (22:20)
--- NOTE | 2023-08-31 23:01 | PTCARENOTE ---
Pt removed herself from BIPAP. Placed Pt back on 2L NC O2, SAT currently 97%. Attempted to discuss necessity of and purpose of wearing the BIPAP with Pt, however Pt was non engaging in the conversation. Contacted Respiratory to notify them.
[2023-09-01] VITALS (13 sets, daily range): BP systolic 90–140; BP diastolic 50–88; PULSE 2–102; BMI 29.4
[2023-09-01 04:28] LABS: % Basophils 0.7 % (0-2); % Eosinophils 2.8 % (0-6); % Immature Granulocytes 0.7 % (0-0.5); % Lymphocytes 25.5 % (20.5-51.1); % Monocytes 7.6 % (1.7-9.3); % Neutrophils 62.7 % (42.2-75.2); Absolute Eosinophils 0.2 10^3/uL (0-0.7); Absolute Lymphocytes 1.5 10^3/uL (1.2-3.4); Absolute Monocytes 0.5 10^3/uL (0.1-0.6); Absolute Neutrophils 3.8 10^3/uL (1.4-6.5); Hematocrit 29.4 % (37.0-47.0); Hemoglobin 9.9 g/dL (12.0-16.0); Mean Corp Hgb Conc. 33.7 g/dL (33.0-37.0); Mean Corpuscular Hgb 27.7 pg (27.0-31.0); Mean Corpuscular Volume 82.4 fL (81.0-99.0); Nucleated Red Blood Cells % 0 %; Platelet Count 245 10^3/uL (130-400); Red Blood Cell Count 3.57 10^6/uL (4.20-5.40); Red Cell Dist. Width 20.9 % (11.5-14.5)
[2023-09-01 04:49] LABS: Blood Urea Nitrogen 15 mg/dl (7-17); Calcium 8.5 mg/dl (8.4-10.2); Carbon Dioxide 28 mmol/L (22-30); Chloride 101 mmol/L (98-107); Estimated Creatinine Clearance 57 ml/min; Glucose 133 mg/dl (70-99); Potassium 3.7 mmol/L (3.5-5.1); Sodium 133 mmol/L (135-145); eGFR 59.12
[2023-09-01] MEDS: SYNTHROID 112 MCG PO (05:16)
--- NOTE | 2023-09-01 06:14 | PTCARENOTE ---
Pt desatting into low 80'S while breathing through mouth, O2 incresed to 10L, Satting at 90 when breathing via nose. Respiratory at bedside. Encouraged to deep breath through her nose. Pt displayed unwilligness to learn.
[2023-09-01 07:51] LABS: Glucose - Point of Care 143 mg/dl (70-99)
[2023-09-01] MEDS: FOLVITE 1 MG PO (08:00)
[2023-09-01] MEDS: PROTONIX 40 MG PO (08:00)
[2023-09-01] MEDS: LASIX 40 MG IV (08:00)
[2023-09-01] MEDS: MIRALAX 17 GRAMS PO (08:00)
[2023-09-01] MEDS: FEOSOL 325 MG PO (08:00)
[2023-09-01] MEDS: COLACE 100 MG PO ×2 (08:00→19:30)
--- NOTE | 2023-09-01 08:05 | PN.CDI ---
CDI
- -
CDI:
Physician Documentation Request
Admit Date: 08/27/23 22:22
Dear Doctor Kellie,
Please review the following and provide your response in the progress notes.
Clinical Indicators:
- 08/31 PN 'Sacral Wound - Present on Admission' - without specificity
- 08/28 Wound note 'Patient has a stage 2 PI of scarum'
- per H&P pmh diabetes mellitus, type II
Physician documentation of the type (etiology) of wounds is required for compliant documentation. Based on the above clinical findings and your assessment, please provide the following in your progress note:
Sacral pressure (decubitus) ulcer
Sacral diabetic ulcer
Other
Use of terms such as suspected, likely, concern for, or probable (associated with a specific diagnosis that is being evaluated, monitored, or treated as if it exists) are acceptable and can be coded in the inpatient setting, when documented at the
time of discharge.
Thank you,
Shiva Chou RN
CDI Specialist
Please use your independent medical judgment in providing your response.
*Source: National Pressure Ulcer Advisory Panel (NPUAP)
[2023-09-01] MEDS: NOVOLOG FLEXPEN-LOW RESISTANCE SC (08:06)
[2023-09-01] MEDS: DESENEX/MITRAZOL/ZEASORB 1 APPLIC TOPICAL ×2 (08:07→19:31)
[2023-09-01 08:51] LABS: B.E. 4.1 mmol/L; HCO3 25.7 mmol/L (21-28); O2 Saturation % 94.6 % (94-98); PCO2 28 mmHg (32-35); PO2 63 mmHg (83-108); pH 7.57 (7.35-7.45)
--- NOTE | 2023-09-01 10:17 | CM ---
Patient from [facility] with Dx Acute hypoxic respiratory failure. O2 from 10L to 12L midflow. ABGs ordered. Receiving IV Lasix. PT & OT; requires assist of 2, recommend skilled rehab.
Spoke with Yolanda, [facility]; provided clinical update. Their O2 can accomodate up to 10L however she prefers patient need only 8L at discharge, so they have some latitude to increase O2 if needed. Referral placed in [employer]. The
patient was receiving short term rehab at their SNF and her is also there currently (in same room) for short term rehab. The will be discharged to home. The has spoke with them about the patient staying at [facility] in
LTC and is completing the paperwork. She is unsure if has spoken with the patient in that regard- Yolanda and JOHN agree to let discuss with the patient.
Plan continue to follow patient's O2 needs.
Plan return to [facility] when medically ready.
--- NOTE | 2023-09-01 10:43 | W.PN.PUL3 ---
Today's Communication / Plan
-
Continue IV diuresis
Encouraged incentive spirometry
Continues to require oxygen, wean off as able.
Out of bed if possible
Aspiration precautions
Assessment
-
73-year-old female with a history of hypertension, diabetes and recent admission for GI bleeding presented with shortness of breath and fatigue requiring BiPAP support and pulmonary consulted for persistent hypoxemia 08/28/2023.
Respiratory failure-acute hypoxemic-pulse ox in the 70s on [address] chest without pulmonary embolism, small bilateral pleural effusion/atelectasis
Fluid overload-weight up 6 kg
Lfuhqk-thwssdugyh-brvimzxwst 10.4-recent GI bleed-hemoglobin stable
Mild hyponatremia-serum sodium 132
Hypokalemia-potassium 3.0
Metabolic acidosis
Mild hyperglycemia
Mildly elevated total bilirubin
Obesity-BMI 31
Conditions present prior to admission:
Recent hospitalization 08/2023-acute GI bleed, anemia, hemorrhagic shock, coagulopathy, acute kidney injury
Hypertension.
Hyperlipidemia.
Diabetes.
Hypothyroid.
Dysphagia.
Rectal ulcers.
Neurogenic bladder.
GERD.
IBS.
Stress incontinence.
Obesity-BMI 31
Cataract surgery. Oral surgery.
Plan
Fluctuating oxygen requirements: Up to 8 L. Pulse ox 93%.
Suspect part of the hypoxemia is due to atelectasis as well.
Continue to wean down as able.
Suspected volume overload after recent admission for GI bleed and transfusions.
CT chest PE study negative, no significant parenchymal abnormality.
Lung exam is clear to 2023.
-
Seems to be responding to diuresis, negative fluid status/weight is trending lower.
Continue to monitor renal function and electrolytes.
Echocardiogram, bubble study negative
-
Continue IV Lasix, per primary team.
Monitor electrolytes and creatinine.
-
Out of bed to chair, incentive spirometry, encouraged.
-
Would benefit from outpatient sleep disorder workup. Patient agreeable, information will be left in the chart.
-
Follow hemoglobin
Transfuse if needed
PPI
DVT prophylaxis-mechanical with recent GI bleed
GI prophylaxis-on pantoprazole
-
Information will be left in the chart for sleep evaluation in the outpatient setting.

Diagnostic data:
Chest x-ray 08/08/2023-NAD
Chest x-ray 08/24/2023-NAD
CT chest 08/08/2023-no evidence for pulmonary embolism, no significant abnormalities in the chest
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
CT chest 08/27/2023-no pulmonary embolism, small bilateral pleural effusions new compared to prior exam, mild to moderate atelectasis
GI bleeding scan 08/21/2023-no evidence for active GI bleed
Lower extremity ultrasound 08/24/2023-no evidence for DVT bilaterally
Subjective Data
-
Date of Service:
Date of Service: September 01, 2023
Chief Complaint: Pulmonary Follow Up (Hypoxemic respiratory failure)
Subjective:
Patient offers no new complaints.
Denies shortness of breath at rest
Denies cough or phlegm production.
Denies chest pain.
Review of Systems
General: Fever
Cardiopulmonary: Dyspnea (none at rest), Cough (n), Sputum Production and Wheezing (n)
Objective Data
Data Reviewed
Vital Signs / I&O / Oxygen:
Vital Signs
Temp Pulse Resp BP Pulse Ox
97.4 F 94 10 104/75 86
09/01/23 07:16 09/01/23 06:00 09/01/23 06:00 09/01/23 06:00 09/01/23 06:00
Intake and Output
08/31/23 09/01/23 09/02/23
06:59 06:59 06:59
Intake Total 960 / 960 360 / 360 240 / 240
Output Total 1700 / 1700 400 / 400
Balance -740 / -740 -40 / -40 240 / 240
SaO2 86
Nasal Cannula flow liters per 2
minute
Physical Exam
General: Comfortable
HEENT: Normocephalic and Anicteric
Cardiovascular: S1-S2, Regular Rhythm, Murmur (n), Rub (n), Peripheral Edema (n) and Calf Tenderness (n)
Respiratory: Wheeze (n), Crackles (n), Rhonchi (n), Non-Labored Respirations and Egophony (n)
GI: Soft, Non Distended and Non Tender
Neurology: Awake, Alert and No Motor Deficits
Skin: Cyanosis (n), Jaundice (n) and Rash (n)
Labs/Micro/Reports
Lab Data
09/01/23 04:18
09/01/23 04:18
Laboratory Results
09/01/23
08:40
pH 7.57 H
pCO2 28 L
pO2 63 L
HCO3 25.7
O2 Delivery Level
Microbiology
08/28/23 00:35 Nose MRSA Screen - Final
No Methicillin Resistant Staphylococcus aureus isolated.
[2023-09-01] MEDS: NOVOLOG FLEXPEN-LOW RESISTANCE 1 UNITS SC (13:03)
[2023-09-01 13:09] LABS: Glucose - Point of Care 168 mg/dl (70-99)
--- NOTE | 2023-09-01 14:14 | W.PN.HOSP.TC ---
Addendum entered and electronically signed by Osmin Hopkins MD 09/01/23 14:38:
Patient seen and examined
Discussed with resident
Agree with assessment and plan:
Impression/plan:
Acute hypoxic respiratory failure likely to volume overload/diastolic CHF.
Recent hospitalization with acute blood loss anemia due to rectal bleeding/ulceration requiring large volume transfusion.
Responding to diuresis with weight reduced from 92 to 87 kg and currently plateau.
CT scan of the chest negative for pulmonary embolism and consistent with pulmonary edema
Echocardiogram with preserved biventricular function.
ABG not consistent with CO2 retention.
Noted with vamp throater hypoxia with increased oxygen requirements although able to wean down from 12-6 to 5 L currently.
Continue IV Lasix for another 24 hours
Increase activity.
Original Note:
Today's Communication/Plan
-
- Continue to wean off oxygen as tolerated.
- Encouraged incentive spirometry.
- Continue IV diuresis.
Assessment / Plan
Assessment / Plan
Assessment:
Kasia Diaz, 73 year-old female, presented to the emergency with worsening dyspnea on 08-27-23. Notably, she was hospitalized at from 08-19-23 to 08-26-23 secondary to GI bleed. She underwent endoscopic examination at that time showing
multiple rectal ulcerations.�She received a total of 4 units of PRBCs and 2 units of FFP during that hospitalization.�Of note, patient had unexplained episodes of hypoxemia during her visit - requiring use of NRB mask at times.�She was seen and
evaluated by pulmonary and no clear etiology was noted.�Her oxygen requirements improved prior to discharge.
Patient was discharged to SNF/rehab on 08-26-23. Returned to the next day when she was noted to experience increased shortness of breath during PT at the rehab.� She was transported to the ED for further evaluation.
Patient arrived to the ED on 10 lpm of supplemental oxygen.�She does not wear oxygen at baseline; however, recent records would suggest she is chronically on nocturnal O2 from 4-5 lpm (though nocturnal oximetry done during recent admission was also
reportedly normal).
Oxygen was initially weaned in the ED; however, patient became increasingly hypoxemic with SpO2 falling into the 70s on 6 lpm.� She was placed on NRB and then on BiPAP in order to maintain adequate saturations. Seen and examined today on 12 L via
midlflow nasal cannula.�
Impression:
* Acute (on chronic?) hypoxemic respiratory failure
* Rectal ulceration/GI bleed/acute blood loss anemia
* Hyponatremia
* Obstructive uropathy
* Type II diabetes mellitus
* Constipation
* Sacral wound
* Hypertension
* Hyperlipidemia
* Hypothyroidism
* GERD
* Stress incontinence
* Obesity-BMI 31
Plan:
Acute (on chronic?) hypoxemic respiratory failure
- Admitted on 08-27-23 for further evaluation and treatment.
- Required BiPAP support - then quickly weaned to mid-flow.
- No evidence of infectious etiology. COVID / Flu both negative in the ED.
- CT without PE and shows only small bilateral effusions and evidence for atelectasis.
- Suspected component of volume overload (weight was up approx 6 kg at admission, presumably from multiple transfusions during her previous admission).
- IV lasix 40mg QD; creatinine stable.
- Her oxygen needs are much lower after diuresis.
- Follow I/Os, daily weights, etc.
- Incentive spirometry and encourage activity as able.
- Pulmonary following
-TTE with normal EF and intact septum.
- Wean off oxygen today.
Hypokalemia
- Replete
Rectal Ulcers/GI Bleed/Acute Blood Loss Anemia
- Stable / improving.� No evidence of continued / recurrent blood loss.
- Hgb continues to improve from prior.
- Follow clinically.
Mild Hyponatremia
- Stable.� Na level is at / near known baseline.
- Follow for any changes.
Obstructive Uropathy
- Mullins Catheter - Present on Admission
- Prior KRISTA has fully resolved with Mullins in place.
- Maintain Mullins and follow-up with Urology as an outpatient as planned.
DM-II
- Stable.� Hold basal insulin for now.
- Follow glucose and cover with SSI as needed.
- Hold metformin s/p CTA done in the ED.
Constipation / Stercoral Colitis
- Stable.� Patient complains of too frequent BMs.
- Continue bowel regimen but decreased MiraLax to once daily for now.
- Follow clinically.
Sacral Wound - Present on Admission
- Stable.� Wound Care evaluation.
DVT Prophylaxis
- SCDs
Code Status
- DNR
Anticipated Discharge: 24 - 48 hours
Subjective/Interval History
-
Date of Service: September 01, 2023
Objective Data
-
Labs:
Laboratory Results
09/01/23 09/01/23
04:18 08:40
WBC 6.0
Hgb 9.9 L
Hct 29.4 L
Plt Count 245
HCO3 25.7
Sodium 133 L
Potassium 3.7
Chloride 101
Carbon Dioxide 28
BUN 15
Creatinine 1.0
Glucose 133 H
Calcium 8.5
Vital Signs:
Vital Signs
Temp Pulse Resp BP Pulse Ox
97.6 F 108 19 114/65 99
09/01/23 11:08 09/01/23 10:00 09/01/23 10:00 09/01/23 10:00 09/01/23 10:55
I&O
08/31/23 09/01/23 09/02/23
06:59 06:59 06:59
Intake Total 960 / 960 360 / 360 240 / 240
Output Total 1700 / 1700 400 / 400
Balance -740 / -740 -40 / -40 240 / 240
Review of Systems
-
History Source: Patient
Constitutional: Reports No Symptoms
EENT: Reports No Symptoms Reported
Respiratory: Reports Trouble Breathing
Cardiac: Reports No Symptoms
Abdomen/GI: Reports No Symptoms
Genitourinary: Reports No Symptoms
Musculoskeletal: Reports No Symptoms
Skin: Reports No Symptoms
Neuro: Reports No Symptoms
Endocrine: Reports No Symptoms
Hematologic / Lymphatic: Reports No Symptoms
Allergy / Immunology: Reports No Symptoms
Physical Exam
-
General: No Apparent Distress and Comfortable
HEENT: Normocephalic, Atraumatic, Moist Mucous Membranes and Anicteric
Respiratory: Clear to Auscultation
Cardiac: Regular Rhythm and S1/S2
GI: Soft, Nontender, Nondistended, Normal Bowel Sounds and No Hepatosplenomegaly
Genito-urinary: No Costovertebral Tender
Musculoskeletal: No Clubbing, No Cyanosis and No Edema
Skin: Warm, Dry and IV Access / Catheter Site
Neuro: Awake, Alert, Oriented, No Motor Deficits and No Sensory Deficits
Hematologic / Lymphatic: No Lymphadenopathy
Psych: Calm
[2023-09-01 17:36] LABS: Glucose - Point of Care 231 mg/dl (70-99)
[2023-09-01] MEDS: NOVOLOG FLEXPEN-LOW RESISTANCE 2 UNITS SC (17:48)
[2023-09-01 21:56] LABS: Glucose - Point of Care 226 mg/dl (70-99)
[2023-09-01] MEDS: LIPITOR 10 MG PO (22:38)
[2023-09-01] MEDS: SENNA SYRUP 8.80000000000000071 MG PO (22:38)
[2023-09-02] VITALS (10 sets, daily range): BP systolic 92–130; BP diastolic 58–89; BMI 29.2
[2023-09-02 05:12] LABS: % Basophils 0.8 % (0-2); % Eosinophils 2.1 % (0-6); % Immature Granulocytes 0.6 % (0-0.5); % Lymphocytes 28.5 % (20.5-51.1); % Monocytes 7.6 % (1.7-9.3); % Neutrophils 60.4 % (42.2-75.2); Absolute Basophils 0.1 10^3/uL (0-0.2); Absolute Eosinophils 0.1 10^3/uL (0-0.7); Absolute Lymphocytes 1.9 10^3/uL (1.2-3.4); Absolute Monocytes 0.5 10^3/uL (0.1-0.6); Hemoglobin 10.4 g/dL (12.0-16.0); Mean Corp Hgb Conc. 33.5 g/dL (33.0-37.0); Mean Corpuscular Hgb 27.7 pg (27.0-31.0); Mean Corpuscular Volume 82.4 fL (81.0-99.0); Mean Platelet Volume 10.1 fL (7.4-10.4); Nucleated Red Blood Cells % 0 %; Platelet Count 284 10^3/uL (130-400); Red Blood Cell Count 3.76 10^6/uL (4.20-5.40); Red Cell Dist. Width 21.2 % (11.5-14.5); White Blood Cell Count 6.6 10^3/uL (4.8-10.8)
--- NOTE | 2023-09-02 05:12 | PTCARENOTE ---
Pt drowsy, but arousable to voice. This RN observed pt removing oxygen tubing from nares several times with SaO2 decreasing to 80s. This RN replaced O2 tubing and educated pt on breathing techniques to optimize o2 delivery. SaO2 observed
spontaneously decreasing to 80s with tubing in place. O2 titrated throughout shift, Currently 9L midflow at 91%. Pt repositioned throughout shift to decrease pressure on sacrum. Sacral dressing replaced. Stat lock replaced d/t pt peeling off.
Desenex powder placed on red MASD to groin. Call wyman within reach. Bed alarm in place for pt safety.
[2023-09-02] MEDS: SYNTHROID 112 MCG PO (05:23)
[2023-09-02] MEDS: VENTOLIN NEBULES 2.5 MG INH (05:27)
[2023-09-02 05:34] LABS: Blood Urea Nitrogen 18 mg/dl (7-17); Carbon Dioxide 27 mmol/L (22-30); Chloride 98 mmol/L (98-107); Estimated Creatinine Clearance 52 ml/min; Glucose 156 mg/dl (70-99); Potassium 3.8 mmol/L (3.5-5.1); Sodium 133 mmol/L (135-145); eGFR 52.73
--- NOTE | 2023-09-02 06:03 | PTCARENOTE ---
Pt SaO2 noted to be significantly better when laying on L side. SaO2 99% on 9L. Pt had been 93% or lower on 9L while on R side.
[2023-09-02 07:33] LABS: Glucose - Point of Care 165 mg/dl (70-99)
[2023-09-02] MEDS: MIRALAX PO (08:00)
[2023-09-02] MEDS: LASIX 40 MG IV (08:43)
[2023-09-02] MEDS: NOVOLOG FLEXPEN-LOW RESISTANCE 1 UNITS SC ×2 (08:44→17:07)
--- NOTE | 2023-09-02 10:00 | PTCARENOTE ---
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 Patient with desat issues as she will not leave the oxygen in her nose. Patient kept stating that 'she wants to go home'. Respiratory therapy in room. NRB mask placed over 15L Midflow N/C with O2 sats in the
mid to high 80's. Highflow N/C therapy started with initial sats in the low 90's with the NRB on as well. Hospitalist made aware of changes. D-dimer ordered and CXR. Patient still at times taking oxygen out of nose and mask off. Compromised
with patient to leave O2 on but will keep mask off for now, patient agreeable. O2 sats maintaining low 90's.
[2023-09-02] MEDS: PROTONIX 40 MG PO (10:21)
[2023-09-02] MEDS: DESENEX/MITRAZOL/ZEASORB 1 APPLIC TOPICAL ×2 (10:21→21:03)
[2023-09-02] MEDS: FEOSOL 325 MG PO (10:21)
[2023-09-02] MEDS: FOLVITE 1 MG PO (10:21)
[2023-09-02] MEDS: COLACE 100 MG PO ×2 (10:21→21:03)
[2023-09-02 11:19] LABS: D-Dimer 0.99 ug/mlFEU (0.00-0.50)
[2023-09-02 12:03] LABS: Glucose - Point of Care 206 mg/dl (70-99)
[2023-09-02] MEDS: NOVOLOG FLEXPEN-LOW RESISTANCE 2 UNITS SC (12:40)
--- NOTE | 2023-09-02 13:30 | PTCARENOTE ---
While patient in CT, line infiltrated with IV contrast. Pressure held with warm compress and arm elevated.
Cold compress applied once back in room per emission technician. Site much improved from initial incident. Followed up with CT for any further instructions.
--- NOTE | 2023-09-02 15:06 | W.PN.HOSP.TC ---
Addendum entered and electronically signed by Osmin Hopkins MD 09/02/23 15:44:
Patient seen and examined
Discussed with resident
Discussed with pulmonology
Discussed with nursing
Impression/plan:
Acute hypoxic respiratory failure persistent
Patient noted to have severe oxygen desaturations down to 70s with respiratory distress in manager assembly hours.
Remains on IV diuresis with now weight plateaued at 87 kg baseline recent echocardiogram with preserved biventricular function and no significant valvular abnormalities.
CT scan of the chest while off anticoagulation on 08/27 negative for pulmonary embolism
Follow-up chest x-ray today with no acute changes including clear parenchyma, no pleural effusions of pneumothorax.
Remains on high flow oxygen
Add low-dose of morphine for respiratory distress.
CT scan of the chest to reevaluate for pulmonary embolism.
Hemoglobin has been stable since transfusion over the last admission.
Original Note:
Today's Communication/Plan
-
- CT chest to re-[place].
- Wean oxygen as tolerated.
- Encouraged incentive spirometry.
- Continue IV diuresis.
Assessment / Plan
Assessment / Plan
Assessment:
Kasia Diaz, 73 year-old female, presented to the emergency with worsening dyspnea on 08-27-23. Notably, she was hospitalized at from 08-19-23 to 08-26-23 secondary to GI bleed. She underwent endoscopic examination at that time showing
multiple rectal ulcerations.�She received a total of 4 units of PRBCs and 2 units of FFP during that hospitalization.�Of note, patient had unexplained episodes of hypoxemia during her visit - requiring use of NRB mask at times.�She was seen and
evaluated by pulmonary and no clear etiology was noted.�Her oxygen requirements improved prior to discharge.
Patient was discharged to SNF/rehab on 08-26-23. Returned to the next day when she was noted to experience increased shortness of breath during PT at the rehab.� She was transported to the ED for further evaluation.
Patient arrived to the ED on 10 lpm of supplemental oxygen.�She does not wear oxygen at baseline; however, recent records would suggest she is chronically on nocturnal O2 from 4-5 lpm (though nocturnal oximetry done during recent admission was also
reportedly normal).
Oxygen was initially weaned in the ED; however, patient became increasingly hypoxemic with SpO2 falling into the 70s on 6 lpm.� She was placed on NRB and then on BiPAP in order to maintain adequate saturations. Seen and examined today on 12 L via
midlflow nasal cannula.�
Impression:
* Acute (on chronic?) hypoxemic respiratory failure
* Rectal ulceration/GI bleed/acute blood loss anemia
* Hyponatremia
* Obstructive uropathy
* Type II diabetes mellitus
* Constipation
* Sacral wound
* Hypertension
* Hyperlipidemia
* Hypothyroidism
* GERD
* Stress incontinence
* Obesity-BMI 31
Plan:
Acute (on chronic?) hypoxemic respiratory failure
- Admitted on 08-27-23 for further evaluation and treatment.
- Required BiPAP support - then quickly weaned to mid-flow.
- No evidence of infectious etiology. COVID / Flu both negative in the ED.
- CT without PE and shows only small bilateral effusions and evidence for atelectasis.
- Suspected component of volume overload (weight was up approx 6 kg at admission, presumably from multiple transfusions during her previous admission).
- IV lasix 40mg QD; creatinine stable.
- Her oxygen needs are much lower after diuresis.
- Intermittently responds to diuresis with weight reduced from 92 to 87 kg and currently plateau.
- Follow I/Os, daily weights, etc.
- Incentive spirometry and encourage activity as able.
- Pulmonary following
- TTE with normal EF and intact septum.
- Increased oxygen demand today, and it continues to fluctuate.
- Etiology unclear at this point; re-evaluate with CT chest.
- Wean off oxygen as tolerated.
Hypokalemia
- Replete
Rectal Ulcers/GI Bleed/Acute Blood Loss Anemia
- Stable / improving.� No evidence of continued / recurrent blood loss.
- Hgb continues to improve from prior.
- Follow clinically.
Mild Hyponatremia
- Stable.� Na level is at / near known baseline.
- Follow for any changes.
Obstructive Uropathy
- Mullins Catheter - Present on Admission
- Prior KRISTA has fully resolved with Mullins in place.
- Maintain Mullins and follow-up with Urology as an outpatient as planned.
DM-II
- Stable.� Hold basal insulin for now.
- Follow glucose and cover with SSI as needed.
- Hold metformin s/p CTA done in the ED.
Constipation / Stercoral Colitis
- Stable.� Patient complains of too frequent BMs.
- Continue bowel regimen but decreased MiraLax to once daily for now.
- Follow clinically.
Sacral Wound - Present on Admission
- Stable.� Wound Care evaluation.
DVT Prophylaxis
- SCDs
Code Status
- DNR
Anticipated Discharge: > 48 hours
Subjective/Interval History
-
Date of Service: September 02, 2023
Objective Data
-
Labs:
Laboratory Results
09/02/23
04:55
WBC 6.6
Hgb 10.4 L
Hct 31.0 L
Plt Count 284
Sodium 133 L
Potassium 3.8
Chloride 98
Carbon Dioxide 27
BUN 18 H
Creatinine 1.1 H
Glucose 156 H
Calcium 9.0
Vital Signs:
Vital Signs
Temp Pulse Resp BP Pulse Ox
98.6 F 113 17 100/72 96
09/02/23 11:22 09/02/23 08:43 09/02/23 05:30 09/02/23 08:43 09/02/23 13:58
I&O
0209/02/23 09/03/23
06:59 06:59 06:59
Intake Total 360 / 360 720 / 720
Output Total 400 / 400 1350 / 1350
Balance -40 / -40 -630 / -630
Physical Exam
-
General: Comfortable
HEENT: Normocephalic, Atraumatic, Moist Mucous Membranes and Anicteric
Respiratory: Clear to Auscultation
Cardiac: Regular Rhythm and S1/S2
GI: Soft, Nontender, Nondistended, Normal Bowel Sounds and No Hepatosplenomegaly
Genito-urinary: No Costovertebral Tender
Musculoskeletal: No Clubbing, No Cyanosis and No Edema
Skin: Warm, Dry and IV Access / Catheter Site
Neuro: Awake, Alert, Oriented, No Motor Deficits and No Sensory Deficits
Hematologic / Lymphatic: No Lymphadenopathy
Psych: Calm
--- NOTE | 2023-09-02 15:20 | W.PN.PUL3 ---
Today's Communication / Plan
-
CT chest today, will follow results
Continue diuresis
Incentive spirometry
Assessment
-
73-year-old female with a history of hypertension, diabetes and recent admission for GI bleeding presented with shortness of breath and fatigue requiring BiPAP support and pulmonary consulted for persistent hypoxemia 08/28/2023.
Respiratory failure-acute hypoxemic-pulse ox in the 70s on [address] chest without pulmonary embolism, small bilateral pleural effusion/atelectasis
Fluid overload-weight up 6 kg
Uoruhp-kapemlyjmh-mjqaksdiml 10.4-recent GI bleed-hemoglobin stable
Mild hyponatremia-serum sodium 132
Hypokalemia-potassium 3.0
Metabolic acidosis
Mild hyperglycemia
Mildly elevated total bilirubin
Obesity-BMI 31
Conditions present prior to admission:
Recent hospitalization 08/2023-acute GI bleed, anemia, hemorrhagic shock, coagulopathy, acute kidney injury
Hypertension.
Hyperlipidemia.
Diabetes.
Hypothyroid.
Dysphagia.
Rectal ulcers.
Neurogenic bladder.
GERD.
IBS.
Stress incontinence.
Obesity-BMI 31
Cataract surgery. Oral surgery.
Plan
Continues to require oxygen supplementation.
Patient is mainly bedbound.
Has been off the anticoagulants due to GI bleed.
-
Suspect part of the hypoxemia is due to atelectasis as well.
Discussed with Dr. Hopkins, given lack of improvement on oxygenation despite diuresis and a clear chest x-ray. Repeat CT chest today.
Will follow.
-
Suspected volume overload after recent admission for GI bleed and transfusions.
CT chest PE study negative, no significant parenchymal abnormality.
Lung exam is relatively clear to 2023.
-
Continue IV diuresis.
Continue to monitor renal function and electrolytes.
Echocardiogram, bubble study negative
-
Out of bed to chair, incentive spirometry, encouraged.
-
Would benefit from outpatient sleep disorder workup. Patient agreeable, information will be left in the chart.
-
Follow hemoglobin-stable today at 10.4 09/02/2023
Transfuse if needed
PPI
DVT prophylaxis-mechanical with recent GI bleed
GI prophylaxis-on pantoprazole
-
Information will be left in the chart for sleep evaluation in the outpatient setting.

Diagnostic data:
Chest x-ray 08/08/2023-NAD
Chest x-ray 08/24/2023-NAD
CT chest 08/08/2023-no evidence for pulmonary embolism, no significant abnormalities in the chest
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
CT chest 08/27/2023-no pulmonary embolism, small bilateral pleural effusions new compared to prior exam, mild to moderate atelectasis
GI bleeding scan 08/21/2023-no evidence for active GI bleed
Lower extremity ultrasound 08/24/2023-no evidence for DVT bilaterally
Subjective Data
-
Date of Service:
Date of Service: September 02, 2023
Chief Complaint: Pulmonary Follow Up (Hypoxemic respiratory failure)
Subjective:
Denies shortness of breath at rest
Denies cough or phlegm production
Denies wheezing
Denies chest pain
Review of Systems
General: Fever (n)
Cardiopulmonary: Dyspnea (none at rest)
GI: Abdominal Pain (n)
Neuro: Dizziness (n)
Objective Data
Data Reviewed
Vital Signs / I&O / Oxygen:
Vital Signs
Temp Pulse Resp BP Pulse Ox
98.6 F 113 17 100/72 96
09/02/23 11:22 09/02/23 08:43 09/02/23 05:30 09/02/23 08:43 09/02/23 13:58
Intake and Output
09/01/23 09/02/23 09/03/23
06:59 06:59 06:59
Intake Total 360 / 360 720 / 720
Output Total 400 / 400 1350 / 1350
Balance -40 / -40 -630 / -630
SaO2 96
Nasal Cannula flow liters per 40
minute
Physical Exam
General: Comfortable
HEENT: Normocephalic and Anicteric
Cardiovascular: S1-S2, Regular Rhythm, Murmur (n), Rub (n), Peripheral Edema (n) and Calf Tenderness (n)
Respiratory: Wheeze (n), Crackles (n), Rhonchi (n), Non-Labored Respirations and Egophony (n)
GI: Soft, Non Distended and Non Tender
Neurology: Awake, Alert and No Motor Deficits
Skin: Cyanosis (n), Jaundice (n) and Rash (n)
Labs/Micro/Reports
Lab Data
09/02/23 04:55
09/02/23 04:55
[2023-09-02] MEDS: MORPHINE SULFATE 2 MG IV (16:17)
[2023-09-02 17:08] LABS: Glucose - Point of Care 167 mg/dl (70-99)
[2023-09-02] MEDS: SENNA SYRUP 8.80000000000000071 MG PO (21:03)
[2023-09-02] MEDS: LIPITOR 10 MG PO (21:03)
[2023-09-02 21:59] LABS: Glucose - Point of Care 193 mg/dl (70-99)
[2023-09-03] VITALS (15 sets, daily range): BP systolic 91–119; BP diastolic 50–100; BMI 28.8
--- NOTE | 2023-09-03 04:08 | PTCARENOTE ---
Pt maintained on 12-15L midflow. O2 titrated throughout the night according to pt SaO2. Pt repositioned Q2 and SaO2 noted to maintain better when pt positioned on L side. Call wyman placed within reach. Bed alarm in place for pt safety.
[2023-09-03 05:35] LABS: % Basophils 0.8 % (0-2); % Eosinophils 1.7 % (0-6); % Immature Granulocytes 0.5 % (0-0.5); % Lymphocytes 24.4 % (20.5-51.1); % Monocytes 8.1 % (1.7-9.3); % Neutrophils 64.5 % (42.2-75.2); Absolute Basophils 0.1 10^3/uL (0-0.2); Absolute Eosinophils 0.1 10^3/uL (0-0.7); Absolute Lymphocytes 1.9 10^3/uL (1.2-3.4); Absolute Monocytes 0.6 10^3/uL (0.1-0.6); Hematocrit 33.4 % (37.0-47.0); Mean Corp Hgb Conc. 32.9 g/dL (33.0-37.0); Mean Corpuscular Hgb 27.7 pg (27.0-31.0); Mean Corpuscular Volume 84.1 fL (81.0-99.0); Mean Platelet Volume 9.8 fL (7.4-10.4); Nucleated Red Blood Cells % 0 %; Platelet Count 288 10^3/uL (130-400); Red Blood Cell Count 3.97 10^6/uL (4.20-5.40); White Blood Cell Count 7.7 10^3/uL (4.8-10.8)
[2023-09-03 05:59] LABS: Blood Urea Nitrogen 20 mg/dl (7-17); Calcium 8.9 mg/dl (8.4-10.2); Carbon Dioxide 30 mmol/L (22-30); Chloride 96 mmol/L (98-107); Estimated Creatinine Clearance 40 ml/min; Glucose 196 mg/dl (70-99); Potassium 4.3 mmol/L (3.5-5.1); Sodium 131 mmol/L (135-145); eGFR 39.48
[2023-09-03] MEDS: SYNTHROID 112 MCG PO (06:27)
[2023-09-03] MEDS: FOLVITE 1 MG PO (07:58)
[2023-09-03] MEDS: FEOSOL 325 MG PO (08:01)
[2023-09-03] MEDS: COLACE 100 MG PO ×2 (08:01→21:19)
[2023-09-03] MEDS: DESENEX/MITRAZOL/ZEASORB 1 APPLIC TOPICAL ×2 (08:01→21:18)
[2023-09-03] MEDS: MIRALAX PO (08:02)
[2023-09-03] MEDS: NOVOLOG FLEXPEN-LOW RESISTANCE 1 UNITS SC (08:02)
[2023-09-03] MEDS: PROTONIX 40 MG PO (08:02)
[2023-09-03 08:05] LABS: Glucose - Point of Care 164 mg/dl (70-99)
[2023-09-03] MEDS: TYLENOL 650 MG PO (08:09)
--- NOTE | 2023-09-03 08:54 | PTCARENOTE ---
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 Patient resting comfortably in bed. No events noted overnight. No complaints of pain. Still on 15L Midflow, will attempt to wean as tolerated. Will try to encourage better PO intake. Call wyman in reach.
[2023-09-03 11:50] LABS: Glucose - Point of Care 217 mg/dl (70-99)
[2023-09-03] MEDS: NOVOLOG FLEXPEN-LOW RESISTANCE 2 UNITS SC (11:52)
--- NOTE | 2023-09-03 11:56 | W.PN.PUL3 ---
Today's Communication / Plan
-
Continue oxygen supplementation, wean down as able.
Follow creatinine
Holding Lasix
Incentive spirometry
Increase mobility as able
Assessment
-
73-year-old female with a history of hypertension, diabetes and recent admission for GI bleeding presented with shortness of breath and fatigue requiring BiPAP support and pulmonary consulted for persistent hypoxemia 08/28/2023.
Respiratory failure-acute hypoxemic-pulse ox in the 70s on [address] chest without pulmonary embolism, small bilateral pleural effusion/atelectasis
Fluid overload-weight up 6 kg
Cinnot-upmazrdrkx-obooyvergp 10.4-recent GI bleed-hemoglobin stable
Mild hyponatremia-serum sodium 132
Hypokalemia-potassium 3.0
Metabolic acidosis
Mild hyperglycemia
Mildly elevated total bilirubin
Obesity-BMI 31
Conditions present prior to admission:
Recent hospitalization 08/2023-acute GI bleed, anemia, hemorrhagic shock, coagulopathy, acute kidney injury
Hypertension.
Hyperlipidemia.
Diabetes.
Hypothyroid.
Dysphagia.
Rectal ulcers.
Neurogenic bladder.
GERD.
IBS.
Stress incontinence.
Obesity-BMI 31
Cataract surgery. Oral surgery.
Plan
Continues to require oxygen supplementation. Currently on 6 L via nasal cannula, pulse ox 97% during my evaluation.
Patient is mainly bedbound. Suspect atelectasis as a contributor.
Has been off the anticoagulants due to GI bleed.
Patient appears in no distress at rest
Lung exam is relatively clear.
-
suspect volume overload after recent admission for GI bleed and transfusions.
Repeat CT 09/02/2019 chest PE study negative, no significant parenchymal abnormality. Reviewed 09/03/2023.
Echocardiogram, bubble study negative
ABG 09/01/2023: 2.50 01/30/1964. No evidence for hypercapnia. Respiratory alkalosis
Suspect part of the hypoxemia is due to atelectasis as well.
Discussed with Dr. Hopkins, given lack of improvement on oxygenation despite diuresis and a clear chest x-ray.
Increase mobility
Encourage incentive spirometry
Avoid sedation
-
Diuresis to be held today. Creatinine is elevated.
Continue to monitor renal function and electrolytes.
-
Out of bed to chair, incentive spirometry, encouraged.
-
Would benefit from outpatient sleep disorder workup. Patient agreeable, information will be left in the chart.
-
Follow hemoglobin-stable today at 10.4 09/02/2023
Transfuse if needed
PPI
DVT prophylaxis-mechanical with recent GI bleed
GI prophylaxis-on pantoprazole
-
Information will be left in the chart for sleep evaluation in the outpatient setting.

Diagnostic data:
Chest x-ray 08/08/2023-NAD
Chest x-ray 08/24/2023-NAD
CT chest 08/08/2023-no evidence for pulmonary embolism, no significant abnormalities in the chest
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
CT chest 08/27/2023-no pulmonary embolism, small bilateral pleural effusions new compared to prior exam, mild to moderate atelectasis
GI bleeding scan 08/21/2023-no evidence for active GI bleed
Lower extremity ultrasound 08/24/2023-no evidence for DVT bilaterally
Subjective Data
-
Date of Service:
Date of Service: September 03, 2023
Chief Complaint: Pulmonary Follow Up (Hypoxemic respiratory failure)
Subjective:
Offers no new pulmonary complaints
Remains on supplemental oxygen
No significant phlegm production
Mainly in bed.
Review of Systems
General: Fever (n)
Cardiopulmonary: Dyspnea (None at rest)
GI: Abdominal Pain (n) and Nausea (n)
Neuro: Headache (n)
Objective Data
Data Reviewed
Vital Signs / I&O / Oxygen:
Vital Signs
Temp Pulse Resp BP Pulse Ox
97.5 F 113 17 109/74 94
09/03/23 11:00 09/03/23 06:28 09/03/23 06:28 09/03/23 06:28 09/03/23 09:00
Intake and Output
09/02/23 09/03/23 09/04/23
06:59 06:59 06:59
Intake Total 720 / 720 880 / 880 120 / 120
Output Total 1350 / 1350 800 / 800
Balance -630 / -630 80 / 80 120 / 120
SaO2 94
Nasal Cannula flow liters per 40
minute
Physical Exam
General: Comfortable
HEENT: Normocephalic and Anicteric
Cardiovascular: S1-S2, Regular Rhythm, Murmur (n), Rub (n), Peripheral Edema (n) and Calf Tenderness (n)
Respiratory: Wheeze (n), Crackles (n), Rhonchi (n), Non-Labored Respirations and Egophony (n)
GI: Soft, Non Distended and Non Tender
Neurology: Awake, Alert and No Motor Deficits
Skin: Cyanosis (n), Jaundice (n) and Rash (n)
Labs/Micro/Reports
Lab Data
09/03/23 05:23
09/03/23 05:23
--- NOTE | 2023-09-03 13:54 | CM ---
Reviewed the chart notes. PT recommendation is SNF. Patient continues on midflow O2 via nc. CM continues to be available to patient/family and is monitoring medical plan for needs at discharge.
Plan: Discharge to [facility] rehab when medically stable. Precert will be required.
--- NOTE | 2023-09-03 16:22 | W.PN.HOSP.TC ---
Today's Communication/Plan
-
Increase activity.
Incentive spirometry.
Attempt to wean off oxygen
Hold Lasix and monitor creatinine
Assessment / Plan
Assessment / Plan
Assessment:
Kasia Diaz, 73 year-old female, presented to the emergency with worsening dyspnea on 08-27-23. Notably, she was hospitalized at from 08-19-23 to 08-26-23 secondary to GI bleed. She underwent endoscopic examination at that time showing
multiple rectal ulcerations.�She received a total of 4 units of PRBCs and 2 units of FFP during that hospitalization.�Of note, patient had unexplained episodes of hypoxemia during her visit - requiring use of NRB mask at times.�She was seen and
evaluated by pulmonary and no clear etiology was noted.�Her oxygen requirements improved prior to discharge.
Patient was discharged to SNF/rehab on 08-26-23. Returned to the next day when she was noted to experience increased shortness of breath during PT at the rehab.� She was transported to the ED for further evaluation.
Patient arrived to the ED on 10 lpm of supplemental oxygen.�She does not wear oxygen at baseline; however, recent records would suggest she is chronically on nocturnal O2 from 4-5 lpm (though nocturnal oximetry done during recent admission was also
reportedly normal).
Oxygen was initially weaned in the ED; however, patient became increasingly hypoxemic with SpO2 falling into the 70s on 6 lpm.� She was placed on NRB and then on BiPAP in order to maintain adequate saturations. Seen and examined today on 12 L via
midlflow nasal cannula.�
Impression:
* Acute (on chronic?) hypoxemic respiratory failure
*KRISTA with diuresis
* Rectal ulceration/GI bleed/acute blood loss anemia
* Hyponatremia
* Obstructive uropathy
* Type II diabetes mellitus
* Constipation
* Sacral wound
* Hypertension
* Hyperlipidemia
* Hypothyroidism
* GERD
* Stress incontinence
* Obesity-BMI 31
Plan:
Acute (on chronic?) hypoxemic respiratory failure
Multifactorial and due to:
� Acute diastolic CHF
� Bilateral atelectasis
- Admitted on 08-27-23 for further evaluation and treatment.
- Required BiPAP support - then quickly weaned to mid-flow.
- No evidence of infectious etiology. COVID / Flu both negative in the ED.
- CT without PE and shows only small bilateral effusions and evidence for atelectasis. Repeated CT scan of the chest PE protocol on 09/02 with bilateral atelectasis, minimal pleural effusion
Negative for pulmonary embolism.
- Suspected component of volume overload (weight was up approx 6 kg at admission, presumably from multiple transfusions during her previous admission).
-Responding to IV diuresis with weight plateaued at 87 kg now with rising creatinine at 1.4. Hold further Lasix
-2D echocardiogram with preserved biventricular function and no significant valvular abnormalities
-Noted with periods of desaturations primarily early in the morning improving during the day. Well diuresed and currently euvolemic now with rising creatinine. Repeat CT scan with clear lung murry and negative for pulmonary embolism. Increase
activity. Incentive spirometry. Continue wean off oxygen as tolerates
Hypokalemia secondary to loop diuretics. Replete and follow BMP
Rectal Ulcers/GI Bleed/Acute Blood Loss Anemia
- Stable / improving.� No evidence of continued / recurrent blood loss.
- Hgb continues to improve from prior.
- Follow clinically.
Mild Hyponatremia
- Stable.� Na level is at / near known baseline.
- Follow for any changes.
Obstructive Uropathy
- Mullins Catheter - Present on Admission
- Prior KRISTA has fully resolved with Mullins in place.
- Maintain Mullins and follow-up with Urology as an outpatient as planned.
DM-II
- Stable.� Hold basal insulin for now.
- Follow glucose and cover with SSI as needed.
- Hold metformin s/p CTA done in the ED.
Constipation / Stercoral Colitis
- Stable.� Patient complains of too frequent BMs.
- Continue bowel regimen but decreased MiraLax to once daily for now.
- Follow clinically.
Sacral Wound - Present on Admission
- Stable.� Wound Care evaluation.
DVT Prophylaxis
- SCDs
Code Status
- DNR
Anticipated Discharge: 24 - 48 hours
Subjective/Interval History
-
Date of Service: September 03, 2023
Objective Data
-
Labs:
Laboratory Results
09/03/23
05:23
WBC 7.7
Hgb 11.0 L
Hct 33.4 L
Plt Count 288
Sodium 131 L
Potassium 4.3
Chloride 96 L
Carbon Dioxide 30
BUN 20 H
Creatinine 1.4 H
Glucose 196 H
Calcium 8.9
Vital Signs:
Vital Signs
Temp Pulse Resp BP Pulse Ox
97.7 F 88 20 102/61 98
09/03/23 15:00 09/03/23 14:00 09/03/23 14:00 09/03/23 14:00 09/03/23 15:14
I&O
09/02/23 09/03/23 09/04/23
06:59 06:59 06:59
Intake Total 720 / 720 880 / 880 120 / 120
Output Total 1350 / 1350 800 / 800
Balance -630 / -630 80 / 80 120 / 120
Physical Exam
-
General: Well Developed and No Apparent Distress
HEENT: Normocephalic, Atraumatic and Moist Mucous Membranes
Respiratory: Clear to Auscultation
Cardiac: Regular Rhythm and S1/S2; Negative Murmur, Rub or Gallop
GI: Soft, Nontender, Nondistended and Normal Bowel Sounds; Negative Organomegaly
Rectal: Deferred by Provider
Musculoskeletal: No Clubbing, No Cyanosis and No Edema
Skin: Negative Rash
Neuro: Nonfocal/Grossly Intact
[2023-09-03 16:33] LABS: Glucose - Point of Care 144 mg/dl (70-99)
[2023-09-03] MEDS: NOVOLOG FLEXPEN-LOW RESISTANCE SC (16:57)
--- NOTE | 2023-09-03 18:22 | PTCARENOTE ---
Patient moments of tachycardia as high as 145. EKG done. Hospitalist made aware. Patient resting at HR 110's with the momentary spikes to 140's then back down. No complaints of chest pain or feeling of heart racing. Patient asymptomatic.
[2023-09-03] MEDS: SENNA SYRUP 8.80000000000000071 MG PO (21:19)
[2023-09-03] MEDS: LIPITOR 10 MG PO (21:19)
[2023-09-03 21:51] LABS: Glucose - Point of Care 220 mg/dl (70-99)
[2023-09-04] VITALS (12 sets, daily range): BP systolic 92–136; BP diastolic 52–112; PULSE 104; O2SAT 94; BMI 28.7
[2023-09-04 04:47] LABS: Blood Urea Nitrogen 23 mg/dl (7-17); Calcium 9.3 mg/dl (8.4-10.2); Carbon Dioxide 31 mmol/L (22-30); Chloride 95 mmol/L (98-107); Estimated Creatinine Clearance 47 ml/min; Glucose 163 mg/dl (70-99); Sodium 133 mmol/L (135-145)
[2023-09-04] MEDS: SYNTHROID 112 MCG PO (05:38)
[2023-09-04 07:50] LABS: Glucose - Point of Care 182 mg/dl (70-99)
[2023-09-04] MEDS: FOLVITE 1 MG PO (08:59)
[2023-09-04] MEDS: NOVOLOG FLEXPEN-LOW RESISTANCE 1 UNITS SC (08:59)
[2023-09-04] MEDS: FEOSOL 325 MG PO (08:59)
[2023-09-04] MEDS: DESENEX/MITRAZOL/ZEASORB 1 APPLIC TOPICAL ×2 (09:00→19:19)
[2023-09-04] MEDS: PROTONIX 40 MG PO (09:00)
[2023-09-04] MEDS: COLACE 100 MG PO ×2 (09:00→19:16)
[2023-09-04] MEDS: MIRALAX 17 GRAMS PO (09:00)
--- NOTE | 2023-09-04 09:06 | PN.CDI ---
CDI
- -
CDI:
Physician Documentation Request
Admit Date: 08/27/23 22:22
Dear Doctor Kellie,
Please review the following and provide your response in the progress notes.
Clinical Indicators:
- [employer] Plant Operations Engineer note indicates moderate protein calorie malnutrition
- Unintentional weight loss >20% in 1 year
- Nutrient intake </= 75% estimated needs, >/= 1 month
Based on the information, which of the following most accurately represents the patient's nutritional status?
Moderate protein calorie malnutrition
Other
[place] Criteria ([facility] Hospitalist 2017)
2 or more criteria must be present for either
non severe or severe malnutrition
Note that the criteria differs related to the
presence of an acute or chronic illness
Acute Illness Chronic Illness
Energy Intake Non Severe: <75% for >7 days Non Severe: <75% for >1 month
Severe: <50% for >5 days Severe: <75% for >1 month
Weight Loss Non Severe: 1-2% over 1 week Non Severe: 5% over 1 month
5% over 1 month 7.5% over 3 months
7.5% over 3 months 10% over 6 months
1 year N/A 20% over 1 year
Severe: >2% over 1 week Severe: >5% over 1 month
>5% over 1 month >7.5% over 3 months
>7.5% over 3 months >10% over 6 months
1 year N/A >20% over 1 year
Body Fat Non Severe: Mild Decrease Non Severe: Mild Loss
Severe: Moderate Decrease Severe: Severe Loss
Muscle Mass Non Severe: Mild Decrease Non Severe: Mild Loss
Severe: Moderate Decrease Severe: Severe Loss
Fluid Accumulation Non Severe: Mild Accumulation Non Severe: Mild Accumulation
Severe: Moderate to severe Severe: Moderate to severe
accumulation accumulation
Reduced Co Director Strength Non Severe: N/A Non Severe: N/A
Severe: Measurably reduced Severe: Measurably reduced
Additional criteria that can be used to Determine if Mild or Moderate Malnutrition ([employer] Manual 2018)
Mild Moderate Severe
Albumin gm/dl <3.0 gm/dl <2.5 gm/dl <2.0 gm/dl
Pre Albumin mg/dl <15 gm/dl <10 mg/dl <5.0 mg/dl
BMI <18.5 <17 <16
Use of terms such as suspected, likely, concern for, or probable (associated with a specific diagnosis that is being evaluated, monitored, or treated as if it exists) are acceptable and can be coded in the inpatient setting, when documented at the
time of discharge.
Thank you,
hSiva Chou RN
CDI Specialist
Please use your independent medical judgment in providing your response.
--- NOTE | 2023-09-04 11:10 | W.PN.PUL3 ---
Today's Communication / Plan
-
Diuretics as able-currently on hold due to increased creatinine. Defer to primary team.
Increase activity as able
Incentive spirometry encourage, patient is bedbound.
Oxygen supplementation-currently at 4 L. Wean down as able.
May need oxygen to be [facility].
Assessment
-
73-year-old female with a history of hypertension, diabetes and recent admission for GI bleeding presented with shortness of breath and fatigue requiring BiPAP support and pulmonary consulted for persistent hypoxemia 08/28/2023.
Respiratory failure-acute hypoxemic-pulse ox in the 70s on [address] chest without pulmonary embolism, small bilateral pleural effusion/atelectasis
Fluid overload-weight up 6 kg
Jhelvj-zbpgwztiii-cdhvwpjlct 10.4-recent GI bleed-hemoglobin stable
Mild hyponatremia-serum sodium 132
Hypokalemia-potassium 3.0
Metabolic acidosis
Mild hyperglycemia
Mildly elevated total bilirubin
Obesity-BMI 31
Conditions present prior to admission:
Recent hospitalization 08/2023-acute GI bleed, anemia, hemorrhagic shock, coagulopathy, acute kidney injury
Hypertension.
Hyperlipidemia.
Diabetes.
Hypothyroid.
Dysphagia.
Rectal ulcers.
Neurogenic bladder.
GERD.
IBS.
Stress incontinence.
Obesity-BMI 31
Cataract surgery. Oral surgery.
Plan
Continues to require oxygen supplementation. Currently on 4 L via nasal cannula, pulse ox 94% during my evaluation.
Patient is mainly bedbound. Suspect atelectasis as a contributor.
She is nonambulatory.
Has been off the anticoagulants due to GI bleed. No pulmonary embolism on CT chest from 09/02/2023.
Patient appears in no distress at rest
Lung exam is relatively clear.
-
suspect volume overload after recent admission for GI bleed and transfusions.
Repeat CT 09/02/2019 chest PE study negative, no significant parenchymal abnormality. Reviewed 09/03/2023.
Echocardiogram, bubble study negative
ABG 09/01/2023: 2.50 01/30/1964. No evidence for hypercapnia. Respiratory alkalosis
Suspect part of the hypoxemia is due to atelectasis as well.
Discussed with Dr. Hopkins, given lack of improvement on oxygenation despite diuresis and a clear chest x-ray.
Increase mobility
Encourage incentive spirometry
Avoid sedation
-
Diuresis held due to increased creatinine.
Her weight is trending lower
Defer further diuresis to primary team.
Continue to monitor renal function and electrolytes.
-
Out of bed to chair, incentive spirometry, encouraged.
-
Would benefit from outpatient sleep disorder workup. Patient agreeable, information will be left in the chart.
-
Follow hemoglobin-stable today at 11-on 09/03/2023
Transfuse if needed
PPI
DVT prophylaxis-mechanical with recent GI bleed
GI prophylaxis-on pantoprazole
-
Patient may need low rate of oxygen supplementation to go home.
Patient is [facility]
-
Information will be left in the chart for sleep evaluation in the outpatient setting.
-

Diagnostic data:
Chest x-ray 08/08/2023-NAD
Chest x-ray 08/24/2023-NAD
CT chest 08/08/2023-no evidence for pulmonary embolism, no significant abnormalities in the chest
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
CT chest 08/27/2023-no pulmonary embolism, small bilateral pleural effusions new compared to prior exam, mild to moderate atelectasis
GI bleeding scan 08/21/2023-no evidence for active GI bleed
Lower extremity ultrasound 08/24/2023-no evidence for DVT bilaterally
Subjective Data
-
Date of Service:
Date of Service: September 04, 2023
Chief Complaint: Pulmonary Follow Up (Hypoxemic respiratory failure)
Subjective:
Patient offers no new complaints
Remains supplemental oxygen
Mainly in bed
Not ambulating denies any significant cough or increased phlegm production
Denies any chest discomfort.
Review of Systems
General: Fever (n)
GI: Abdominal Pain (n), Nausea (n) and Vomiting (n)
Objective Data
Data Reviewed
Vital Signs / I&O / Oxygen:
Vital Signs
Temp Pulse Resp BP Pulse Ox
97.4 F 102 22 104/86 95
09/04/23 07:43 09/04/23 04:00 09/04/23 04:00 09/04/23 04:00 09/04/23 02:00
Intake and Output
09/03/23 09/04/23 09/05/23
06:59 06:59 06:59
Intake Total 880 / 880 360 / 360 180 / 180
Output Total 800 / 800 525 / 525 200 / 200
Balance 80 / 80 -165 / -165 -20 / -20
SaO2 95
Nasal Cannula flow liters per 4
minute
Physical Exam
General: Comfortable
HEENT: Normocephalic and Anicteric
Cardiovascular: S1-S2, Regular Rhythm, Murmur (n), Rub (n), Peripheral Edema (n) and Calf Tenderness (n)
Respiratory: Wheeze (n), Crackles (n), Rhonchi (n), Non-Labored Respirations and Egophony (n)
GI: Soft, Non Distended and Non Tender
Neurology: Awake, Alert and No Motor Deficits
Skin: Cyanosis (n), Jaundice (n) and Rash (n)
Labs/Micro/Reports
Lab Data
09/03/23 05:23
09/04/23 04:05
--- NOTE | 2023-09-04 14:45 | CM ---
Patient from [facility] with Dx Acute hypoxic respiratory failure. O2 4L midflow. Receiving IV Lasix. Receiving IV Lasix. PT & OT; requires assist of 2, recommend skilled rehab.
As per prior CM notes; the patient's is also at [facility] currently for short term rehab. The will be discharged to home. The has spoken with them about the patient staying at [facility] in LTC and is completing the
paperwork but it is unknown if he has discussed that with patient.
Spoke with Yolanda, [facility]; provided clinical update. They are able to accept the patient back for rehab when she is medically ready and as long as O2 liter flow is not > 8L. The for report [phone], fax [phone].
Insurance auth is not needed by SNF for rehab, as patient will be switching to straight Medicare when she returns to SNF.
Plan continue to follow patient's O2 needs.
Plan return to [facility] when medically ready.
--- NOTE | 2023-09-04 15:26 | W.PN.HOSP.TC ---
Addendum entered and electronically signed by Osmin Hopkins MD 09/04/23 18:28:
Sacral pressure (decubitus) ulcer
Addendum entered and electronically signed by Osmin Hopkins MD 09/04/23 17:49:
Patient seen and examined
Discussed with resident
Discussed with pulmonology
Impression/plan:
Acute hypoxic respiratory insufficiency
Initially volume overloaded with with acute CHF preserved EF due to recent large volume transfusions with GI bleed.
Responded to IV diuresis.
Remains hypoxic
Repeated CT scan of the chest with improved bilateral infiltrates, negative for PE, minimal pleural effusions.
ABG not consistent with CO2 retention.
Suspect bilateral atelectasis.
Has been able to wean off oxygen from 12 to 15 L to 4 L today.
Hold further Lasix as creatinine went up to 1.4�1.2.
Wean off oxygen as tolerates to at least 2 L nasal cannula (was not on oxygen supplementation prior to presentation)
Increase activity.
Incentive spirometry
Further strategy with diuresis is as needed Lasix for weight gain.
Persistent sinus tachycardia.
Monitor closely
Add low-dose of beta-tone
History of recent rectal bleeding with stercoral colitis
Hemoglobin remained stable.
Original Note:
Today's Communication/Plan
-
- Wean oxygen as tolerated.
- Incentive spirometry.
- Increase activity as tolerated.
- Continue to hold Lasix and monitor BMP.
- Metoprolol for tachycardia.
- Might need to be discharged on oxygen.
Assessment / Plan
Assessment / Plan
Assessment:
Kasia Diaz, 73 year-old female, presented to the emergency with worsening dyspnea on 08-27-23. Notably, she was hospitalized at from 08-19-23 to 08-26-23 secondary to GI bleed. She underwent endoscopic examination at that time showing
multiple rectal ulcerations.�She received a total of 4 units of PRBCs and 2 units of FFP during that hospitalization.�Of note, patient had unexplained episodes of hypoxemia during her visit - requiring use of NRB mask at times.�She was seen and
evaluated by pulmonary and no clear etiology was noted.�Her oxygen requirements improved prior to discharge.
Patient was discharged to SNF/rehab on 08-26-23. Returned to the next day when she was noted to experience increased shortness of breath during PT at the rehab.� She was transported to the ED for further evaluation.
Patient arrived to the ED on 10 lpm of supplemental oxygen.�She does not wear oxygen at baseline; however, recent records would suggest she is chronically on nocturnal O2 from 4-5 lpm (though nocturnal oximetry done during recent admission was also
reportedly normal).
Oxygen was initially weaned in the ED; however, patient became increasingly hypoxemic with SpO2 falling into the 70s on 6 lpm.� She was placed on NRB and then on BiPAP in order to maintain adequate saturations. Seen and examined today on 12 L via
midlflow nasal cannula.�
Impression:
* Acute (on chronic?) hypoxemic respiratory failure
*KRISTA with diuresis
* Rectal ulceration/GI bleed/acute blood loss anemia
* Hyponatremia
* Obstructive uropathy
* Type II diabetes mellitus
* Constipation
* Sacral wound
* Hypertension
* Hyperlipidemia
* Hypothyroidism
* GERD
* Stress incontinence
* Obesity-BMI 31
Plan:
Acute (on chronic?) hypoxemic respiratory failure
Multifactorial and due to:
� Acute diastolic CHF
� Bilateral atelectasis
- Admitted on 08-27-23 for further evaluation and treatment.
- Required BiPAP support - then quickly weaned to mid-flow.
- No evidence of infectious etiology. COVID / Flu both negative in the ED.
- CT without PE and shows only small bilateral effusions and evidence for atelectasis. Repeated CT scan of the chest PE protocol on 09/02 with bilateral atelectasis, minimal pleural effusion
Negative for pulmonary embolism.
- Suspected component of volume overload (weight was up approx 6 kg at admission, presumably from multiple transfusions during her previous admission).
- Responded to IV diuresis with weight plateaued at 87 kg now with rising creatinine at 1.4. Hold further Lasix
- 2D echocardiogram with preserved biventricular function and no significant valvular abnormalities
- Noted with periods of desaturations primarily early in the morning improving during the day. Well diuresed and currently euvolemic now with rising creatinine. Repeat CT scan with clear lung murry and negative for pulmonary embolism. Increase
activity. Incentive spirometry. Continue wean off oxygen as tolerates
Hypokalemia secondary to loop diuretics. Replete and follow BMP
Tachycardia
- Start metoprolol; will follow.
Rectal Ulcers/GI Bleed/Acute Blood Loss Anemia
- Stable / improving.� No evidence of continued / recurrent blood loss.
- Hgb continues to improve from prior.
- Follow clinically.
Mild Hyponatremia
- Stable.� Na level is at / near known baseline.
- Follow for any changes.
Obstructive Uropathy
- Mullins Catheter - Present on Admission
- Prior KRISTA has fully resolved with Mullins in place.
- Maintain Mullins and follow-up with Urology as an outpatient as planned.
DM-II
- Stable.� Hold basal insulin for now.
- Follow glucose and cover with SSI as needed.
- Hold metformin s/p CTA done in the ED.
Constipation / Stercoral Colitis
- Stable.� Patient complains of too frequent BMs.
- Continue bowel regimen but decreased MiraLax to once daily for now.
- Follow clinically.
Sacral Wound - Present on Admission
- Stable.� Wound Care evaluation.
DVT Prophylaxis
- SCDs
Code Status
- DNR
Anticipated Discharge: > 48 hours
Subjective/Interval History
-
Date of Service: September 04, 2023
Objective Data
-
Labs:
Laboratory Results
09/04/23
04:05
Sodium 133 L
Potassium 4.0
Chloride 95 L
Carbon Dioxide 31 H
BUN 23 H
Creatinine 1.2 H
Glucose 163 H
Calcium 9.3
Vital Signs:
Vital Signs
Temp Pulse Resp BP Pulse Ox
97.7 F 112 21 130/88 94
09/04/23 11:14 09/04/23 10:00 09/04/23 10:00 09/04/23 10:00 09/04/23 11:43
I&O
09/03/23 09/04/23 09/05/23
06:59 06:59 06:59
Intake Total 880 / 880 360 / 360 420 / 420
Output Total 800 / 800 525 / 525 300 / 300
Balance 80 / 80 -165 / -165 120 / 120
Review of Systems
-
History Source: Patient
Constitutional: Reports Fatigue
EENT: Reports No Symptoms Reported
Respiratory: Reports Trouble Breathing
Cardiac: Reports No Symptoms
Abdomen/GI: Reports No Symptoms
Genitourinary: Reports No Symptoms
Musculoskeletal: Reports No Symptoms
Skin: Reports No Symptoms
Neuro: Reports No Symptoms
Endocrine: Reports No Symptoms
Hematologic / Lymphatic: Reports No Symptoms
Allergy / Immunology: Reports No Symptoms
Physical Exam
-
General: No Apparent Distress and Comfortable
HEENT: Normocephalic, Atraumatic, Moist Mucous Membranes and Anicteric
Respiratory: Clear to Auscultation
Cardiac: Regular Rhythm and S1/S2
GI: Soft, Nontender, Nondistended and No Hepatosplenomegaly
Genito-urinary: No Costovertebral Tender
Musculoskeletal: No Clubbing, No Cyanosis and No Edema
Skin: Warm, Dry and IV Access / Catheter Site
Neuro: Awake, Alert, Oriented, No Motor Deficits and No Sensory Deficits
Hematologic / Lymphatic: No Lymphadenopathy
Psych: Calm
[2023-09-04] MEDS: NOVOLOG FLEXPEN-LOW RESISTANCE SC (16:04)
[2023-09-04] MEDS: NOVOLOG FLEXPEN-LOW RESISTANCE 2 UNITS SC (17:05)
[2023-09-04 17:14] LABS: Glucose - Point of Care 212 mg/dl (70-99)
[2023-09-04 17:28] LABS: Glucose - Point of Care 232 mg/dl (70-99)
[2023-09-04] MEDS: LIPITOR 10 MG PO (19:16)
[2023-09-04] MEDS: SENNA SYRUP 8.80000000000000071 MG PO (19:16)
[2023-09-04] MEDS: LOPRESSOR 12.5 MG PO (19:16)
[2023-09-04 21:58] LABS: Glucose - Point of Care 163 mg/dl (70-99)
--- NOTE | 2023-09-04 23:11 | PTCARENOTE ---
Pt received at beginning of shift resting in bed. AAOx3. Denied any pain or discomfort. POX on 3L MF 93%. When pt was turning onto right side pt desatted down to 65% and maintaining that pox. Was placed on 15L MF with NRM pox only up to 88%. Pt was
then placed back onto her left side where her POX immediately returned to 99%. NRM removed and MF down to 5L with POX 93%. Lungs shallow/diminished. VSS. Afebrile. SR/ST on CM. Mullins draining yellow/cloudy urine. Desenex applied to B/L groin. Rest
of assessment as documented. Call wyman remains within reach. Will continue to monitor.
[2023-09-05] VITALS (13 sets, daily range): BP systolic 53–114; BP diastolic 20–97; BMI 28.4
[2023-09-05 08:03] LABS: Glucose - Point of Care 181 mg/dl (70-99)
[2023-09-05] MEDS: COLACE 100 MG PO ×2 (08:31→21:10)
[2023-09-05] MEDS: FOLVITE 1 MG PO (08:31)
[2023-09-05] MEDS: LOPRESSOR 12.5 MG PO ×2 (08:32→21:10)
[2023-09-05] MEDS: FEOSOL 325 MG PO (08:34)
[2023-09-05] MEDS: PROTONIX 40 MG PO (08:35)
[2023-09-05] MEDS: MIRALAX 17 GRAMS PO (08:35)
[2023-09-05] MEDS: SYNTHROID 112 MCG PO (08:39)
[2023-09-05] MEDS: NOVOLOG FLEXPEN-LOW RESISTANCE 1 UNITS SC (08:56)
[2023-09-05] MEDS: DESENEX/MITRAZOL/ZEASORB 1 APPLIC TOPICAL ×2 (08:56→21:10)
[2023-09-05 10:09] LABS: % Basophils 0.8 % (0-2); % Eosinophils 1.8 % (0-6); % Immature Granulocytes 0.6 % (0-0.5); % Lymphocytes 27.5 % (20.5-51.1); % Monocytes 8.2 % (1.7-9.3); % Neutrophils 61.1 % (42.2-75.2); Absolute Basophils 0.1 10^3/uL (0-0.2); Absolute Eosinophils 0.1 10^3/uL (0-0.7); Absolute Lymphocytes 1.7 10^3/uL (1.2-3.4); Absolute Monocytes 0.5 10^3/uL (0.1-0.6); Absolute Neutrophils 3.8 10^3/uL (1.4-6.5); Hematocrit 32.6 % (37.0-47.0); Hemoglobin 10.9 g/dL (12.0-16.0); Mean Corp Hgb Conc. 33.4 g/dL (33.0-37.0); Mean Corpuscular Hgb 28.2 pg (27.0-31.0); Mean Corpuscular Volume 84.2 fL (81.0-99.0); Mean Platelet Volume 10.2 fL (7.4-10.4); Nucleated Red Blood Cells % 0 %; Platelet Count 292 10^3/uL (130-400); Red Blood Cell Count 3.87 10^6/uL (4.20-5.40); Red Cell Dist. Width 21.5 % (11.5-14.5); White Blood Cell Count 6.2 10^3/uL (4.8-10.8)
[2023-09-05 10:21] LABS: Blood Urea Nitrogen 23 mg/dl (7-17); Calcium 9.1 mg/dl (8.4-10.2); Carbon Dioxide 25 mmol/L (22-30); Chloride 100 mmol/L (98-107); Estimated Creatinine Clearance 47 ml/min; Glucose 159 mg/dl (70-99); Potassium 3.6 mmol/L (3.5-5.1); Sodium 131 mmol/L (135-145)
--- NOTE | 2023-09-05 12:00 | CM ---
SPoke to attending, RN and patient. Plan for discharge back to [facility] tomorrow. CM spoke to NSg news production supervisor at SNF to update her on plan.
Report: Call [phone] ask for nursing news production supervisor.
fax [phone].
IMM reviewed and signed today.
LEft VM for spouse on his cell phone about plan d/c tomorrow.
Medical necessity and transport forms completed and put on chart.
[2023-09-05 12:30] LABS: Glucose - Point of Care 205 mg/dl (70-99)
[2023-09-05] MEDS: NOVOLOG FLEXPEN-LOW RESISTANCE 2 UNITS SC ×2 (13:07→17:46)
--- NOTE | 2023-09-05 14:22 | W.PN.PUL3 ---
Today's Communication / Plan
-
Diuretics as able-currently on hold due to increased creatinine. Defer to primary team.
Increase activity as able
Incentive spirometry encourage, patient is bedbound.
Oxygen supplementation-currently at 2 L. Wean down as able.
May need oxygen to be transferred to assisted
Assessment
-
73-year-old female with a history of hypertension, diabetes and recent admission for GI bleeding presented with shortness of breath and fatigue requiring BiPAP support and pulmonary consulted for persistent hypoxemia 08/28/2023.
Respiratory failure-acute hypoxemic-pulse ox in the 70s on [address] chest without pulmonary embolism, small bilateral pleural effusion/atelectasis
Fluid overload-weight up 6 kg
Bxvqqe-wnjtyppjfh-bexzmkkehb 10.4-recent GI bleed-hemoglobin stable
Mild hyponatremia-serum sodium 132
Hypokalemia-potassium 3.0
Metabolic acidosis
Mild hyperglycemia
Mildly elevated total bilirubin
Obesity-BMI 31
Conditions present prior to admission:
Recent hospitalization 08/2023-acute GI bleed, anemia, hemorrhagic shock, coagulopathy, acute kidney injury
Hypertension.
Hyperlipidemia.
Diabetes.
Hypothyroid.
Dysphagia.
Rectal ulcers.
Neurogenic bladder.
GERD.
IBS.
Stress incontinence.
Obesity-BMI 31
Cataract surgery. Oral surgery.
Plan
Continues to require oxygen supplementation. Currently on 2 L via nasal cannula, pulse ox 95% during my evaluation.
Patient is mainly bedbound. Suspect atelectasis as a contributor.
She is nonambulatory.
Has been off the anticoagulants due to GI bleed. No pulmonary embolism on CTA chest from 09/02/2023.
Patient appears in no distress at rest
Lung exam is relatively clear.
-
suspect volume overload after recent admission for GI bleed and transfusions.
Repeat CT 09/02/2019 chest PE study negative, no significant parenchymal abnormality.
Echocardiogram, bubble study negative
ABG 09/01/2023: 2.50 01/30/1964. No evidence for hypercapnia. Respiratory alkalosis
Suspect part of the hypoxemia is due to atelectasis
Discussed with Dr. Hopkins, given lack of improvement on oxygenation despite diuresis and a clear chest x-ray.
Increase mobility
Encourage incentive spirometry
Avoid sedation
-
Diuresis held due to increased creatinine.
Her weight is trending lower
Defer further diuresis to primary team.
Continue to monitor renal function and electrolytes.
-
Out of bed to chair, incentive spirometry, encouraged.
-
Would benefit from outpatient sleep disorder workup. Patient agreeable, information will be left in the chart.
-
Follow hemoglobin
Transfuse if needed to keep Hb>7g/dL
PPI
DVT prophylaxis-mechanical with recent GI bleed
GI prophylaxis-on pantoprazole
-
Patient may need low rate of oxygen supplementation to go home.
Patient is anxious to go back to her assisted
-
Information will be left in the chart for sleep evaluation in the outpatient setting.
-

Diagnostic data:
Chest x-ray 08/08/2023-NAD
Chest x-ray 08/24/2023-NAD
CTA Chest 09-02-2023:
No evidence of pulmonary embolism.
Interval resolution of previous bilateral small pleural effusions. Bibasilar groundglass opacity has also improved, which may have represented atelectasis or mild alveolar edema.
No evidence of pneumonia.
Tiny pulmonary nodules noted, measuring up to 5 mm. Consider follow-up examination in one year if the patient is considered at increased risk.
CT chest 08/08/2023-no evidence for pulmonary embolism, no significant abnormalities in the chest
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
CT chest 08/27/2023-no pulmonary embolism, small bilateral pleural effusions new compared to prior exam, mild to moderate atelectasis
GI bleeding scan 08/21/2023-no evidence for active GI bleed
Lower extremity ultrasound 08/24/2023-no evidence for DVT bilaterally
Subjective Data
-
Date of Service:
Date of Service: September 05, 2023
Chief Complaint: Pulmonary Follow Up (Hypoxemic respiratory failure)
Subjective:
Pt seen this afternoon. She feel well. Denies chest pain, CORCORAN, f/c. HR 96, RR19 and SpO2 96% on 2L/min NC.
Review of Systems
General: Other (Negative unless mentioned above)
Objective Data
Data Reviewed
Vital Signs / I&O / Oxygen:
Vital Signs
Temp Pulse Resp BP Pulse Ox
98.2 F 90 17 109/60 96
09/05/23 19:08 09/05/23 14:00 09/05/23 14:00 09/05/23 14:00 09/05/23 14:00
Intake and Output
09/04/23 09/05/23 09/06/23
06:59 06:59 06:59
Intake Total 360 / 360 760 / 760 840 / 840
Output Total 525 / 525 500 / 500 200 / 200
Balance -165 / -165 260 / 260 640 / 640
SaO2 96
Nasal Cannula flow liters per 3
minute
Physical Exam
General: Comfortable
HEENT: Normocephalic and Anicteric
Cardiovascular: S1-S2, Murmur (n), Rub (n), Peripheral Edema (n) and Calf Tenderness (n)
Respiratory: Clear, Wheeze (n), Crackles (n), Rhonchi (n), Non-Labored Respirations and Egophony (n)
GI: Soft, Non Distended and Non Tender
Neurology: Awake and Alert
Skin: Cyanosis (n), Jaundice (n) and Rash (n)
Labs/Micro/Reports
Lab Data
09/05/23 09:52
09/05/23 09:52
--- NOTE | 2023-09-05 15:11 | W.PN.HOSP.TC ---
Today's Communication/Plan
-
wean o2
monitor tele
SNF in 24 hours if stable
Assessment / Plan
Assessment / Plan
Assessment:
Kasia Diaz, 73 year-old female, presented to the emergency with worsening dyspnea on 08-27-23. Notably, she was hospitalized at from 08-19-23 to 08-26-23 secondary to GI bleed. She underwent endoscopic examination at that time showing
multiple rectal ulcerations.�She received a total of 4 units of PRBCs and 2 units of FFP during that hospitalization.�Of note, patient had unexplained episodes of hypoxemia during her visit - requiring use of NRB mask at times.�She was seen and
evaluated by pulmonary and no clear etiology was noted.�Her oxygen requirements improved prior to discharge.
Patient was discharged to SNF/rehab on 08-26-23. Returned to the next day when she was noted to experience increased shortness of breath during PT at the rehab.� She was transported to the ED for further evaluation.
Patient arrived to the ED on 10 lpm of supplemental oxygen.�She does not wear oxygen at baseline; however, recent records would suggest she is chronically on nocturnal O2 from 4-5 lpm (though nocturnal oximetry done during recent admission was also
reportedly normal).
Oxygen was initially weaned in the ED; however, patient became increasingly hypoxemic with SpO2 falling into the 70s on 6 lpm.� She was placed on NRB and then on BiPAP in order to maintain adequate saturations. Seen and examined today on 12 L via
midlflow nasal cannula.�
Impression:
* Acute (on chronic?) hypoxemic respiratory failure
*KRISTA with diuresis
* Rectal ulceration/GI bleed/acute blood loss anemia
* Hyponatremia
* Obstructive uropathy
* Type II diabetes mellitus
* Constipation
* Sacral wound
* Hypertension
* Hyperlipidemia
* Hypothyroidism
* GERD
* Stress incontinence
* Obesity-BMI 31
Plan:
Acute (on chronic?) hypoxemic respiratory failure
Multifactorial and due to:
� Acute diastolic CHF
� Bilateral atelectasis
- Admitted on 08-27-23 for further evaluation and treatment.
- Required BiPAP support - then quickly weaned to mid-flow. now on 2LNC
- No evidence of infectious etiology. COVID / Flu both negative in the ED.
- CT without PE and shows only small bilateral effusions and evidence for atelectasis. Repeated CT scan of the chest PE protocol on 09/02 with bilateral atelectasis, minimal pleural effusion
Negative for pulmonary embolism.
- Suspected component of volume overload (weight was up approx 6 kg at admission, presumably from multiple transfusions during her previous admission).
- Responded to IV diuresis with weight plateaued at 87 kg now with rising creatinine at 1.4. Hold further Lasix as Cr. improves. Can use prn Lasix at SNF.
- 2D echocardiogram with preserved biventricular function and no significant valvular abnormalities
- Noted with periods of desaturations primarily early in the morning improving during the day. Well diuresed and currently euvolemic now with rising creatinine. Repeat CT scan with clear lung murry and negative for pulmonary embolism. Increase
activity. Incentive spirometry. Continue wean off oxygen as tolerates
Hypokalemia secondary to loop diuretics. Replete and follow BMP
Tachycardia
- continue low dose BB; monitor tele
Rectal Ulcers/GI Bleed/Acute Blood Loss Anemia
- Stable / improving.� No evidence of continued / recurrent blood loss.
- Hgb continues to improve from prior.
- Follow clinically.
Mild Hyponatremia
- Stable.� Na level is at / near known baseline.
- Follow for any changes.
Obstructive Uropathy
- Mullins Catheter - Present on Admission
- Prior KRISTA has fully resolved with Mullins in place.
- Maintain Mullins and follow-up with Urology as an outpatient as planned.
DM-II
- Stable.� Hold basal insulin for now.
- Follow glucose and cover with SSI as needed.
- Hold metformin s/p CTA done in the ED.
Constipation / Stercoral Colitis
- Stable.� Patient complains of too frequent BMs.
- Continue bowel regimen but decreased MiraLax to once daily for now.
- Follow clinically.
Sacral Wound - Present on Admission
- Stable.� Wound Care evaluation.
DVT Prophylaxis
- SCDs
Code Status
- DNR
Anticipated Discharge: Within 24 hours
Subjective/Interval History
-
Date of Service: September 05, 2023
no acute events
tolerating BB with improving HR
also on 2L, 100%
Objective Data
-
Labs:
Laboratory Results
09/05/23
09:52
WBC 6.2
Hgb 10.9 L
Hct 32.6 L
Plt Count 292
Sodium 131 L
Potassium 3.6
Chloride 100
Carbon Dioxide 25
BUN 23 H
Creatinine 1.2 H
Glucose 159 H
Calcium 9.1
Vital Signs:
Vital Signs
Temp Pulse Resp BP Pulse Ox
97.6 F 90 17 109/60 96
09/05/23 11:02 09/05/23 14:00 09/05/23 14:00 09/05/23 14:00 09/05/23 14:00
I&O
09/04/23 09/05/23 09/06/23
06:59 06:59 06:59
Intake Total 360 / 360 760 / 760
Output Total 525 / 525 500 / 500
Balance -165 / -165 260 / 260
Physical Exam
-
General: No Apparent Distress
HEENT: Normocephalic and Atraumatic
Respiratory: Negative Wheezes
Cardiac: Regular Rhythm and S1/S2
GI: Soft
Genito-urinary: No Costovertebral Tender
Neuro: AO x 3
Psych: Calm
Data Reviewed
-
Total Time Spent with Patient (in minutes): 42
Labs: Labs Reviewed by me
[2023-09-05 17:38] LABS: Glucose - Point of Care 211 mg/dl (70-99)
[2023-09-05] MEDS: LIPITOR 10 MG PO (21:11)
[2023-09-05] MEDS: SENNA SYRUP PO (21:12)
--- NOTE | 2023-09-05 21:56 | PTCARENOTE ---
Pt continually pulling off all wires and pox. Keeps yelling 'I'm leaving.' Pt informed she is not leaving until tomorrow potentially. When attempting to put pox back on pt starting punching and hitting this RN. Pt informed she is not to hit anyone.
Pt did not say anything but continued to refuse placement of wires and pox.
[2023-09-05 22:21] LABS: Glucose - Point of Care 176 mg/dl (70-99)
[2023-09-05] MEDS: FLUSH (NSS) 2 FLUSH IV (22:38)
[2023-09-05] MEDS: BENADRYL 12.5 MG IV (22:38)
--- NOTE | 2023-09-05 22:40 | PTCARENOTE ---
Pt with intense itching all over arms and hands. No redness observed. Pt agreeable to Benadryl. Hephziba TT'd and order entered for IV Benadryl. Pt received Benadryl as ordered. Currently resting comfortable. Will continue to monitor.
--- NOTE | 2023-09-06 00:40 | PTCARENOTE ---
Pt pulled of oxygen. Current pox at RA 92-94%. Refuses to wear BP cuff. Will continue to monitor.
[2023-09-06 05:06] VITALS: BP 91/55
[2023-09-06 05:15] VITALS: BMI 28.7
[2023-09-06 07:30] VITALS: BP 90/57
[2023-09-06 08:00] VITALS: BP 97/58
[2023-09-06] MEDS: PROTONIX 40 MG PO (08:12)
[2023-09-06] MEDS: FOLVITE 1 MG PO (08:12)
[2023-09-06] MEDS: FEOSOL 325 MG PO (08:12)
[2023-09-06] MEDS: MIRALAX 17 GRAMS PO (08:12)
[2023-09-06] MEDS: COLACE 100 MG PO (08:12)
[2023-09-06] MEDS: LOPRESSOR PO (08:14)
[2023-09-06] MEDS: NOVOLOG FLEXPEN-LOW RESISTANCE 1 UNITS SC ×2 (08:15→12:34)
[2023-09-06] MEDS: SYNTHROID 112 MCG PO (08:16)
[2023-09-06] MEDS: DESENEX/MITRAZOL/ZEASORB 1 APPLIC TOPICAL (08:23)
[2023-09-06 08:26] LABS: Glucose - Point of Care 178 mg/dl (70-99)
[2023-09-06 09:16] VITALS: BP 95/63
--- NOTE | 2023-09-06 09:46 | W.PN.HOSP.TC ---
Today's Communication/Plan
-
dc to SNF
Assessment / Plan
Assessment / Plan
Assessment:
Kasia Diaz, 73 year-old female, presented to the emergency with worsening dyspnea on 08-27-23. Notably, she was hospitalized at from 08-19-23 to 08-26-23 secondary to GI bleed. She underwent endoscopic examination at that time showing
multiple rectal ulcerations.�She received a total of 4 units of PRBCs and 2 units of FFP during that hospitalization.�Of note, patient had unexplained episodes of hypoxemia during her visit - requiring use of NRB mask at times.�She was seen and
evaluated by pulmonary and no clear etiology was noted.�Her oxygen requirements improved prior to discharge.
Patient was discharged to SNF/rehab on 08-26-23. Returned to the next day when she was noted to experience increased shortness of breath during PT at the rehab.� She was transported to the ED for further evaluation.
Patient arrived to the ED on 10 lpm of supplemental oxygen.�She does not wear oxygen at baseline; however, recent records would suggest she is chronically on nocturnal O2 from 4-5 lpm (though nocturnal oximetry done during recent admission was also
reportedly normal).
Oxygen was initially weaned in the ED; however, patient became increasingly hypoxemic with SpO2 falling into the 70s on 6 lpm.� She was placed on NRB and then on BiPAP in order to maintain adequate saturations. Seen and examined today on 12 L via
midlflow nasal cannula.�
Impression:
* Acute (on chronic?) hypoxemic respiratory failure
*KRISTA with diuresis
* Rectal ulceration/GI bleed/acute blood loss anemia
* Hyponatremia
* Obstructive uropathy
* Type II diabetes mellitus
* Constipation
* Sacral wound
* Hypertension
* Hyperlipidemia
* Hypothyroidism
* GERD
* Stress incontinence
* Obesity-BMI 31
Plan:
Acute (on chronic?) hypoxemic respiratory failure
Multifactorial and due to:
� Acute diastolic CHF
� Bilateral atelectasis
- Admitted on 08-27-23 for further evaluation and treatment.
- Required BiPAP support - then quickly weaned to mid-flow. now on RA
- No evidence of infectious etiology. COVID/Flu both negative in the ED.
- CT without PE and shows only small bilateral effusions and evidence for atelectasis. Repeated CT scan of the chest PE protocol on 09/02 with bilateral atelectasis, minimal pleural effusion
Negative for pulmonary embolism.
- Suspected component of volume overload (weight was up approx 6 kg at admission, presumably from multiple transfusions during her previous admission).
- Responded to IV diuresis with weight plateaued at 87 kg now with rising creatinine at 1.4. Hold further Lasix as Cr. improves. Can use prn Lasix at [facility].
- 2D echocardiogram with preserved biventricular function and no significant valvular abnormalities
- Noted with periods of desaturations primarily early in the morning improving during the day. Well diuresed and currently euvolemic now with rising creatinine. Repeat CT scan with clear lung murry and negative for pulmonary embolism. Increase
activity. Incentive spirometry. Continue wean off oxygen as tolerates
Hypokalemia secondary to loop diuretics. Replete and follow BMP
Tachycardia
- continue low dose BB with parameters; monitor tele
Rectal Ulcers/GI Bleed/Acute Blood Loss Anemia
- Stable / improving.� No evidence of continued / recurrent blood loss.
- Hgb continues to improve from prior.
- Follow clinically.
Mild Hyponatremia
- Stable.� Na level is at / near known baseline.
- Follow for any changes.
Obstructive Uropathy
- Mullins Catheter - Present on Admission
- Prior KRISTA has fully resolved with Mullins in place.
- Maintain Mullins and follow-up with Urology as an outpatient as planned.
DM-II
- Stable.� Hold basal insulin for now.
- Follow glucose and cover with SSI as needed.
- Hold metformin s/p CTA done in the ED.
Constipation / Stercoral Colitis
- Stable.� Patient complains of too frequent BMs.
- Continue bowel regimen but decreased MiraLax to once daily for now.
- Follow clinically.
Sacral Wound - Present on Admission
- Stable.� Wound Care evaluation.
DVT Prophylaxis
- SCDs
Code Status
- DNR
Anticipated Discharge: Today
Subjective/Interval History
-
Date of Service: September 06, 2023
feels well, no complaints
off O2
eager for DC to be with
Objective Data
-
Vital Signs:
Vital Signs
Temp Pulse Resp BP Pulse Ox
97.6 F 100 25 95/63 97
09/06/23 07:55 09/06/23 09:29 09/06/23 06:00 09/06/23 09:29 09/06/23 04:37
I&O
09/05/23 09/06/23 09/07/23
06:59 06:59 06:59
Intake Total 760 / 760 940 / 940
Output Total 500 / 500 450 / 450
Balance 260 / 260 490 / 490
Physical Exam
-
General: No Apparent Distress
HEENT: Normocephalic and Atraumatic
Respiratory: Negative Wheezes or Rales
Cardiac: Regular Rhythm and S1/S2
GI: Soft
Musculoskeletal: No Edema
Hematologic / Lymphatic: No Lymphadenopathy
Psych: Calm
Data Reviewed
-
Total Time Spent with Patient (in minutes): 42
Labs: Labs Reviewed by me
[2023-09-06 10:00] VITALS: BP 93/64
--- NOTE | 2023-09-06 11:19 | CM ---
Chart reviewed and patient has been cleared for discharge today, plan is for skilled placement at [facility], per previous assistant case manager notes no Auth required, assistant case manager reached out to Danielle [facility] [phone] to discuss transfer and [facility] are requesting a 5pm-6pm, transfer, patient has been set up for 5pm fern picker by BLS.
Plan; Patient to transfer to [facility] today.
Report [phone] ask for nursing char house supervisor.
fax [phone].
[2023-09-06 12:00] VITALS: BP 108/66
[2023-09-06 12:45] LABS: Glucose - Point of Care 165 mg/dl (70-99)
--- NOTE | 2023-09-06 17:45 | PTCARENOTE ---
Report given to RN @ [facility]; Cleaned up patient and collected all belongings. Discharged to [facility] via Ambulance transport.
[2023-09-06 17:49] LABS: Glucose - Point of Care 190 mg/dl (70-99)
--- NOTE | 2023-09-06 17:53 | W.PN.PUL3 ---
Today's Communication / Plan
-
Diuretics as able-currently on hold due to increased creatinine. Defer to primary team.
Increase activity as able
Incentive spirometry encourage, patient is bedbound.
Oxygen supplementation-currently at 2 L. Wean down as able.
May need oxygen to be transferred to [facility]
Assessment
-
73-year-old female with a history of hypertension, diabetes and recent admission for GI bleeding presented with shortness of breath and fatigue requiring BiPAP support and pulmonary consulted for persistent hypoxemia 08/28/2023.
Respiratory failure-acute hypoxemic-pulse ox in the 70s on 6 L --> today she is on room air saturating 90-92%
CT chest without pulmonary embolism, small bilateral pleural effusion/atelectasis
Fluid overload-weight up 6 kg
Arrvhz-kcrebyiscy-epohlywano 10.4-recent GI bleed-hemoglobin stable
Mild hyponatremia
Hypokalemia
Metabolic acidosis
Mild hyperglycemia
Mildly elevated total bilirubin
Obesity-BMI 31
Conditions present prior to admission:
Recent hospitalization 08/2023-acute GI bleed, anemia, hemorrhagic shock, coagulopathy, acute kidney injury
Hypertension.
Hyperlipidemia.
Diabetes.
Hypothyroid.
Dysphagia.
Rectal ulcers.
Neurogenic bladder.
GERD.
IBS.
Stress incontinence.
Obesity-BMI 31
Cataract surgery. Oral surgery.
Plan
Continues to require oxygen supplementation.
Patient is mainly bedbound. Suspect atelectasis as a contributor.
She is nonambulatory.
Has been off the anticoagulants due to GI bleed. No pulmonary embolism on CTA chest from 09/02/2023.
Patient appears in no distress at rest
Lung exam is relatively clear.
-
Suspect volume overload after recent admission for GI bleed and transfusions.
Repeat CT 09/02/2019 chest PE study negative, no significant parenchymal abnormality.
Echocardiogram, bubble study negative
ABG 09/01/2023: 2.50 01/30/1964. No evidence for hypercapnia. Respiratory alkalosis
Suspect part of the hypoxemia is due to atelectasis
Discussed with Dr. Hopkins, given lack of improvement on oxygenation despite diuresis and a clear chest x-ray.
Increase mobility
Encourage incentive spirometry
Avoid sedation
-
Diuresis held due to increased creatinine.
Her weight is trending lower
Defer further diuresis to primary team.
Continue to monitor renal function and electrolytes.
-
Out of bed to chair, incentive spirometry, encouraged.
-
Would benefit from outpatient sleep disorder workup. Patient agreeable, information will be left in the chart.
-
Follow hemoglobin
Transfuse if needed to keep Hb>7g/dL
PPI
DVT prophylaxis-mechanical with recent GI bleed
GI prophylaxis-on pantoprazole
-
Patient may need low rate of oxygen supplementation to go home.
Patient is anxious to go back to her jail
-
Information will be left in the chart for sleep evaluation in the outpatient setting.
Patient seen and evaluated on 09/06/2023
-

Diagnostic data:
Chest x-ray 08/08/2023-NAD
Chest x-ray 08/24/2023-NAD
CTA Chest 09-02-2023:
No evidence of pulmonary embolism.
Interval resolution of previous bilateral small pleural effusions. Bibasilar groundglass opacity has also improved, which may have represented atelectasis or mild alveolar edema.
No evidence of pneumonia.
Tiny pulmonary nodules noted, measuring up to 5 mm. Consider follow-up examination in one year if the patient is considered at increased risk.
CT chest 08/08/2023-no evidence for pulmonary embolism, no significant abnormalities in the chest
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
CT chest 08/27/2023-no pulmonary embolism, small bilateral pleural effusions new compared to prior exam, mild to moderate atelectasis
GI bleeding scan 08/21/2023-no evidence for active GI bleed
Lower extremity ultrasound 08/24/2023-no evidence for DVT bilaterally
Subjective Data
-
Date of Service:
Date of Service: September 06, 2023
Chief Complaint: Pulmonary Follow Up (Hypoxemic respiratory failure)
Subjective:
Seen today. No events reported from overnight. Being prepared for DC home today. Denies CORCORAN, abd pain, N/V/f/c. On room air this AM saturating 93%.
Review of Systems
General: Other (negative unless mentioned above.)
Objective Data
Data Reviewed
Vital Signs / I&O / Oxygen:
Vital Signs
Temp Pulse Resp BP Pulse Ox
97.7 F 100 17 108/66 91
09/06/23 15:30 09/06/23 12:00 09/06/23 12:00 09/06/23 12:00 09/06/23 12:00
Intake and Output
09/05/23 09/06/23 09/07/23
06:59 06:59 06:59
Intake Total 760 / 760 940 / 940 240 / 240
Output Total 500 / 500 450 / 450 175 / 175
Balance 260 / 260 490 / 490 65 / 65
SaO2 91
Nasal Cannula flow liters per 3
minute
Physical Exam
General: Comfortable
HEENT: Normocephalic and Anicteric
Cardiovascular: S1-S2, Murmur (n), Rub (n), Peripheral Edema (n) and Calf Tenderness (n)
Respiratory: Clear, Wheeze (n), Crackles (n), Rhonchi (n), Non-Labored Respirations and Egophony (n)
GI: Soft, Non Distended and Non Tender
Neurology: Awake and Alert
Skin: Cyanosis (n), Jaundice (n) and Rash (n)
Labs/Micro/Reports
Lab Data
09/05/23 09:52
09/05/23 09:52
--- NOTE | 2023-09-09 08:42 | W.DS.TRANS ---
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
-
Discharge Instructions:
Discharge Diagnosis/Procedures acute hypoxia, acute CHF from volume overload,
atelectasis, recent GI bleed
Diet Diabetic, Carb Controlled
Activity As tolerated
Bathing Restrictions None
Specialty Instructions Weigh Daily
Instructions:
Stand-Alone Forms:
Changes to Home Medications: Yes
Discharge Medications:
DC Medications w/original date entered in [employer]
folic acid 1 mg tablet 1 mg PO DAILY Supplement 11/13/16
loratadine 10 mg tablet 10 mg PO DAILY PRN allergies 11/13/16
acetaminophen 325 mg tablet (Tylenol) 650 mg PO Q4HPRN PRN mild pain 08/06/23
atorvastatin 10 mg tablet 10 mg PO HS High Cholesterol 08/06/23
cholecalciferol (vitamin D3) 100 mcg (4,000 unit) tablet 100 mcg PO BID Supplement 08/06/23
levothyroxine 112 mcg tablet 112 mcg PO DAILY Thyroid 08/06/23
metformin 1,000 mg tablet 1,000 mg PO BID@0800,1700 Diabetes 08/06/23
bisacodyl 10 mg rectal suppository (Dulcolax (bisacodyl)) 10 mg WV DAILYPRN PRN IF NO BM AFTR MOM 08/19/23
ferrous sulfate 143 mg (45 mg iron) tablet,extended release 143 mg PO DAILY Supplement 08/19/23
magnesium hydroxide 400 mg/5 mL oral suspension (Milk of Magnesia) 2,400 mg PO DAILYPRN PRN if no bm after 3 days 08/19/23
ondansetron HCl 4 mg tablet 4 mg PO Q4HPRN PRN NAUSEA 08/19/23
simethicone 80 mg chewable tablet 80 mg PO [id number] PRN GAS PAIN 08/19/23
sodium phosphates 19 gram-7 gram/118 mL enema (Fleet Enema) 118 ml WV DAILYPRN PRN IF NO BM AFTR DULCOLAX 08/19/23
docusate sodium 100 mg capsule 100 mg PO BID #0 caps 08/26/23
pantoprazole 40 mg tablet,delayed release 40 mg PO DAILY Gastrointestinal issue #30 tabs 08/26/23
polyethylene glycol 3350 17 gram oral powder packet (HealthyLax) 17 g PO BID Constipation #30 ea 08/26/23
sennosides 8.8 mg/5 mL oral syrup 8.8 mg (5 mL) PO HS Constipation #200 mL 08/26/23
albuterol sulfate 2.5 mg/3 mL (0.083 %) solution for nebulization 2.5 mg (3 mL) inhalation R Q4HPRN PRN shortness of breath #75 mL 09/06/23
furosemide 20 mg tablet (Lasix) 20 mg PO DAILY PRN Weight gain #30 tabs 09/06/23
metoprolol tartrate 25 mg tablet 6.25 mg PO BID #60 tabs 09/06/23
Home Medication Changes
Lasix added
Pending Results: No
== END 2023-09-06 17:53 | DRG 640 ==
LOC: IMU 22:22
PROVIDERS: Emergency Medicine; Internal Medicine; Student in an Organized Health Care Education/Training Program; ADMITTING PHYSICIAN Hospitalist; ATTENDING PHYSICIAN Internal Medicine; EMERGENCY PHYSICIAN Emergency Medicine; FAMILY PHYSICIAN Internal Medicine; OTHER PHYSICIAN Internal Medicine Critical Care Medicine
DX: E87.70 Fluid overload, unspecified (principal); I50.31 Acute diastolic (congestive) heart failure; J96.01 Acute respiratory failure with hypoxia; J98.11 Atelectasis; K62.6 Ulcer of anus and rectum; D62 Acute posthemorrhagic anemia; N17.9 Acute kidney failure, unspecified; E44.0 Moderate protein-calorie malnutrition; I11.0 Hypertensive heart disease with heart failure; E87.1 Hypo-osmolality and hyponatremia; E87.20 Acidosis, unspecified; Z66 Do not resuscitate; E11.65 Type 2 diabetes mellitus with hyperglycemia; N13.9 Obstructive and reflux uropathy, unspecified; E87.6 Hypokalemia; Z68.31 Body mass index [BMI] 31.0-31.9, adult; E66.9 Obesity, unspecified; E78.5 Hyperlipidemia, unspecified; E03.9 Hypothyroidism, unspecified; K58.1 Irritable bowel syndrome with constipation; L89.152 Pressure ulcer of sacral region, stage 2; Z68.28 Body mass index [BMI] 28.0-28.9, adult
CPT/HCPCS: 36600; 71045; 71275; 80048; 80053; 82805; 82962; 83880; 84484; 85025; 85027; 85379; 87070; 87502; 87811; 93005; 93306; 94640; 94660; 94762; 97110; 97163; 97167; 97530; 99285; Q9967

== ENCOUNTER 2023-12-28 02:54 | Inpatient (IN) | payer MEDICARE, SELFPAY ==
[2023-12-27 23:59] VITALS: BP 132/110
[2023-12-28] VITALS (98 sets, daily range): BP systolic 70–117; BP diastolic 49–87; BMI 25.1
--- NOTE | 2023-12-28 00:12 | ED.GENMED ---
History of Present Illness
General
Chief Complaint: Urinary Symptoms
Source: patient
Exam Limitations: none
Time Seen by Provider: 12/27/23 23:43
History of Present Illness
History of Present Illness:
This is a 73 year old female that is brought in by ambulance with c/o low BP and Hypoxia. Patient states that she called the ambulance as she was unable to get out of the wheelchair. States that she has been in the wheelchair since she got home.
today. Patient was just discharged from [facility] today. Patient denies any fever, chills, chest pain, SOB, abd pain, nausea, vomiting, diarrhea. Patient has an indwelling campos.
Past History
Past History
ED Past Medical History: Arrthythmia (Atrial fibrillation on aspirin only), GERD, HTN, Hypercholesterolemia, NIDDM, Hypothyroidism and Other (Diverticulitis,IBS, UTi, )
ED Past Surgical History: Other (cataracts)
Social History
Tobacco: Non-smoker
Alcohol: None
Drug: None
Personal:
Living: with family ()
Family History
Family History: Diabetes, Hypertension and CAD
Review of Systems
Review of Systems
All Other Systems: ROS reviewed and negative except as documented in HPI and ROS
Constitutional: Reports no symptoms; Denies fever or chills
EENT: Reports no symptoms
Respiratory: Reports no symptoms; Denies cough or trouble breathing
Cardiac: Reports no symptoms; Denies chest pain
ABD/GI: Reports no symptoms; Denies abdominal pain, nausea, vomiting or diarrhea
: Reports other (Indwelling campos)
Musculoskeletal: Reports no symptoms
Skin: Reports no symptoms
Neurological: Reports no symptoms; Denies dizzy or headache
Psychiatric: Reports no symptoms
Phy Exam
General Physical Exam
General Presentation: no apparent distress
General age: appears stated age
General Skin: warm and dry
General Habitus: debilitated and elderly
General Mental: alert
General Hydration: dry mucous membranes
ENT Exam
ENT Exam: TM's normal, pharynx normal and neck supple
Eye Exam
Eye Exam: EOMI
Cardiovascular Exam
Cardiovascular Exam: regular rate/rhythm and normal peripheral pulses
Pulmonary Exam
Pulmonary Exam: lungs clear, no respiratory distress, no rales, chest non tender, no crackles, no rhonchi, no wheezing and no cough
Gastrointestinal Exam
Gastrointestinal Exam: normal bowel sounds, non tender, soft, no organomegaly, no pulsatile mass and non distended
Musculoskeletal Exam
Musculoskeletal Exam: full ROM and edema (+2 pitting edema of the feet and lower legs)
Skin Exam
Skin Exam: normal color, warm/dry, no petechia and other (rash noted under both breast Left>R, red with slight fungal appearance, sacral redness with decub noted stage 2)
Psychiatric Exam
Psychiatric Exam: normal mood/affect
Course
Orders/Labs/Results
Orders:
Orders
12/28/23 00:10
CR Chest - 2 Views Urgent
Comment:
Reason For Exam: weakness
12/28/23 00:16
0.9% Sodium Chloride 500 ml [Nss] 500 ml IV BOLUS
12/28/23 00:25
Complete Blood Count/With Diff Urgent
Comprehensive Metabolic Panel Urgent
Lactic Acid Urgent
NT-proBNP Urgent
Troponin I Urgent
Blood Culture Q30M
NANO Source: Blood/Venous
Specimen Description:
12/28/23 00:28
Blood Culture Q30M
NANO Source: Blood/Venous
Specimen Description:
12/28/23 00:58
0.9% Sodium Chloride 1000 ml [Nss] 1,000 ml IV BOLUS
12/28/23 01:17
0.9% Sodium Chloride 1000 ml [Nss] 1,000 ml IV BOLUS
12/28/23 01:36
Piperacillin/Tazo 3.375 Gram [Zosyn] 3.375 gram in 50 ml IV NOW
12/28/23 02:26
Urinalysis Reflex To Culture Urgent
Date Specimen was Collected: 12/28/23
Time Specimen was Collected: 02:25
Urine Microscopic Reflex Cult Urgent
Urine Culture Urgent
NANO Source: U
Specimen Description:
Date Specimen was Collected: 12/28/23
Time Specimen was Collected: 02:25
12/28/23 02:35
Admit/Transfer Patient As Directed
Co-Sign Provider:
Level of Care: Inpatient admission
Assign to:: IMU- Intermediate Care
Physician / Group: [email or web address]
Diagnosis: Presumed sepsis, eval for CAUTI, PNA, acute HF, TME, KRISTA
Reason for Hospitalization: Presumed sepsis, eval for CAUTI, PNA, acute HF, TME, KRISTA
Expected length of stay greater than two midnights?: Yes
ELOS- Estimated Length of Stay in days: 8
I certify the patient meets the requirements for IP care: Yes
12/28/23 02:38
Code Status As Directed
Resuscitation Status: Full Code
12/28/23 03:00
Flush (0.9% Sodium Chloride) [Flush (Nss)] See Dose Instructions IV PER PROTOCOL
12/28/23 03:01
Lactated Ringers [Lr] 1,000 ml IV 100 mls/hr
Abnormal Lab Results
12/28/23 12/28/23
00:25 02:26
WBC 13.8 H 10^3/uL
(4.8-10.8)
RBC 3.36 L 10^6/uL
(4.20-5.40)
Hgb 9.2 L g/dL
(12.0-16.0)
Hct 26.6 L %
(37.0-47.0)
MCV 79.2 L fL
(81.0-99.0)
RDW 16.4 H %
(11.5-14.5)
MPV 10.6 H fL
(7.4-10.4)
Abs Immat Gran (auto) 0.3 H 10^3/uL
(0-0.05)
Absolute Neuts (auto) 11.1 H 10^3/uL
(1.4-6.5)
Absolute Monos (auto) 0.7 H 10^3/uL
(0.1-0.6)
Immature Gran % 2.0 H %
(0-0.5)
Neutrophils % 80.5 H %
(42.2-75.2)
Lymphocytes % 12.0 L %
(20.5-51.1)
Sodium 127 L mmol/L
(135-145)
Carbon Dioxide 14 L* mmol/L
(22-30)
BUN 52 H mg/dl
(7-17)
Creatinine 3.9 H mg/dL
(0.6-1.0)
Glucose 142 H mg/dl
(70-99)
Lactic Acid 3.3 H mmol/L
(0.7-2.0)
Alkaline Phosphatase 178 H U/L
(38-126)
Albumin 3.2 L g/dl
(3.5-5.0)
Urine Ketones 1+ A
(Negative)
Ur Occult Blood Reflex 4+ A
(Negative)
Urine Nitrite (Reflex) Positive A
(Negative)
Leukocyte Esterase Rfl 1+ A
(Negative)
Urine RBC >100 A /HPF
(0-2)
Urine WBC (Reflex) 30-40 A /HPF
(0-5)
Urine Bacteria (Reflex) Moderate A
(Negative)
Urine Glucose Trace A
(Negative)
Urine Albumin (Reflex) 3+ A
(Neg - Trace)
12/28/23 00:25
12/28/23 00:25
Leukocytosis, H/H low. Hyponatremia, Acute renal failure, Glucose nonfasting. Lactic acid 3.3, Troponin 0.024, Pro-BNP 2810, Alk phos elevation. Positive for UTI
Vital Signs
Initial and Last Documented VS:
Initial Vital Signs
Temp Pulse Resp BP Pulse Ox
96.5 F L 97 17 132/110 90
12/27/23 23:59 12/27/23 23:59 12/27/23 23:59 12/27/23 23:59 12/27/23 23:59
Last Documented Vital Signs
Temp Pulse Resp BP Pulse Ox
96.5 F L 85 14 87/63 93
12/27/23 23:59 12/28/23 03:00 12/28/23 03:00 12/28/23 03:01 12/28/23 03:00
MDM/Problems Addressed
Differential Diagnosis Includes:
weakness, Hypoxia, Dehydration. UTi
MDM/Problems Addressed:
This is a 73 year old female that is brought in by ambulance with c/o not being able to get out of the chair. States that she just went home form [facility] today and she has been sitting in the wheelchair since she got up and was unable to get
up. Told by EMS she was hypoxic and had a low BP
Will check labs, Urine and given IV fluids. Will admit as patient will need placement.
Chronic conditions affecting care:
UTI, History of respiratory failure
Acute Exacerbation and/or Progression of Chronic Illness:
UTi,
*Pulse Oximetry
Patient hypoxic: no
Comment: 90 on 2 liters
*[employer] Admin Interpretation
Rate: normal
Heart Rate: 91
Rhythm: sinus
*Critical Care Note
Total Time (30-74mins, 75-104mins- exclusive of procedures): Not Applicable
ED Attending Note
-
Portions of this chart may have been created with voice recognition software.� Occasional wrong word or��sound alike� substitutions may have occurred due to the inherent limitations of voice recognition software.
Discharge Plan
Departure
Patient Disposition: Admit
Date of Disposition: 12/28/23
Time of Disposition: 01:03
Admit to: Telemetry
Presentation/result/management discussed w/ accepting MD/DO: Hospitalist
Patient with high blood pressure during this ER visit?: No
Condition: Good
Covid-19: Not Applicable
Discharge Problem:
Acute hyponatremia, Acute renal failure, Urinary tract infection
Interventions
Interventions:
*Risk Screen - Suicide Last Done: 12/28/23 00:35
*General Assessment Last Done: 12/28/23 00:35
*Neglect/Abuse Screening Last Done: 12/28/23 00:35
ED- Fall Risk Assessment Last Done: 12/28/23 00:07
*ED COVID-19 Vaccine History Last Done: 12/28/23 00:35
ED-Female Genitourinary Assessment Last Done: 12/28/23 00:30
[2023-12-28 00:38] LABS: % Basophils 0.1 % (0-2); % Eosinophils 0.1 % (0-6); % Monocytes 5.3 % (1.7-9.3); % Neutrophils 80.5 % (42.2-75.2); Absolute Immature Granulocytes 0.3 10^3/uL (0-0.05); Absolute Lymphocytes 1.7 10^3/uL (1.2-3.4); Absolute Monocytes 0.7 10^3/uL (0.1-0.6); Absolute Neutrophils 11.1 10^3/uL (1.4-6.5); Hematocrit 26.6 % (37.0-47.0); Hemoglobin 9.2 g/dL (12.0-16.0); Mean Corp Hgb Conc. 34.6 g/dL (33.0-37.0); Mean Corpuscular Hgb 27.4 pg (27.0-31.0); Mean Corpuscular Volume 79.2 fL (81.0-99.0); Mean Platelet Volume 10.6 fL (7.4-10.4); Nucleated Red Blood Cells % 0 %; Platelet Count 246 10^3/uL (130-400); Red Blood Cell Count 3.36 10^6/uL (4.20-5.40); Red Cell Dist. Width 16.4 % (11.5-14.5); White Blood Cell Count 13.8 10^3/uL (4.8-10.8)
[2023-12-28] MEDS: NSS 500 IV (00:40)
[2023-12-28 00:55] LABS: ALT (SGPT) 17 U/L (0-35); AST (SGOT) 30 U/L (14-36); Albumin 3.2 g/dl (3.5-5.0); Alkaline Phosphatase 178 U/L (38-126); Blood Urea Nitrogen 52 mg/dl (7-17); Calcium 9.9 mg/dl (8.4-10.2); Carbon Dioxide 14 mmol/L (22-30); Chloride 99 mmol/L (98-107); Glucose 142 mg/dl (70-99); Sodium 127 mmol/L (135-145); Total Bilirubin 0.8 mg/dl (0.2-1.3); Total Protein 6.7 g/dl (6.3-8.2); eGFR 11.55
[2023-12-28] MEDS: NSS 1000 IV ×2 (01:06→01:29)
[2023-12-28 01:10] LABS: NT-proBNP 2810 pg/ml; Troponin I 0.025 ng/ml
[2023-12-28 01:11] LABS: Lactic Acid 3.3 mmol/L (0.7-2.0)
[2023-12-28] MEDS: ZOSYN 50 IV ×2 (02:25→08:41)
--- NOTE | 2023-12-28 02:29 | HPS.HSE ---
Addendum entered and electronically signed by Chris Loomis MD 12/28/23 03:12:
Correction
Code Status: <del>DNR</del> Full code
Original Note:
Family Physician
-
Family Physician: NOT KNOW UNKNOWN - PT DOES
Chief Complaint
-
weakness, low BP, low POx
History of Present Illness
73F HX prolonged admission to 08/27/23 - 09/06/23 due toacute hypoxic RF, sinus tachycardia, lower GI bleed secondary to stercoral colitis and rectal ulcers, mild hyponatremia, obstructive uropathy wear indwelling Mullins catheter.
Then She was DC to [facility] on 09/06/23.
Today she was DC'd to home from [facility].
- reports she has been in the wheelchair since she got home due to weaknes and inability to get herself up
- patient called 911 reported low BP and low POx.
- Per EMS: POx was 60s on RA and hypotensive
At ER
T 96.5
BP 80/66
Tachypneic
POx 87 then 94 on 4 L
NS 2.5 L
Empiric Zosyn
Medical History
Past Medical History
Past Medical History: Reports Other
Additional Past Medical History:
Essential Hypertension
Hyperlipidemia
Diabetes Mellitus, Type II
Hypothyroidism
Dysphagia
Rectal Ulcers
Neurogenic Bladder
Past Surgical History: Reports Other
Additional Past Surgical History:
Cataracts
Oral Surgery
Social History
Tobacco: Non-smoker
Alcohol: None
Living: Halfway
Family History
Family History: Not pertinent
Allergies / Home Medications
Allergies reflects when Allergies were last updated in [facility].
Home Medications with original date entered in [facility]
Allergy/Medication List:
Allergies
Allergy/AdvReac Type Severity Reaction Status Date / Time
celecoxib [From Celebrex] Allergy Shortness Verified 08/27/23 19:39
of Breath
gold Au 198 Allergy Rash Verified 08/27/23 19:39
hydrochlorothiazide Allergy Rash Verified 08/27/23 19:39
nickel Allergy Rash Verified 08/27/23 19:39
Sulfa (Sulfonamide Allergy breathing Verified 08/27/23 19:39
Antibiotics)
Home Medications
folic acid 1 mg tablet 1 mg PO DAILY Supplement 11/13/16
loratadine 10 mg tablet 10 mg PO DAILY PRN allergies 11/13/16
acetaminophen 325 mg tablet (Tylenol) 650 mg PO Q4HPRN PRN mild pain 08/06/23
atorvastatin 10 mg tablet 10 mg PO HS High Cholesterol 08/06/23
cholecalciferol (vitamin D3) 100 mcg (4,000 unit) tablet 100 mcg PO BID Supplement 08/06/23
levothyroxine 112 mcg tablet 112 mcg PO DAILY Thyroid 08/06/23
metformin 1,000 mg tablet 1,000 mg PO BID@0800,1700 Diabetes 08/06/23
bisacodyl 10 mg rectal suppository (Dulcolax (bisacodyl)) 10 mg GA DAILYPRN PRN IF NO BM AFTR MOM 08/19/23
ferrous sulfate 143 mg (45 mg iron) tablet,extended release 143 mg PO DAILY Supplement 08/19/23
magnesium hydroxide 400 mg/5 mL oral suspension (Milk of Magnesia) 2,400 mg PO DAILYPRN PRN if no bm after 3 days 08/19/23
ondansetron HCl 4 mg tablet 4 mg PO Q4HPRN PRN NAUSEA 08/19/23
simethicone 80 mg chewable tablet 80 mg PO [id number] PRN GAS PAIN 08/19/23
sodium phosphates 19 gram-7 gram/118 mL enema (Fleet Enema) 118 ml GA DAILYPRN PRN IF NO BM AFTR DULCOLAX 08/19/23
docusate sodium 100 mg capsule 100 mg PO BID #0 caps 08/26/23
pantoprazole 40 mg tablet,delayed release 40 mg PO DAILY Gastrointestinal issue #30 tabs 08/26/23
polyethylene glycol 3350 17 gram oral powder packet (HealthyLax) 17 g PO BID Constipation #30 ea 08/26/23
sennosides 8.8 mg/5 mL oral syrup 8.8 mg (5 mL) PO HS Constipation #200 mL 08/26/23
Review of Systems
-
History Source: Patient
A 12 point ROS was completed and negative except as noted: Yes
Constitutional: Reports Fatigue; Denies Fever or Chills
Respiratory: Reports Trouble Breathing; Denies Cough
Cardiac: Denies Chest Pain or Palpitations
Abdomen/GI: Reports Diarrhea; Denies Abdominal Pain, Nausea or Vomiting
: Reports Mullins
Musculoskeletal: Denies Joint Pain or Edema
Neurological: Reports Weakness; Denies Dizzy or Headache
Psych: Denies Depression or Anxiety
Physical Exam
Vital Signs
Vital Signs
Temp Pulse Resp BP Pulse Ox
96.5 F L 85 13 103/56 98
12/27/23 23:59 12/28/23 02:15 12/28/23 02:15 12/28/23 02:15 12/28/23 02:15
Physical Exam
General: No Apparent Distress and Other
HEENT: Moist mucous membranes and PERRLA
Respiratory: Other (Decreased at bases - otherwise clear. No W/R/R.)
Cardiac: S1/S2, Regular Rhythm and Murmur (II/ CHIKA)
GI: Soft, Non Tender, Non Distended and Normal Bowel Sounds
Genito-urinary: Mullins
Musculoskeletal: No Clubbing, No Cyanosis and Other (1+ edema at ankles bilaterally.)
Neuro: AO x 3 and Nonfocal/grossly intact
Psych: No Anxious or Depressed
Laboratory Results
-
12/28/23 00:25
12/28/23 00:25
Laboratory Results
Lactic Acid 3.3 mmol/L (0.7-2.0) H 12/28/23 00:25
Total Bilirubin 0.8 mg/dl (0.2-1.3) 12/28/23 00:25
AST 30 U/L (14-36) 12/28/23 00:25
ALT 17 U/L (0-35) 12/28/23 00:25
Alkaline Phosphatase 178 U/L (38-126) H 12/28/23 00:25
Troponin I 0.025 ng/ml 12/28/23 00:25
Data Reviewed
-
Diagnostic Radiology: Other (pending CXR )
CT Scan: Report Reviewed by me
Medical Tests (Nuc Med, Echo, EKG etc): Report Reviewed by me
Lab Data: Labs Reviewed by me
Old Records: Reviewed
Impression/Plan
-
Reviewed VS: BP 80/66 --> 110/57 HR 100--> 80 RR 30 --> 12 POx 87 94 on 4 L
Wt 85.7 kg ( 09/06/23 ) ---> 75.6 kg ( 12/28/23 ) she LOSS 10 kg over last 12 -13 weeks
Data
WCC 13.8
Hgb 9.2 - baselined mid 10s
Na 127
K 5
CO2 14
BUN 52
Cr 3.9 - baseline low to mid 1s
BG 142
LA 3.3
TPNI 0.025
pro BNP 2810 - usual range is 2500- 5000
Pending UA
Pending BCx
Pending CXR
08/28/23 ECHO
Normal biventricular size and systolic function
09/02/23 CTA chest
- No evidence of pulmonary embolism.
- Interval resolution of previous bilateral small pleural effusions. Bibasilar groundglass opacity has also improved, which may have represented atelectasis or mild alveolar edema.
- No evidence of pneumonia.
- Tiny pulmonary nodules noted, measuring up to 5 mm. Consider follow-up examination in one year if the patient is considered at increased risk.
Last hospitalist admission: 08/27/23 - 09/06/23 P Dx
1. Acute hypoxic respiratory failure.
2. Sinus tachycardia.
3. Recent lower GI bleed secondary to stercoral colitis and rectal ulcers.
4. Mild hyponatremia.
5. Obstructive uropathy wear indwelling Mullins catheter.
ASSESSMENT & PLAN
Pending Rx reconciliation
Acute on chr hypoxemic RF: Presumed multifactorial origins on las admissions such as vol overload, Diastolic CHF, Bilateral atelectasis
- treated with BiPAP on last admission then quickly weaned to mid-flow. and DC'd on RA
- 09/02/23 CT without PE
- f/u final CXR report
- O2 supplement
- Pul consult
SIRS like picture
Suspect underlying severe clinical sepsis with LA > 2 so far uncertain origin
Diff etiology: CAUTI , PNA
Associated Weakness is likely due to TME ( sepsis plus metabolic 2/2 KRISTA)
- check PCT for sepsis
- Pending UA
- BCx sent
- Pending CXR
- Septic fluid bolus s/p 2.5 L NS then switch to LR IVF
- empiric Zosyn for now
- held metoprolol
- ID consult
KRISTA suspect prerenal
Associated metabolic acidosis
- Current admission wt: she LOSS 10 kg over last 12 weeks if wt at ER is acuuurate
- Held Lasix, metformin
- Held all Laxatives for now
- Wt again on the floor
- daily wt and IOs
Moderate Hyponatremia suspect hypovolemic
- held frusemide
- Observe Na in AM s/p septic fluid bolus
HX Rectal Ulcers and GIB
- slightly lower Hg for prior anemia
- observe Hgb
Obstructive Uropathy
- Mullins Catheter - Present on Admission
- Maintain Mullins and follow-up with Urology as an outpatient
T2 IDDM
- Hold basal insulin for now.
- Hold metformin s/p CTA done in the ED.
- add ISS low
HX Constipation / Stercoral Colitis
Sacral Wound - Present on Admission
- Stable. Wound Care evaluation.
DVT Prophylaxis
- SCDs
DVT Prophylaxis: SCDs
Code Status: DNR
IMU
[2023-12-28 02:51] LABS: Urine Albumin 3+ (Neg - Trace); Urine Bilirubin Negative (Negative); Urine Character Slightly Cloudy (Clear); Urine Color Amber; Urine Glucose Trace (Negative); Urine Ketone 1+ (Negative); Urine Leukocyte 1+ (Negative); Urine Nitrite Positive (Negative); Urine Occult Blood 4+ (Negative); Urine Urobilinogen Negative (Neg - 1+); Urine pH 6.5 (5.0-9.0)
[2023-12-28] MEDS: LR 1000 IV (03:08)
[2023-12-28 03:12] LABS: Urine Red Blood Cell >100 /HPF (0-2); Urine Squamous Cell 0-2 /LPF (Few); Urine White Cell 30-40 /HPF (0-5)
[2023-12-28 03:13] LABS: Urine Bacteria Moderate (Negative)
[2023-12-28 05:23] LABS: Glucose - Point of Care 148 mg/dl (70-99)
[2023-12-28 05:25] LABS: Lactic Acid 1.5 mmol/L (0.7-2.0)
--- NOTE | 2023-12-28 05:37 | PTCARENOTE ---
Received patient from the ED. SBP in the 70's after fluids. started on levo.
--- NOTE | 2023-12-28 07:07 | CON.PUL ---
Consultation
Consultation Request
Date/Time Consultation Requested: 12/28/23
Date/Time Consultation Performed: 12/28/23
Performing Provider: Sidra
Reason for Consultation: Hypoxia
Medical History
-
History of Present Illness:
Patient is a 73-year-old female with past medical history of hypertension, hyperlipidemia, diabetes 2 presenting from [facility] for low BP and pulse ox, reportedly 80/66 and 60% on RA. She was recently discharged from (adm 08/27/23 -
09/06/23) due to acute hypoxic RF, sinus tachycardia, lower GI bleed secondary to stercoral colitis and rectal ulcers, obstructive uropathy with indwelling Mullins catheter.
At [facility], she was reportedly extremely weak and unable to perform basic function, mostly in wheelchair.
On arrival, placed on 4L NC, and admitted to IMU. CXR clear. She has no prior history of lung disease.
UA showing possible UTI with + nitrites/LE and moderate bacteria.
Past Medical History
Past Medical History: Other (see list below)
Social History
Tobacco: Non-smoker
Alcohol: None
Drug: None
Allergies / Home Medications
Allergies
Allergy/AdvReac Type Severity Reaction Status Date / Time
celecoxib [From Celebrex] Allergy Shortness Verified 12/27/23 23:59
of Breath
gold Au 198 Allergy Rash Verified 12/27/23 23:59
hydrochlorothiazide Allergy Rash Verified 12/27/23 23:59
nickel Allergy Rash Verified 12/27/23 23:59
Sulfa (Sulfonamide Allergy breathing Verified 12/27/23 23:59
Antibiotics)
Home Medications
�Medication �Instructions �Recorded �Confirmed �Last Taken �Type
folic acid 1 mg tablet 1 mg PO DAILY Supplement 11/13/16 08/27/23 08/05/23 History
loratadine 10 mg tablet 10 mg PO DAILY PRN allergies 11/13/16 08/27/23 08/04/23 History
acetaminophen 325 mg tablet 650 mg PO Q4HPRN PRN mild pain 08/06/23 08/27/23 08/04/23 History
(Tylenol)
atorvastatin 10 mg tablet 10 mg PO HS High Cholesterol 08/06/23 08/27/23 08/04/23 History
cholecalciferol (vitamin D3) 100 100 mcg PO BID Supplement 08/06/23 08/27/23 08/05/23 History
mcg (4,000 unit) tablet
levothyroxine 112 mcg tablet 112 mcg PO DAILY Thyroid 08/06/23 08/27/23 08/05/23 History
metformin 1,000 mg tablet 1,000 mg PO BID@0800,1700 Diabetes 08/06/23 08/27/23 08/04/23 History
bisacodyl 10 mg rectal suppository 10 mg IL DAILYPRN PRN IF NO BM 08/19/23 08/27/23 Unknown History
(Dulcolax (bisacodyl)) AFTR MOM
ferrous sulfate 143 mg (45 mg 143 mg PO DAILY Supplement 08/19/23 08/27/23 Unknown History
iron) tablet,extended release
magnesium hydroxide 400 mg/5 mL 2,400 mg PO DAILYPRN PRN if no bm 08/19/23 08/27/23 Unknown History
oral suspension (Milk of Magnesia) after 3 days
ondansetron HCl 4 mg tablet 4 mg PO Q4HPRN PRN NAUSEA 08/19/23 08/27/23 Unknown History
simethicone 80 mg chewable tablet 80 mg PO [id number] PRN GAS PAIN 08/19/23 08/27/23 Unknown History
sodium phosphates 19 gram-7 118 ml IL DAILYPRN PRN IF NO BM 08/19/23 08/27/23 Unknown History
gram/118 mL enema (Fleet Enema) AFTR DULCOLAX
docusate sodium 100 mg capsule 100 mg PO BID #0 caps 08/26/23 08/27/23 Unknown Rx
pantoprazole 40 mg tablet,delayed 40 mg PO DAILY Gastrointestinal 08/26/23 08/27/23 Unknown Rx
release issue #30 tabs
polyethylene glycol 3350 17 gram 17 g PO BID Constipation #30 ea 08/26/23 08/27/23 Unknown Rx
oral powder packet (HealthyLax)
sennosides 8.8 mg/5 mL oral syrup 8.8 mg (5 mL) PO HS Constipation 08/26/23 08/27/23 Unknown Rx
#200 mL
albuterol sulfate 2.5 mg/3 mL 2.5 mg (3 mL) inhalation R Q4HPRN 09/06/23 Unknown Rx
(0.083 %) solution for nebulization PRN shortness of breath #75 mL
furosemide 20 mg tablet (Lasix) 20 mg PO DAILY PRN Weight gain #30 09/06/23 Unknown Rx
tabs
metoprolol tartrate 25 mg tablet 6.25 mg (1/4 x 25 mg) PO BID #60 09/06/23 Unknown Rx
tabs
Review of Systems
-
Unable to Obtain full review of systems at this time due to: Acuity
History Source: Transfer Record
Vitals / Labs / Diagnostic Testing
Vital Signs
Temp Pulse Resp BP Pulse Ox
96.4 F L 62 14 90/58 100
12/28/23 06:00 12/28/23 06:15 12/28/23 06:15 12/28/23 05:45 12/28/23 05:58
Lab Data
12/28/23 00:25
12/28/23 00:25
Diagnostic Testing:
Physical Exam
-
HEENT: Normocephalic, Anicteric and Moist Mucous Membranes
Cardiovascular: S1/S2 and Regular Rhythm
Respiratory: Clear and Non-Labored Respirations
GI: Non Distended and Non Tender
Neurology: Other (lethargic but arousable, confused)
Skin: Warm and Dry
General: Comfortable and Other (NAD)
Assessment
-
Patient is a 73-year-old female with past medical history of hypertension, hyperlipidemia, diabetes 2 presenting from [facility]) for low BP and pulse ox, reportedly 80/66 and 60% on RA. At [facility], she was reportedly extremely weak and unable
to perform basic function, mostly in wheelchair. On arrival, placed on 4L NC, and admitted to IMU. CXR clear. She has no prior history of lung disease. UA showing possible UTI with + nitrites/LE and moderate bacteria.
Urosepsis
Respiratory failure-acute hypoxemic-pulse ox in the 60s on RA
Acute on chronic HF exacerbation, proBNP 2810, prior 5120
Mild hyponatremia
Metabolic acidosis
KRISTA, creat 3.9 (prior BL 1.2)
Lactic acidosis
Conditions present prior to admission:
Recent hospitalization 08/2023-acute GI bleed, anemia, hemorrhagic shock, coagulopathy, acute kidney injury
Hypertension.
Hyperlipidemia.
Diabetes.
Hypothyroid.
Dysphagia.
Rectal ulcers.
Neurogenic bladder.
GERD.
IBS.
Stress incontinence.
Obesity-BMI 31
Cataract surgery. Oral surgery.
Plan
Initially placed on oxygen supplementation, 100% on 4L NC
Patient is mainly bedbound. Suspect atelectasis as a major contributor.
She is nonambulatory.
We will try to wean back to RA, reviewed with RN
Last admission notes reviewed
Has been off the anticoagulants due to GI bleed.
No pulmonary embolism on CTA chest from 09/02/2023.
No history of lung disease
Patient appears in no distress at rest
Lung exam is relatively clear.
Repeat CXR mostly clear
ABG 09/01/2023: 2.50 01/30/1964. No evidence for hypercapnia. Respiratory alkalosis
Suspect part of the hypoxemia is due to atelectasis
Increase mobility
Encourage incentive spirometry
Avoid sedation
KRISTA noted with clear metabolic acidosis
She has history of obstructiv uropathy
UTI also noted
Continue to monitor renal function and electrolytes.
IV abx
Await cultures results
Out of bed to chair, incentive spirometry, encouraged.
Would benefit from outpatient sleep disorder workup.
Has not yet followed up as OP
Follow hemoglobin
Transfuse if needed to keep Hb>7g/dL
PPI
DVT prophylaxis-mechanical with recent GI bleed
GI prophylaxis-on pantoprazole
We will follow
Diagnostic Data
Chest x-ray 08/08/2023-NAD
Chest x-ray 08/24/2023-NAD
CTA Chest 09-02-2023: No evidence of pulmonary embolism. Interval resolution of previous bilateral small pleural effusions. Bibasilar groundglass opacity has also improved, which may have represented atelectasis or mild alveolar edema. No evidence
of pneumonia. Tiny pulmonary nodules noted, measuring up to [address] chest 08/08/2023-no evidence for pulmonary embolism, no significant abnormalities in the chest
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
CT chest 08/27/2023-no pulmonary embolism, small bilateral pleural effusions new compared to prior exam, mild to moderate atelectasis
GI bleeding scan 08/21/2023-no evidence for active GI bleed
Lower extremity ultrasound 08/24/2023-no evidence for DVT bilaterally
--- NOTE | 2023-12-28 07:08 | W.PN.HOSP.TC ---
Today's Communication/Plan
-
see A/P
Assessment / Plan
Assessment / Plan
HPI: 73 yo F PMH prolonged admission to 08/27/23 - 09/06/23 due to acute hypoxic RF, sinus tachycardia, lower GI bleed secondary to stercoral colitis and rectal ulcers, mild hyponatremia, obstructive uropathy wear indwelling Mullins catheter.
Then she was DCed to [facility] on 09/06/23.
On DOA she was sent home from [facility]. Reported she has been in the wheelchair since she got home due to weakness and inability to get herself up. Patient called 911 reported low BP and low POx. Per EMS: POx was 60s on RA and hypotensive
A/P:
# Acute on chronic hypoxic RF
Placed on 4L NC, cont and wean as tolerated (she had been on RA)
f/u CXR report
Pulm consult
# SIRS vs sepsis although unclear source of infection currently (CAUTI vs PNA vs SSTI)
# Likely septic shock
# Resolved lactic acidosis
# Associated Weakness is likely related to acute metabolic encephalopathy from sepsis
PCT was ordered, but may not be accurate in setting of KRISTA/CKD
Follow urine and blood cultures
Follow CXR report (on my review NAD)
s/p septic fluid bolus 2.5 L NSS, then was on LR, switch further to bicarb IVF
Started Levophed for BP support, PICC ordered
cont empiric Zosyn for now
Hold metoprolol
ID consult
# KRISTA suspect prerenal
# Associated metabolic acidosis
Hold Lasix, metformin
Hold all Laxatives for now
bicarb IVF
Monitor daily weight , I/O
Consider renal CS if SCr does not improve
# Mild Hyponatremia suspect 2/2 hypovolemia
Hold lasix
IVF as above
# HX Rectal Ulcers and GIB
Monitor Hgb
# Obstructive Uropathy with Chronic Mullins Catheter POA
Maintain Mullins and follow-up with Urology as an outpatient
# IDDM
BG 140, hold basal insulin for now.
Hold metformin s/p CTA done in the ED.
Cover with ISS low
# HX Constipation / Stercoral Colitis
# Sacral Wound - Present on Admission, Stable.
Wound Care evaluation.
DVT Prophylaxis- SCDs
Code Status: DNR
DW RN
updated on the phone
total time spent 51 min
Anticipated Discharge: > 48 hours
Subjective/Interval History
-
Date of Service: December 28, 2023
Objective Data
-
Labs:
Laboratory Results
12/28/23
00:25
WBC 13.8 H
Hgb 9.2 L
Hct 26.6 L
Plt Count 246
Sodium 127 L
Potassium 5.0
Chloride 99
Carbon Dioxide 14 L*
BUN 52 H
Creatinine 3.9 H
Glucose 142 H
Calcium 9.9
Total Bilirubin 0.8
AST 30
ALT 17
Alkaline Phosphatase 178 H
Vital Signs:
Vital Signs
Temp Pulse Resp BP Pulse Ox
35.8 C L 62 14 90/58 100
12/28/23 06:00 12/28/23 06:15 12/28/23 06:15 12/28/23 05:45 12/28/23 05:58
I&O
12/27/23 12/28/23 12/29/23
06:59 06:59 06:59
Intake Total 115 / 115
Balance 115 / 115
--- NOTE | 2023-12-28 08:00 | PTCARENOTE ---
[facility]. Patient is somnolent but arousable, Oriented to self and stated she is at [facility] but is very drowsy and goes back to sleep. Patient is on 4L nasal cannula, very diminished with poor inspiratory
effort. Pulse ox is reading intermittently but when it does oxygen saturation is at 100%. Patient is sinus rhythm on monitor. Edema noted in left arm as well as lower extremities. Patient is NPO until more awake, New coude campos catheter was
placed in ER. Pus and sediment visualized in tubing. Notified Dr. Glover. Patient has multiple wounds noted, sacral with foam. posterior thighs, ecchymotic line noted, will turn and resposition patient q2. Levo gtt is infusing at 4 mcg as well
as LR into left peripheral INT. Will review orders and wean down levo gtt. (ordered for SBP >90)
[2023-12-28 08:37] LABS: Glucose - Point of Care 162 mg/dl (70-99)
[2023-12-28 09:24] LABS: Glycohemoglobin (HgbA1c) 5.1 % (4.0-5.6)
--- NOTE | 2023-12-28 09:32 | VATNOTE ---
Per radiology report PICC tip is in the CAJ, PCN notified PICC is OK to use.
[2023-12-28] MEDS: SODIUM BICARBONATE 1150 MEQ IV (10:02)
--- NOTE | 2023-12-28 10:37 | CM ---
CM following re: discharge planning.
Reviewed pt's chart, met with pt, left a message to pt's and spoke to pt's brother Long. CM left with pt's caregiver Guanako from [facility] and she stated that pt has [facility] caregiver services daily from 8:00 a.m.
till 12:00 p.m.
Pt is a 73 year old female, admitted with primary dx of Sepsis, PNA.
Pt is well known to this CM from previous admissions. Pt lives with in an apartment, 1st floor, has no children, has supportive brother Long. Per caregiver, pt just was discharged from [facility] 2 days ago and pt ambulates with a
walker, has a hospital bed, home O2.
CM left a message to pt's .
CM spoke to pt's brother Long and he stated that pt did live in [facility] for a while with her and per brother pt's is looking for more support for pt's at home including spouse of benefits and community based
services based on income.
CM spoke to biomedical engineering director from [facility] and she stated that pt left AMA 2 days ago, they had a meeting with pt's who came to the meeting in different color and size shoes and [facility] realized that pt's will not be
able to care for pt at home, strongly recommended pt stays for a joint terminal attack controller care and anyway, pt's took the pt home AMA. Per biomedical engineering director pt has exhausted all her Medicare SNF benefits and anyway pt will be accepted to return back to
[facility] under private pay source if and pt agree. Per biomedical engineering director, [facility] social science manager reported to [facility] APS for allegations regarding pt's inability to care for pt at home.
CM will meet with pt's to discuss a realistic and a safe discharge plan.
PCP: CM will confirm with pt's .
Pharmacy: [facility]
D/C plan; Uncertain at this time: home with VN and caregiver services vs [facility] for a LTC.
CM will follow with discharge plan updates as hospitalization progresses
--- NOTE | 2023-12-28 10:40 | PTCARENOTE ---
Patient's pulse ox was reading off and on, exchanged pulse ox cord and oxygen saturation reading in 60s. Immediately placed on midflow with non rebreather and obtained blood gas. Patient still lethargic but conversant.94 % with 15L midflow and NRB
[2023-12-28 10:54] LABS: HCO3 16.3 mmol/L (21-28); O2 Saturation % 96.1 % (94-98); PCO2 24 mmHg (32-35); PO2 64 mmHg (83-108); pH 7.44 (7.35-7.45)
[2023-12-28 11:09] LABS: Procalcitonin 0.91 ng/ml (0.0-0.25)
--- NOTE | 2023-12-28 11:23 | CON.ID ---
Consultation
-
Date/Time Consultation Requested: December 28, 2023 0410
Date/Time Consultation Performed: December 28, 2023 1130
Requesting Provider: Dr. Carolynn Glover
Performing Provider: Dr. Guerline Cano
Reason for Consultation: Presumed sepsis, evaluate for CAUTI, pneumonia, acute HF, hypoxia
Chief Complaint / Past History
Chief Complaint
Weakness
History of Present Illness
73-year-old female with diabetes mellitus, heart failure, neurogenic bladder with bladder outlet obstruction and has been on Campos since August 2023, who was recently at [facility] after hospitalization in August and recently discharged to
few days ago days. While at home patient developed weakness for several days. She was then noted to be hypoxic. She was sent to the ER yesterday. She was hypothermic temperature 95. White count 13, hypoxic PaO2 64, hypotensive, started on
Levophed. Campos was changed in ED. Currently on Zosyn. Patient denies flank pain. No abdominal pain. No diarrhea. No cough or shortness of breath. No headaches.
Past History
Additional Past Medical History:
Diabetes mellitus
Hypertension
dyslipidemia
HFpEF
Hypothyroidism
Neurogenic bladder with chronic Campos
History of GI bleed
Rectal ulcer
Stress incontinence
Allergy History:
celecoxib [From Celebrex] Allergy (Verified 12/27/23 23:59)
Shortness of Breath
gold Au 198 Allergy (Verified 12/27/23 23:59)
Rash
hydrochlorothiazide Allergy (Verified 12/27/23 23:59)
Rash
nickel Allergy (Verified 12/27/23 23:59)
Rash
Sulfa (Sulfonamide Antibiotics) Allergy (Verified 12/27/23 23:59)
breathing
Medications Reviewed: Yes
Current Antibiotics:
Zosyn
Social History
Tobacco: Non-Smoker
Alcohol: None
Drug: None
Family History
Family History: Not Pertinent
Review of Systems
Review of Systems
General: Change in Appetite; Negative Fever or Chills
HEENT: Negative Sinus Problems, Headache or Pharyngitis
Cardiovascular: Negative Chest Pain
Respiratory: Negative Dyspnea or Cough
Gasteroenterology: Negative Nausea or Vomiting
Genital / Urological: Negative Flank Pain
Endocrine: Weakness
Neurological: Negative Headache or Dizziness
All systems: All other systems were reviewed and were negative
Vital Signs
Temp Pulse Resp BP Pulse Ox
97.7 F 89 17 107/65 86
12/28/23 11:00 12/28/23 11:00 12/28/23 11:00 12/28/23 11:00 12/28/23 10:30
Physical Exam
Physical Exam
Constitutional: Acutely Ill
Eyes: No Conjunctival Hemorrhage and Sclera Anicteric
Oral: No Thrush
Cardiovascular: Regular Rate and S1/S2
Pulmonary: Clear
Gastrointestinal: Soft, Non Tender, Non Distended and Normal Bowel Sounds
Genito-Urinary: Campos (purulent urine in tubing); Negative Suprapubic Tenderness or CVA Tenderness
Extremities: Edema (BLE 2+)
Neurological: AO x 3
Lab / Diagnostic Study Results
12/28/23 00:25
12/28/23 00:25
Abs Immat Gran (auto) 0.3 10^3/uL (0-0.05) H 12/28/23 00:25
Absolute Neuts (auto) 11.1 10^3/uL (1.4-6.5) H 12/28/23 00:25
Absolute Lymphs (auto) 1.7 10^3/uL (1.2-3.4) 12/28/23 00:25
Absolute Monos (auto) 0.7 10^3/uL (0.1-0.6) H 12/28/23 00:25
Absolute Basos (auto) 0.0 10^3/uL (0-0.2) 12/28/23 00:25
Immature Gran % 2.0 % (0-0.5) H 12/28/23 00:25
Neutrophils % 80.5 % (42.2-75.2) H 12/28/23 00:25
Lymphocytes % 12.0 % (20.5-51.1) L 12/28/23 00:25
Monocytes % 5.3 % (1.7-9.3) 12/28/23 00:25
Eosinophils % 0.1 % (0-6) 12/28/23 00:25
Basophils % 0.1 % (0-2) 12/28/23 00:25
Lactic Acid Cancelled 12/28/23 16:10
Procalcitonin Cancelled 12/28/23 04:58
Ur Squamous Epith Cells 0-2 /LPF (Few) 12/28/23 02:26
Microbiology Results
Micro:
12/28/23 00:28 Blood Culture - Pending
Blood/Venous
12/28/23 00:25 Blood Culture - Pending
Blood/Venous
12/28/23 08:44 MRSA Screen - Pending
Nose
12/28/23 02:26 Urine Culture - Pending
Urine
12/27/24 CXR: No evidence of active cardiopulmonary disease.
Assessment / Plan
# CAUTI - campos changed in ED
# Severe sepsis
# KRISTA
# Recent SNF stay
- Replace Zosyn with meropenem to cover for possible MDRO
Will de-escalate abx when cx data available.
- Follow bcx, Ucx
- Ordered renal US
- Trend BP, wbc, temps.
[2023-12-28] MEDS: DESENEX/MITRAZOL/ZEASORB 1 APPLIC TOPICAL ×2 (11:27→21:56)
[2023-12-28 11:51] LABS: Glucose - Point of Care 146 mg/dl (70-99)
--- NOTE | 2023-12-28 12:00 | PTCARENOTE ---
Patient now on high flow, is more awake but still very lethargic. was answering appropriately. Seen by wound care, assisted WOC RN with helen wrap application to lower legs. Patient made ICU status. Remains on high flow nasal cannula.
[2023-12-28] MEDS: STERILE WATER FOR INJECTION 10 ML IV ×2 (12:42→23:33)
[2023-12-28] MEDS: PROTONIX IV 40 MG IV (12:42)
[2023-12-28] MEDS: MERREM 500 MG IV ×2 (12:42→23:33)
[2023-12-28] MEDS: NSS (PRESERVATIVE FREE) 10 ML IV (12:42)
--- NOTE | 2023-12-28 13:12 | WOUNDNOTE ---
LEGS AND L FOOT
--- NOTE | 2023-12-28 13:13 | WOUNDNOTE ---
WON RN note: Patient admitted with acute hyponatremia, renal failure and UTI.
See H&P for complete history. Lives at [facility].
PMH: NIDDM, HTN, IBS, stress incontinence-chronic Mullins, arthritis, ambulatory dysfunction-w/c.
Wound Location and type/assessment: Patient known to service, last seen 08/28/23 for healing sacral stage 2 PI. Today sacrum/buttocks appears to have pale pink scarring and scattered open areas from stool incontinence. Turned patient with assist of
nurse Tayler Mendez. Has MASD in skin folds, weeping from under L breast, fungal powder in use. Posterior thighs with evolving DTI vs Stage 2 PI from prolonged sitting in wheelchair at home. From report was unable to stand from w/c, suspect legs were
also dependent for a long time. legs with pitting 3+ edema and blistering to L foot, + audible pedal pulses with Doppler. Heels are blanchable red, slightly boggy. L dorsal foot with open blister and large serous drainage, intact serous blister
medial foot. Patient repositioned to L semi side lying position.
Appetite: NPO.
Pressure redistribution devices in place: Centrella Max Air. Heels offloaded with pillows under calves. Recommended to nurse that if transferred to floor keep on air mattress, can use [facility] care air bed. Foam applied to R heel to protect.
Plan: Sacral silicone foam applied after cleaning. Keep skin folds clean and dry continue to use fungal powder bid, add piece of silver alginate to weeping areas under breast. For L foot, adaptic, alginate, gauze, abd pad and kerlix daily. Adam wraps
both legs forefoot to below knee daily, remove at bedtime. Wound care dressings changed and adam wraps applied with assist from RN. Will confirm orders with hospitalist, update care plan and follow as needed.
Note to case management of equipment requested for discharge: VN if doesn't already have.
Recommend follow up at wound care center upon discharge.
--- NOTE | 2023-12-28 14:59 | W.PN.INTV ---
Today's Communication / Plan
Recommendations
Transferred to ICU, now on HFNC/BIPAP
Issue reflecting poor neck extension and poor airway protection
She is DNR/DNI, agreed at bedside
Continue supportive care
Assessment
-
Patient is a 73-year-old female with past medical history of hypertension, hyperlipidemia, diabetes 2 presenting from [facility] for low BP and pulse ox, reportedly 80/66 and 60% on RA. At [facility], she was reportedly extremely weak and unable
to perform basic function, mostly in wheelchair. On arrival, placed on 4L NC, and admitted to IMU. CXR clear. She has no prior history of lung disease. UA showing possible UTI with + nitrites/LE and moderate bacteria.
Urosepsis
Respiratory failure-acute hypoxemic-pulse ox in the 60s on RA
Acute on chronic HF exacerbation, proBNP 2810, prior 5120
Mild hyponatremia
Metabolic acidosis
KRISTA, creat 3.9 (prior BL 1.2)
Lactic acidosis
Conditions present prior to admission:
Recent hospitalization 08/2023-acute GI bleed, anemia, hemorrhagic shock, coagulopathy, acute kidney injury
Hypertension.
Hyperlipidemia.
Diabetes.
Hypothyroid.
Dysphagia.
Rectal ulcers.
Neurogenic bladder.
GERD.
IBS.
Stress incontinence.
Obesity-BMI 31
Cataract surgery. Oral surgery.
Plan
Initially placed on oxygen supplementation, 100% on 4L NC--escalated to HFNC
ABG obtained with PaO2 adequate >60
Patient is mainly bedbound. Suspect atelectasis as a major contributor.
Flexion of head likely also contributing
Trial with BIPAP, reviewed with RT
Last admission notes reviewed
Has been off the anticoagulants due to GI bleed.
No pulmonary embolism on CTA chest from 09/02/2023.
No history of lung disease
Patient appears in no distress at rest
Lung exam is relatively clear.
Repeat CXR mostly clear
ABG 09/01/2023: 2.50 01/30/1964. No evidence for hypercapnia. Respiratory alkalosis
Suspect part of the hypoxemia is due to atelectasis
Increase mobility
Encourage incentive spirometry
Avoid sedation
KRISTA noted with clear metabolic acidosis
She has history of obstructiv uropathy
UTI also noted
Continue to monitor renal function and electrolytes.
IV abx
Await cultures results
Out of bed to chair, incentive spirometry, encouraged.
Would benefit from outpatient sleep disorder workup.
Has not yet followed up as OP
Follow hemoglobin
Transfuse if needed to keep Hb>7g/dL
PPI
DVT prophylaxis-mechanical with recent GI bleed
GI prophylaxis-on pantoprazole
Family Discussions
Spoke with patient, who wants to be DNR/DNI, this was confirmed in the presence of her who is at bedside. He is in agreement that if she does not survive, she would want to be kep comfortable. Code status changed in chart.
Diagnostic Data
Chest x-ray 08/08/2023-NAD
Chest x-ray 08/24/2023-NAD
CTA Chest 09-02-2023: No evidence of pulmonary embolism. Interval resolution of previous bilateral small pleural effusions. Bibasilar groundglass opacity has also improved, which may have represented atelectasis or mild alveolar edema. No evidence
of pneumonia. Tiny pulmonary nodules noted, measuring up to [address] chest 08/08/2023-no evidence for pulmonary embolism, no significant abnormalities in the chest
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
CT chest 08/27/2023-no pulmonary embolism, small bilateral pleural effusions new compared to prior exam, mild to moderate atelectasis
GI bleeding scan 08/21/2023-no evidence for active GI bleed
Lower extremity ultrasound 08/24/2023-no evidence for DVT bilaterally
-----
Critical Care time 41 mins -- The patient is admitted for acute critical illness for the treatment of vital organ failure and/or prevention of further life-threatening conditions. Total care includes time spent in review of history, physical exam,
medications, hemodynamic/ventilator parameters, laboratory data, imaging and discussion with house staff, pharmacy, respiratory therapy, transition program manager, and nursing.
Subjective Dataa
Subjective Data
Date of Service:
Date of Service: December 28, 2023
Chief Complaint: Trade Marker Follow Up
Subjective:
Patient with worsening hypoemia, placed on HFNC, now on NRB
She is transferred to ICU now
She has neck flexion with kyphosis that is difficult to correct with position, sats down in the 60s, improved with forced head extension
at bedside, patient has stated she wants DNR/DNI
Objective Data
Data Reviewed
Vital Signs / I&O / Oxygen:
Vital Signs
Temp Pulse Resp BP Pulse Ox
97.7 F 75 14 110/74 97
12/28/23 11:00 12/28/23 13:30 12/28/23 13:30 12/28/23 13:30 12/28/23 13:00
Intake and Output
12/27/23 12/28/23 12/29/23
06:59 06:59 06:59
Intake Total 115 / 230 567.5 / 567.5
Output Total 100 / 100
Balance 115 / 230 467.5 / 467.5
SaO2 97
Nasal Cannula flow liters per 55
minute
Physical Exam
General: Respiratory Distress (mild-mod) and Other (chronically ill appearing)
HEENT: Normocephalic, Anicteric and Other (edentulous)
Cardiovascular: S1-S2 and Regular Rhythm
Respiratory: Clear and Non-Labored Respirations
GI: Soft, Non Distended and Non Tender
Neurology: Lethargic (but arousable)
Skin: Warm and Dry
Labs/Micro/Reports
Lab Data
12/28/23 00:25
12/28/23 00:25
Laboratory Results
12/28/23
10:47
pH 7.44
pCO2 24 L
pO2 64 L
HCO3 16.3 L
O2 Delivery Level
--- NOTE | 2023-12-28 16:13 | PTCARENOTE ---
Patient dropped saturations into pulse ox of 60s. Patient was still responsive, good pleth on read. physician called to bedside, Patient did not want to go on ventilator or CPR. Code status changed. Patient placed on bipap. at bedside,
support provided.
--- NOTE | 2023-12-28 16:48 | PTCARENOTE ---
now on V60 Bipap
[2023-12-28 17:53] LABS: Glucose - Point of Care 132 mg/dl (70-99)
[2023-12-28] MEDS: NOVOLOG FLEXPEN-LOW RESISTANCE SC (18:30)
[2023-12-28 19:14] LABS: INR 1.52; PT 18.1 Sec (11.4-14.6)
[2023-12-28 19:15] LABS: APTT 36.1 Sec (23.4-35.0)
--- NOTE | 2023-12-28 19:46 | PTCARENOTE ---
Rec'd pt drowsy, easily arousable, denies pain, oriented to place, follows commands, SR, Temp 98.5, to keep sbp > 90 w/ levophed- see flow sheet for titrations, presently at 2 silvana, distal pulses via doppler, + edema, skin warm/dry, O2 via NIV - IPAP
12, EPAP 6, 100%, Rate 8. sat 93,lungs decr in bases, hypo bowel sounds, no bm, abd obese, soft, no n/v, npo, campos draining sm amts cloudy josué urine w/ sediment- B Chong, POWER TRANSMISSION ENGINEER aware of urine output
[2023-12-28 20:23] LABS: B.E. -4.4 mmol/L; HCO3 18.8 mmol/L (21-28); PCO2 27 mmHg (32-35); PO2 168 mmHg (83-108); pH 7.45 (7.35-7.45)
[2023-12-28 20:46] LABS: Blood Urea Nitrogen 48 mg/dl (7-17); Calcium 8.9 mg/dl (8.4-10.2); Carbon Dioxide 19 mmol/L (22-30); Chloride 100 mmol/L (98-107); Estimated Creatinine Clearance 16 ml/min; Glucose 130 mg/dl (70-99); Magnesium 1.7 mg/dl (1.6-2.3); Potassium 4.3 mmol/L (3.5-5.1); Sodium 128 mmol/L (135-145); eGFR 14.64
--- NOTE | 2023-12-28 21:11 | PTCARENOTE ---
Marylin Chong NP aware of labs
--- NOTE | 2023-12-28 21:33 | PTCARENOTE ---
o2 decr to 60% on NIV by resp therapist
[2023-12-28] MEDS: LEVOPHED 250 IV (21:55)
--- NOTE | 2023-12-28 22:00 | PTCARENOTE ---
Addendum entered by Anabella Vidal RN 12/28/23 23:30:
fio2 incr to 75% not 100%
Original Note:
sat 88%, incr to 100% by resp therapist
--- NOTE | 2023-12-28 23:43 | PTCARENOTE ---
sys reviewed, changes noted, CHG bath done, linens changed
[2023-12-28 23:47] LABS: Glucose - Point of Care 152 mg/dl (70-99)
--- NOTE | 2023-12-28 23:49 | PTCARENOTE ---
Marylin Chong NP aware of urine output, no orders rec'd
[2023-12-28] MEDS: NOVOLOG FLEXPEN-LOW RESISTANCE 1 UNITS SC (23:51)
[2023-12-29] VITALS (47 sets, daily range): BP systolic 60–122; BP diastolic 21–95; PULSE 2–89; BMI 25.4
[2023-12-29] MEDS: SODIUM BICARBONATE 1150 MEQ IV (01:46)
--- NOTE | 2023-12-29 03:31 | PTCARENOTE ---
sys reviewed, changes noted
[2023-12-29 03:37] LABS: % Basophils 0.1 % (0-2); % Immature Granulocytes 0.8 % (0-0.5); % Lymphocytes 6.9 % (20.5-51.1); % Neutrophils 87.2 % (42.2-75.2); Absolute Immature Granulocytes 0.1 10^3/uL (0-0.05); Absolute Lymphocytes 1.2 10^3/uL (1.2-3.4); Absolute Monocytes 0.8 10^3/uL (0.1-0.6); Absolute Neutrophils 14.4 10^3/uL (1.4-6.5); Hematocrit 23.5 % (37.0-47.0); Hemoglobin 7.9 g/dL (12.0-16.0); Mean Corp Hgb Conc. 33.6 g/dL (33.0-37.0); Mean Corpuscular Hgb 27.1 pg (27.0-31.0); Mean Corpuscular Volume 80.8 fL (81.0-99.0); Mean Platelet Volume 10.6 fL (7.4-10.4); Nucleated Red Blood Cells % 0 %; Platelet Count 221 10^3/uL (130-400); Red Blood Cell Count 2.91 10^6/uL (4.20-5.40); Red Cell Dist. Width 16.5 % (11.5-14.5); White Blood Cell Count 16.6 10^3/uL (4.8-10.8)
[2023-12-29 03:59] LABS: Blood Urea Nitrogen 48 mg/dl (7-17); Calcium 8.6 mg/dl (8.4-10.2); Carbon Dioxide 22 mmol/L (22-30); Chloride 100 mmol/L (98-107); Estimated Creatinine Clearance 16 ml/min; Glucose 129 mg/dl (70-99); Magnesium 1.7 mg/dl (1.6-2.3); Potassium 4.3 mmol/L (3.5-5.1); Sodium 130 mmol/L (135-145); eGFR 15.21
[2023-12-29] MEDS: NOVOLOG FLEXPEN-LOW RESISTANCE 1 UNITS SC (05:48)
[2023-12-29 05:58] LABS: Glucose - Point of Care 171 mg/dl (70-99)
--- NOTE | 2023-12-29 07:09 | W.PN.INTV ---
Today's Communication / Plan
Recommendations
New CVA, subacute--neuro following
KRISTA worsening, renal consult placed
Abx ongoing, culture pending
PAP continued, transition to HFNC if able
Will discuss GOC with , she is DNR/DNI
Assessment
-
Patient is a 73-year-old female with past medical history of hypertension, hyperlipidemia, diabetes 2 presenting from [facility] for low BP and pulse ox, reportedly 80/66 and 60% on RA. At [facility], she was reportedly extremely weak and unable
to perform basic function, mostly in wheelchair. On arrival, placed on 4L NC, and admitted to IMU. CXR clear. She has no prior history of lung disease. UA showing possible UTI with + nitrites/LE and moderate bacteria.
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
Urosepsis
Respiratory failure-acute hypoxemic-pulse ox in the 60s on RA
Acute on chronic HF exacerbation, proBNP 2810, prior 5120
Mild hyponatremia
Metabolic acidosis
KRISTA, creat 3.9 (prior BL 1.2)
Lactic acidosis
Conditions present prior to admission:
Recent hospitalization 08/2023-acute GI bleed, anemia, hemorrhagic shock, coagulopathy, acute kidney injury
Hypertension.
Hyperlipidemia.
Diabetes.
Hypothyroid.
Dysphagia.
Rectal ulcers.
Neurogenic bladder.
GERD.
IBS.
Stress incontinence.
Obesity-BMI 31
Cataract surgery. Oral surgery.
Plan
LUE weakness noted, CT obtained showing subacute CVA
Neuro consult
Initially placed on oxygen supplementation, 100% on 4L NC--escalated to HFNC
ABG obtained with PaO2 adequate >60
Patient is mainly bedbound. Suspect atelectasis as a major contributor.
Flexion of head likely also contributing
Trial with BIPAP, reviewed with RT
Last admission notes reviewed
Has been off the anticoagulants due to GI bleed.
No pulmonary embolism on CTA chest from 09/02/2023.
No history of lung disease
Lung exam is relatively clear.
Repeat CXR mostly clear
ABG 09/01/2023: 2.50 01/30/1964. No evidence for hypercapnia. Respiratory alkalosis
Suspect part of the hypoxemia is due to atelectasis
Increase mobility
Encourage incentive spirometry
Avoid sedation
KRISTA noted with clear metabolic acidosis
She has history of obstructive uropathy
UTI also noted
Continue to monitor renal function and electrolytes.
Worsening, renal consult obtained
IV abx
Culture negative to date
1 blood culture prelim pending
Out of bed to chair, incentive spirometry, encouraged.
Would benefit from outpatient sleep disorder workup.
Has not yet followed up as OP
Follow hemoglobin
Transfuse if needed to keep Hb>7g/dL
PPI
DVT prophylaxis-mechanical with recent GI bleed
GI prophylaxis-on pantoprazole
Overall prognosis seems poor, will discuss hospice with family
Family Discussions
Spoke with patient, who wants to be DNR/DNI, this was confirmed in the presence of her who is at bedside. He is in agreement that if she does not survive, she would want to be kep comfortable. Code status changed in chart.
Diagnostic Data
Chest x-ray 08/08/2023-NAD
Chest x-ray 08/24/2023-NAD
CTA 12/29/23- 1). There is no evidence of branch occlusion in the major intracranial vessels
2). There is moderate partially calcific atherosclerotic plaque at the cavernous and supraclinoid portions of both internal carotid arteries associated with less than 50% stenosis bilaterally.
3). There is a small amount of partially calcific atherosclerotic plaque at the right carotid bifurcation without significant stenosis
4). There is moderate partially calcific atherosclerotic plaque at the intracranial portion of the left vertebral artery associated with approximately 60% stenosis
CT Head 6/25/24- There is an 8 cm area of encephalomalacia in the right temporal lobe and right temporal parietal junction associated with a 2 cm area of low density in the right centrum semiovale consistent with infarct in the right middle cerebral
artery distribution. The infarct appears more delayed subacute than acute.
CTA Chest 09-02-2023: No evidence of pulmonary embolism. Interval resolution of previous bilateral small pleural effusions. Bibasilar groundglass opacity has also improved, which may have represented atelectasis or mild alveolar edema. No evidence
of pneumonia. Tiny pulmonary nodules noted, measuring up to [address] chest 08/08/2023-no evidence for pulmonary embolism, no significant abnormalities in the chest
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
CT chest 08/27/2023-no pulmonary embolism, small bilateral pleural effusions new compared to prior exam, mild to moderate atelectasis
GI bleeding scan 08/21/2023-no evidence for active GI bleed
Lower extremity ultrasound 08/24/2023-no evidence for DVT bilaterally
-----
Critical Care time 35 mins -- The patient is admitted for acute critical illness for the treatment of vital organ failure and/or prevention of further life-threatening conditions. Total care includes time spent in review of history, physical exam,
medications, hemodynamic/ventilator parameters, laboratory data, imaging and discussion with house staff, pharmacy, respiratory therapy, separator operator shellfish meats, and nursing.
Subjective Dataa
Subjective Data
Date of Service:
Date of Service: December 29, 2023
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
Subjective:
tolerated NIV overnight, sats improved however off PAP, satting in 80s
had acute onset LUE weakness, CT showing subacute CVA
KRISTA worsened on labs as well
Objective Data
Data Reviewed
Vital Signs / I&O / Oxygen:
Vital Signs
Temp Pulse Resp BP Pulse Ox
97.8 F 102 12 106/76 99
12/29/23 07:07 12/29/23 06:30 12/29/23 06:30 12/29/23 06:30 12/29/23 05:54
Intake and Output
12/28/23 12/29/23 12/30/23
06:59 06:59 06:59
Intake Total 115 / 230 1807.5 / 1885.0 77.5 / 77.5
Output Total 305 / 305
Balance 115 / 230 1502.5 / 1580.0 77.5 / 77.5
SaO2 [NIV (Non Invasive 98
Ventilation)]
SaO2 99
Nasal Cannula flow liters per 55
minute
Physical Exam
General: Respiratory Distress (mild-mod) and Other (chronically ill appearing)
HEENT: Normocephalic, Anicteric and Other (edentulous)
Cardiovascular: S1-S2 and Regular Rhythm
Respiratory: Clear and Non-Labored Respirations
GI: Soft, Non Distended and Non Tender
Neurology: Lethargic (but arousable, does not answer questions/follow commands) and Other (LUE weakness)
Skin: Warm and Dry
Labs/Micro/Reports
Lab Data
12/29/23 02:51
12/29/23 02:51
Laboratory Results
12/28/23 12/28/23 12/28/23
10:47 18:55 20:13
PT 18.1 H
INR 1.52
APTT 36.1 H
pH 7.44 7.45
pCO2 24 L 27 L
pO2 64 L 168 H
HCO3 16.3 L 18.8 L
O2 Delivery Level
Microbiology
12/28/23 00:25 Blood/Venous Blood Culture - Preliminary
No Growth in 24 hours- Final report to follow
12/28/23 00:28 Blood/Venous Blood Culture - Preliminary
No Growth in 24 hours- Final report to follow
--- NOTE | 2023-12-29 07:10 | PTCARENOTE ---
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 patient is very lethargic, minimally responsive, somnolent. She is able to nod her head appropriately. Patient remains on Bipap/NiV 12/6, saturation is intermittent on continous pulse ox, spot check correlates.
She is in a sinus rhythm, has generalized edema throughout. Pitting edema +3 in lower extremities. left arm is swollen and ecchymotic as well, +2. Pulses by doppler. Wrapped lower extremities with TIAN wraps as ordered. Patient is very
pale/greyish in appearance. Skin to be documented in focused shift assessment. Patient is NPO, catheter is draining minimal output. yellow and sediment noted in tubing. Mullins care completed. Will review orders.
[2023-12-29] MEDS: PROTONIX IV 40 MG IV (07:16)
[2023-12-29] MEDS: NSS (PRESERVATIVE FREE) 10 ML IV (07:16)
--- NOTE | 2023-12-29 07:47 | W.PN.HOSP.TC ---
Today's Communication/Plan
-
see A/P
Assessment / Plan
Assessment / Plan
HPI: 73 yo F PMH prolonged admission to 08/27/23 - 09/06/23 due to acute hypoxic RF, sinus tachycardia, lower GI bleed secondary to stercoral colitis and rectal ulcers, mild hyponatremia, obstructive uropathy wear indwelling Campos catheter.
Then she was DCed to [facility] on 09/06/23.
On DOA she was sent home from [facility]. Reported she has been in the wheelchair since she got home due to weakness and inability to get herself up. Patient called 911 reported low BP and low POx. Per EMS: POx was 60s on RA and hypotensive
A/P:
# Acute on chronic hypoxic RF
4L NC -> HFNC -> BIPAP, cont O2 and wean when able (she had been on RA)
CXR from admission: No evidence of active cardiopulmonary disease.
Speaker Wirer/Pulm on board
# Septic shock due to CAUTI
# Resolved lactic acidosis
# Associated Weakness is likely related to acute metabolic encephalopathy from sepsis
PCT at 0.91 (may not be accurate in setting of KRISTA/CKD)
Pus noted coming out of campos
Campos last changed 12/27 in ICU
Follow urine culture, blood cultures negative
s/p IVF
wean Levophed
empiric Zosyn to Merrem
Hold [employer]IST metoprolol
ID on board
# KRISTA suspect prerenal
# Resolved metabolic acidosis
Hold Lasix, metformin
Hold all Laxatives for now
s/p bicarb IVF
SCr 3.9 on admission -> 3.1 today; baseline 1.2; Monitor daily weight , I/O
Renal US: No evidence of renal collecting system dilatation bilaterally. 2.4 cm non-shadowing echogenic area along the upper pole the left kidney. Most likely differential diagnostic possibility would be a benign angiomyolipoma. This could be
further evaluated with CT Abdomen without and with intravenous contrast.
Renal CS for KRISTA
# Hyponatremia suspect 2/2 hypovolemia
Hold lasix
# HX Rectal Ulcers and GIB
# Acute on chronic anemia
Hgb 9.2 on admission, today at 7.9. Suspect drop in Hgb due to hemodilution. Cont to monitor Hgb closely.
# Obstructive Uropathy with Chronic Campos Catheter POA
Maintain Campos and follow-up with Urology as an outpatient
Campos last changed 12/27 in ICU
# IDDM
BG in the 's, hold basal insulin for now.
Hold metformin s/p CTA done in the ED.
Cover with ISS low
# HX Constipation / Stercoral Colitis
# Sacral Wound - Present on Admission, Stable.
Wound Care evaluation.
DVT Prophylaxis- SCDs
Code Status: DNR
DW RN
Anticipated Discharge: > 48 hours
Subjective/Interval History
-
Date of Service: December 29, 2023
Objective Data
-
Labs:
Laboratory Results
12/28/23 12/28/23 12/29/23
20:12 20:13 02:51
WBC 16.6 H
Hgb 7.9 L
Hct 23.5 L
Plt Count 221
HCO3 18.8 L
Sodium 128 L 130 L
Potassium 4.3 4.3
Chloride 100 100
Carbon Dioxide 19 L 22
BUN 48 H 48 H
Creatinine 3.2 H 3.1 H
Glucose 130 H 129 H
Calcium 8.9 8.6
Vital Signs:
Vital Signs
Temp Pulse Resp BP Pulse Ox
36.6 C 103 12 96/76 95
12/29/23 07:07 12/29/23 07:00 12/29/23 07:00 12/29/23 07:00 12/29/23 07:14
I&O
12/28/23 12/29/23 12/30/23
06:59 06:59 06:59
Intake Total 115 / 230 1807.5 / 1885.0 77.5 / 77.5
Output Total 305 / 305
Balance 115 / 230 1502.5 / 1580.0 77.5 / 77.5
Review of Systems
-
Unable to obtain full review of systems at this time due to: Acuity
Physical Exam
-
General: Respiratory Distress and Appears Chronically Ill
HEENT: Normocephalic, Atraumatic and Oxygen (BIPAP)
Respiratory: Non Labored Respirations; Negative Accessory Resp Muscle Use
Cardiac: Regular Rhythm and S1/S2
GI: Soft
Musculoskeletal: Edema, Right Lower Extrem and Edema, Left Lower Extrem
Psych: Calm
Data Reviewed
-
Total Time Spent with Patient (in minutes): 42
Diagnostic Radiology: Image personally visualized and interpreted and Report Reviewed by me
Ultrasound: Report Reviewed by me
Labs: Labs Reviewed by me
--- NOTE | 2023-12-29 08:40 | PTCARENOTE ---
Took bipap off to do mouth care. Patient was having some twitching with her head, still lethargic and minimally responsive. was not able to squeeze my hand with her left at all. Called Dr. Glover & Dr. Biswas to bedside, stroke alert protocol
initiated.
--- NOTE | 2023-12-29 08:44 | CON.NEURO4 ---
Addendum entered and electronically signed by Surinder Biswas MD 12/29/23 10:56:
NIH stroke scale of 12
2 point for mild right gaze preference
4 points no movement of left arm
2 points left leg effort against gravity
2 points right leg effort against gravity
1 point dysarthria
1 point visual neglect
No hemianopia on left side but patient shows a left visual neglect
Original Note:
Consultation - Neurology 4
-
CONSULTING PHYSICIAN: Sam Biswas
REFERRING PHYSICIAN: Hospitalist
DICTATED BY: Sam Biswas
DATE/TIME OF REQUEST: 12/29/23
DATE/TIME OF CONSULTATION: 12/29/23
Reason for Consultation: Left arm weakness, confusion
History of Present Illness:
The patient is a 73 year old woman with history of diabetes, hypertension, obstructive uropathy with indwelling campos catheter who presented to hospital with generalized weakness, hypotension and hypoxia. She was admitted to ICU and treated for
septic shock felt likely due to catheter associated UTI, had purulent discharge from urinary catheter. She was started on broad spectrum antibiotics, noted to have KRISTA as well. She was noted to have encephalopathy and generalized weakness felt
likely due to septic shock. This morning was noted by nursing that patient had significant weakness of the left arm which appears new, not clear exact onset time. She has been confused since admit so her last known well from neurologic standpoint
appears prior to admission. Patient unable to provide reliable history due to confusion. No known history of prior stroke or TIA.
Past Medical History: Essential hypertension, hyperlipidemia, type 2 diabetes mellitus, hypothyroidism, obstructive uropathy with indwelling Campos catheter, GI bleed in August 2023
Surgical History: Cataracts
Family History: Non-contributory
[facility] no [facility] or [facility]
Review of Symptoms:
Unable to obtain with patient's mental status and confusion
Physical Exam:
Elderly woman, ill appearing, no overt distress, confused, no head trauma, eyes clear, oropharynx clear, tongue midline, heart rate regular, breathing unlabored, abdomen soft non tender and obese, left arm is edematous in hand, forearm, and arm, no
rashes
Neurologic Examination:
Mental Status: Patient is awake and drowsy, there are some signs of left hemineglect with patient consistently oriented to the right side of the room, at most will say 'Ow' in response to pain and say 'I'm cold.'
Cranial Nerves: Pupils are 3 mm equal round and reactive to light bilaterally, there is mild right gaze preference, face is symmetric, there is dysarthria
Motor/sensory examination shows flaccid muscle tone of the left arm, at the most the left arm show 2/5 strength at the shoulder, no movements to pain of the fingers, hand or forearm on the left. Right arm shows localization to pain, legs withdraw
in a symmetric manner 3/5 hip flexion bilaterally
Reflexes unable to obtain throughout, babinski negative bilaterally, no clonus
Unable to assess coordination with left arm weakness, right arm no ataxia seen
Neuro Imaging:
CT head non contrast: No hemorrhage, right temporal and parietal hypodensity consistent with late subacute stroke, does not appear acute, no hyperdense MCA signs seen
CTA head and neck: No carotid occlusion or significant carotid stenosis bilaterally, no intracranial occlusions seen in M1 or M2 segments bilaterally of MCA arteries, basilar artery patent. Calcification of cavernous intracranial carotids
bilaterally less than 50% stenosis
CT perfusion: Perfusion deficit consistent with subacute and completed infarct on the right MCA parietal and temporal lobe
Impressions
1. Subacute right MCA ischemic infarction, probably occuring in the past 1-3 weeks, this may have produced only subtle symptoms and then having septic shock clouded her picture on admit. She could have had progression of the stroke due to
hypotension from septic shock. Initial insult was most likely embolic stroke to right MCA, atheroembolic versus cardioembolic are most likely causes. Risk factors are age, hypertension, diabetes, hyperlipidemia.
2. Toxic metabolic encephalopathy from septic shock and UTI
3. Left arm weakness may be partly from right MCA stroke but also partly due to left hand and arm edema
4. Septic shock due to catheter associated UTI
5. KRISTA
6. Hypertension
7. Diabetes mellitus
8. GI bleed with hemorrhagic shock in August 2023
Patient has the following risk factors for their symptoms: Age, diabetes, hypertension, hyperlipidemia, sepsis
IV Tenecteplase/IAT candidacy: Patient not a candidate for TNK given unclear onset of the left arm weakness as well as subacute ischemic infarct on CT head which would be absolute exclusion criterion for TNK. No large vessel occlusion seen on
the CTA head and neck that would be intervenable and thus not an IAT candidate.
I recommended patient undergo both CT perfusion as well as CTA of the head and neck given findings of left arm hemiplegia, mild right gaze preference and left hemineglect highly concerning for a right MCA syndrome with significant pre-test
likelihood of an intervenable occlusion of the right MCA territory. Understanding the risks of further iodine contrast in this patient with KRISTA and elevated creatinine, I feel strongly that the benefits of evaluation for any large vessel occlusion
and the risks of missing an intervenable large vessel occlusion on the right side of the brain both outweigh the risks of further kidney injury due to iodine administration.
Recommendations:
1. Goal normotension
2. Neurologic checks and NIH scales
3. Speech, physical, occupational therapy evaluations
4. Continue to treat sepsis, antibiotics, supportive care
5. Follow creatinine, KRISTA, urine output, nephrology following
6. Aspiration precautions
7. Would give aspirin 325 mg once and start aspirin 81 mg daily, avoid DAPT with a history of significant GI bleed in August
8. Low yield in obtaining another TTE given she had one in August
9. Cardiac telemetry
10. Check HbA1c and lipid panel
11. Statin medication when able to take PO
12. Check MRI brain without contrast non-urgently
13. Consider ultrasound of left arm given edema
Will follow
ICU time = 60 minutes
Discussed patient care with: Nursing, hospitalist
Total Time Spent with Patient (in minutes): 60
--- NOTE | 2023-12-29 08:55 | W.CON.NEPH ---
Addendum entered and electronically signed by Js Saez MD 12/31/23 09:40:
KRISTA on CKD3a
Original Note:
Consultation
-
Date/Time Consultation Requested: December 29, 2023 7 AM
Date/Time Consultation Performed: December 29, 2023 9 AM
Requesting Provider: Dr. Glover
Performing Provider: Dr. Saez
Reason for Consultation: Acute kidney injury
Medical History
-
Chief Complaint: Hypotension, weakness
History of Present Illness:
This is a 73-year-old female with diabetes mellitus type 2 on oral medications alone under modest control, hypertension on a multidrug regimen as well as hyperlipidemia on statin therapy also controlled. She was recently in the hospital back in
August of this year. She was admitted at that time with hypoxic respiratory failure. She also had obstructive uropathy with a Mullins catheter. She was subsequently discharged to [facility]. She apparently been doing fairly well until
recently when she began developing hypoxia and hypotension reportedly she had called EMS and they brought her to the hospital. She was noted to have a blood pressure of 80 systolic here and was sent to the ICU. Her creatinine was noted also to be
elevated at 3.9 from a baseline of 1.2 back in September. She also has significant metabolic acidosis with hyponatremia with a sodium level of 127. She was low at her last hospitalization as well at 130. She is critically ill in ICU. This morning it
was noted that she had been moving her upper extremity and was sent for urgent CTA and brain CT scan. This suggested a subacute stroke.
Past Medical History
Essential Hypertension
Hyperlipidemia
Diabetes Mellitus, Type II
Hypothyroidism
Dysphagia
Rectal Ulcers
Neurogenic Bladder
IBS
Cataract surgery
Oral surgery
Social History
Tobacco: Non-Smoker
Alcohol: None
Family History
Family History: Not Pertinent
Allergies / Home Medications
Allergy/AdvReac Type Severity Reaction Status Date / Time
celecoxib [From Celebrex] Allergy Shortness Verified 12/27/23 23:59
of Breath
gold Au 198 Allergy Rash Verified 12/27/23 23:59
hydrochlorothiazide Allergy Rash Verified 12/27/23 23:59
nickel Allergy Rash Verified 12/27/23 23:59
Sulfa (Sulfonamide Allergy breathing Verified 12/27/23 23:59
Antibiotics)
�Medication �Instructions �Recorded �Confirmed �Type
folic acid 1 mg tablet 1 mg PO DAILY Supplement 11/13/16 08/27/23 History
loratadine 10 mg tablet 10 mg PO DAILY PRN allergies 11/13/16 08/27/23 History
acetaminophen 325 mg tablet 650 mg PO Q4HPRN PRN mild pain 08/06/23 08/27/23 History
(Tylenol)
atorvastatin 10 mg tablet 10 mg PO HS High Cholesterol 08/06/23 08/27/23 History
cholecalciferol (vitamin D3) 100 100 mcg PO BID Supplement 08/06/23 08/27/23 History
mcg (4,000 unit) tablet
levothyroxine 112 mcg tablet 112 mcg PO DAILY Thyroid 08/06/23 08/27/23 History
metformin 1,000 mg tablet 1,000 mg PO BID@0800,1700 Diabetes 08/06/23 08/27/23 History
bisacodyl 10 mg rectal suppository 10 mg HI DAILYPRN PRN IF NO BM 08/19/23 08/27/23 History
(Dulcolax (bisacodyl)) AFTR MOM
ferrous sulfate 143 mg (45 mg 143 mg PO DAILY Supplement 08/19/23 08/27/23 History
iron) tablet,extended release
magnesium hydroxide 400 mg/5 mL 2,400 mg PO DAILYPRN PRN if no bm 08/19/23 08/27/23 History
oral suspension (Milk of Magnesia) after 3 days
ondansetron HCl 4 mg tablet 4 mg PO Q4HPRN PRN NAUSEA 08/19/23 08/27/23 History
simethicone 80 mg chewable tablet 80 mg PO [id number] PRN GAS PAIN 08/19/23 08/27/23 History
sodium phosphates 19 gram-7 118 ml HI DAILYPRN PRN IF NO BM 08/19/23 08/27/23 History
gram/118 mL enema (Fleet Enema) AFTR DULCOLAX
docusate sodium 100 mg capsule 100 mg PO BID #0 caps 08/26/23 08/27/23 Rx
pantoprazole 40 mg tablet,delayed 40 mg PO DAILY Gastrointestinal 08/26/23 08/27/23 Rx
release issue #30 tabs
polyethylene glycol 3350 17 gram 17 g PO BID Constipation #30 ea 08/26/23 08/27/23 Rx
oral powder packet (HealthyLax)
sennosides 8.8 mg/5 mL oral syrup 8.8 mg (5 mL) PO HS Constipation 08/26/23 08/27/23 Rx
#200 mL
albuterol sulfate 2.5 mg/3 mL 2.5 mg (3 mL) inhalation R Q4HPRN 09/06/23 Rx
(0.083 %) solution for nebulization PRN shortness of breath #75 mL
furosemide 20 mg tablet (Lasix) 20 mg PO DAILY PRN Weight gain #30 09/06/23 Rx
tabs
metoprolol tartrate 25 mg tablet 6.25 mg (1/4 x 25 mg) PO BID #60 09/06/23 Rx
tabs
Review of Systems
-
She says she feels stiff. No pain. No shortness of breath. Mullins catheter in place
All other systems: Negative unless noted
Physical Exam
Vital Signs
Vital Signs
Temp Pulse Resp BP Pulse Ox
97.8 F 103 12 96/76 95
12/29/23 07:07 12/29/23 07:00 12/29/23 07:00 12/29/23 07:00 12/29/23 07:14
Lab Results
WBC 16.6 10^3/uL (4.8-10.8) H 12/29/23 02:51
RBC 2.91 10^6/uL (4.20-5.40) L 12/29/23 02:51
Hgb 7.9 g/dL (12.0-16.0) L 12/29/23 02:51
Hct 23.5 % (37.0-47.0) L 12/29/23 02:51
Plt Count 221 10^3/uL (130-400) 12/29/23 02:51
Sodium 130 mmol/L (135-145) L 12/29/23 02:51
Potassium 4.3 mmol/L (3.5-5.1) 12/29/23 02:51
Chloride 100 mmol/L (98-107) 12/29/23 02:51
Carbon Dioxide 22 mmol/L (22-30) 12/29/23 02:51
BUN 48 mg/dl (7-17) H 12/29/23 02:51
Creatinine 3.1 mg/dL (0.6-1.0) H 12/29/23 02:51
eGFR 15.21 12/29/23 02:51
Glucose 129 mg/dl (70-99) H 12/29/23 02:51
Calcium 8.6 mg/dl (8.4-10.2) 12/29/23 02:51
Syr-H-Bktylebnjsk Pept 2810 pg/ml 12/28/23 00:25
Albumin 3.2 g/dl (3.5-5.0) L 12/28/23 00:25
Physical Exam
Patient is awake alert oriented and in no distress. Mood and affect were pleasant, insight and judgment were good. Pupils are equal round and reactive to light, extraocular movements are intact, sclera were anicteric. Hearing was normal, ears and
nose are intact. Oropharynx was clear. Neck was supple with trachea midline and no thyromegaly. Heart was regular rate and rhythm without rubs. Lower extremities with 3+ edema. Lungs were clear to auscultation bilaterally and with normal
excursion. Abdomen was soft, nontender, with normal active bowel sounds, and no hepatosplenomegaly. Skin was without rash and with normal turgor.
Data Reviewed
-
Radiology: Image Personally Visualized and interpreted (Chest x-ray on 12/28/2023 by my reading shows no active disease)
Ultrasound: Report Reviewed by me (Renal ultrasound on 12/28/2023 shows right kidney 8.4 cm, left kidney 10.5 cm, 2.4 cm nonshadowing echogenic area in the left upper pole)
Medical Tests (Nuc Med, Echo etc): Image Personally Visualized and interpreted (EKG on 12/28/23 EKG on 12/28/2023 by reading shows normal sinus rhythm inferior Q-wave)
Labs: Labs Reviewed by me (WBC 16.6, hemoglobin 7.9, platelets 221, sodium 130, potassium 4.3, bicarb 22, BUN 48, creatinine 3.1)
Assessment/Plan
-
Assessment:
Respiratory failure
Hypotension
Presumed sepsis
Acute kidney injury
Lactic acidosis
Metabolic acidosis
Hyponatremia
Obstructive uropathy with Mullins
Diabetes mellitus type 2
Plan:
Maintain Mullins
Follow BMP carefully in light of new recent contrast exposure CTA
Check urine studies
Await cultures
Continue meropenem
Light IV fluids
Maintain mean arterial pressure greater than 65 with pressors if needed
Critical care time spent 31 minutes
--- NOTE | 2023-12-29 09:09 | PTCARENOTE ---
In CT scan. Dr. Pedersen for Cr clearance with contrast requirement for patient unable to be reached. Dr. Biswas notified and order to proceed with test.
--- NOTE | 2023-12-29 09:22 | W.PN.UPDATE ---
Update Note
Progress Note Update
I recommended patient undergo both CT perfusion as well as CTA of the head and neck given findings of left arm hemiplegia, mild right gaze preference and left hemineglect highly concerning for a right MCA syndrome with significant pre-test
likelihood of an intervenable occlusion of the right MCA territory. Understanding the risks of further iodine contrast in this patient with KRISTA and elevated creatinine, I feel strongly that the benefits of evaluation for any large vessel occlusion
and the risks of missing an intervenable large vessel occlusion on the right side of the brain both outweigh the risks of kidney injury due to iodine administration.
--- NOTE | 2023-12-29 09:44 | PN.CDI ---
CDI
- -
CDI:
Physician Documentation Request
Admit Date: 12/28/23 02:54
Dear Doctor Adalberto,
Please review the following and provide your response in the progress notes.
Clinical Indicators:
Pt admitted with Septic shock 22 CAUTI
Documented per H&P, ' Wt 85.7 kg ( 09/06/23 ) ---> 75.6 kg ( 12/28/23 ) she LOSS 10 kg over last 12 -13 weeks ...'
Nutrition consult 12/27,' Spoke with pts who reports pt has been loosing weight over past 3 months since a SNF ....CBW: 164 lbs 14.492 oz BMI 25.1 overweight range 12/27. Pts weight previous admission listed as 215 lbs 08/06 reflective of 51 lb
(24%) in 4 months, significant....With weight loss of > 10% in 6 months and < 75% estimated needs > 1 month pt meets AND/ASPEN criteria for severe protein calorie malnutrition of SEC. ...'
Based on the above information and your assessment, which of the following most accurately represents the patient's nutritional status?
Severe protein Calorie Malnutrition
Moderate Protein Calorie Malnutrition
Other (please specify)
[place] Criteria ([employer] Hospitalist 2017)
2 or more criteria must be present for either
non severe or severe malnutrition
Note that the criteria differs related to the
presence of an acute or chronic illness
Acute Illness Chronic Illness
Energy Intake Non Severe: <75% for >7 days Non Severe: <75% for >1 month
Severe: <50% for >5 days Severe: <75% for >1 month
Weight Loss Non Severe: 1-2% over 1 week Non Severe: 5% over 1 month
5% over 1 month 7.5% over 3 months
7.5% over 3 months 10% over 6 months
1 year N/A 20% over 1 year
Severe: >2% over 1 week Severe: >5% over 1 month
>5% over 1 month >7.5% over 3 months
>7.5% over 3 months >10% over 6 months
1 year N/A >20% over 1 year
Body Fat Non Severe: Mild Decrease Non Severe: Mild Loss
Severe: Moderate Decrease Severe: Severe Loss
Muscle Mass Non Severe: Mild Decrease Non Severe: Mild Loss
Severe: Moderate Decrease Severe: Severe Loss
Fluid Accumulation Non Severe: Mild Accumulation Non Severe: Mild Accumulation
Severe: Moderate to severe Severe: Moderate to severe
accumulation accumulation
Reduced Bisque Finisher Strength Non Severe: N/A Non Severe: N/A
Severe: Measurably reduced Severe: Measurably reduced
Use of terms such as suspected, likely, concern for, or probable (associated with a specific diagnosis that is being evaluated, monitored, or treated as if it exists) are acceptable and can be coded in the inpatient setting, when documented at the
time of discharge.
Thank you,
Shala Mancini RN
CDI Specialist
[place]
Please use your independent medical judgment in providing your response.
--- NOTE | 2023-12-29 09:49 | PN.CDI ---
CDI
- -
CDI:
CDI
- -
CDI:
Physician Documentation Request
Admit Date: 12/28/23 02:54
Dear Doctor Adalberto,
Please review the following and provide your response in the progress notes.
Clinical Indicators:
Pt admitted with Septic shock 2/2 CAUTI
Documented per H&P, ' Wt 85.7 kg ( 09/06/23 ) ---> 75.6 kg ( 12/28/23 ) she LOSS 10 kg over last 12 -13 weeks ...'
Nutrition consult 12/27,' Spoke with pts who reports pt has been loosing weight over past 3 months since a SNF ....CBW: 164 lbs 14.492 oz BMI 25.1 overweight range 12/27. Pts weight previous admission listed as 215 lbs 08/06 reflective of 51 lb
(24%) in 4 months, significant....With weight loss of > 10% in 6 months and < 75% estimated needs > 1 month pt meets AND/ASPEN criteria for severe protein calorie malnutrition of SEC. ...'
Based on the above information and your assessment, which of the following most accurately represents the patient's nutritional status?
Severe protein Calorie Malnutrition
Moderate Protein Calorie Malnutrition
Other (please specify)
[place] Criteria ([facility] Hospitalist 2017)
2 or more criteria must be present for either
non severe or severe malnutrition
Note that the criteria differs related to the
presence of an acute or chronic illness
Acute Illness Chronic Illness
Energy Intake Non Severe: <75% for >7 days Non Severe: <75% for >1 month
Severe: <50% for >5 days Severe: <75% for >1 month
Weight Loss Non Severe: 1-2% over 1 week Non Severe: 5% over 1 month
5% over 1 month 7.5% over 3 months
7.5% over 3 months 10% over 6 months
1 year N/A 20% over 1 year
Severe: >2% over 1 week Severe: >5% over 1 month
>5% over 1 month >7.5% over 3 months
>7.5% over 3 months >10% over 6 months
1 year N/A >20% over 1 year
Body Fat Non Severe: Mild Decrease Non Severe: Mild Loss
Severe: Moderate Decrease Severe: Severe Loss
Muscle Mass Non Severe: Mild Decrease Non Severe: Mild Loss
Severe: Moderate Decrease Severe: Severe Loss
Fluid Accumulation Non Severe: Mild Accumulation Non Severe: Mild Accumulation
Severe: Moderate to severe Severe: Moderate to severe
accumulation accumulation
Reduced Predator Control Trapper Strength Non Severe: N/A Non Severe: N/A
Severe: Measurably reduced Severe: Measurably reduced
Use of terms such as suspected, likely, concern for, or probable (associated with a specific diagnosis that is being evaluated, monitored, or treated as if it exists) are acceptable and can be coded in the inpatient setting, when documented at the
time of discharge.
Thank you,
Shala Mancini RN
CDI Specialist
[place] [employer]
Please use your independent medical judgment in providing your response.
--- NOTE | 2023-12-29 09:51 | PN.CDI ---
CDI
- -
CDI:
Physician Documentation Request
Admit Date: 12/28/23 02:54
Dear Doctor Adalberto,
Please review the following and provide your response in the progress notes.
Clinical Indicators:
Pt admitted with Septic shock 2/2 CAUTI
Documented in the record,' # Sacral Wound - Present on Admission, Stable. Wound Care evaluation.'
WOCN note 12/27,' sacral stage 2 PI. Today sacrum/buttocks appears to have pale pink scarring and scattered open areas from stool incontinence... Posterior thighs with evolving DTI vs Stage 2 PI from prolonged sitting in wheelchair at
home.....Sacral silicone foam applied after cleaning...'
Physician documentation of the type and location of wounds is required for compliant documentation. Based on the above clinical findings and your assessment, please provide the following in your progress note:
1. Location of the ulcer/wound, including laterality. ( FOR EACH WOUND)
2. Type (etiology) of ulcer/wound:
- Pressure (decubitus) ulcer
- Non-pressure ulcer
- Other
Use of terms such as suspected, likely, concern for, or probable (associated with a specific diagnosis that is being evaluated, monitored, or treated as if it exists) are acceptable and can be coded in the inpatient setting, when documented at the
time of discharge.
Thank you,
Shala Mancini RN
CDI Specialist
[place] [employer]
Please use your independent medical judgment in providing your response.
*Source: National Pressure Ulcer Advisory Panel (NPUAP)
--- NOTE | 2023-12-29 09:51 | W.PN.ID1 ---
Date of Service
Date of Service: December 29, 2023
Today's Communication
Continue meropenem.
Repeat blood cx's.
Assessment / Plan
# GPC -cluster bacteremia 1 of 4 bottles: suspect contaminant
# CAUTI - campos changed in ED
# Severe sepsis on pressor, Leukocytosis worse
# KRISTA
# Recent SNF stay
-renal US no hydro
- Repeat blood cx's.
- Continue meropenem (d2)
Will de-escalate abx when cx data available.
- Follow Ucx
- Trend BP, wbc, temps.
# Subacute CVA
- Neuro following
#Additional Past Medical History:
Diabetes mellitus
Hypertension
dyslipidemia
HFpEF
Hypothyroidism
Neurogenic bladder with chronic Campos
History of GI bleed
Rectal ulcer
Stress incontinence
Chief Complaint
-: Clinical Sepsis, UTI and Bacteremia
Vital Signs / Physical Exam
Vital Signs
Vital Signs
Temp Pulse Resp BP Pulse Ox
97.8 F 103 12 96/76 95
12/29/23 07:07 12/29/23 07:00 12/29/23 07:00 12/29/23 07:00 12/29/23 07:14
Physical Exam
Constitutional: Acutely Ill
Eyes: Sclera Anicteric
Cardiovascular: Regular Rate and S1/S2
Pulmonary: Clear (anteriorly)
Gastrointestinal: Soft, Non Tender and Non Distended
Genito-Urinary: Campos and Clear Urine
Extremities: Edema
Neurological: Awake and Alert
Lines: PICC
Objective Data
Lab Data
Lab Results
12/29/23 02:51
12/29/23 02:51
PT 18.1 Sec (11.4-14.6) H 12/28/23 18:55
INR 1.52 12/28/23 18:55
APTT 36.1 Sec (23.4-35.0) H 12/28/23 18:55
Estimated Creat Clear 16 ml/min 12/29/23 02:51
Lactic Acid Cancelled 12/28/23 16:10
Total Bilirubin 0.8 mg/dl (0.2-1.3) 12/28/23 00:25
AST 30 U/L (14-36) 12/28/23 00:25
ALT 17 U/L (0-35) 12/28/23 00:25
Alkaline Phosphatase 178 U/L (38-126) H 12/28/23 00:25
Most recent labs reviewed.
Micro Results:
12/28/23 00:25 Blood Culture - Preliminary
Blood/Venous Positive culture in progress
Gram Stain - Preliminary
12/28/23 00:28 Blood Culture - Preliminary
Blood/Venous No Growth in 24 hours- Final report to follow
12/28/23 08:44 MRSA Screen - Pending
Nose
12/28/23 02:26 Urine Culture - Pending
Urine
12/28/23 CXR: No evidence of active cardiopulmonary disease.
12/28/23 Renal US: No evidence of renal collecting system dilatation bilaterally.
12/29/[address]: There is an 8 cm area of encephalomalacia in the right temporal lobe and right temporal parietal junction associated with a 2 cm area of low density in the right centrum semiovale consistent with infarct in the right middle cerebral
artery distribution. The infarct appears more delayed subacute than acute.
--- NOTE | 2023-12-29 09:59 | PN.CDI ---
CDI
- -
CDI:
Physician Documentation Request
Admit Date: 12/28/23 02:54
Dear Doctor Adalberto,
Please review the following and provide your response in the progress notes.
Clinical Indicators:
Pt admitted with Septic shock 2/2 CAUTI
Documented per H&P/ Progress note 12/27 , ' # Acute on chronic hypoxic RF Placed on 4L NC, cont and wean as tolerated (she had been on RA) ...'
Progress note 12/28, 'Acute on chronic hypoxic RF4L NC -> HFNC -> BIPAP, cont O2 and wean when able (she had been on RA) CXR from admission: No evidence of active cardiopulmonary disease....'
Data Technician note,' Respiratory failure-acute hypoxemic-pulse ox in the 60s on RA...'
No documentation of home oxygen use
Clarify which of the following accurately represents the patient's respiratory status:
Acute Hypoxic Respiratory Failure
Acute on Chronic Hypoxic respiratory Failure ( no change in documentation )
Other ( Please Specify)
Use of terms such as suspected, likely, concern for, or probable (associated with a specific diagnosis that is being evaluated, monitored, or treated as if it exists) are acceptable and can be coded in the inpatient setting, when documented at the
time of discharge.
Thank you,
Shala Mancini RN
CDI Specialist
[place] [employer]
Please use your independent medical judgment in providing your response.
[2023-12-29] MEDS: NSS 1000 IV ×2 (10:25→23:40)
[2023-12-29 11:32] LABS: Urine Sodium 26 mmol/L (30-90)
[2023-12-29] MEDS: MERREM 500 MG IV ×2 (11:37→23:40)
[2023-12-29] MEDS: STERILE WATER FOR INJECTION 10 ML IV ×2 (11:38→23:40)
[2023-12-29 11:45] LABS: Glucose - Point of Care 140 mg/dl (70-99)
[2023-12-29] MEDS: NOVOLOG FLEXPEN-LOW RESISTANCE SC ×3 (11:49→23:35)
--- NOTE | 2023-12-29 11:59 | PTCARENOTE ---
Patient now on high flow, saturating at 97%. Was seen by speech, cleared for regular thins, pills whole in applesauce.
--- NOTE | 2023-12-29 12:14 | PTOTSP ---
Speech Therapy Assessment
Limited trials to pureed and liquids given minimal dentition and reduced level of arousal. No overt signs of aspiration with thin liquids and pureed trials.
Recommend
1. IDDSI level 4 (pureed) and Thin liquids
2. Meds one at a time and placed whole in applesauce.
3. Supervision and assist to feed.
4. Aspiration precautions.
5. Oral care.
6. ST will follow and advance diet as clinically appropriate and complete language and cognitive assessment
[2023-12-29] MEDS: ASPIRIN 325 MG PO (12:30)
--- NOTE | 2023-12-29 15:47 | CM ---
CM following re: discharge planning.
Discussed in Rounds, reviewed pt's chart, met with pt and pt's at bedside. Per rounds meeting, pt has New CVA, subacute, KRISTA worsening, continue antibiotics. neurology, nephrology following.
family meeting held today with MD, pt, pt's and CM. The notion of the family meeting is to discuss a goals of care. Pt's expressed his understanding of severity of pt's current health situation, went to tears, stated he needs some
time to process it and he will discuss it with pt's brother alondra. pt's stated: 'I feel, I need to say goodbye to my and she seems giving up with fighting'. Comfort care with hospice care has been discussed with pt and her and
pt's stated he realized it and needs some time to make the decision. Emotional support offered and provided.
Pt's stated he will never bring his to [facility] and expressed his very negative feelings regarding care there.
CM met with APC showcase trimmer from [employer] [phone] and she investigates the allegation of pt's inability to care for pt at home.
D/C plan: Uncertain at this time and will depend on pt's progress. Possibly comfort care/hospice care.
CM will follow with discharge plan updates as hospitalization progresses.
--- NOTE | 2023-12-29 16:00 | PTCARENOTE ---
Patient was seen by speech and cleared for diet, but will hold/keep NPO until more sustained awakening. Patient's updated on subacute stroke. Patient continues to require high flow, does desaturated into mid to low 80s. Continuing to turn
and reposition q2. Now on 70% and 60L.
[2023-12-29 17:29] LABS: Glucose - Point of Care 124 mg/dl (70-99)
--- NOTE | 2023-12-29 20:00 | PTCARENOTE ---
on assessment pt lethargic but AAOx4, denies pain, very weak, ST on the monitor, on levo see MAR, afebrile, lungs diminished, on high flow, will be going on BIPAP at night, purred diet ordered, campos in place, wounds noted see flowsheet, call wyman
in reach and bed alarm on.
--- NOTE | 2023-12-29 21:28 | PTCARENOTE ---
NIH completed with 2nd RN, very hard to complete due to pt being lethargic and weak. no changes from previous night per nightshift RN at bedside, nighttime STAFF DEVELOPER made aware of difficulty completing NIH, no new orders at this time.
[2023-12-29 23:45] LABS: Glucose - Point of Care 124 mg/dl (70-99)
[2023-12-30] VITALS (15 sets, daily range): BP systolic 94–147; BP diastolic 20–118; PULSE 2–105; BMI 25.6
--- NOTE | 2023-12-30 | PTCARENOTE ---
Levo on standby at 2029, BIPAP on HS, pt repositioned q2h with pillow support.
--- NOTE | 2023-12-30 04:00 | PTCARENOTE ---
pt remains on BIPAP. no changes from prior assessment. call wyman in reach and bed alarm on.
[2023-12-30] MEDS: NOVOLOG FLEXPEN-LOW RESISTANCE SC (05:12)
[2023-12-30 05:22] LABS: Glucose - Point of Care 109 mg/dl (70-99)
[2023-12-30 05:30] LABS: Blood Urea Nitrogen 41 mg/dl (7-17); Calcium 7.9 mg/dl (8.4-10.2); Carbon Dioxide 20 mmol/L (22-30); Chloride 105 mmol/L (98-107); Estimated Creatinine Clearance 21 ml/min; Glucose 100 mg/dl (70-99); Magnesium 1.5 mg/dl (1.6-2.3); Potassium 3.5 mmol/L (3.5-5.1); Sodium 132 mmol/L (135-145); eGFR 20.68
[2023-12-30 05:49] LABS: % Basophils 0.1 % (0-2); % Immature Granulocytes 0.7 % (0-0.5); % Lymphocytes 6.7 % (20.5-51.1); % Neutrophils 87.5 % (42.2-75.2); Absolute Immature Granulocytes 0.1 10^3/uL (0-0.05); Absolute Lymphocytes 0.8 10^3/uL (1.2-3.4); Absolute Monocytes 0.6 10^3/uL (0.1-0.6); Absolute Neutrophils 9.9 10^3/uL (1.4-6.5); Mean Corp Hgb Conc. 34.7 g/dL (33.0-37.0); Mean Corpuscular Hgb 27.2 pg (27.0-31.0); Mean Corpuscular Volume 78.5 fL (81.0-99.0); Mean Platelet Volume 10.1 fL (7.4-10.4); Nucleated Red Blood Cells % 0 %; Platelet Count 196 10^3/uL (130-400); Red Blood Cell Count 2.46 10^6/uL (4.20-5.40); Red Cell Dist. Width 16.8 % (11.5-14.5); White Blood Cell Count 11.3 10^3/uL (4.8-10.8)
[2023-12-30] MEDS: MAGNESIUM SULFATE 50 IV (06:06)
[2023-12-30] MEDS: KCL 160 MEQ IV (06:07)
[2023-12-30 06:37] LABS: Hematocrit 19.3 % (37.0-47.0); Hemoglobin 6.7 g/dL (12.0-16.0)
--- NOTE | 2023-12-30 07:09 | W.PN.INTV ---
Today's Communication / Plan
Recommendations
worsening clinically, hb noted this AM
on BIPAP
has decided on comfort measures, she is DNR
pain control
transfer to [facility], we will sign off at this time, please call with questions
Assessment
-
Patient is a 73-year-old female with past medical history of hypertension, hyperlipidemia, diabetes 2 presenting from [facility] for low BP and pulse ox, reportedly 80/66 and 60% on RA. At [facility], she was reportedly extremely weak and unable
to perform basic function, mostly in wheelchair. On arrival, placed on 4L NC, and admitted to IMU. CXR clear. She has no prior history of lung disease. UA showing possible UTI with + nitrites/LE and moderate bacteria.
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
Urosepsis
Respiratory failure-acute hypoxemic-pulse ox in the 60s on RA
Acute on chronic HF exacerbation, proBNP 2810, prior 5120
Mild hyponatremia
Metabolic acidosis
KRISTA, creat 3.9 (prior BL 1.2)
Lactic acidosis
Conditions present prior to admission:
Recent hospitalization 08/2023-acute GI bleed, anemia, hemorrhagic shock, coagulopathy, acute kidney injury
Hypertension.
Hyperlipidemia.
Diabetes.
Hypothyroid.
Dysphagia.
Rectal ulcers.
Neurogenic bladder.
GERD.
IBS.
Stress incontinence.
Obesity-BMI 31
Cataract surgery. Oral surgery.
Plan
LUE weakness noted, CT obtained showing subacute CVA
Neuro consult
Initially placed on oxygen supplementation, 100% on 4L NC--escalated to HFNC
ABG obtained with PaO2 adequate >60
Patient is mainly bedbound. Suspect atelectasis as a major contributor.
Flexion of head likely also contributing
Trial with BIPAP, reviewed with RT
Last admission notes reviewed
Has been off the anticoagulants due to GI bleed.
No pulmonary embolism on CTA chest from 09/02/2023.
No history of lung disease
Lung exam is relatively clear.
Repeat CXR mostly clear
ABG 09/01/2023: 2.50 01/30/1964. No evidence for hypercapnia. Respiratory alkalosis
Suspect part of the hypoxemia is due to atelectasis
Increase mobility
Encourage incentive spirometry
Avoid sedation
KRISTA noted with clear metabolic acidosis
She has history of obstructive uropathy
UTI also noted
Continue to monitor renal function and electrolytes.
Worsening, renal consult obtained
IV abx
Culture negative to date
1 blood culture prelim pending, likely contaminant
ID following
Out of bed to chair, incentive spirometry, encouraged.
Would benefit from outpatient sleep disorder workup.
Has not yet followed up as OP
Follow hemoglobin
Transfuse if needed to keep Hb>7g/dL
PPI
DVT prophylaxis-mechanical with recent GI bleed
GI prophylaxis-on pantoprazole
Overall prognosis seems poor, discussed hospice with family yesterday
ongoing discussions per team
Family Discussions
Spoke with patient, who wants to be DNR/DNI, this was confirmed in the presence of her who is at bedside. He is in agreement that if she does not survive, she would want to be kep comfortable. Code status changed in chart.
Diagnostic Data
Chest x-ray 08/08/2023-NAD
Chest x-ray 08/24/2023-NAD
CTA 12/29/23- 1). There is no evidence of branch occlusion in the major intracranial vessels
2). There is moderate partially calcific atherosclerotic plaque at the cavernous and supraclinoid portions of both internal carotid arteries associated with less than 50% stenosis bilaterally.
3). There is a small amount of partially calcific atherosclerotic plaque at the right carotid bifurcation without significant stenosis
4). There is moderate partially calcific atherosclerotic plaque at the intracranial portion of the left vertebral artery associated with approximately 60% stenosis
CT Head 12/29/23- There is an 8 cm area of encephalomalacia in the right temporal lobe and right temporal parietal junction associated with a 2 cm area of low density in the right centrum semiovale consistent with infarct in the right middle cerebral
artery distribution. The infarct appears more delayed subacute than acute.
CTA Chest 09-02-2023: No evidence of pulmonary embolism. Interval resolution of previous bilateral small pleural effusions. Bibasilar groundglass opacity has also improved, which may have represented atelectasis or mild alveolar edema. No evidence
of pneumonia. Tiny pulmonary nodules noted, measuring up to [address] chest 08/08/2023-no evidence for pulmonary embolism, no significant abnormalities in the chest
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
CT chest 08/27/2023-no pulmonary embolism, small bilateral pleural effusions new compared to prior exam, mild to moderate atelectasis
GI bleeding scan 08/21/2023-no evidence for active GI bleed
Lower extremity ultrasound 08/24/2023-no evidence for DVT bilaterally
-----
Critical Care time 31 mins -- The patient is admitted for acute critical illness for the treatment of vital organ failure and/or prevention of further life-threatening conditions. Total care includes time spent in review of history, physical exam,
medications, hemodynamic/ventilator parameters, laboratory data, imaging and discussion with house staff, pharmacy, respiratory therapy, instrumentation supervisor, and nursing.
Subjective Dataa
Subjective Data
Date of Service:
Date of Service: December 30, 2023
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
Subjective:
more lethargic, less responsive
hb drop this AM
bipap noted ON
Objective Data
Data Reviewed
Vital Signs / I&O / Oxygen:
Vital Signs
Temp Pulse Resp BP Pulse Ox
97.7 F 109 13 147/118 99
12/30/23 04:00 12/30/23 06:15 12/30/23 06:15 12/30/23 06:00 12/30/23 06:15
Intake and Output
12/29/23 12/30/23 12/31/23
06:59 06:59 06:59
Intake Total 1807.5 / 1885.0 1571.3 / 1571.3
Output Total 305 / 305 525 / 525
Balance 1502.5 / 1580.0 1046.3 / 1046.3
SaO2 [NIV (Non Invasive 98
Ventilation)]
SaO2 99
Nasal Cannula flow liters per 60
minute
Physical Exam
General: Respiratory Distress (mild-mod) and Other (chronically ill appearing)
HEENT: Normocephalic, Anicteric and Other (edentulous)
Cardiovascular: S1-S2 and Regular Rhythm
Respiratory: Clear and Non-Labored Respirations
GI: Soft, Non Distended and Non Tender
Neurology: Lethargic (but arousable, does not answer questions/follow commands) and Other (LUE weakness)
Skin: Warm and Dry
Labs/Micro/Reports
Lab Data
12/30/23 05:06
12/30/23 05:06
Microbiology
12/28/23 00:28 Blood/Venous Blood Culture - Preliminary
No Growth in 48 hours- Final report to follow
12/28/23 08:44 Nose MRSA Screen - Final
Staph aureus MRSA
12/28/23 00:25 Blood/Venous Blood Culture - Preliminary
Staphylococcus epidermidis
12/28/23 00:25 Blood/Venous Gram Stain - Preliminary
12/28/23 02:26 Urine Urine Culture - Final
--- NOTE | 2023-12-30 07:32 | W.PN.HOSP.TC ---
Addendum entered and electronically signed by Carolynn Glover MD 12/30/23 13:33:
# Possible Acute on Chronic Diastolic CHF
Addendum entered and electronically signed by Carolynn Glover MD 12/30/23 11:45:
# Severe protein Calorie Malnutrition
# Stage 2 PI over sacrum/buttocks
# Acute Hypoxic Respiratory Failure
Original Note:
Today's Communication/Plan
-
transition to comfort measures
Assessment / Plan
Assessment / Plan
HPI: 73 yo F PMH prolonged admission to 08/27/23 - 09/06/23 due to acute hypoxic RF, sinus tachycardia, lower GI bleed secondary to stercoral colitis and rectal ulcers, mild hyponatremia, obstructive uropathy wear indwelling Campos catheter.
Then she was DCed to [facility] on 09/06/23.
On DOA she was sent home from [facility]. Reported she has been in the wheelchair since she got home due to weakness and inability to get herself up. Patient called 911 reported low BP and low POx. Per EMS: POx was 60s on RA and hypotensive
A/P:
# Acute on chronic hypoxic RF
CXR from admission: No evidence of active cardiopulmonary disease.
4L NC -> HFNC -> BIPAP, cont O2 support for comfort
# Septic shock due to CAUTI
# Resolved lactic acidosis
PCT at 0.91 (may not be accurate in setting of KRISTA/CKD)
Pus noted coming out of campos
Campos last changed 12/27 in ICU
urine culture noted mixed griselda,
one set blood culture with Staph epi
Off Levophed
empiric Zosyn to Merrem, would DC further Abx with transitioning to comfort measures
Hold LEATHER TACKER metoprolol
ID on board
# KRISTA suspect prerenal
# Resolved metabolic acidosis
Hold Lasix, metformin
Hold all Laxatives for now
s/p bicarb IVF
SCr 3.9 on admission -> 2.5 today; baseline 1.2; Monitor daily weight , I/O
Renal US: No evidence of renal collecting system dilatation bilaterally. 2.4 cm non-shadowing echogenic area along the upper pole the left kidney. Most likely differential diagnostic possibility would be a benign angiomyolipoma. This could be
further evaluated with CT Abdomen without and with intravenous contrast.
Renal on board
# Hyponatremia suspect 2/2 hypovolemia
Hold lasix
# L hand weakness due to subacute stroke in right temporal lobe and right temporal parietal junction of right middle cerebral artery distribution
No further imaging such as MRI brain with transitioning to comfort measures
Appreciate Neuro
# Acute on chronic anemia
# HX Rectal Ulcers and GIB
Hgb 9.2 on admission, today at 6.7.
No blood transfusion with transitioning to comfort measures
# Obstructive Uropathy with Chronic Campos Catheter POA
Maintain Campos and follow-up with Urology as an outpatient
Campos last changed 12/27 in ICU
# IDDM
BG in the 100's, hold basal insulin for now.
Hold metformin s/p CTA done in the ED.
Cover with ISS low
# HX Constipation / Stercoral Colitis
# Sacral Wound - Present on Admission, Stable.
Wound Care evaluation.
DVT Prophylaxis- SCDs
Code Status: DNR
Extensive discussion with on the phone. Discussed GOC. Explained to him pt's grave prognosis with severe clinical decline. He agreed to transition pt to comfort measures and stop all therapeutic medications.
Updated RN and all consultants
Anticipated Discharge: Within 24 hours
Subjective/Interval History
-
Date of Service: December 30, 2023
Objective Data
-
Labs:
Laboratory Results
12/30/23
05:06
WBC 11.3 H
Hgb 6.7 L*
Hct 19.3 L*
Plt Count 196
Sodium 132 L
Potassium 3.5
Chloride 105
Carbon Dioxide 20 L
BUN 41 H
Creatinine 2.4 H
Glucose 100 H
Calcium 7.9 L
Vital Signs:
Vital Signs
Temp Pulse Resp BP Pulse Ox
36.5 C 109 13 147/118 99
12/30/23 04:00 12/30/23 06:15 12/30/23 06:15 12/30/23 06:00 12/30/23 06:15
I&O
12/29/23 12/30/23 12/31/23
06:59 06:59 06:59
Intake Total 1807.5 / 1885.0 1571.3 / 1571.3
Output Total 305 / 305 525 / 525
Balance 1502.5 / 1580.0 1046.3 / 1046.3
Review of Systems
-
Unable to obtain full review of systems at this time due to: Acuity
Physical Exam
-
General: Respiratory Distress and Appears Chronically Ill
HEENT: Normocephalic, Atraumatic and Oxygen (BIPAP)
Respiratory: Non Labored Respirations; Negative Accessory Resp Muscle Use
Cardiac: Regular Rhythm and S1/S2
GI: Soft
Musculoskeletal: Edema, Right Lower Extrem and Edema, Left Lower Extrem
Psych: Calm
Data Reviewed
-
CT Scan: Report Reviewed by me
Labs: Labs Reviewed by me
[2023-12-30] MEDS: NSS (PRESERVATIVE FREE) 10 ML IV (07:35)
[2023-12-30] MEDS: PROTONIX IV 40 MG IV (07:35)
--- NOTE | 2023-12-30 09:41 | CM ---
CM following re: discharge planning.
Reviewed pt's chart, met with pt and pt's at bedside.
Per chart review pt on comfort care since this morning.
Pt's brought coca cola to the pt and expressed his understanding that pt can have soda when she is waking up and able to drink and pt's stated he will check with RN. pt's called the pt 'coca-holic' and asked again and again
whether or not she wants cola. Pt made no response.
CM spoke to pt's brother Alondra late afternoon yesterday, updated him on pt's current health condition and he stated he spoke to pt's and is aware. Pt's brother alondra stated he will come to on Thursday to visit the pt, he has to drive up to
3 hours.
D/C plan: comfort care.
CM is available for emotional support.
--- NOTE | 2023-12-30 12:52 | PN.CDI ---
CDI
- -
CDI:
Physician Documentation Request
Admit Date: 12/28/23 02:54
Dear Doctor Adalberto,
Please review the following and provide your response in the progress notes.
Clinical Indicators:
Pt admitted with Septic shock 2/2 CAUTI/CVA
Documented per H&P,' ... Presumed multifactorial origins on las admissions such as vol overload, Diastolic CHF.. KRISTA...Held Lasix...'
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
No other documentation of CHF in the record/ on 20 mg Lasix 20 mg at home
ECHO from previous admission 08/28/23,' LV ejection fraction is 55-60%...'
Please provide in your note the acuity of the documented CHF:
Acute on Chronic Diastolic CHF
Chronic Diastolic CHF only
Other (please specify)
Use of terms such as suspected, likely, concern for, or probable (associated with a specific diagnosis that is being evaluated, monitored, or treated as if it exists) are acceptable and can be coded in the inpatient setting, when documented at the
time of discharge.
Thank you,
Shala Mancini RN
CDI Specialist
[place] [facility]
Please use your independent medical judgment in providing your response.
--- NOTE | 2023-12-30 13:07 | PN.CDI ---
CDI
- -
CDI:
Physician Documentation Request
Admit Date: 12/28/23 02:54
Dear Doctor,
Please review the following and provide your response in the progress notes.
Clinical Indicators:
Pt admitted with Septic shock 2/2 CAUTI/CVA /KRISTA
Documented per nephrology consult,'She was noted to have a blood pressure of 80 systolic here and was sent to the ICU. Her creatinine was noted also to be elevated at 3.9 from a baseline of 1.2 back in September. ...'
Progress note 12/27,' ... but may not be accurate in setting of KRISTA/CKD ....'
Patient care note 12/27 @ 1946,' campos draining sm amts cloudy josué urine w/ sediment-...'
12/28/23 12/28/23 12/29/23
00:25 20:12 02:51
Creatinine 3.9 H 3.2 H 3.1 H
eGFR 11.55 14.64 15.21
12/30/23
05:06
Creatinine 2.4 H
eGFR 20.68
Clarify which of the following accurately represents the patient's renal status:
KRISTA with ATN / CKD (please specify stage )
KRISTA on CKD (please specify Stage )
Other (please specify)
Criteria for KRISTA*
1 Increase in serum creatinine by > or = to 0.3 mg/dL (> or = to 26.5 micromol/L) within 48 hours, OR
2 Increase in serum creatinine to > or = to 1.5 times baseline, which is known or presumed to have occurred within 7 days, OR
3 Urine volume < 0.5 nL/kg/hour for six hours
Stages of Chronic Kidney Disease*
Level Description GFR
G1 Normal or High >90
G2 Mildly decreased 60-89
G3a Mildly to moderately decreased 45-59
G3b Moderately to severely decreased 30-44
G4 Severely decreased 15-29
G5 Kidney failure <15
Use of terms such as suspected, likely, concern for, or probable (associated with a specific diagnosis that is being evaluated, monitored, or treated as if it exists) are acceptable and can be coded in the inpatient setting, when documented at the
time of discharge.
Thank you,
Shala Mancini RN
CDI Specialist
[place] [facility]
Please use your independent medical judgment in providing your response.
*Source: Kidney Disease: Improving Global Outcomes (KDIGO) 2012
--- NOTE | 2023-12-30 13:30 | PTCARENOTE ---
Patient transferred from ICU on comfort care. After patient was transferred to the bed and changed patient c/o of whole body pain. Patient also noted to have intermittent tremors. See MAR for prn medication administration documentation. Patients
and brother at bedside.
[2023-12-30] MEDS: MORPHINE SULFATE 1 MG IV ×2 (13:50→16:37)
[2023-12-30] MEDS: NSS (PRESERVATIVE FREE) 1 ML IV (13:51)
[2023-12-30] MEDS: ATIVAN 2 MG IV (13:51)
[2023-12-31] MEDS: NSS (PRESERVATIVE FREE) 1 ML IV (08:07)
[2023-12-31] MEDS: ATIVAN 2 MG IV (08:07)
[2023-12-31] MEDS: MORPHINE SULFATE 1 MG IV ×5 (08:07→17:37)
[2023-12-31 08:13] VITALS: BP 88/56
--- NOTE | 2023-12-31 10:20 | W.PN.HOSP.TC ---
Today's Communication/Plan
-
see A/P
Cont comfort measures with IV Ativan and morphine PRN, but will minimize today due to hoping pt would wake up to look at an old photo he had brought in.
Assessment / Plan
Assessment / Plan
HPI: 73 yo F PMH prolonged admission to 08/27/23 - 09/06/23 due to acute hypoxic RF, sinus tachycardia, lower GI bleed secondary to stercoral colitis and rectal ulcers, mild hyponatremia, obstructive uropathy wear indwelling Campos catheter.
Then she was DCed to [facility] on 09/06/23.
On DOA she was sent home from [facility]. Reported she has been in the wheelchair since she got home due to weakness and inability to get herself up. Patient called 911 reported low BP and low POx. Per EMS: POx was 60s on RA and hypotensive
A/P:
# Acute on chronic hypoxic RF
CXR from admission: No evidence of active cardiopulmonary disease.
4L NC -> HFNC -> BIPAP, now off with comfort measures
# Septic shock due to CAUTI
# Resolved lactic acidosis
PCT at 0.91 (may not be accurate in setting of KRISTA/CKD)
Pus noted coming out of campos
Campos last changed 12/27 in ICU
urine culture noted mixed griselda,
one set blood culture with Staph epi, the other with diphtheroid
Off Levophed
empiric Zosyn to Merrem, off of further Abx with transitioning to comfort measures
Hold OUTPATIENT FACILITY PHYSICAL THERAPIST metoprolol
# KRISTA suspect prerenal
# Resolved metabolic acidosis
s/p bicarb IVF
SCr 3.9 on admission -> 2.5; baseline 1.2; Monitor daily weight , I/O
Renal US: No evidence of renal collecting system dilatation bilaterally. 2.4 cm non-shadowing echogenic area along the upper pole the left kidney. Most likely differential diagnostic possibility would be a benign angiomyolipoma. This could be
further evaluated with CT Abdomen without and with intravenous contrast.
# Hyponatremia suspect 2/2 hypovolemia
Hold lasix
# L hand weakness due to subacute stroke in right temporal lobe and right temporal parietal junction of right middle cerebral artery distribution
No further imaging such as MRI brain with comfort measures
# Acute on chronic anemia
# HX Rectal Ulcers and GIB
Hgb 9.2 on admission, then dropped to 6.7.
No blood transfusion with comfort measures
# Obstructive Uropathy with Chronic Campos Catheter POA
Maintain Campos and follow-up with Urology as an outpatient
Campos last changed 12/27 in ICU
# IDDM
# HX Constipation / Stercoral Colitis
# Sacral Wound - Present on Admission, Stable.
DVT Prophylaxis- SCDs
Code Status: DNR
DW RN
updated at bedside
updated brothers Long and Jax (lives in [place] [phone]) on the phone
total time spent 51 min
Anticipated Discharge: Within 24 hours
Subjective/Interval History
-
Date of Service: December 31, 2023
Objective Data
-
Vital Signs:
Vital Signs
Temp Pulse Resp BP Pulse Ox
36.2 C 115 16 88/56 86
12/31/23 08:13 12/31/23 08:13 12/31/23 08:13 12/31/23 08:13 12/31/23 08:13
I&O
12/30/23 12/31/23 01/01/24
06:59 06:59 06:59
Intake Total 1571.3 / 1641.3 140 / 140
Output Total 525 / 525 5 / 5
Balance 1046.3 / 1116.3 135 / 135
Review of Systems
-
Unable to obtain full review of systems at this time due to: Acuity
Physical Exam
-
General: Appears Chronically Ill
HEENT: Normocephalic and Atraumatic
Respiratory: Non Labored Respirations; Negative Accessory Resp Muscle Use
Cardiac: Regular Rhythm and S1/S2
GI: Soft
Neuro: Negative Awake
Psych: Calm
--- NOTE | 2023-12-31 13:31 | CM ---
Reviewed the chart notes. Patient transferred from ICU for comfort care.
Plan: Comfort Care.
--- NOTE | 2023-12-31 14:30 | PTCARENOTE ---
discussed with MD about decreasing pain medication today to see if patient is more arousable, however, patient having tremors and grimacing. Had a discussion with pt's and he stated to give pain medication if patient is in pain. He
states ' I do not want her to be in pain. I want her to be comfortable.' left for the day.
[2023-12-31 20:36] VITALS: BP 80/51
--- NOTE | 2023-12-31 23:30 | PTCARENOTE ---
Addendum entered by Marychuy Cadena RN 01/01/24 00:35:
[facility] notified
Addendum entered by Marychuy Cadena RN 01/01/24 00:34:
Right Picc dc'd/ Folay cath dc'd. care given.
Original Note:
Patient with no respirations/ no pulse/ not responding to verbal or painful stimuli. MELONIE Emanuel made aware.
--- NOTE | 2024-01-01 00:15 | W.PN.DEATH ---
Pronouncement of
-
Called to see patient to pronounce.
No spontaneous heart tones or respirations noted.
Patient not responsive to verbal stimuli.
Patient is pronounced .
Time of : 23:30
Date of : 12/31/23
Family Notified: Yes ( and brother both notifed via telephone)
--- NOTE | 2024-01-01 11:32 | W.DCSUMMARY ---
Discharge Summary
Discharge Data
Date of Admission: 12/28/23
Date of Discharge: 12/31/23
-
Pending Results: No
Hospital Course
Principal Diagnosis:
Acute on chronic hypoxic respiratory failure (RF)
Septic shock due to catheter associated urinary tract infection (CAUTI)
Acute kidney injury (KRISTA) suspect prerenal
Subacute stroke in right temporal lobe and right temporal parietal junction of right middle cerebral artery distribution
Chronic Diagnoses:�
Obstructive Uropathy with Chronic Mullins Catheter on admission
Insulin-dependent diabetes
History of constipation / Stercoral Colitis
Sacral Wound present on admission
History of rectal ulcer and gastrointestinal bleed
Consultations:�
Strategic Partnership Specialist
Neurology
Nephrology
Infectious disease
Procedures:�
None
Clinical course:�
This is a 73-year-old female, with past medical history as stated above, who presented with weakness and inability to get herself up. She was noted to be hypoxic and hypotensive by EMS.
Problem 1:
Acute on chronic hypoxic RF.
Her CXR from admission showed no evidence of active cardiopulmonary disease.
She was placed on 4 L oxygen, which was later changed to BiPAP. She was taken off of oxygen support/BiPAP upon transitioning to comfort measures.
Problem 2:
Septic shock due to CAUTI.
Her Mullins was exchanged in the ICU on 12/28/2023.
She received empiric antibiotic Zosyn which was changed to Merrem per ID.
Further antibiotic was discontinued upon transitioning to comfort measures.
She did at one point received Levophed for blood pressure support.
Problem 3:
KRISTA suspect prerenal.
Her SCr was at 3.9 on admission, which did trend down to 2.5.
Her baseline serum creatinine was at 1.2.
Her renal ultrasound showed no collecting system dilation.
Problem 4:
Left hand weakness due to subacute stroke in right temporal lobe and right temporal parietal junction of right middle cerebral artery distribution.
She was transitioned to comfort measures hence no further brain imaging/MRI was obtained.
Problem 5:
Acute on chronic anemia.
Her Hgb dropped from 9.2 on admission to 6.7.
No blood transfusion or workup was done due to transitioning to comfort measures.
She peacefully and was pronounced on 12/31/2023. Her time of was at 23:30.
Her family, and brother, were notified by at the phone.
Discharge Plan
-
Patient Disposition:
Date/Time
Date/Time: 12/31/23 23:30
Discharge Date and Time
Discharge Date/Time: 12/31/23 23:30
Print Language: DIVEHI
== END 2023-12-31 23:30 | disposition expired | DRG 698 ==
LOC: 2 NORTH 02:54
PROVIDERS: Clinical Nurse Specialist Family Health; Nurse Practitioner Primary Care; ADMITTING PHYSICIAN Internal Medicine; ATTENDING PHYSICIAN Internal Medicine; EMERGENCY PHYSICIAN Emergency Medicine; OTHER PHYSICIAN Internal Medicine; OTHER PHYSICIAN Internal Medicine Infectious Disease; OTHER PHYSICIAN Specialist; OTHER PHYSICIAN Student in an Organized Health Care Education/Training Program
PROC: 5A0935A Assistance with Respiratory Ventilation, Less than 24 Consecutive Hours, High Flow/Velocity Cannula (ICD-10-PCS; 2023-12-29)
PROC: 5A09357 Assistance with Respiratory Ventilation, Less than 24 Consecutive Hours, Continuous Positive Airway Pressure (ICD-10-PCS; 2023-12-29)
DX: T83.511A Infection and inflammatory reaction due to indwelling urethral catheter, initial encounter (principal); A41.9 Sepsis, unspecified organism; I50.33 Acute on chronic diastolic (congestive) heart failure; J96.21 Acute and chronic respiratory failure with hypoxia; R65.21 Severe sepsis with septic shock; G93.41 Metabolic encephalopathy; E43 Unspecified severe protein-calorie malnutrition; I63.411 Cerebral infarction due to embolism of right middle cerebral artery; N17.9 Acute kidney failure, unspecified; E87.20 Acidosis, unspecified; E87.1 Hypo-osmolality and hyponatremia; I13.0 Hypertensive heart and chronic kidney disease with heart failure and stage 1 through stage 4 chronic kidney disease, or unspecified chronic kidney disease; J98.11 Atelectasis; N39.0 Urinary tract infection, site not specified; E03.9 Hypothyroidism, unspecified; N18.31 Chronic kidney disease, stage 3a; E66.9 Obesity, unspecified; Z68.31 Body mass index [BMI] 31.0-31.9, adult; D64.9 Anemia, unspecified; L89.152 Pressure ulcer of sacral region, stage 2; N13.9 Obstructive and reflux uropathy, unspecified; G83.24 Monoplegia of upper limb affecting left nondominant side; R29.712 NIHSS score 12; Y84.6 Urinary catheterization as the cause of abnormal reaction of the patient, or of later complication, without mention of misadventure at the time of the procedure; Z66 Do not resuscitate; N31.9 Neuromuscular dysfunction of bladder, unspecified; N39.3 Stress incontinence (female) (male); E78.5 Hyperlipidemia, unspecified; K21.9 Gastro-esophageal reflux disease without esophagitis; K58.9 Irritable bowel syndrome, unspecified; R68.0 Hypothermia, not associated with low environmental temperature; R13.10 Dysphagia, unspecified; Z96.0 Presence of urogenital implants; Z79.4 Long term (current) use of insulin; Z79.84 Long term (current) use of oral hypoglycemic drugs; Z79.890 Hormone replacement therapy; Z79.899 Other long term (current) drug therapy; Z87.19 Personal history of other diseases of the digestive system; Z88.2 Allergy status to sulfonamides; Z88.8 Allergy status to other drugs, medicaments and biological substances
CPT/HCPCS: 0042T; 36600; 70450; 70496; 70498; 71045; 71046; 76770; 80048; 80053; 81003; 81015; 82570; 82805; 82962; 83036; 83605; 83735; 83880; 84145; 84300; 84484; 85025; 85610; 85730; 87040; 87070; 87086; 87147; 87149; 87205; 92610; 93005; 93971; 94002; 94003; 94660; 96361; 96365; 99285; Q9967